=== PATIENT | male | born 1985 | race Caucasian/White ===

== ENCOUNTER 2020-02-22 22:42 | Emergency (ER) | payer MEDICARE, MEDICAID, SELFPAY ==
[2020-02-22 23:43] VITALS: BP 136/70; PULSE 77; RESP 18; TEMP 36.7; BMI 31.6
--- NOTE | 2020-02-23 00:52 | ED.BACK ---
HPI - Back Pain/Injury General Chief Complaint: Back Pain/Injury Stated Complaint: BACK PAIN Source: patient Mode of arrival: ambulatory Limitations: no limitations History of Present Illness HPI Narrative: patient presents to ED for chronic back pain exacerbation. Patient denies any recent trauma to the abdomen or back. Patient states no fever, chills, flank pain, dysuria, hematuria, testicular pain, nausea, vomiting. Patient denies any urinary / bowel incontinence. MD elicited complaint: back pain ( Chronic back pain) Pertinent past history: prior back pain Location: lumbar spine Related Data Previous Rx's Medication Instructions Recorded cyclobenzaprine 10 mg PO TID PRN #15 tab 02/23/20 naproxen 500 mg PO BID PRN #20 tab 02/23/20 Allergies Allergy/AdvReac Type Severity Reaction Status Date / Time No Known Allergies Allergy Verified 02/22/20 22:50 Review of Systems Review of Systems: Yes all other systems are reviewed and are negative Cardiovascular: Cardiovascular: Denies dyspnea Respiratory: Respiratory: Reports as per HPI, Reports no additional respiratory complaints, Denies no additional respiratory complaints, Denies change in phlegm color, Denies chest congestion, Denies cough, Denies hemoptysis, Denies excessive phlegm production, Denies pain on inspiration, Denies pain with cough and Denies dyspnea Gastrointestinal: Gastrointestinal: Reports as per HPI, Reports no additional gastrointestinal complaints, Denies abdominal pain, Denies belching, Denies melena, Denies bloating, Denies hematochezia, Denies tenesmus, Denies change in stool character, Denies constipation, Denies GI cramping, Denies heartburn and Denies diarrhea Genitourinary: Genitourinary: Reports no additional male genitourinary complaints, Denies hematospermia, Denies hematuria, Denies oliguria, Denies difficulty urinating, Denies flank pain and Denies urinary frequency Musculoskeletal: Musculoskeletal: Reports back pain PMFSH Social History Social History Alcohol intake: current Alcohol intake frequency: a few times a month Smoking Status: Never smoker Use of substances other than those prescribed or required for medical reasons: No Advance Directives: No Advance Directives Information Provided: No Physical Exam Vital Signs and I&O and Narrative: Vital Signs and I&O: Vital Signs Temp 98.1 F 02/22/20 23:43 Pulse 77 02/22/20 23:43 Resp 18 02/22/20 23:43 BP 136/70 02/22/20 23:43 Intake & Output 02/22/20 02/22/20 02/23/20 06:59 18:59 06:59 Weight 108.862 kg Body Mass Index 31.6 Const: General: cooperative, healthy appearing, comfortable and no acute distress Orientation/consciousness: patient oriented x3 HENMT: Head: Yes normal to inspection Neck: Neck: Yes normal visual inspection, Yes full ROM, Yes no lymphadenopathy, Yes no meningeal signs, No positive Brudzinski's sign and No positive Kernig's sign Chest: Chest palpation & inspection: normal inspection of the chest, normal palpation of entire chest wall and normal inspection of the chest Resp: Effort & Inspection: normal respiratory effort, able to speak in complete sentences, normal respiratory pattern, no audible wheezes, no cough, respiratory effort not decreased and no grunting Auscultation: clear to auscultation bilaterally Cardio: Jugular venous distension: no JVD Rhythm: regular rhythm Heart sounds: S1 normal heart sound present and S2 normal heart sound present GI: Inspection: Yes normal to inspection, No abdominal wall ecchymosis, No Abdominal wall edema, No distended, No incision, No Abdominal panniculus present, No obesity and No scaphoid Palpation (GI): nontender : General: No CVA tenderness and Yes no CVA tenderness Back/Spine/Pelvis: Other: patient has normal gait on ambulation Back: no CVA tenderness, No CVA tenderness and back tenderness Thoracic/Lumbar Spine: lumbar spinal tenderness (mild) Skin: General skin exam: no rashes or lesions noted Neuro: General: patient oriented x3, no meningeal signs and CN's II-XI intact bilaterally Cranial nerves: Yes CN's II-XII intact bilaterally Gait exam (Neuro): Normal gait present Extrem: General: Yes normal to inspection and Yes full ROM Psych: Appearance: grossly normal and well kempt Course Course Course Narrative: no need for any repeat imaging. Patient denies any trauma. Patient has normal gait. Patient will be given Toradol for pain relief. Discharge Plan Discharge Clinical Impression: Chronic back pain Qualifiers: Back pain location: low back pain Back pain laterality: midline Patient Disposition: Elopement Instructions: Chronic Back Pain (DC) Additional Instructions: return to the ED immediately for any urinary/ bowel incontinence, abdominal pain, nausea, vomiting, fever, chills, flank pain, dysuria, hematuria, paralysis of lower extremities, nausea, vomiting, dizziness, headache, or any other concerning symptoms. please follow-up with your primary care provider as soon as possible. Call today for follow-up appointment Prescriptions: New naproxen 500 mg tablet 500 mg PO BID PRN (Reason: pain) Qty: 20 RF: 0 cyclobenzaprine 10 mg tablet 10 mg PO TID PRN (Reason: muscle spasm) Qty: 15 RF: 0 Interventions: ED Discharge Assessment Last Done: 02/23/20 01:08 Discharge Date/Time: 02/23/20 01:15 Print Language: Setswana
[2020-02-23] MEDS: Ketorolac Tromethamine 60 MG/2 ML VIAL IM (00:58)
== END 2020-02-23 01:15 | disposition left against medical advice (07) ==
PROVIDERS: Emergency Provider Internal Medicine
DX: M54.5 Low back pain (principal)
CPT/HCPCS: 96372; 99284; J1885

== ENCOUNTER 2020-08-13 02:29 | Emergency (ER) | payer MEDICARE, MEDICAID, SELFPAY ==
--- NOTE | ~2020-08-13 | CT_ITS ---
EXAMINATIONS: CT HEAD WITHOUT CONTRAST AND CT CERVICAL SPINE WITHOUT CONTRAST CLINICAL INFORMATION: Fall. Seizure. COMPARISON: Multiple prior exams are reviewed. The most recent is from 10/05/2019. TECHNIQUE: Contiguous helical images of the brain were obtained without IV contrast. Contiguous helical images of the cervical spine were obtained without IV contrast. Multiplanar reconstructions were performed. DLP: 798 mGy-cm. FINDINGS: There are no pathologic extra-axial fluid collections. The lateral, third, fourth ventricles are nondilated and concordant with the appearance of the sulci. There is no evidence for acute intraparenchymal hemorrhage or infarct. There is neither mass nor mass effect. There is no shift of midline structures. The paranasal sinuses and mastoid air cells are clear. There are no osseous lesions. The cervical vertebra are in normal alignment. Disc heights and vertebral heights are well-preserved. There are no fractures. There is no prevertebral soft tissue swelling. There is no cervical lymphadenopathy. The visualized lung apices are clear. CT/CT head/brain wo con IMPRESSION: No evidence for acute intracranial injury. No evidence for acute injury to the cervical spine. Automated exposure control (Care Dose) Adjustment of the mA and/or kv according to patient size (this includes techniques or standardized protocols for targeted exams where dose is matched to indication / reason for exam; i.e. extremities or head).
--- NOTE | ~2020-08-13 | CT_ITS ---
EXAMINATIONS: CT HEAD WITHOUT CONTRAST AND CT CERVICAL SPINE WITHOUT CONTRAST CLINICAL INFORMATION: Fall. Seizure. COMPARISON: Multiple prior exams are reviewed. The most recent is from 10/05/2019. TECHNIQUE: Contiguous helical images of the brain were obtained without IV contrast. Contiguous helical images of the cervical spine were obtained without IV contrast. Multiplanar reconstructions were performed. DLP: 798 mGy-cm. FINDINGS: There are no pathologic extra-axial fluid collections. The lateral, third, fourth ventricles are nondilated and concordant with the appearance of the sulci. There is no evidence for acute intraparenchymal hemorrhage or infarct. There is neither mass nor mass effect. There is no shift of midline structures. The paranasal sinuses and mastoid air cells are clear. There are no osseous lesions. The cervical vertebra are in normal alignment. Disc heights and vertebral heights are well-preserved. There are no fractures. There is no prevertebral soft tissue swelling. There is no cervical lymphadenopathy. The visualized lung apices are clear. CT/CT cervical spine wo con IMPRESSION: No evidence for acute intracranial injury. No evidence for acute injury to the cervical spine. Automated exposure control (Care Dose) Adjustment of the mA and/or kv according to patient size (this includes techniques or standardized protocols for targeted exams where dose is matched to indication / reason for exam; i.e. extremities or head).
[2020-08-13 02:38] VITALS: BP 138/77; BP 150/70; PULSE 110; PULSE 67; RESP 18; TEMP 36.4; O2SAT 100; BMI 58.7
[2020-08-13 02:44] LABS: Glucose, Whole Blood 119 mg/dL (60-115)
[2020-08-13 03:44] VITALS: BP 128/69; PULSE 70; RESP 17; O2SAT 95
--- NOTE | 2020-08-13 04:02 | ED.GENADULT ---
HPI - General Adult General Chief complaint: General Medical Stated complaint: ?Seizure Time Seen by Provider: 08/13/20 03:39 Source: patient Mode of arrival: EMS History of Present Illness HPI narrative: This is a 35-year-old male who states that he was at the club this evening and had for fernandez is but otherwise denies any other drugs or marijuana. He states that he has seizures all the time but has not been placed on any medications. As per EMS it was reported the patient had a seizure for ?40 minutes? and as per EMS seizure got worse with sternal rub. Protocol was followed with C-collar placed and EMS denies any postictal features when seizures stopped. Otherwise, patient denies any fevers, chills, recent COVID-19 exposure. Related Data Home Medications Medication Instructions Recorded Confirmed lisinopril 1 tab PO DAILY 08/13/20 08/13/20 Allergies Allergy/AdvReac Type Severity Reaction Status Date / Time No Known Allergies Allergy Verified 02/22/20 22:50 Review of Systems Review of Systems: Pertinent positives and negatives as stated in HPI 10 point review of systems is otherwise negative. PMFSH Past Medical History Source: nursing notes reviewed Medical History Bipolar 1 disorder Chronic back pain ETOH abuse HTN (hypertension) Non compliance w medication regimen Non compliance with medical treatment Obesity Polysubstance abuse Seizure Social History Social History Alcohol intake: current Alcohol intake frequency: a few times a month Smoking Status: Never smoker Advance Directives: No Physical Exam Vital Signs: Vital Signs: Last Vital Signs Temp 97.6 F 08/13/20 02:38 Pulse 72 08/13/20 07:01 Resp 16 08/13/20 07:01 BP 133/75 08/13/20 07:01 Pulse Ox 98 08/13/20 07:01 Body Mass Index 58.7 VITAL SIGNS: Reviewed. GENERAL: Well developed, well nourished, in no acute distress. HEAD: Normocephalic/atraumatic, EYES: PERRLA, EOMI OROPHARYNX: no oral lesions noted, posterior pharynx clear, no intraoral lesion NECK: Supple, no adenopathy LUNGS: Normal breath sounds. No adventitious sounds or accessory muscle use. SpO2<98> CARDIOVASCULAR: Regular rate and rhythm without noted murmurs ABDOMEN: Soft, non-tender, non-distended with bowel sounds. NEUROLOGIC: Alert and oriented x 4. Strength and sensation to light touch were grossly intact x 4. Course Course Course Narrative: This is a 35-year-old male with history and clinical presentation suspicious for possible pseudoseizures given that patient has not been started on any medications and self reports that he still drives. On review of all investigations there are no acute findings other than urine toxicology showing positivity for cocaine and alcohol. All imaging was negative for any acute findings, C-collar was cleared, and patient was discharged to home in stable condition. Medical Decision Making Lab Data Result diagrams: 08/13/20 04:21 08/13/20 04:21 Labs: Lab Results 08/13/20 08/13/20 08/13/20 Range/Units 02:40 04:19 04:19 WBC (4.8-10.8) X10*3/uL RBC (4.60-5.80) X10*6/uL Hgb (14.0-18.0) g/dl Hct (42-52) % MCV (80-98) fL MCH (27.0-33.0) pg MCHC (31.0-36.0) g/dl RDW (11.0-16.0) % Plt Count (160-400) X10*3/uL MPV (9.4-12.4) fL Immature Gran % (Auto) (0.0-0.4) % Neut % (Auto) (45-73) % Lymph % (Auto) (20-40) % [place] % (Auto) (2-11) % Eos % (Auto) (0-4) % Baso % (Auto) (0-2) % Lymph # (Auto) (1.2-4.9) X10*3/uL [place] # (Auto) (0.1-1.2) X10*3/uL Eos # (Auto) (0.0-0.4) X10*3/uL Baso # (Auto) (0.0-0.2) X10*3/uL Abs Immat Gran (auto) (0.00-0.03) X10*3/uL Absolute Neuts (auto) (2.0-8.3) X10*3/uL Absolute Nucleated RBC (0.0-0.012) X10*3/uL Nucleated RBC % (auto) (0.0-0.2) /100WBC Sodium (135-145) mmol/L Potassium (3.3-5.1) mmol/L Chloride (96-108) mmol/L Carbon Dioxide (22-29) mmol/L Anion Gap (12-20) BUN (9-16) mg/dL Creatinine (0.5-1.4) mg/dL Estim Creat Clear Calc Estimated GFR POC Glucose 119 H (60-115) mg/dL Random Glucose (60-115) mg/dL Calcium (8.4-10.2) mg/dL Total Bilirubin (0.0-1.0) mg/dL AST (5-37) U/L ALT (0-40) U/L Alkaline Phosphatase (39-117) U/L Total Protein (6.5-8.0) g/dL Albumin (3.5-5.0) g/dL Urine Color STRAW Urine Appearance CLEAR Urine pH 5.5 (5.0-8.0) Ur Specific [place] 1.010 (1.005-1.025) Urine Protein NEG (NEG-TRACE) MG/DL Urine Glucose (UA) NEG (NEG) MG/DL Urine Ketones NEG (NEG) MG/DL Urine Blood NEG (NEG) Urine Nitrite NEG (NEG) Ur Leukocyte Esterase NEG (NEG) Urine Opiates Screen Not Detected (Not Detect) Ur Barbiturates Screen Not Detected (Not Detect) Ur Phencyclidine Scrn Not Detected (Not Detect) Ur Amphetamines Screen Not Detected (Not Detect) U Benzodiazepines Scrn Not Detected (Not Detect) Urine Cocaine Screen POSITIVE H (Not Detect) U Marijuana (THC) Screen Not Detected (Not Detect) Ethyl Alcohol mg/dL 08/13/20 08/13/20 08/13/20 Range/Units 04:21 04:21 04:21 WBC 8.2 (4.8-10.8) X10*3/uL RBC 4.91 (4.60-5.80) X10*6/uL Hgb 14.1 (14.0-18.0) g/dl Hct 42.7 (42-52) % MCV 87.0 (80-98) fL MCH 28.7 (27.0-33.0) pg MCHC 33.0 (31.0-36.0) g/dl RDW 12.4 (11.0-16.0) % Plt Count 175 (160-400) X10*3/uL MPV 11.9 (9.4-12.4) fL Immature Gran % (Auto) 0.1 (0.0-0.4) % Neut % (Auto) 59.5 (45-73) % Lymph % (Auto) 25.7 (20-40) % [place] % (Auto) 11.5 H (2-11) % Eos % (Auto) 2.5 (0-4) % Baso % (Auto) 0.7 (0-2) % Lymph # (Auto) 2.1 (1.2-4.9) X10*3/uL [place] # (Auto) 0.9 (0.1-1.2) X10*3/uL Eos # (Auto) 0.2 (0.0-0.4) X10*3/uL Baso # (Auto) 0.1 (0.0-0.2) X10*3/uL Abs Immat Gran (auto) 0.01 (0.00-0.03) X10*3/uL Absolute Neuts (auto) 4.9 (2.0-8.3) X10*3/uL Absolute Nucleated RBC 0.000 (0.0-0.012) X10*3/uL Nucleated RBC % (auto) 0.0 (0.0-0.2) /100WBC Sodium 140 (135-145) mmol/L Potassium 4.2 (3.3-5.1) mmol/L Chloride 106 (96-108) mmol/L Carbon Dioxide 22 (22-29) mmol/L Anion Gap 16 (12-20) BUN 14 (9-16) mg/dL Creatinine 0.85 (0.5-1.4) mg/dL Estim Creat Clear Calc 175.5 Estimated GFR > 60 POC Glucose (60-115) mg/dL Random Glucose 105 (60-115) mg/dL Calcium 8.6 (8.4-10.2) mg/dL Total Bilirubin 0.5 (0.0-1.0) mg/dL AST 20 (5-37) U/L ALT 23 (0-40) U/L Alkaline Phosphatase 83 (39-117) U/L Total Protein 7.0 (6.5-8.0) g/dL Albumin 4.2 (3.5-5.0) g/dL Urine Color Urine Appearance Urine pH (5.0-8.0) Ur Specific [place] (1.005-1.025) Urine Protein (NEG-TRACE) MG/DL Urine Glucose (UA) (NEG) MG/DL Urine Ketones (NEG) MG/DL Urine Blood (NEG) Urine Nitrite (NEG) Ur Leukocyte Esterase (NEG) Urine Opiates Screen (Not Detect) Ur Barbiturates Screen (Not Detect) Ur Phencyclidine Scrn (Not Detect) Ur Amphetamines Screen (Not Detect) U Benzodiazepines Scrn (Not Detect) Urine Cocaine Screen (Not Detect) U Marijuana (THC) Screen (Not Detect) Ethyl Alcohol 91 mg/dL Discharge Plan Discharge Clinical Impression: Movement disorder Patient Disposition: Home, Self-Care Instructions: Nonepileptic Seizures (ED) Additional Instructions: Please return to the emergency department should you experience any acute worsening of symptoms. Please follow-up with your primary care provider in the next 2-3 days for re-evaluation. Prescriptions: No Action lisinopril 10 mg tablet 1 tab PO DAILY RF: 0 Referrals: [facility] [Primary Care Provider] - 2 days Interventions: ED Discharge Assessment Last Done: 08/13/20 07:05 Discharge Date/Time: 08/13/20 07:06
[2020-08-13 04:27] LABS: MANUAL DIFF FLAG NO
[2020-08-13 04:28] LABS: Basophils Absolute Auto 0.1 X10*3/uL (0.0-0.2); Basophils Percent Auto 0.7 % (0-2); Eosinophils Absolute Auto 0.2 X10*3/uL (0.0-0.4); Eosinophils Percent Auto 2.5 % (0-4); Hematocrit 42.7 % (42-52); Hemoglobin 14.1 g/dl (14.0-18.0); Imm Gran Abs Auto 0.01 X10*3/uL (0.00-0.03); Imm Gran Pct Auto 0.1 % (0.0-0.4); Lymphocytes Absolute Auto 2.1 X10*3/uL (1.2-4.9); Lymphocytes Percent Auto 25.7 % (20-40); Mean Corpuscular Hemoglobin 28.7 pg (27.0-33.0); Mean Platelet Volume 11.9 fL (9.4-12.4); Monocytes Absolute Auto 0.9 X10*3/uL (0.1-1.2); Monocytes Percent Auto 11.5 % (2-11); Neutrophils Absolute Auto 4.9 X10*3/uL (2.0-8.3); Neutrophils Percent Auto 59.5 % (45-73); Platelet Count 175 X10*3/uL (160-400); Red Blood Count 4.91 X10*6/uL (4.60-5.80); Red Cell Distribution Width 12.4 % (11.0-16.0); White Blood Count 8.2 X10*3/uL (4.8-10.8)
--- NOTE | 2020-08-13 04:38 | PC.NURSE ---
pt unable to void, several attempts. attempt to straight cath, pt insisted we stop. pt then able to void into urinal on his own, aprox 800 ml. pt then became nauseous, rolled to left side and vomited small amount of liquid. pt awake and alert, asking to go home. pt remembers being in the club, when he had a seizure. c-collar removed by . pt moving all extremities. pt cooperative forlab draw, he had IV access from EMS.
[2020-08-13 04:45] LABS: Appearance Urine CLEAR; Color Urine STRAW; Glucose Urine UA NEG (NEG); Leukocyte Esterase Urine NEG (NEG); Nitrite Urine NEG (NEG); PH 5.5 (5.0-8.0); Urine Blood NEG (NEG); Urine Ketones NEG (NEG); Urine Protein NEG (NEG-TRACE)
[2020-08-13 04:48] LABS: Ethanol 91 mg/dL
[2020-08-13 04:51] LABS: Alanine Aminotransferase 23 U/L (0-40); Albumin Level 4.2 g/dL (3.5-5.0); Alkaline Phosphatase 83 U/L (39-117); Anion Gap 16 (12-20); Aspartate Amino Transferase 20 U/L (5-37); Bilirubin Total 0.5 mg/dL (0.0-1.0); Blood Urea Nitrogen 14 mg/dL (9-16); Calcium 8.6 mg/dL (8.4-10.2); Carbon Dioxide 22 mmol/L (22-29); Chloride 106 mmol/L (96-108); Creatinine Clr Calc Pharmacy 175.5; Estimated Glomerular Filt Rate > 60; Glucose Random 105 mg/dL (60-115); Potassium 4.2 mmol/L (3.3-5.1); Sodium 140 mmol/L (135-145)
[2020-08-13 05:05] LABS: Amphetamine Screen Urine Not Detected (Not Detect); Barbiturates, Urine Not Detected (Not Detect); Benzodiazepines Screen Urine Not Detected (Not Detect); Cannabinoid Screen Urine Not Detected (Not Detect); Cocaine Screen Urine POSITIVE (Not Detect); Opiate Screen Urine Not Detected (Not Detect); Phencyclidine Screen Urine Not Detected (Not Detect)
--- NOTE | 2020-08-13 05:36 | PC.NURSE ---
CALLED BOTH AUNT AND MOTHER FOR RIDE. INDIAN SPEAKING ONLY, PT SPOKE TO PARENTS ON PHONE. PT HUNG UP, ASKED FOR A PAID CAB RIDE HOME. PT TOLD HE NEEDS TO PAY FOR THE CAB, HE SAID NEVER MIND, I'LL JUST WALK HOME. GIS ENGINEER CALLED TO CALL FAMILY BACK TO ASK FOR RIDE.
--- NOTE | 2020-08-13 05:47 | PC.NURSE ---
CHARGE NURSE WORKING ON GETTING A [facility]YFT TRANSPORT HOME FOR PATIENT.
--- NOTE | 2020-08-13 06:10 | PC.NURSE ---
PT AWAKE AND ALERT, DRINKING ICE WATER. FULLY DRESSED WAITING FOR RIDE.
--- NOTE | 2020-08-13 06:59 | PC.NURSE ---
PT GIVEN CAB VOUCHER, AMBULATORY WITH STEADY GAIT TO WAITING ROOM WITH THIS RN. PT UNDERSTANDS TO HYDRATE WELL TODAY. CALL [phone] IF HE FEELS LIKE HE MAY HAVE A SEIZURE. PT HEADING TO [address] [place] [address], HE REPORTS HIS MOTHER LIVES THERE.
[2020-08-13 07:01] VITALS: BP 133/75; PULSE 72; RESP 16; O2SAT 98
== END 2020-08-13 07:06 | disposition home or self-care (01) ==
PROVIDERS: Emergency Provider Student in an Organized Health Care Education/Training Program
DX: G25.9 Extrapyramidal and movement disorder, unspecified (principal); F10.10 Alcohol abuse, uncomplicated; Y90.4 Blood alcohol level of 80-99 mg/100 ml; F14.10 Cocaine abuse, uncomplicated; I10 Essential (primary) hypertension; Z79.899 Other long term (current) drug therapy
CPT/HCPCS: 36415; 51701; 70450; 72125; 80053; 80307; 80320; 81003; 82947; 85025; 99283; 99284

== ENCOUNTER 2020-11-07 19:59 | Emergency (ER) | payer MEDICARE, MEDICAID, SELFPAY ==
--- NOTE | ~2020-11-07 | XR_ITS ---
EXAMINATION: XR TIBIA AND FIBULA, LEFT CLINICAL INFORMATION: Question foreign body proximal lower leg. COMPARISON: None TECHNIQUE: AP and lateral views of the left tibia and fibula were obtained. FINDINGS: Is no gross bony abnormality seen. There is calcification connecting the lower tibia and fibula likely from old injury and interosseous or calcification. No radiopaque foreign body seen. There is no soft tissue abnormality. No periosteal thickening or fracture. Small calcaneal enthesophytes seen. XR/XR tibia fibula LT 2V IMPRESSION: No radiopaque foreign body seen in left lower leg.
[2020-11-07 20:06] VITALS: BP 145/73; PULSE 63; RESP 20; TEMP 36.1; O2SAT 98; BMI 50.5
--- NOTE | 2020-11-07 21:15 | ED_ITS ---
HPI - Extremity Problem General Chief complaint: Extremity Problem Stated complaint: foreign object in leg? Time Seen by Provider: 11/07/20 21:13 Source: patient Mode of arrival: ambulatory History of Present Illness HPI Narrative: 35-year-old male with history of epilepsy who presents with 1 week of accidental injury to the left lateral aspect of the proximal lower leg without evidence of fever chills, induration but mother is concerned about purulence drainage. Related Data Home Medications Medication Instructions Recorded Confirmed lisinopril 1 tab PO DAILY 08/13/20 08/13/20 Previous Rx's Medication Instructions Recorded sulfamethoxazole-trimethoprim 1 tab PO Q12H 3 Days #6 tab 11/07/20 [Bactrim DS] Allergies Allergy/AdvReac Type Severity Reaction Status Date / Time No Known Allergies Allergy Verified 02/22/20 22:50 Review of Systems Review of Systems: Pertinent positives and negatives as stated in HPI and 10 point review of systems otherwise negative. PMFSH Past Medical History Source: nursing notes reviewed Medical History Bipolar 1 disorder Chronic back pain ETOH abuse HTN (hypertension) Non compliance w medication regimen Non compliance with medical treatment Obesity Polysubstance abuse Seizure Social History Social History Alcohol intake: unknown Patient Tobacco Use Status: Tobacco use Unknown Use of substances other than those prescribed or required for medical reasons: Unknown Advance Directives: No Advance Directives Information Provided: Yes Physical Exam Vital Signs: Vital Signs: Last Vital Signs Temp 97.9 F 11/07/20 22:15 Pulse 57 11/07/20 22:15 Resp 17 11/07/20 22:15 BP 131/68 11/07/20 22:15 Pulse Ox 98 11/07/20 22:15 Body Mass Index 50.5 VITAL SIGNS: Reviewed. GENERAL: Well developed, well nourished, in no acute distress. HEAD: Normocephalic/atraumatic EYES: PERRLA, EOMI LUNGS: Normal breath sounds. No adventitious sounds or accessory muscle use. SpO2<98> CARDIOVASCULAR: Regular rate and rhythm without noted murmurs ABDOMEN: Soft, non-tender, non-distended with bowel sounds LEFT LOWER EXTREMITY: 1 cm puncture-type injury to the proximal left lateral aspect of the lower leg with mild surrounding erythema and induration, but no drainage appreciated Course Course Course Narrative: 35-year-old male with history and clinical presentation of puncture injury to left lower extremity without evidence acute infection, will x-ray to evaluate for presence of foreign body. Review of XR negative for evidence of foreign body, irrigation of the wound and manual expression of minimal amounts of purulent material, patient given initial antibiotics here in the emergency room as well as a Tdap and discharged home in stable condition. Discharge Plan Discharge Clinical Impression: Folliculitis, Cellulitis Patient Disposition: Home, Self-Care Instructions: Cellulitis (ED), Folliculitis (ED), Warm Compress or Soak (ED) Additional Instructions: 1. Resume all home medications as prescribed. 2. Follow-up with your primary care provider in the next 2-3 days for re- evaluation. Return to the ER for any acute worsening of your symptoms. Prescriptions: New sulfamethoxazole-trimethoprim [Bactrim DS] 800-160 mg tablet 1 tab PO Q12H 3 Days Qty: 6 RF: 0 No Action lisinopril 10 mg tablet 1 tab PO DAILY RF: 0 Referrals: Trinidad Martínez MD [Primary Care Provider] - 2 days
[2020-11-07 22:15] VITALS: BP 131/68; PULSE 57; RESP 17; TEMP 36.6; O2SAT 98
[2020-11-07] MEDS: Diphth,Pertus(ACell),Tet Adult 0.5 ML SYRINGE IM (22:47)
== END 2020-11-07 23:05 | disposition home or self-care (01) ==
PROVIDERS: Emergency Provider Student in an Organized Health Care Education/Training Program; PCP Internal Medicine
DX: S81.832A Puncture wound without foreign body, left lower leg, initial encounter (principal); L03.116 Cellulitis of left lower limb; L73.9 Follicular disorder, unspecified; I10 Essential (primary) hypertension; G40.909 Epilepsy, unspecified, not intractable, without status epilepticus; Z79.899 Other long term (current) drug therapy; X58.XXXA Exposure to other specified factors, initial encounter; Y93.9 Activity, unspecified; Y92.9 Unspecified place or not applicable; Y99.9 Unspecified external cause status
CPT/HCPCS: 73590; 90471; 90715; 99284

== ENCOUNTER 2020-11-10 16:59 | Emergency (ER) | payer OTHER, MEDICARE, MEDICAID, SELFPAY ==
--- NOTE | ~2020-11-10 | XR_ITS ---
EXAMINATION: THORACIC SPINE 3 VIEWS AND LUMBOSACRAL SPINE 3 VIEWS CLINICAL INFORMATION: Back pain COMPARISON: None TECHNIQUE: As above nonweightbearing FINDINGS: Since his syndesmophytes herniation of disc spaces consistent with dish throughout the thoracolumbar spine. There is moderate disc space narrowing at L5-S1 characteristic of degenerative disc disease. Limited detail at the cervicothoracic junction. XR/XR lumbar spine 2-3V IMPRESSION: Findings of dish. Limited detail. Severe degenerative disc disease L5-S1.
--- NOTE | ~2020-11-10 | XR_ITS ---
EXAMINATION: THORACIC SPINE 3 VIEWS AND LUMBOSACRAL SPINE 3 VIEWS CLINICAL INFORMATION: Back pain COMPARISON: None TECHNIQUE: As above nonweightbearing FINDINGS: Since his syndesmophytes herniation of disc spaces consistent with dish throughout the thoracolumbar spine. There is moderate disc space narrowing at L5-S1 characteristic of degenerative disc disease. Limited detail at the cervicothoracic junction. XR/XR thoracic spine 2V IMPRESSION: Findings of dish. Limited detail. Severe degenerative disc disease L5-S1.
[2020-11-10 17:21] VITALS: BP 141/80; PULSE 71; RESP 18; O2SAT 97; BMI 46.6
--- NOTE | 2020-11-10 19:26 | ED.BACK ---
HPI - Back Pain/Injury General Chief Complaint: Back Pain/Injury Stated Complaint: Back pain/Work injury Source: patient Mode of arrival: ambulatory Limitations: no limitations History of Present Illness HPI Narrative: 35-year-old male with past medical history of morbid obesity presents with back pain after work related injury. Patient states that his entire back cracked after he lifted a water heater. He does not report any symptoms indicating cauda equina, has full range of motion to all extremities, was ambulatory into this facility. He does not report any other symptoms, denies chest pain or pressure, palpitations, shortness of breath, shortness of breath on exertion, abdominal pain, abdominal distention, dysuria, hematuria, fevers, chills, edema, and any other concerning symptoms. MD elicited complaint: back injury Pertinent past history: recent trauma Onset (ago): hour(s) (Several hours prior to arrival) Timing: constant Severity: severe Pain scale (0-10): 10 Similar Symptoms Previously: No Quality: aching and spasming Location: lumbar spine and thoracic spine Radiation: none Exacerbating factors: movement and walking Context: while lifting and turning/twisting Associated symptoms: denies other symptoms Work related injury: Yes Related Data Home Medications Medication Instructions Recorded Confirmed lisinopril 1 tab PO DAILY 08/13/20 08/13/20 Previous Rx's Medication Instructions Recorded sulfamethoxazole-trimethoprim 1 tab PO Q12H 3 Days #6 tab 11/07/20 [Bactrim DS] cyclobenzaprine 10 mg PO TID PRN #14 tab 11/10/20 Allergies Allergy/AdvReac Type Severity Reaction Status Date / Time No Known Allergies Allergy Verified 11/10/20 17:21 Review of Systems Review of Systems: Constitutional: No Fever, No Chills ENT/Mouth: No Ear Pain, No Hoarseness, No sore throat Eyes: No Eye Pain, No Swelling, No Redness, No Foreign Body Cardiovascular: No Chest Pain, No SOB Respiratory: No Cough, No Dyspnea Gastrointestinal: No Nausea, No Vomiting, No Diarrhea, No abdominal Pain Genitourinary: No Dysuria, No Hematuria Musculoskeletal: positive back pain, No Myalgias, No Joint Swelling Skin: No Skin lacerations, No rash Neuro: No Weakness, No Numbness, No Paresthesias, No Loss of Consciousness, No Dizziness, No Headache Psych: No Anxiety/Panic, No Depression Heme/Lymph: no easy bruising, no Lymphadenopathy Endocrine: No Polyuria, No Polydipsia Yes all other systems are reviewed and are negative [facility] Past Medical History Attestation statement: The following information was validated with the patient. Source: old records reviewed Medical History Bipolar 1 disorder Chronic back pain ETOH abuse HTN (hypertension) Non compliance w medication regimen Non compliance with medical treatment Obesity Polysubstance abuse Seizure Social History Social History Alcohol intake: unknown Patient Tobacco Use Status: Tobacco use Unknown Advance Directives: No Physical Exam Vital Signs: Vital Signs: Last Vital Signs Pulse 71 11/10/20 17:21 Resp 18 11/10/20 17:21 BP 141/80 H 11/10/20 17:21 Pulse Ox 97 11/10/20 17:21 Body Mass Index 46.6 Appearance: Alert. Oriented X3. No acute distress. Eyes: Pupils equal, round and reactive to light. ENT: Pharynx normal. Neck: Normal inspection. Neck supple. CVS: Normal heart rate and rhythm. Pulses normal. Respiratory: No respiratory distress. Breath sounds normal. Abdomen: Soft and nontender. Skin: Skin warm and dry. Normal skin color. Normal skin turgor. Extremities: No lower extremity edema. Neuro: No motor deficit. No sensory deficit. Course Course Course Narrative: 35-year-old male presents with back pain after work related injury. Will order x-rays of thoracic and lumbar spine. No indication of cauda equina, has full range of motion, ambulatory into this facility. Negative Romberg. No vertebral tenderness or step-offs noted to the entire spine. No focal neural deficits, sensation intact to all extremities. Thoracic and lumbar spine x-ray shows degenerative disc disease. Will have patient follow up with work connection as well as pain management for further workup. Patient verbalized understanding of and agrees to plan of care discharge home. MDM - Back Pain/Injury Differential Diagnosis Differential diagnosis: Likely lumbar radiculopathy, sciatica, strain of lumbar region and thoracic back pain Medical Records Attestation: I reviewed the patient's medical records. Imaging Data Thoracic spine: Attestation: I personally reviewed and interpreted this imaging study as follows: Radiologist's impression: EXAMINATION: THORACIC SPINE 3 VIEWS AND LUMBOSACRAL SPINE 3 VIEWS CLINICAL INFORMATION: Back pain COMPARISON: None TECHNIQUE: As above nonweightbearing FINDINGS: Since his syndesmophytes herniation of disc spaces consistent with dish throughout the thoracolumbar spine. There is moderate disc space narrowing at L5-S1 characteristic of degenerative disc disease. Limited detail at the cervicothoracic junction. XR/XR thoracic spine 2V IMPRESSION: Findings of dish. Limited detail. Severe degenerative disc disease L5-S1. Lumbar spine: Attestation: I personally reviewed and interpreted this imaging study as follows: Radiologist's impression: EXAMINATION: THORACIC SPINE 3 VIEWS AND LUMBOSACRAL SPINE 3 VIEWS CLINICAL INFORMATION: Back pain COMPARISON: None TECHNIQUE: As above nonweightbearing FINDINGS: Since his syndesmophytes herniation of disc spaces consistent with dish throughout the thoracolumbar spine. There is moderate disc space narrowing at L5-S1 characteristic of degenerative disc disease. Limited detail at the cervicothoracic junction. Discharge Plan Discharge Clinical Impression: Strain of lumbar region Qualifiers: Encounter type: initial encounter Qualified Code(s): S39.012A - Strain of muscle, fascia and tendon of lower back, initial encounter Degenerative disc disease Qualifiers: Spinal region: lumbar Qualified Code(s): M51.36 - Other intervertebral disc degeneration, lumbar region Patient Disposition: Home, Self-Care Instructions: Low Back Strain (ED), Degenerative Disc Disease (ED) Additional Instructions: You were evaluated for thoracic and lower back injury sustained at work. X-rays indicate degenerative disc disease with muscular spasms. Please take cyclobenzaprine as directed. This medication is a muscle relaxer, do not drive or operate machinery while taking this medication. This medication can cause drowsiness, delay reaction time, and increased risk for falls. Please follow-up with work connection. You may consider following up with Pain Management, Dr Stokes. I have provided a referral number for you. Thank you for choosing this emergency department for evaluation. Please follow-up with primary care physician as needed. Return to the emergency department for any new, concerning, or worsening symptoms. Prescriptions: New cyclobenzaprine 10 mg tablet 10 mg PO TID PRN (Reason: muscle spasm) Qty: 14 RF: 0 No Action lisinopril 10 mg tablet 1 tab PO DAILY RF: 0 sulfamethoxazole-trimethoprim [Bactrim DS] 800-160 mg tablet 1 tab PO Q12H 3 Days Qty: 6 RF: 0 Referrals: Vini Stokes MD [Physician] - 2 days (Degenerative disc disease) Stand Alone Forms: Work/School Release
[2020-11-10] MEDS: Ketorolac Tromethamine 60 MG/2 ML VIAL 30 MG IM (20:32)
[2020-11-10] MEDS: Cyclobenzaprine HCl 10 MG TABLET PO (20:33)
== END 2020-11-10 21:03 | disposition home or self-care (01) ==
PROVIDERS: Emergency Provider Internal Medicine; PCP Internal Medicine
DX: S39.012A Strain of muscle, fascia and tendon of lower back, initial encounter (principal); M51.36 Other intervertebral disc degeneration, lumbar region; I10 Essential (primary) hypertension; X50.0XXA Overexertion from strenuous movement or load, initial encounter; Y93.9 Activity, unspecified; Y92.89 Other specified places as the place of occurrence of the external cause; Y99.0 Civilian activity done for income or pay
CPT/HCPCS: 72070; 72100; 96372; 99284; J1885

== ENCOUNTER 2021-01-19 03:31 | Emergency (ER) | payer MEDICARE, MEDICAID, SELFPAY ==
[2021-01-19 03:35] VITALS: BP 128/82; PULSE 94; RESP 18; TEMP 36.3; O2SAT 98; BMI 35.9
[2021-01-19 04:00] VITALS: PULSE 84; RESP 16; O2SAT 99
--- NOTE | 2021-01-19 05:58 | ED.GENADULT ---
HPI - General Adult General Chief complaint: ETOH/Substance Use Stated complaint: etoh Time Seen by Provider: 01/19/21 05:58 Source: patient and EMS Mode of arrival: EMS Limitations: no limitations History of Present Illness HPI narrative: 35-year-old male history of alcohol abuse, came in by ambulance for evaluation after drinking alcohol. This is a 35-year-old male came in by ambulance for evaluation of alcohol intoxication, patient's in the emergency department for also alcohol intoxication, patient came to the hospital to see his , while I interviewed the patient patient started to have a pseudo-seizure activity patient was conscious during the seizure activity. After the seizure activity patient regained full consciousness immediately. With no postictal time Related Data Previous Rx's Medication Instructions Recorded sulfamethoxazole 800 1 tab PO Q12H 3 Days #6 tab 11/07/20 mg-trimethoprim 160 mg tablet (Bactrim DS) cyclobenzaprine 10 mg tablet 10 mg PO TID PRN #14 tab 11/10/20 lisinopril 20 mg tablet 20 mg PO DAILY 90 Days #90 tab 11/21/20 Allergies Allergy/AdvReac Type Severity Reaction Status Date / Time No Known Allergies Allergy Verified 11/21/20 13:46 Review of Systems Review of Systems: All other systems are reviewed and are negative Constitutional: Reports as per HPI and Reports no additional constitutional complaints Eyes: Reports as per HPI and Reports no additional eye complaints Reports system reviewed and no additional complaints, except as documented Cardiovascular: Reports as per HPI and Reports no additional cardiovascular complaints Respiratory: Reports as per HPI and Reports no additional respiratory complaints Gastrointestinal: Reports as per HPI and Reports no additional gastrointestinal complaints Genitourinary: Reports no additional female genitourinary complaints Musculoskeletal: Reports no additional musculoskeletal complaints Skin/Breast: Reports system reviewed and no additional complaints, except as docu Psychiatric: Reports no additional psychiatric complaints Endocrine: Reports no additional endocrine complaints Hematologic/Lymphatic: Reports no additional hematologic/lymphatic complaints Allergic/Immunologic: Reports no additional allergic/immunologic complaints Reports system reviewed and no additional complaints, except as documented and Reports Abnormal speech present [facility] Past Medical History Medical History Bipolar 1 disorder Chronic back pain ETOH abuse HTN (hypertension) Lumbar pain Non compliance w medication regimen Non compliance with medical treatment Obesity Polysubstance abuse Seizure Surgical History No pertinent past surgical history Family History Family History Mother Hypertension Diabetes Cancer Father Diabetes Hypertension Social History Social History Housing: Apartment Housing Other:: living with aunt Alcohol intake: current Alcohol intake frequency: a few times a month Alcohol type: beer Patient Tobacco Use Status: Former Tobacco user Tobacco use type: Cigarette Smoked in Last 30 Days: No e-Cigarette/Vaping Use: Never Used Second Hand Smoke Exposure: No Use of substances other than those prescribed or required for medical reasons: Yes Substance Use Type: Crack/Cocaine Advance Directives: No service: No Current occupational status: unemployed Physical Exam Vital Signs: Vital Signs: Last Vital Signs Temp 97.3 F 01/19/21 03:35 Pulse 84 01/19/21 04:00 Resp 16 01/19/21 04:00 BP 128/82 01/19/21 03:35 Pulse Ox 99 01/19/21 04:00 Body Mass Index 35.9 Vital signs have been reviewed as appeared to be correct. Blood pressure normal. Heart rate normal. Respiration rate normal. Temperature normal. Oxygen saturation normal. Appearance: Alert. Oriented X3. No acute distress. Head: Normal external exam. Normocephalic. Atraumatic. No Carrasco signs noted. No raccoon eyes noted Eyes: PERRLA. EOMI. Conjunctiva and sclera normal. Eyelids normal. ENT: TM's Normal. Pharynx normal. Uvula midline. Moist mucous membranes. No trismus noted. No drooling noted. No muffled voice noted. Neck: Normal inspection. Neck supple. FROM. No adenopathy. Thyroid Normal. No meningeal signs. No neck mass noted. CVS: Normal heart rate and rhythm. Heart sound normal. No murmurs noted. Pulses normal throughout. Respiratory: No respiratory distress. Painless inspiration. Breath sounds normal. No wheezes/rales/rhonchi noted. Chest nontender. No accessory muscle usage noted or decreased air movement noted. Abdomen: Soft and nontender. Bowel sounds normal in all 4 quadrants. No distention noted. No organomegaly noted. No visible injury noted. Back: No CVA tenderness. Full range of motion noted. Skin: Skin warm and dry. Normal skin color. Normal skin turgor. No rashes/lesions/lacerations noted. Extremities: No lower extremity edema. Extremities exhibit normal range of motion. Extremities nontender. Neuro: Oriented X 3. Cranial nerve exam: II-XII are grossly intact No motor deficit. No sensory deficit. Reflexes normal. Course Course Course Narrative: Assessment and plan. 35-year-old male came in for alcohol intoxication Patient now is sober will discharge to follow-up with PCP. Discharge Plan Discharge Clinical Impression: Pseudoseizures Alcoholic intoxication Qualifiers: Complication of substance-induced condition: uncomplicated Qualified Code(s): F10.920 - Alcohol use, unspecified with intoxication, uncomplicated Patient Disposition: Home, Self-Care Instructions: Abuse of Alcohol (ED) Prescriptions: No Action sulfamethoxazole-trimethoprim [Bactrim DS] 800-160 mg tablet 1 tab PO Q12H 3 Days Qty: 6 RF: 0 cyclobenzaprine 10 mg tablet 10 mg PO TID PRN (Reason: muscle spasm) Qty: 14 RF: 0 lisinopril 20 mg tablet 20 mg PO DAILY 90 Days Qty: 90 RF: 3 Referrals: Physician,Unknown [Primary Care Provider] - 2 days
[2021-01-19 07:20] VITALS: BP 106/55; PULSE 81; RESP 16; O2SAT 98
--- NOTE | 2021-01-19 07:25 | PC.NURSE ---
Pt steady on feet, speech clear. oriented. used bathroom and steady out to wr to await shuttle home
== END 2021-01-19 07:27 | disposition home or self-care (01) ==
PROVIDERS: Emergency Provider Emergency Medicine
DX: R56.9 Unspecified convulsions (principal); F10.920 Alcohol use, unspecified with intoxication, uncomplicated; F17.210 Nicotine dependence, cigarettes, uncomplicated; Z71.6 Tobacco abuse counseling; Z79.899 Other long term (current) drug therapy
CPT/HCPCS: 99283; 99284

== ENCOUNTER 2021-03-14 07:37 | Emergency (ER) | payer MEDICARE, MEDICAID, SELFPAY ==
--- NOTE | ~2021-03-14 | XR_ITS ---
EXAMINATION: XR LUMBOSACRAL SPINE CLINICAL INFORMATION: Status post fall. Low back pain. COMPARISON: Lumbar spine done on 11/10/2020. TECHNIQUE: Three views of the lumbosacral spine. FINDINGS: There are 5 nonrib-bearing lumbar vertebrae present with mild mid lumbar levoscoliosis and moderate degenerative spondylosis at L5-S1. Mild degenerative spondylosis related changes are noted within the remainder of the lumbar spine. No compression fracture. The posterior appendages are intact. The paraspinal soft tissues are unremarkable. Overall, no significant change since 11/10/2020. XR/XR lumbar spine 2-3V IMPRESSION: 1. No radiographic evidence of any acute posttraumatic changes present. No significant change since prior study dated 11/10/2020. 2. Reidentified is moderate degenerative spondylosis at L5-S1 and mild degenerative spondylosis within the remainder of the lumbar spine and mild mid lumbar levoscoliosis.
[2021-03-14 07:53] VITALS: BP 157/85; PULSE 71; RESP 17; TEMP 36.6; O2SAT 97; BMI 48.7
--- NOTE | 2021-03-14 08:18 | ED_ITS ---
HPI - Back Pain/Injury General Chief Complaint: Back Pain/Injury Stated Complaint: back pain - fall Time Seen by Provider: 03/14/21 07:58 Source: patient Mode of arrival: ambulatory Limitations: no limitations History of Present Illness HPI Narrative: 35-year-old male with a history of obesity, seizures, hypertension, alcohol abuse, polysubstance abuse, bipolar disorder, chronic low back pain who is presenting to the ER with low back pain after a slip and fall at [employer] around 06:00 this morning. He reports that was an on marked wet floor and he slipped and fell. He reports going straight up in the air and falling directly onto his buttock and back. He has severe low back pain at this time. He denies any weakness or numbness in his legs. No urinary or bowel incontinence. He also reports some mild neck pain and headache. He does not think he hit his head. He did not pass out or lose consciousness. he is very upset [place] the [employer] and reports he is going to ninfa them because the area was not marked. MD elicited complaint: back pain, back injury and fall Pertinent past history: prior back pain Onset (ago): hour(s) (2) Timing: constant Severity: severe Pain scale (0-10): 8 Similar Symptoms Previously: Yes Quality: sharp and aching Location: lumbar spine, right lower back and left lower back Radiation: none Exacerbating factors: movement Relieving factors: none Context: fall Associated symptoms: denies other symptoms Work related injury: No Related Data Previous Rx's Medication Instructions Recorded sulfamethoxazole 800 1 tab PO Q12H 3 Days #6 tab 11/07/20 mg-trimethoprim 160 mg tablet (Bactrim DS) cyclobenzaprine 10 mg tablet 10 mg PO TID PRN #14 tab 11/10/20 lisinopril 20 mg tablet 20 mg PO DAILY 90 Days #90 tab 11/21/20 ibuprofen 600 mg tablet 600 mg PO Q8H PRN #20 tab 03/14/21 lidocaine HCl 2.8 % topical gel 1 appl TOPICAL TID PRN #100 g 03/14/21 (DermacinRx Lidogel) Allergies Allergy/AdvReac Type Severity Reaction Status Date / Time No Known Allergies Allergy Verified 11/21/20 13:46 Review of Systems Review of Systems: Constitutional: No Fever, No Chills Cardiovascular: No Chest Pain, No SOB Respiratory: No Cough, No Sputum Gastrointestinal: No Nausea, No Vomiting, No abdominal Pain Genitourinary: No Hematuria Musculoskeletal: + joint pain, + Myalgias Skin: No Skin Lesions, No rash Neuro: No Weakness, No Numbness, No Dizziness, + Headache Heme/Lymph: No Bruising PMFSH Past Medical History Attestation statement: The following information was validated with the patient. Medical History Bipolar 1 disorder Chronic back pain ETOH abuse HTN (hypertension) Lumbar pain Non compliance w medication regimen Non compliance with medical treatment Obesity Polysubstance abuse Seizure Surgical History No pertinent past surgical history Family History Family History Mother Hypertension Diabetes Cancer Father Diabetes Hypertension Social History Social History Housing: Apartment Housing Other:: living with aunt Alcohol intake: current Alcohol intake frequency: a few times a month Alcohol type: beer Patient Tobacco Use Status: Former Tobacco user Tobacco use type: Cigarette e-Cigarette/Vaping Use: Never Used Second Hand Smoke Exposure: No Substance Use Type: Crack/Cocaine Advance Directives: No service: No Current occupational status: unemployed Physical Exam Vital Signs: Vital Signs: Last Vital Signs Temp 98 F 03/14/21 07:53 Pulse 63 03/14/21 09:04 Resp 18 03/14/21 09:04 BP 141/73 H 03/14/21 09:04 Pulse Ox 98 03/14/21 09:04 Body Mass Index 48.7 Appearance: Alert. Oriented X3. No acute distress. Eyes: Pupils equal, round and reactive to light. ENT: Pharynx normal. Neck: Normal inspection. Neck supple. No cervical spinal tenderness CVS: Normal heart rate and rhythm. Pulses normal. Respiratory: No respiratory distress. Breath sounds normal. Abdomen: Obese, Soft and nontender. +BS x4 Back: normal inspection. Diffuse tenderness throughout the lower back including soft tissues in the lumbar spine. Limited flexion of the spine due to pain. Negative straight leg test bilaterally. Skin: Skin warm and dry. Normal skin color. Normal skin turgor. No rashes. Extremities: No lower extremity edema. Atraumatic x4 Neuro: Oriented X 3. No motor deficit. No sensory deficit. Ambulates with a slow but steady gait Course Course Course Narrative: 35-year-old male presenting with low back pain after a slip and fall at a gas station this morning. He reports severe low back pain at this time asking for something stronger for pain. He has no signs of spinal cord impingement at this time his neuro exam is nonfocal. Will plan to get an x-ray of the lumbar spine to rule out compression fracture or deformity. Will give a dose of IM Toradol now and reassess his pain. Reevaluation(s) Reevaluation #1: Pain improved. Any traumatic change. No change since October 2020. He has moderate degenerative spondylosis at L5-S1 with mild degenerative spondylosis within the remainder of the lumbar spine and mild mid lumbar levoscoliosis. These are chronic findings. Has a nonfocal neuro exam is stable for discharge home with supportive care. Will give NSAID and topical lidocaine as needed for pain. Critical Care Time Critical Care Time Critical Care Time: No Discharge Plan Discharge Clinical Impression: Contusion of lower back Qualifiers: Encounter type: initial encounter Qualified Code(s): S30.0XXA - Contusion of lower back and pelvis, initial encounter Lumbar strain Qualifiers: Encounter type: initial encounter Qualified Code(s): S39.012A - Strain of m uscle, fascia and tendon of lower back, initial encounter Patient Disposition: Home, Self-Care Instructions: Low Back Strain (ED), Acute Low Back Pain (ED), Lower Back Exercises (ED) Additional Instructions: Your x-ray today did not show any traumatic injury. Recommend rest. No strenuous activity. Your pain will improve with time and rest. No bending, lifting or twisting. Use ice several times per day for 20 minutes at a time for the next 48 hours and then change to heat. Take medications as prescribed to help with pain and discomfort. Follow up with your Primary Care Doctor this week. If your pain worsens, if you develop new numbness, tingling, weakness, loss of function or incontinence call 911 or come back to the ER right away for evaluation. Prescriptions: New ibuprofen 600 mg tablet 600 mg PO Q8H PRN (Reason: pain) Qty: 20 RF: 0 DermacinRx Lidogel 2.8 % gel 1 appl topical TID PRN (Reason: pain) Qty: 100 RF: 0 No Action sulfamethoxazole-trimethoprim [Bactrim DS] 800-160 mg tablet 1 tab PO Q12H 3 Days Qty: 6 RF: 0 cyclobenzaprine 10 mg tablet 10 mg PO TID PRN (Reason: muscle spasm) Qty: 14 RF: 0 lisinopril 20 mg tablet 20 mg PO DAILY 90 Days Qty: 90 RF: 3
[2021-03-14] MEDS: Ketorolac Tromethamine 60 MG/2 ML VIAL IM (08:54)
[2021-03-14 09:04] VITALS: BP 141/73; PULSE 63; RESP 18; O2SAT 98
== END 2021-03-14 09:29 | disposition home or self-care (01) ==
PROVIDERS: Emergency Provider Emergency Medicine
DX: S30.0XXA Contusion of lower back and pelvis, initial encounter (principal); S39.012A Strain of muscle, fascia and tendon of lower back, initial encounter; M47.817 Spondylosis without myelopathy or radiculopathy, lumbosacral region; I10 Essential (primary) hypertension; W01.0XXA Fall on same level from slipping, tripping and stumbling without subsequent striking against object, initial encounter; Y93.9 Activity, unspecified; Y92.524 Gas station as the place of occurrence of the external cause; Y99.9 Unspecified external cause status
CPT/HCPCS: 72100; 96372; 99284; J1885

== ENCOUNTER 2021-04-15 06:43 | Emergency (ER) | payer MEDICARE, MEDICAID, SELFPAY ==
--- NOTE | ~2021-04-15 | CT_ITS ---
EXAMINATION: CT BRAIN WITHOUT CONTRAST. CT FACIAL BONES WITHOUT CONTRAST. CLINICAL INFORMATION: Head injury. Right ear drum perforation. COMPARISON: CT brain 08/05/2020. TECHNIQUE: 5 mm thin axial and reformatted 2 mm thin sagittal and coronal images of brain were obtained. Subsequently axial 3 mm thin and reformatted 1.5 mm thin sagittal and coronal images of facial bones were obtained. DLP 1307 mGy. FINDINGS: Brain: There is no acute intra-axial, extra-axial bleed, masses or midline shift. There is no acute infarction evolution. The lateral ventricles are symmetrical in size and configuration without enlargement. The nolasco to white matter differentiation is maintained normal. Bone windows reveal no calvarial abnormality. There is no scalp soft tissue abnormality. Bilateral paranasal sinuses are well-aerated with minimal mucoperiosteal thickening bilateral frontal, sphenoid, maxillary and ethmoid sinuses. The mastoid sinuses are clear. Facial bones: There is mucoperiosteal thickening of bilateral frontal, ethmoid, maxillary and sphenoid sinuses. The bony sinus atwood are intact. The nasal septum is mildly deviated to left but symmetrical hypertrophied turbinates. The lamina papyracea and the cribriform plate is intact. The bony orbits, bilateral optic globes, optic nerves and the soft tissues are normal. The nasal bone, maxillofacial bones are intact. Bilateral TM joints are symmetrical and normal. No mandibular fractures seen. Visualized bilateral external auditory canal, middle ear ossicles and internal auditory canal are symmetrical and normal. No soft tissue mass visualized in the or air-fluid levels seen in the middle ear. Bilateral tympanic membranes are suboptimally visualized. Visualized cervical spine is unremarkable. CT/CT facial bones wo con IMPRESSION: No acute intracranial process seen. Bilateral chronic pansinusitis without air-fluid levels or bony abnormality. Mild deviation of nasal septum to the left.
[2021-04-15 06:47] VITALS: BP 150/86; PULSE 92; RESP 18; TEMP 36.8; O2SAT 99; BMI 24.4
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
[2021-04-15] MEDS: Amoxicillin 500 MG CAPSULE PO (07:53)
--- NOTE | 2021-04-15 09:00 | MHC.RECOVSUP ---
Recovery Support note: Patient is a 35 year old Niuean speaking male who presented to [facility] ED after consuming alcohol. This sports book writer met with patient to discuss alcohol use and recovery supports. Patient declined invitation to discuss his alcohol use. Encouraged patient to inform staff if he changes his mind.
== END 2021-04-15 09:41 | disposition home or self-care (01) ==
PROVIDERS: Emergency Provider Emergency Medicine
DX: F10.120 Alcohol abuse with intoxication, uncomplicated (principal); Y90.9 Presence of alcohol in blood, level not specified; S09.22XA Traumatic rupture of left ear drum, initial encounter; Y04.2XXA Assault by strike against or bumped into by another person, initial encounter; F41.9 Anxiety disorder, unspecified; Y93.9 Activity, unspecified; Y92.410 Unspecified street and highway as the place of occurrence of the external cause; Y99.9 Unspecified external cause status
CPT/HCPCS: 70450; 70486; 99283; 99284

== ENCOUNTER 2021-05-11 19:46 | Emergency (ER) | payer MEDICARE, MEDICAID, SELFPAY ==
[2021-05-11 20:10] VITALS: BP 135/80; PULSE 69; RESP 16; TEMP 37.1; O2SAT 96; BMI 50.9
--- NOTE | 2021-05-11 20:25 | ED.GENADULT ---
HPI - General Adult General Chief complaint: General Medical Stated complaint: coughing dizziness Source: patient Mode of arrival: ambulatory Limitations: no limitations History of Present Illness HPI narrative: 36-year-old male presents requesting COVID-19 testing. Patient is asymptomatic at this time Radiation: non-radiation Exacerbating factors: none Associated symptoms: denies other symptoms Treatments prior to arrival: none Related Data Previous Rx's Medication Instructions Recorded lisinopril 20 mg tablet 20 mg PO DAILY 90 Days #90 tab 11/21/20 Allergies Allergy/AdvReac Type Severity Reaction Status Date / Time No Known Allergies Allergy Verified 05/02/21 13:28 Review of Systems Review of Systems: Constitutional: No Weight loss, No Fever, No Chills, No Night Sweats, No Fatigue, No Malaise ENT/Mouth: No Hearing loss, No Ear Pain, No Nasal Congestion, No Sinus Pain, No Hoarseness, No sore throat, No Rhinorrhea, No Swallowing Difficulty Eyes: No Eye Pain, No Swelling, No Redness, No Foreign Body, No Discharge, No Vision Changes Cardiovascular: No Chest Pain, No SOB, No Dyspnea on Exertion, No Orthopnea, No Edema, No Palpitations Respiratory: No Cough, No Sputum, No Wheezing, No Smoke Exposure, No Dyspnea Gastrointestinal: No Nausea, No Vomiting, No Diarrhea, No Constipation, No abdominal Pain, No Hematochezia, No Melena Genitourinary: no irregular bleeding, No Dysuria, No Urinary Frequency, No Hematuria, No Urinary Incontinence, No Urgency, No Flank Pain, No Urinary Flow Changes, No Hesitancy Musculoskeletal: No joint pain, No Myalgias, No Joint Swelling Skin: No Skin Lesions, No rash Neuro: No Weakness, No Numbness, No Paresthesias, No Loss of Consciousness, No Dizziness, No Headache Psych: No Anxiety/Panic, No Depression, No SI/HI/AH/VH, No Social Issues Heme/Lymph: No Bruising, No Bleeding,No Lymphadenopathy Endocrine: No Polyuria, No Polydipsia, No Temperature Intolerance Yes all other systems are reviewed and are negative [facility] Past Medical History Attestation statement: The following information was validated with the patient. Source: old records reviewed Medical History Bipolar 1 disorder Chronic back pain Eardrum trauma ETOH abuse HTN (hypertension) Lumbar pain Morbid obesity with BMI of 50.0-59.9, adult Non compliance w medication regimen Non compliance with medical treatment Obesity Polysubstance abuse Seizure Surgical History No pertinent past surgical history Family History Family History Mother Hypertension Diabetes Cancer Father Diabetes Hypertension Social History Social History Housing: Apartment Housing Other:: living with aunt Alcohol intake: current Alcohol intake frequency: a few times a week Alcohol type: beer Patient Tobacco Use Status: Former Tobacco user Tobacco use type: Cigarette e-Cigarette/Vaping Use: Never Used Second Hand Smoke Exposure: No Substance Use Type: Crack/Cocaine Advance Directives: No Advance Directives Information Provided: Yes service: No Current occupational status: unemployed Physical Exam Vital Signs: Vital Signs: Last Vital Signs Temp 98.7 F 05/11/21 20:10 Pulse 69 05/11/21 20:10 Resp 16 05/11/21 20:10 BP 135/80 05/11/21 20:10 Pulse Ox 96 05/11/21 20:10 BMI result Body Mass Index 50.9 Appearance: Alert. Oriented X3. No acute distress. Eyes: Pupils equal, round and reactive to light. ENT: Pharynx normal. Neck: Normal inspection. Neck supple. CVS: Normal heart rate and rhythm. Pulses normal. Respiratory: No respiratory distress. Breath sounds normal. Abdomen: Soft and nontender. Skin: Skin warm and dry. Normal skin color. Normal skin turgor. Extremities: No lower extremity edema. Gait well-balanced well coordinated. Neuro: No motor deficit. No sensory deficit. Cranial nerves 2-12 intact. Course Course Course Narrative: 36-year-old male presents for COVID-19 testing. Patient is asymptomatic. Referred for monoclonal antibody. Patient is morbidly obese, has a seizure disorder, and is hypertensive. COVID-19 positive. Patient verbalized understanding of and agrees to plan of care discharge home Medical Decision Making Differential Diagnosis Differential Diagnosis: Influenza, COVID-19 Medical Records Medical records reviewed: Yes I reviewed the patient's medical records. Lab Data Lab results reviewed: Yes I reviewed the patient's lab results. Labs: Lab Results 05/11/21 Range/Units 20:15 COVID-19 (BOBBY) Positive A (Negative) COVID-19 Clin Com See Note Discharge Plan Discharge Clinical Impression: COVID-19 Patient Disposition: Home, Self-Care Instructions: Covid-19 Viral Syndrome and Novel Coronavirus (ED) Hey/Ath, COVID-19 (Coronavirus Disease 2019) (ED) Additional Instructions: You were evaluated for upper respiratory symptoms. Please follow-up monoclonal antibody treatment. Your COVID 19 test was positive. Please maintain social isolation per State Federal guidelines. Thank you for choosing this emergency department for evaluation. Please follow-up with primary care physician as needed. Return to the emergency department for any new, concerning, or worsening symptoms. Prescriptions: No Action lisinopril 20 mg tablet 20 mg PO DAILY 90 Days Qty: 90 RF: 3 Interventions: ED Discharge Assessment Last Done: 05/11/21 20:59 Discharge Date/Time: 05/11/21 21:00
[2021-05-11 20:48] LABS: COVID-19 Test Positive (Negative)
== END 2021-05-11 21:00 | disposition home or self-care (01) ==
PROVIDERS: Emergency Provider Emergency Medicine; PCP Internal Medicine
DX: U07.1 COVID-19 (principal); I10 Essential (primary) hypertension; F19.10 Other psychoactive substance abuse, uncomplicated; E66.01 Morbid (severe) obesity due to excess calories
CPT/HCPCS: 36415; 87635; 99283

== ENCOUNTER 2021-11-26 11:21 | Outpatient (REF) | payer MEDICARE, MEDICAID, SELFPAY ==
[2021-11-26 12:59] LABS: Alanine Aminotransferase 45 U/L (0-40); Albumin Level 4.3 g/dL (3.5-5.0); Alkaline Phosphatase 79 U/L (39-117); Anion Gap 11 (12-20); Aspartate Amino Transferase 31 U/L (5-37); Bilirubin Total 0.6 mg/dL (0.0-1.0); Blood Urea Nitrogen 14 mg/dL (9-16); Calcium 9.5 mg/dL (8.4-10.2); Carbon Dioxide 25 mmol/L (22-29); Chloride 107 mmol/L (96-108); Cholesterol 136 mg/dL; Estimated Glomerular Filt Rate > 60; Glucose Fasting 96 mg/dL (60-99); HDL Cholesterol 50 mg/dL; LDL Cholesterol Calculated 74 mg/dl; Potassium 4.2 mmol/L (3.3-5.1); Sodium 139 mmol/L (135-145); Total Protein 7.1 g/dL (6.5-8.0); Triglycerides 60 mg/dL
== END 2021-11-26 11:22 | disposition home or self-care (01) ==
LOC: HO.LAB 11:21
PROVIDERS: PCP Internal Medicine; Visit Provider Internal Medicine
DX: I10 Essential (primary) hypertension (principal)
CPT/HCPCS: 36415; 80053; 80061

== ENCOUNTER 2021-12-31 09:38 | Emergency (ER) | payer MEDICARE, MEDICAID, SELFPAY ==
[2021-12-31 09:41] VITALS: BP 149/77; PULSE 82; RESP 19; TEMP 36.6; O2SAT 98; BMI 37.3
--- NOTE | 2021-12-31 13:29 | ED.GENADULT ---
HPI - General Adult General Chief complaint: General Medical Stated complaint: allergic reaction Time Seen by Provider: 12/31/21 09:43 History of Present Illness HPI narrative: Patient complains of itchy rash starting today on both legs and abdomen, no pain no fever no swelling no known exposure to any allergens no difficulty breathing no facial swelling no throat swelling no lip or tongue swelling Related Data Previous Rx's Medication Instructions Recorded lisinopril 20 mg tablet 20 mg PO DAILY 90 days #90 tabs 11/27/21 sertraline 25 mg tablet 25 mg PO DAILY 90 days #90 tabs 11/27/21 cetirizine 10 mg capsule 10 mg PO DAILY PRN allergy 12/31/21 symptoms #14 caps diphenhydramine HCl 25 mg capsule 50 mg PO BEDTIME PRN Itch and rash 12/31/21 (Benadryl) #10 caps prednisone 20 mg tablet 60 mg PO DAILY 3 days #9 tabs 12/31/21 Allergies Allergy/AdvReac Type Severity Reaction Status Date / Time No Known Allergies Allergy Verified 11/27/21 14:17 Review of Systems Review of Systems: Positive for rash Negatives are no fever no chills no dizziness or weakness no fainting no feeling faint no headache no neck pain no difficulty breathing swallowing or speaking no swelling of lips tongue or throat no chest pain no shortness of breath no palpitations no abdominal pain no vomiting Yes all other systems are reviewed and are negative PMFSH Past Medical History Source: nursing notes reviewed Medical History Bipolar 1 disorder Chronic back pain Eardrum trauma ETOH abuse HTN (hypertension) Lumbar pain Morbid obesity with BMI of 50.0-59.9, adult Non compliance w medication regimen Non compliance with medical treatment Obesity Polysubstance abuse Seizure Surgical History No pertinent past surgical history Family History Family History Mother Hypertension Diabetes Cancer Father Diabetes Hypertension Social History Social History Housing: Apartment Housing Other:: living with aunt Alcohol intake: current Alcohol intake frequency: a few times a week Alcohol type: beer Patient Tobacco Use Status: Former Tobacco user Tobacco use type: Cigarette e-Cigarette/Vaping Use: Never Used Second Hand Smoke Exposure: No Substance Use Type: Crack/Cocaine Advance Directives: No Advance Directives Information Provided: No service: No Current occupational status: unemployed Cognitive needs: No Hearing needs: No Vision needs: No Physical Exam ED Vital Signs: Vital Signs - 24 hr 12/31/21 09:41 12/31/21 13:41 Temperature 98 F 98.2 F Pulse Rate 82 69 Respiratory Rate 19 16 Blood Pressure 149/77 H 149/85 H Pulse Oximetry 98 99 Oxygen Delivery Method Room Air Room Air BMI result Body Mass Index 37.3 General appearance no acute distress The eyes no redness or discharge Sinuses not congested Pharynx no swelling of lips tongue or uvula no drooling voice is normal The neck is supple Chest clear to auscultation with full symmetric equal breath sounds Heart no murmur Extremities full range of motion x4 Skin there is red rash with some excoriation and scabbing on the lower legs below the knees The rash is excoriated and with some scabbing, no vesicles no bullae No tenderness no warmth no surrounding erythema no fluctuance no swelling Extremities full range of motion x4 Course Course Course Narrative: Case was discussed with Dr. Schmidt who recommended labs for possible vasculitis CBC there was no anemia, platelets were 199 ESR was normal, would be expected to be elevated and vasculitis, PT and INR were normal CRP was elevated .96 Patient was advised to follow with his doctor in 2 or 3 days, he has no systemic illness no complaint except for the itchy rash, and is discharged on a few days of steroids and Claritin for symptomatic relief Medical Decision Making Lab Data Result diagrams: 12/31/21 14:44 12/31/21 14:44 Labs: Lab Results 12/31/21 12/31/21 12/31/21 Range/Units 14:44 14:44 14:44 WBC 8.4 (4.8-10.8) X10*3/uL RBC 4.89 (4.60-5.80) X10*6/uL Hgb 13.8 L (14.0-18.0) g/dl Hct 42.8 (42.0-52.0) % MCV 87.5 (80.0-98.0) fL MCH 28.2 (27.0-33.0) pg MCHC 32.2 (31.0-36.0) g/dl RDW 12.7 (11.0-16.0) % Plt Count 199 (160-400) X10*3/uL MPV 11.8 (9.4-12.4) fL Immature Gran % (Auto) 0.4 (0.0-0.4) % Neut % (Auto) 67.9 (45-73) % Lymph % (Auto) 16.3 L (20-40) % [place] % (Auto) 11.5 H (2-11) % Eos % (Auto) 3.2 (0-4) % Baso % (Auto) 0.7 (0-2) % Lymph # (Auto) 1.4 (1.2-4.9) X10*3/uL [place] # (Auto) 1.0 (0.1-1.2) X10*3/uL Eos # (Auto) 0.3 (0.0-0.4) X10*3/uL Baso # (Auto) 0.1 (0.0-0.2) X10*3/uL Abs Immat Gran (auto) 0.03 (0.00-0.03) X10*3/uL Absolute Neuts (auto) 5.7 (2.0-8.3) x10*3/uL Absolute Nucleated RBC 0.000 (0.0-0.012) X10*3/uL Nucleated RBC % (auto) 0.0 (0.0-0.2) /100WBC ESR 13 (0-15) MM/HR PT 11.6 (10.0-13.1) SEC INR 1.0 (0.9-1.1) Sodium (135-145) mmol/L Potassium (3.3-5.1) mmol/L Chloride (96-108) mmol/L Carbon Dioxide (22-29) mmol/L Anion Gap (12-20) BUN (9-16) mg/dL Creatinine (0.5-1.4) mg/dL Estim Creat Clear Calc Estimated GFR Random Glucose (60-115) mg/dL Calcium (8.4-10.2) mg/dL C-Reactive Protein (< or = 0.50) mg/dL 08/15/22 Range/Units 14:44 WBC (4.8-10.8) X10*3/uL RBC (4.60-5.80) X10*6/uL Hgb (14.0-18.0) g/dl Hct (42.0-52.0) % MCV (80.0-98.0) fL MCH (27.0-33.0) pg MCHC (31.0-36.0) g/dl RDW (11.0-16.0) % Plt Count (160-400) X10*3/uL MPV (9.4-12.4) fL Immature Gran % (Auto) (0.0-0.4) % Neut % (Auto) (45-73) % Lymph % (Auto) (20-40) % [place] % (Auto) (2-11) % Eos % (Auto) (0-4) % Baso % (Auto) (0-2) % Lymph # (Auto) (1.2-4.9) X10*3/uL [place] # (Auto) (0.1-1.2) X10*3/uL Eos # (Auto) (0.0-0.4) X10*3/uL Baso # (Auto) (0.0-0.2) X10*3/uL Abs Immat Gran (auto) (0.00-0.03) X10*3/uL Absolute Neuts (auto) (2.0-8.3) x10*3/uL Absolute Nucleated RBC (0.0-0.012) X10*3/uL Nucleated RBC % (auto) (0.0-0.2) /100WBC ESR (0-15) MM/HR PT (10.0-13.1) SEC INR (0.9-1.1) Sodium 140 (135-145) mmol/L Potassium 4.3 (3.3-5.1) mmol/L Chloride 104 (96-108) mmol/L Carbon Dioxide 26 (22-29) mmol/L Anion Gap 14 (12-20) BUN 10 (9-16) mg/dL Creatinine 0.80 (0.5-1.4) mg/dL Estim Creat Clear Calc 161.0 Estimated GFR > 60 Random Glucose 89 (60-115) mg/dL Calcium 9.0 (8.4-10.2) mg/dL C-Reactive Protein 0.96 H (< or = 0.50) mg/dL Discharge Plan Discharge Clinical Impression: Rash Patient Disposition: Home, Self-Care Additional Instructions: We are not sure what is causing the rash We are treating with prednisone and antihistamine to help itch and hopefully decrease the rash Follow with your doctor if not improved in 2-3 days Return to the ER any time if worse, if rash keeps spreading if you develop fever body aches or any worse condition Prescriptions: New cetirizine 10 mg capsule 10 mg PO DAILY PRN (Reason: allergy symptoms) Qty: 14 0RF prednisone 20 mg tablet 60 mg PO DAILY 3 Days Qty: 9 0RF diphenhydramine HCl [Benadryl] 25 mg capsule 50 mg PO BEDTIME PRN (Reason: Itch and rash) Qty: 10 0RF No Action sertraline 25 mg tablet 25 mg PO DAILY 90 Days Qty: 90 1RF lisinopril 20 mg tablet 20 mg PO DAILY 90 Days Qty: 90 3RF Interventions: ED Discharge Assessment Last Done: 12/31/21 15:49 Discharge Date/Time: 12/31/21 15:50
[2021-12-31 13:41] VITALS: BP 149/85; PULSE 69; RESP 16; TEMP 36.8; O2SAT 99
[2021-12-31] MEDS: Loratadine 10 MG TABLET PO (13:43)
[2021-12-31] MEDS: predniSONE 20 MG TABLET 60 MG PO (13:43)
[2021-12-31 14:49] LABS: MANUAL DIFF FLAG NO
[2021-12-31 14:52] LABS: Basophils Absolute Auto 0.1 X10*3/uL (0.0-0.2); Basophils Percent Auto 0.7 % (0-2); Eosinophils Absolute Auto 0.3 X10*3/uL (0.0-0.4); Eosinophils Percent Auto 3.2 % (0-4); Hematocrit 42.8 % (42.0-52.0); Hemoglobin 13.8 g/dl (14.0-18.0); Imm Gran Abs Auto 0.03 X10*3/uL (0.00-0.03); Imm Gran Pct Auto 0.4 % (0.0-0.4); Lymphocytes Absolute Auto 1.4 X10*3/uL (1.2-4.9); Lymphocytes Percent Auto 16.3 % (20-40); Mean Corpuscular HGB Conc 32.2 g/dl (31.0-36.0); Mean Corpuscular Hemoglobin 28.2 pg (27.0-33.0); Mean Corpuscular Volume 87.5 fL (80.0-98.0); Mean Platelet Volume 11.8 fL (9.4-12.4); Monocytes Percent Auto 11.5 % (2-11); Neutrophils Absolute Auto 5.7 x10*3/uL (2.0-8.3); Neutrophils Percent Auto 67.9 % (45-73); Platelet Count 199 X10*3/uL (160-400); Red Blood Count 4.89 X10*6/uL (4.60-5.80); Red Cell Distribution Width 12.7 % (11.0-16.0); White Blood Count 8.4 X10*3/uL (4.8-10.8)
[2021-12-31 14:57] LABS: Prothrombin Time 11.6 SEC (10.0-13.1)
[2021-12-31 15:12] LABS: Anion Gap 14 (12-20); Blood Urea Nitrogen 10 mg/dL (9-16); C Reactive Protein 0.96 mg/dL (< or = 0.50); Carbon Dioxide 26 mmol/L (22-29); Chloride 104 mmol/L (96-108); Estimated Glomerular Filt Rate > 60; Glucose Random 89 mg/dL (60-115); Potassium 4.3 mmol/L (3.3-5.1); Sodium 140 mmol/L (135-145)
[2021-12-31 15:43] LABS: Erythrocyte Sedimentation Rate 13 MM/HR (0-15)
== END 2021-12-31 15:50 | disposition home or self-care (01) ==
PROVIDERS: Emergency Provider Emergency Medicine; PCP Internal Medicine
DX: R21 Rash and other nonspecific skin eruption (principal)
CPT/HCPCS: 36415; 80048; 85025; 85610; 85652; 86140; 99282; 99283

== ENCOUNTER 2022-01-29 00:39 | Emergency (ER) | payer MEDICARE, MEDICAID, SELFPAY ==
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
[2022-01-29 00:56] VITALS: BP 127/72; PULSE 70; RESP 16; TEMP 36.6; O2SAT 97; BMI 48.0
[2022-01-29 01:01] VITALS: BP 118/65; PULSE 89; O2SAT 98
--- NOTE | 2022-01-29 01:02 | PC.NURSE ---
pt exchange architect and placed on monitor. Seizure pad placed in bed. Provider into assess pt. Report given DILCIA Bennett
[2022-01-29 01:08] LABS: MANUAL DIFF FLAG NO
[2022-01-29 01:10] LABS: Basophils Absolute Auto 0.1 X10*3/uL (0.0-0.2); Basophils Percent Auto 0.8 % (0-2); Eosinophils Absolute Auto 0.2 X10*3/uL (0.0-0.4); Eosinophils Percent Auto 3.2 % (0-4); Hematocrit 40.4 % (42.0-52.0); Hemoglobin 13.6 g/dl (14.0-18.0); Imm Gran Abs Auto 0.02 X10*3/uL (0.00-0.03); Imm Gran Pct Auto 0.3 % (0.0-0.4); Lymphocytes Absolute Auto 1.8 X10*3/uL (1.2-4.9); Lymphocytes Percent Auto 24.7 % (20-40); Mean Corpuscular HGB Conc 33.7 g/dl (31.0-36.0); Mean Corpuscular Hemoglobin 28.8 pg (27.0-33.0); Mean Corpuscular Volume 85.6 fL (80.0-98.0); Mean Platelet Volume 12.4 fL (9.4-12.4); Monocytes Absolute Auto 0.7 X10*3/uL (0.1-1.2); Monocytes Percent Auto 9.4 % (2-11); Neutrophils Absolute Auto 4.4 x10*3/uL (2.0-8.3); Neutrophils Percent Auto 61.6 % (45-73); Platelet Count 204 X10*3/uL (160-400); Red Blood Count 4.72 X10*6/uL (4.60-5.80); Red Cell Distribution Width 12.5 % (11.0-16.0); White Blood Count 7.2 X10*3/uL (4.8-10.8)
[2022-01-29 01:28] LABS: Anion Gap 14 (12-20); Blood Urea Nitrogen 10 mg/dL (9-16); Calcium 8.9 mg/dL (8.4-10.2); Carbon Dioxide 24 mmol/L (22-29); Chloride 106 mmol/L (96-108); Estimated Glomerular Filt Rate > 60; Ethanol 40 mg/dL; Glucose Random 96 mg/dL (60-115); Sodium 140 mmol/L (135-145)
[2022-01-29 01:54] VITALS: BP 132/69; PULSE 66; RESP 16; TEMP 36.3; O2SAT 97
[2022-01-29 02:12] LABS: Appearance Urine Clear; Color Urine Yellow; Glucose Urine UA Negative (Negative); Leukocyte Esterase Urine Negative (Negative); Nitrite Urine Negative (Negative); Urine Blood Negative (Negative); Urine Ketones Negative (Negative); Urine Protein Negative (Neg-Trace)
[2022-01-29 02:36] LABS: Amphetamine Screen Urine Not Detected (Not Detect); Barbiturates, Urine Not Detected (Not Detect); Benzodiazepines Screen Urine Not Detected (Not Detect); Cannabinoid Screen Urine Not Detected (Not Detect); Cocaine Screen Urine POSITIVE (Not Detect); Fentanyl, urine Not Detected (Not Detect); Opiate Screen Urine Not Detected (Not Detect); Phencyclidine Screen Urine Not Detected (Not Detect)
--- NOTE | 2022-01-29 03:03 | PC.NURSE ---
pt is not deaf, is able Nepali after clearing up from substance use.
--- NOTE | 2022-01-29 03:09 | PC.NURSE ---
PATIENT WENT FOR A WALK IN THE HALLS ,PATIENT HAD STEADY GAIT AND STATED HE FEEL FINE ,MD LOPEZ AND DILCIA SILVA AWARE .
--- NOTE | 2022-01-29 03:31 | PC.NURSE ---
pt a&o, no sob or chest pain, pt able to ambulate with a steady gait at discharge. Reviewed discharge instructions with patient. pt verbalized understanding. Reported to DILCIA Bennett.
== END 2022-01-29 03:43 | disposition home or self-care (01) ==
PROVIDERS: Emergency Provider Emergency Medicine
DX: F19.20 Other psychoactive substance dependence, uncomplicated (principal); F11.20 Opioid dependence, uncomplicated; F10.10 Alcohol abuse, uncomplicated; Y90.2 Blood alcohol level of 40-59 mg/100 ml; Z79.899 Other long term (current) drug therapy; E66.9 Obesity, unspecified; Z68.42 Body mass index [BMI] 45.0-49.9, adult; I10 Essential (primary) hypertension
CPT/HCPCS: 36415; 80048; 80307; 81003; 82077; 85025; 99284

== ENCOUNTER 2022-03-13 23:20 | Emergency (ER) | payer MEDICARE, MEDICAID, SELFPAY ==
[2022-03-13 23:32] VITALS: BP 132/82; BP 150/70; PULSE 80; PULSE 83; RESP 16; TEMP 37; O2SAT 100; O2SAT 98; BMI 34.4
== END 2022-03-14 00:11 | disposition left against medical advice (07) ==
PROVIDERS: Emergency Provider Emergency Medicine
DX: M79.605 Pain in left leg (principal)
CPT/HCPCS: 99281

== ENCOUNTER 2022-04-10 23:31 | Emergency (ER) | payer MEDICARE, MEDICAID, SELFPAY ==
[2022-04-10 23:36] VITALS: BP 147/103; BP 152/92; PULSE 88; PULSE 91; RESP 20; TEMP 36.4; O2SAT 97; O2SAT 99; BMI 35.9
[2022-04-10 23:43] VITALS: BP 147/103; PULSE 85; RESP 20; TEMP 36.4; O2SAT 100
--- NOTE | 2022-04-11 00:26 | PC.NURSE ---
Pt elopement with out the provider assessment d/t pt was ETOH intoxicated and he was brought by EMS unvoluntary Provider was notified.
== END 2022-04-11 00:48 | disposition left against medical advice (07) ==
PROVIDERS: Emergency Provider Emergency Medicine
DX: F10.120 Alcohol abuse with intoxication, uncomplicated (principal); Y90.9 Presence of alcohol in blood, level not specified; F41.9 Anxiety disorder, unspecified; F19.10 Other psychoactive substance abuse, uncomplicated; F31.9 Bipolar disorder, unspecified; I10 Essential (primary) hypertension; E66.9 Obesity, unspecified; Z68.35 Body mass index [BMI] 35.0-35.9, adult
CPT/HCPCS: 99282; 99284

== ENCOUNTER 2022-05-01 03:16 | Emergency (ER) | payer MEDICARE, MEDICAID, SELFPAY ==
[2022-05-01 03:24] VITALS: BP 116/76; PULSE 83; PULSE 86; RESP 18; TEMP 36.4; O2SAT 95; BMI 32.5
[2022-05-01 03:52] LABS: Glucose, Whole Blood 120 mg/dL (60-115)
[2022-05-01 03:52] LABS: Basophils Absolute Auto 0.1 X10*3/uL (0.0-0.2); Eosinophils Absolute Auto 0.3 X10*3/uL (0.0-0.4); Eosinophils Percent Auto 2.8 % (0-4); Imm Gran Abs Auto 0.02 X10*3/uL (0.00-0.03); Imm Gran Pct Auto 0.2 % (0.0-0.4); Lymphocytes Percent Auto 21.9 % (20-40); MANUAL DIFF FLAG NO; Mean Corpuscular HGB Conc 33.3 g/dl (31.0-36.0); Mean Corpuscular Volume 84.1 fL (80.0-98.0); Mean Platelet Volume 11.8 fL (9.4-12.4); Monocytes Absolute Auto 0.9 X10*3/uL (0.1-1.2); Monocytes Percent Auto 9.7 % (2-11); Neutrophils Absolute Auto 5.8 x10*3/uL (2.0-8.3); Neutrophils Percent Auto 64.4 % (45-73); Platelet Count 232 X10*3/uL (160-400); Red Blood Count 5.35 X10*6/uL (4.60-5.80); White Blood Count 9.1 X10*3/uL (4.8-10.8)
--- NOTE | 2022-05-01 03:53 | PC.NURSE ---
PT A&Ox2 to name and place, reports having a lot of beers and cocaine use. States I think I has a seizure . Denies LOC or head strike. PT denies SI/HI. Seizure precautions in place. VSS. Will continue to observe.
--- NOTE | 2022-05-01 04:12 | MHC.EDTECH ---
Unable to collect urine at this time Pt under the influence and unable to follow prompts Shiva Palencia made aware
[2022-05-01 04:19] VITALS: BP 120/72; PULSE 79; RESP 14; TEMP 36.6; O2SAT 95
[2022-05-01 04:20] LABS: Alanine Aminotransferase 30 U/L (0-40); Albumin Level 4.5 g/dL (3.5-5.0); Alkaline Phosphatase 90 U/L (39-117); Anion Gap 18 (12-20); Aspartate Amino Transferase 23 U/L (5-37); Bilirubin Total 0.3 mg/dL (0.0-1.0); Blood Urea Nitrogen 14 mg/dL (9-16); Calcium 9.1 mg/dL (8.4-10.2); Carbon Dioxide 21 mmol/L (22-29); Chloride 106 mmol/L (96-108); Creatinine Clr Calc Pharmacy 148.4; Estimated Glomerular Filt Rate > 60; Ethanol 186 mg/dL; Glucose Random 119 mg/dL (60-115); Potassium 4.3 mmol/L (3.3-5.1); Sodium 141 mmol/L (135-145); Total Protein 7.5 g/dL (6.5-8.0)
--- NOTE | 2022-05-01 05:15 | MHC.EDTECH ---
Pt unable to follow prompts or stay awake to give urine specimen . Shiva Palencia made aware
--- NOTE | 2022-05-01 05:54 | PC.NURSE ---
PT sleeping, no apparent distress. Unable to give urine sample at this time. O2 sat 97% on RA. RR 20. Will continue to observe.
[2022-05-01 06:54] LABS: Amphetamine Screen Urine Not Detected (Not Detect); Barbiturates, Urine Not Detected (Not Detect); Benzodiazepines Screen Urine Not Detected (Not Detect); Cannabinoid Screen Urine Not Detected (Not Detect); Cocaine Screen Urine POSITIVE (Not Detect); Fentanyl, urine Not Detected (Not Detect); Opiate Screen Urine Not Detected (Not Detect); Phencyclidine Screen Urine Not Detected (Not Detect)
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
[2022-05-01 07:48] VITALS: BP 117/62; PULSE 73; RESP 18; TEMP 36.6; O2SAT 97
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
--- NOTE | 2022-05-01 09:31 | ECG_ITS ---
Test Reason : SUBSTANCE Blood Pressure : / mmHG Vent. Rate : 077 BPM Atrial Rate : 077 BPM P-R Int : 168 ms QRS Dur : 106 ms QT Int : 398 ms P-R-T Axes : 020 -03 000 degrees QTc Int : 450 ms Normal sinus rhythm Minimal voltage criteria for LVH, may be normal variant ( R in aVL ) Borderline ECG When compared with ECG of 05-OCT-2019 09:25, No significant change was found Referred By: Haley Rice Electronically Signed By:ELVIRA CARBONE
--- NOTE | 2022-05-01 09:42 | MHC.RECOVRN ---
[facility]errals [facility] to [facility]. When pt made aware, pt informed t/w he would like to dc home to rest. Pts phone number ([phone]) provided to both facilities to complete phone intake outpatient. ATS list provided to pt. Provider aware.
[2022-05-01] MEDS: Naloxone HCl Nasal TAKE HOME 4 MG SPRAY NOSTRILALT (10:28)
== END 2022-05-01 11:00 | disposition home or self-care (01) ==
PROVIDERS: Emergency Provider Student in an Organized Health Care Education/Training Program
DX: F19.10 Other psychoactive substance abuse, uncomplicated (principal); F10.120 Alcohol abuse with intoxication, uncomplicated; Y90.6 Blood alcohol level of 120-199 mg/100 ml; I10 Essential (primary) hypertension; E66.9 Obesity, unspecified; Z68.32 Body mass index [BMI] 32.0-32.9, adult; F31.9 Bipolar disorder, unspecified; Z87.891 Personal history of nicotine dependence; Z79.899 Other long term (current) drug therapy
CPT/HCPCS: 36415; 80053; 80307; 82077; 82947; 85025; 93005; 99284

== ENCOUNTER 2022-05-08 07:03 | Emergency (ER) | payer MEDICARE, MEDICAID, SELFPAY ==
[2022-05-08 07:07] VITALS: BP 126/76; PULSE 72; RESP 18; TEMP 36.3; O2SAT 95; BMI 34.4
[2022-05-08 08:41] LABS: MANUAL DIFF FLAG NO
--- NOTE | 2022-05-08 08:44 | ED.GENADULT ---
HPI - General Adult General Chief complaint: General Medical Stated complaint: Stomach Pain Vomiting Diarrhea Time Seen by Provider: 05/08/22 07:41 Source: patient Mode of arrival: ambulatory History of Present Illness HPI narrative: 37-year-old male who presents with malaise, nausea, sore throat, diarrhea but denies any vomiting and stated that he had difficulty sleeping last night and so snorted some cocaine. Patient otherwise denies shortness of breath or chest pain. In addition, he denies any abdominal pain. Related Data Previous Rx's Medication Instructions Recorded prednisone 20 mg tablet 60 mg PO DAILY 3 days #9 tabs 12/31/21 cetirizine 10 mg capsule 10 mg PO DAILY PRN allergy 03/11/22 symptoms #14 caps diphenhydramine HCl 25 mg capsule 50 mg PO BEDTIME PRN Itch and rash 03/11/22 (Benadryl) #10 caps lisinopril 20 mg tablet 20 mg PO DAILY 90 days #90 tabs 03/11/22 sertraline 25 mg tablet 25 mg PO DAILY 90 days #90 tabs 03/11/22 Allergies Allergy/AdvReac Type Severity Reaction Status Date / Time No Known Allergies Allergy Verified 03/13/22 23:44 Review of Systems Review of Systems: Pertinent positives and negatives as stated in HPI 10 point review of systems is otherwise negative. PMFSH Past Medical History Source: nursing notes reviewed Medical History Bipolar 1 disorder Chronic back pain Eardrum trauma ETOH abuse HTN (hypertension) Lumbar pain Morbid obesity with BMI of 50.0-59.9, adult Non compliance w medication regimen Non compliance with medical treatment Obesity Polysubstance abuse Seizure Surgical History No pertinent past surgical history Family History Family History Mother Hypertension Diabetes Cancer Father Diabetes Hypertension Social History Social History Housing: Apartment Housing Other:: living with aunt Alcohol intake: never Patient Tobacco Use Status: Former Tobacco user Tobacco use type: Cigarette Smoked in Last 30 Days: No e-Cigarette/Vaping Use: Never Used Second Hand Smoke Exposure: No Use of substances other than those prescribed or required for medical reasons: Yes Substance Use Type: Crack/Cocaine Advance Directives: No service: No Current occupational status: unemployed Cognitive needs: No Hearing needs: No Vision needs: No Physical Exam ED Vital Signs: Vital Signs - 24 hr 05/08/22 07:07 05/08/22 08:59 Temperature 97.3 F 97.8 F Pulse Rate 72 57 Respiratory Rate 18 20 Blood Pressure 126/76 120/74 Pulse Oximetry 95 97 Oxygen Delivery Method Room Air Room Air BMI result Body Mass Index 34.4 VITAL SIGNS: Reviewed. GENERAL: Well developed, well nourished, in no acute distress. HEAD: Normocephalic/atraumatic EYES: PERRLA, EOMI EARS: Ext canals without abnormality, TMs non-bulging and non-erythematous NOSE: Nares patent bilateral OROPHARYNX: no oral lesions noted, posterior pharynx clear and non-erythematous without noted tonsillar enlargement/erythema/exudates NECK: Supple, no adenopathy LUNGS: Normal breath sounds. No adventitious sounds or accessory muscle use. SpO2<95> CARDIOVASCULAR: Regular rate and rhythm without noted murmurs ABDOMEN: Soft, non-tender, non-distended with bowel sounds. MUSCULOSKELETAL: No tenderness, deformities, or effusions noted on gross inspection. EXTREMITIES: No cyanosis, clubbing or edema. SKIN: Inspection of the skin reveals no rashes NEUROLOGIC: Alert and oriented x 4. Strength and sensation to light touch were grossly intact x 4. Course Course Course Narrative: Labs, EKG, ethanol, lipase Reevaluation(s) Reevaluation #1: I reviewed all laboratory work and there are no acute findings to better explain patient's presentation, on re-evaluation he has tolerated oral intake and reports that he is feeling much better and wishes to be discharged. Time: 10:28 Medications Administered Discontinued Medications Generic Name Dose Route Start Last Admin Trade Name Lazaroq PRN Reason Stop Dose Admin Ondansetron HCl 4 mg 05/08/22 08:25 05/08/22 09:20 Ondansetron Odt 4 Mg Tab.Rapdis TRANSLINGU 05/08/22 08:26 Not Given ONCE ONE Medical Decision Making Medical Decision Making MDM Narrative: 37-year-old male with history and clinical presentation most consistent with side effects of cocaine use given the nausea and diarrhea. He denies any possibility of food contamination, is afebrile, breathing easily an oxygenating well. Differential Diagnosis Differential Diagnoses: The differential diagnosis associated with the presentation includes Viral/gastroenteritis/food contamination/cocaine side effects Lab Data MDM Lab Attestation statement: I reviewed the patient's lab results. Result Diagrams: 05/08/22 08:38 05/08/22 08:38 Labs: Lab Results 05/08/22 05/08/22 05/08/22 Range/Units 08:14 08:38 08:38 WBC 5.8 (4.8-10.8) X10*3/uL RBC 5.26 (4.60-5.80) X10*6/uL Hgb 15.1 (14.0-18.0) g/dl Hct 45.7 (42.0-52.0) % MCV 86.9 (80.0-98.0) fL MCH 28.7 (27.0-33.0) pg MCHC 33.0 (31.0-36.0) g/dl RDW 12.1 (11.0-16.0) % Plt Count 186 (160-400) X10*3/uL MPV 11.6 (9.4-12.4) fL Immature Gran % (Auto) 0.2 (0.0-0.4) % Neut % (Auto) 60.6 (45-73) % Lymph % (Auto) 21.5 (20-40) % [place] % (Auto) 13.0 H (2-11) % Eos % (Auto) 4.2 H (0-4) % Baso % (Auto) 0.5 (0-2) % Lymph # (Auto) 1.2 (1.2-4.9) X10*3/uL [place] # (Auto) 0.8 (0.1-1.2) X10*3/uL Eos # (Auto) 0.2 (0.0-0.4) X10*3/uL Baso # (Auto) 0.0 (0.0-0.2) X10*3/uL Abs Immat Gran (auto) 0.01 (0.00-0.03) X10*3/uL Absolute Neuts (auto) 3.5 (2.0-8.3) x10*3/uL Absolute Nucleated RBC 0.000 (0.0-0.012) X10*3/uL Nucleated RBC % (auto) 0.0 (0.0-0.2) /100WBC Sodium 139 (135-145) mmol/L Potassium 3.9 (3.3-5.1) mmol/L Chloride 108 (96-108) mmol/L Carbon Dioxide 23 (22-29) mmol/L Anion Gap 12 (12-20) BUN 18 H (9-16) mg/dL Creatinine 0.86 (0.5-1.4) mg/dL Estim Creat Clear Calc 142.4 Estimated GFR > 60 Random Glucose 118 H (60-115) mg/dL Calcium 9.2 (8.4-10.2) mg/dL Total Bilirubin 0.5 (0.0-1.0) mg/dL AST 23 (5-37) U/L ALT 40 (0-40) U/L Alkaline Phosphatase 91 (39-117) U/L Total Protein 6.7 (6.5-8.0) g/dL Albumin 4.0 (3.5-5.0) g/dL Lipase 11 (8-78) U/L Urine Opiates Screen (Not Detect) Urine Fentanyl Screen (Not Detect) Ur Barbiturates Screen (Not Detect) Ur Phencyclidine Scrn (Not Detect) Ur Amphetamines Screen (Not Detect) U Benzodiazepines Scrn (Not Detect) Urine Cocaine Screen (Not Detect) U Marijuana (THC) Screen (Not Detect) Ethyl Alcohol mg/dL Influenza Type A (PCR) NEGATIVE (Negative) Influenza Type B (PCR) NEGATIVE (Negative) RSV RNA Qual (PCR) NEGATIVE (Negative) SARS-CoV-2 RNA (RT-PCR) NEGATIVE (Negative) 05/08/22 05/08/22 Range/Units 08:38 09:09 WBC (4.8-10.8) X10*3/uL RBC (4.60-5.80) X10*6/uL Hgb (14.0-18.0) g/dl Hct (42.0-52.0) % MCV (80.0-98.0) fL MCH (27.0-33.0) pg MCHC (31.0-36.0) g/dl RDW (11.0-16.0) % Plt Count (160-400) X10*3/uL MPV (9.4-12.4) fL Immature Gran % (Auto) (0.0-0.4) % Neut % (Auto) (45-73) % Lymph % (Auto) (20-40) % [place] % (Auto) (2-11) % Eos % (Auto) (0-4) % Baso % (Auto) (0-2) % Lymph # (Auto) (1.2-4.9) X10*3/uL [place] # (Auto) (0.1-1.2) X10*3/uL Eos # (Auto) (0.0-0.4) X10*3/uL Baso # (Auto) (0.0-0.2) X10*3/uL Abs Immat Gran (auto) (0.00-0.03) X10*3/uL Absolute Neuts (auto) (2.0-8.3) x10*3/uL Absolute Nucleated RBC (0.0-0.012) X10*3/uL Nucleated RBC % (auto) (0.0-0.2) /100WBC Sodium (135-145) mmol/L Potassium (3.3-5.1) mmol/L Chloride (96-108) mmol/L Carbon Dioxide (22-29) mmol/L Anion Gap (12-20) BUN (9-16) mg/dL Creatinine (0.5-1.4) mg/dL Estim Creat Clear Calc Estimated GFR Random Glucose (60-115) mg/dL Calcium (8.4-10.2) mg/dL Total Bilirubin (0.0-1.0) mg/dL AST (5-37) U/L ALT (0-40) U/L Alkaline Phosphatase (39-117) U/L Total Protein (6.5-8.0) g/dL Albumin (3.5-5.0) g/dL Lipase (8-78) U/L Urine Opiates Screen Not Detected (Not Detect) Urine Fentanyl Screen Not Detected (Not Detect) Ur Barbiturates Screen Not Detected (Not Detect) Ur Phencyclidine Scrn Not Detected (Not Detect) Ur Amphetamines Screen Not Detected (Not Detect) U Benzodiazepines Scrn Not Detected (Not Detect) Urine Cocaine Screen POSITIVE H (Not Detect) U Marijuana (THC) Screen Not Detected (Not Detect) Ethyl Alcohol < 10 mg/dL Influenza Type A (PCR) (Negative) Influenza Type B (PCR) (Negative) RSV RNA Qual (PCR) (Negative) SARS-CoV-2 RNA (RT-PCR) (Negative) Discharge Plan Discharge Clinical Impression: Cocaine use disorder Patient Disposition: Home, Self-Care Instructions: Cocaine Abuse (ED) Additional Instructions: Please follow-up with your primary care provider in the next 1-2 days for re-evaluation. Return to the ER for any worsening symptoms. Prescriptions: No Action cetirizine 10 mg capsule 10 mg PO DAILY PRN (Reason: allergy symptoms) Qty: 14 0RF diphenhydramine HCl [Benadryl] 25 mg capsule 50 mg PO BEDTIME PRN (Reason: Itch and rash) Qty: 10 0RF lisinopril 20 mg tablet 20 mg PO DAILY 90 Days Qty: 90 3RF sertraline 25 mg tablet 25 mg PO DAILY 90 Days Qty: 90 1RF prednisone 20 mg tablet 60 mg PO DAILY 3 Days Qty: 9 0RF Referrals: Trinidad Martínez MD [Primary Care Provider] -
[2022-05-08 08:45] LABS: Basophils Percent Auto 0.5 % (0-2); Eosinophils Absolute Auto 0.2 X10*3/uL (0.0-0.4); Eosinophils Percent Auto 4.2 % (0-4); Hematocrit 45.7 % (42.0-52.0); Hemoglobin 15.1 g/dl (14.0-18.0); Imm Gran Abs Auto 0.01 X10*3/uL (0.00-0.03); Imm Gran Pct Auto 0.2 % (0.0-0.4); Lymphocytes Absolute Auto 1.2 X10*3/uL (1.2-4.9); Lymphocytes Percent Auto 21.5 % (20-40); Mean Corpuscular Hemoglobin 28.7 pg (27.0-33.0); Mean Corpuscular Volume 86.9 fL (80.0-98.0); Mean Platelet Volume 11.6 fL (9.4-12.4); Monocytes Absolute Auto 0.8 X10*3/uL (0.1-1.2); Neutrophils Absolute Auto 3.5 x10*3/uL (2.0-8.3); Neutrophils Percent Auto 60.6 % (45-73); Platelet Count 186 X10*3/uL (160-400); Red Blood Count 5.26 X10*6/uL (4.60-5.80); Red Cell Distribution Width 12.1 % (11.0-16.0); White Blood Count 5.8 X10*3/uL (4.8-10.8)
[2022-05-08 08:59] VITALS: BP 120/74; PULSE 57; RESP 20; TEMP 36.6; O2SAT 97
[2022-05-08 09:04] LABS: Alanine Aminotransferase 40 U/L (0-40); Alkaline Phosphatase 91 U/L (39-117); Anion Gap 12 (12-20); Aspartate Amino Transferase 23 U/L (5-37); Bilirubin Total 0.5 mg/dL (0.0-1.0); Blood Urea Nitrogen 18 mg/dL (9-16); Calcium 9.2 mg/dL (8.4-10.2); Carbon Dioxide 23 mmol/L (22-29); Chloride 108 mmol/L (96-108); Creatinine Clr Calc Pharmacy 142.4; Estimated Glomerular Filt Rate > 60; Glucose Random 118 mg/dL (60-115); Lipase 11 U/L (8-78); Potassium 3.9 mmol/L (3.3-5.1); Sodium 139 mmol/L (135-145); Total Protein 6.7 g/dL (6.5-8.0)
[2022-05-08 09:07] LABS: Ethanol < 10 mg/dL
[2022-05-08 09:07] LABS: Influenza A PCR NEGATIVE (Negative); Influenza B PCR NEGATIVE (Negative); Resp Syncy Virus RNA Qual PCR NEGATIVE (Negative); SARS COV2 PCR INHOUSE NEGATIVE (Negative)
--- NOTE | 2022-05-08 09:20 | PC.NURSE ---
pt is a/o x 4 no ob/suleiman noted speaks in full sentences. lungs - slightly diminished. heart sound regular. abd obese, soft and non-tender, bx + x 4 quads. pt refused zofran for nausea states that he is hungry and has not eaten. pt ate 2 sandwiches. no edema noted. pt states that he is ready to go home. pt denies any pain
[2022-05-08 09:39] LABS: Amphetamine Screen Urine Not Detected (Not Detect); Barbiturates, Urine Not Detected (Not Detect); Benzodiazepines Screen Urine Not Detected (Not Detect); Cannabinoid Screen Urine Not Detected (Not Detect); Cocaine Screen Urine POSITIVE (Not Detect); Fentanyl, urine Not Detected (Not Detect); Opiate Screen Urine Not Detected (Not Detect); Phencyclidine Screen Urine Not Detected (Not Detect)
[2022-05-08 10:42] VITALS: BP 133/84; PULSE 61; RESP 16; O2SAT 99
== END 2022-05-08 10:47 | disposition home or self-care (01) ==
PROVIDERS: Emergency Provider Student in an Organized Health Care Education/Training Program; PCP Internal Medicine
DX: F14.99 Cocaine use, unspecified with unspecified cocaine-induced disorder (principal); Z20.822 Contact with and (suspected) exposure to COVID-19; F19.10 Other psychoactive substance abuse, uncomplicated; I10 Essential (primary) hypertension; Z79.899 Other long term (current) drug therapy
CPT/HCPCS: 0241U; 36415; 80053; 80307; 82077; 83690; 85025; 99283; 99284

== ENCOUNTER 2022-05-18 04:00 | Emergency (ER) | payer MEDICARE, MEDICAID, SELFPAY ==
[2022-05-18 04:03] VITALS: BP 144/84; BP 151/93; PULSE 93; PULSE 94; RESP 20; TEMP 36.5; O2SAT 96; BMI 41.8
--- NOTE | 2022-05-18 04:08 | ED.PSYCH ---
HPI - Psych General Chief Complaint: Seizure Stated Complaint: ANXIETY,DEPRESSION Time Seen by Provider: 05/18/22 04:05 Source: patient Mode of arrival: ambulatory Limitations: no limitations History of Present Illness HPI Narrative: History of anxiety/bipolar disorder called 911 for increased anxiety feeling depressed no SI or HI patient used cocaine prior to arrival when EMS came while talking patient became stiff with shaking feeling and tried to make foam from mouth but was awake no tongue bite no postictal after arrival patient alert awake communicating with signs asking for medication to relax Related Data Previous Rx's Medication Instructions Recorded lisinopril 20 mg tablet 20 mg PO DAILY 90 days #90 tabs 05/15/22 sertraline 25 mg tablet 25 mg PO DAILY 90 days #90 tabs 05/15/22 Allergies Allergy/AdvReac Type Severity Reaction Status Date / Time No Known Allergies Allergy Unverified 05/18/22 04:05 Review of Systems Review of Systems: Yes all other systems are reviewed and are negative PMFSH Past Medical History Medical History Bipolar 1 disorder Chronic back pain Eardrum trauma ETOH abuse HTN (hypertension) Lumbar pain Morbid obesity with BMI of 50.0-59.9, adult Non compliance w medication regimen Non compliance with medical treatment Obesity Polysubstance abuse Seizure Surgical History No pertinent past surgical history Family History Family History Mother Hypertension Diabetes Cancer Father Diabetes Hypertension Social History Social History Housing: Apartment Housing Other:: living with aunt Alcohol intake: current Alcohol intake frequency: 0-2 drinks per day Alcohol type: beer Patient Tobacco Use Status: Former Tobacco user Tobacco use type: Cigarette Smoked in Last 30 Days: No e-Cigarette/Vaping Use: Never Used Second Hand Smoke Exposure: No Use of substances other than those prescribed or required for medical reasons: Yes Substance Use Type: Crack/Cocaine Advance Directives: No Advance Directives Information Provided: Yes service: No Current occupational status: unemployed Cognitive needs: No Hearing needs: No Vision needs: No Physical Exam Vital Signs: Vital Signs: Last Vital Signs Temp 98.0 F 05/18/22 05:16 Pulse 87 05/18/22 05:16 Resp 18 05/18/22 05:16 BP 145/89 H 05/18/22 05:16 Pulse Ox 95 05/18/22 05:16 O2 Del Method 05/18/22 05:16 BMI result Body Mass Index 41.8 Appearance: Alert and awake, No acute distress. Eyes: PERRLA, No Nystagmus ENT: Pharynx normal. Oral Mucosa moist no tongue bite Neck: Normal inspection. Neck supple. CVS: Normal heart rate and rhythm. Pulses normal. Respiratory: No respiratory distress. Equal air entry bilateral, no wheezing/rales/rhonchi Abdomen: Soft and nontender. Bowel sounds are present, Skin: Skin warm and dry. Normal skin color. Normal skin turgor. Extremities: No lower extremity edema. No calf tenderness psych: Flat affect not communicating at the time of examination Neuro: Oriented X 3. No motor deficit. Medications Administered Discontinued Medications Generic Name Dose Route Start Last Admin Trade Name Freq PRN Reason Stop Dose Admin Lorazepam 2 mg 05/18/22 04:05 05/18/22 04:18 Lorazepam 1 Mg Tablet PO 05/18/22 04:06 2 mg ONCE ONE Administration Medical Decision Making Lab Data Result Diagrams: 05/18/22 04:15 05/18/22 04:15 Labs: Lab Results 05/18/22 05/18/22 05/18/22 Range/Units 04:15 04:15 04:15 WBC 8.5 (4.8-10.8) X10*3/uL RBC 5.27 (4.60-5.80) X10*6/uL Hgb 14.9 (14.0-18.0) g/dl Hct 44.5 (42.0-52.0) % MCV 84.4 (80.0-98.0) fL MCH 28.3 (27.0-33.0) pg MCHC 33.5 (31.0-36.0) g/dl RDW 12.0 (11.0-16.0) % Plt Count 230 (160-400) X10*3/uL MPV 12.1 (9.4-12.4) fL Immature Gran % (Auto) 0.1 (0.0-0.4) % Neut % (Auto) 65.0 (45-73) % Lymph % (Auto) 21.7 (20-40) % [place] % (Auto) 9.8 (2-11) % Eos % (Auto) 2.7 (0-4) % Baso % (Auto) 0.7 (0-2) % Lymph # (Auto) 1.8 (1.2-4.9) X10*3/uL [place] # (Auto) 0.8 (0.1-1.2) X10*3/uL Eos # (Auto) 0.2 (0.0-0.4) X10*3/uL Baso # (Auto) 0.1 (0.0-0.2) X10*3/uL Abs Immat Gran (auto) 0.01 (0.00-0.03) X10*3/uL Absolute Neuts (auto) 5.5 (2.0-8.3) x10*3/uL Absolute Nucleated RBC 0.000 (0.0-0.012) X10*3/uL Nucleated RBC % (auto) 0.0 (0.0-0.2) /100WBC Sodium 140 (135-145) mmol/L Potassium 4.0 (3.3-5.1) mmol/L Chloride 107 (96-108) mmol/L Carbon Dioxide 21 L (22-29) mmol/L Anion Gap 16 (12-20) BUN 10 (9-16) mg/dL Creatinine 0.88 (0.5-1.4) mg/dL Estim Creat Clear Calc 158.7 Estimated GFR > 60 Random Glucose 113 (60-115) mg/dL Lactic Acid 1.6 (0.5-2.0) mmol/L Calcium 9.5 (8.4-10.2) mg/dL Total Bilirubin 0.6 (0.0-1.0) mg/dL AST 19 (5-37) U/L ALT 30 (0-40) U/L Alkaline Phosphatase 95 (39-117) U/L Total Protein 7.5 (6.5-8.0) g/dL Albumin 4.5 (3.5-5.0) g/dL Ethyl Alcohol mg/dL 05/18/22 Range/Units 04:15 WBC (4.8-10.8) X10*3/uL RBC (4.60-5.80) X10*6/uL Hgb (14.0-18.0) g/dl Hct (42.0-52.0) % MCV (80.0-98.0) fL MCH (27.0-33.0) pg MCHC (31.0-36.0) g/dl RDW (11.0-16.0) % Plt Count (160-400) X10*3/uL MPV (9.4-12.4) fL Immature Gran % (Auto) (0.0-0.4) % Neut % (Auto) (45-73) % Lymph % (Auto) (20-40) % [place] % (Auto) (2-11) % Eos % (Auto) (0-4) % Baso % (Auto) (0-2) % Lymph # (Auto) (1.2-4.9) X10*3/uL [place] # (Auto) (0.1-1.2) X10*3/uL Eos # (Auto) (0.0-0.4) X10*3/uL Baso # (Auto) (0.0-0.2) X10*3/uL Abs Immat Gran (auto) (0.00-0.03) X10*3/uL Absolute Neuts (auto) (2.0-8.3) x10*3/uL Absolute Nucleated RBC (0.0-0.012) X10*3/uL Nucleated RBC % (auto) (0.0-0.2) /100WBC Sodium (135-145) mmol/L Potassium (3.3-5.1) mmol/L Chloride (96-108) mmol/L Carbon Dioxide (22-29) mmol/L Anion Gap (12-20) BUN (9-16) mg/dL Creatinine (0.5-1.4) mg/dL Estim Creat Clear Calc Estimated GFR Random Glucose (60-115) mg/dL Lactic Acid (0.5-2.0) mmol/L Calcium (8.4-10.2) mg/dL Total Bilirubin (0.0-1.0) mg/dL AST (5-37) U/L ALT (0-40) U/L Alkaline Phosphatase (39-117) U/L Total Protein (6.5-8.0) g/dL Albumin (3.5-5.0) g/dL Ethyl Alcohol 49 mg/dL Discharge Plan Discharge Clinical Impression: Bipolar disorder, Pseudoseizures Patient Disposition: Still a Patient Prescriptions: No Action lisinopril 20 mg tablet 20 mg PO DAILY 90 Days Qty: 90 3RF sertraline 25 mg tablet 25 mg PO DAILY 90 Days Qty: 90 1RF
--- NOTE | 2022-05-18 04:16 | ECG_ITS ---
Test Reason : SEIZURE Blood Pressure : / mmHG Vent. Rate : 081 BPM Atrial Rate : 081 BPM P-R Int : 170 ms QRS Dur : 106 ms QT Int : 396 ms P-R-T Axes : 014 -11 -02 degrees QTc Int : 460 ms Normal sinus rhythm Minimal voltage criteria for LVH, may be normal variant ( R in aVL ) Borderline ECG When compared with ECG of 01-MAY-2022 03:50, No significant change was found Referred By: Wesly Lopez Electronically Signed By:ELVIRA CARBONE
[2022-05-18 04:18] VITALS: BP 140/82; PULSE 84; RESP 20; TEMP 36.5; O2SAT 96
[2022-05-18] MEDS: LORazepam 1 MG TABLET 2 MG PO (04:18)
[2022-05-18 04:20] LABS: MANUAL DIFF FLAG NO
--- NOTE | 2022-05-18 04:22 | PC.NURSE ---
Pt V/ S are stable, pt reports being homeless. Pt pass neurological test, pt has seizure precaution d/t a potential seizure. Pt reports having cocaine prior calling 911. pt states he called 911 d/t he is experiencing anxiety and depression. Pt denies SI or HI.
[2022-05-18 04:23] LABS: Basophils Absolute Auto 0.1 X10*3/uL (0.0-0.2); Basophils Percent Auto 0.7 % (0-2); Eosinophils Absolute Auto 0.2 X10*3/uL (0.0-0.4); Eosinophils Percent Auto 2.7 % (0-4); Hematocrit 44.5 % (42.0-52.0); Hemoglobin 14.9 g/dl (14.0-18.0); Imm Gran Abs Auto 0.01 X10*3/uL (0.00-0.03); Imm Gran Pct Auto 0.1 % (0.0-0.4); Lymphocytes Absolute Auto 1.8 X10*3/uL (1.2-4.9); Lymphocytes Percent Auto 21.7 % (20-40); Mean Corpuscular HGB Conc 33.5 g/dl (31.0-36.0); Mean Corpuscular Hemoglobin 28.3 pg (27.0-33.0); Mean Corpuscular Volume 84.4 fL (80.0-98.0); Mean Platelet Volume 12.1 fL (9.4-12.4); Monocytes Absolute Auto 0.8 X10*3/uL (0.1-1.2); Monocytes Percent Auto 9.8 % (2-11); Neutrophils Absolute Auto 5.5 x10*3/uL (2.0-8.3); Platelet Count 230 X10*3/uL (160-400); Red Blood Count 5.27 X10*6/uL (4.60-5.80); White Blood Count 8.5 X10*3/uL (4.8-10.8)
[2022-05-18 04:35] LABS: Ethanol 49 mg/dL; Lactic Acid 1.6 mmol/L (0.5-2.0)
[2022-05-18 04:39] LABS: Alanine Aminotransferase 30 U/L (0-40); Albumin Level 4.5 g/dL (3.5-5.0); Alkaline Phosphatase 95 U/L (39-117); Anion Gap 16 (12-20); Aspartate Amino Transferase 19 U/L (5-37); Bilirubin Total 0.6 mg/dL (0.0-1.0); Blood Urea Nitrogen 10 mg/dL (9-16); Calcium 9.5 mg/dL (8.4-10.2); Carbon Dioxide 21 mmol/L (22-29); Chloride 107 mmol/L (96-108); Creatinine Clr Calc Pharmacy 158.7; Estimated Glomerular Filt Rate > 60; Glucose Random 113 mg/dL (60-115); Sodium 140 mmol/L (135-145); Total Protein 7.5 g/dL (6.5-8.0)
[2022-05-18 05:16] VITALS: BP 145/89; PULSE 87; RESP 18; TEMP 36.7; O2SAT 95
[2022-05-18 07:42] VITALS: BP 127/65; PULSE 73; RESP 16; O2SAT 98
--- NOTE | 2022-05-18 11:02 | MHC.CARE ---
Late entry; CARE Team met with Pt who reported daily alcohol use and reported wanting help to get into detox. Plan for recovery to work with Pt for placement.
== END 2022-05-18 09:45 | disposition home or self-care (01) ==
PROVIDERS: Emergency Provider Internal Medicine; PCP Internal Medicine
DX: F31.9 Bipolar disorder, unspecified (principal); R56.9 Unspecified convulsions; F41.9 Anxiety disorder, unspecified; I10 Essential (primary) hypertension; F19.10 Other psychoactive substance abuse, uncomplicated; F10.10 Alcohol abuse, uncomplicated; Y90.2 Blood alcohol level of 40-59 mg/100 ml; E66.9 Obesity, unspecified; Z68.41 Body mass index [BMI] 40.0-44.9, adult; Z87.891 Personal history of nicotine dependence; Z79.899 Other long term (current) drug therapy
CPT/HCPCS: 36415; 80053; 82077; 83605; 85025; 93005; 99284

== ENCOUNTER 2022-06-27 13:06 | Emergency (ER) | payer MEDICARE, MEDICAID, SELFPAY ==
--- NOTE | ~2022-06-27 | XR_ITS ---
EXAMINATION: XR LUMBOSACRAL SPINE CLINICAL INFORMATION: Low back pain COMPARISON: None TECHNIQUE: Three views of the lumbosacral spine. FINDINGS: Normal alignment of the lumbar spine. No subluxation. Vertebral body heights are maintained. No acute fracture. Moderate disc height loss at L5-S1 with endplate sclerosis and proliferative change, not significantly changed. Intervertebral disc heights otherwise maintained. Scattered small anterior endplate osteophytes in the remainder the lumbar spine. Bridging osteophytes in the lower thoracic spine. Mild subchondral sclerosis at the bilateral sacroiliac joints. No pars defects seen. XR/XR lumbar spine 2-3V IMPRESSION: 1. No subluxation or fracture identified. 2. Moderate disc degenerative change at L5-S1, appearance similar to prior.
[2022-06-27 13:43] VITALS: BP 135/77; PULSE 72; RESP 17; TEMP 35.8; O2SAT 97; BMI 34.4
--- NOTE | 2022-06-27 13:48 | ED_ITS ---
HPI - General Adult General Chief complaint: Back Pain/Injury <GOVIND Montes - Last Filed: 06/27/22 13:51> Stated complaint: LOW BACK PAIN S/P HEAVY LIFTING T-1 PER EMS <GOVIND Montes - Last Filed: 06/27/22 13:51> Time Seen by Provider: 06/27/22 16:04 <GOVIND Montes - Last Filed: 06/27/22 13:51> Source: patient <GOVIND Schulte - Last Filed: 06/27/22 19:12> Mode of arrival: ambulatory <GOVIND Schulte - Last Filed: 06/27/22 19:12> History of Present Illness HPI narrative: 37-year-old male with a past medical history of bipolar, ETOH abuse, HTN, obesity, polysubstance abuse, presenting to the ED complaining of low back pain radiating down bilateral lower extremities s/p moving heavy boxes last night. Denies direct injury/ trauma or fall. Reports mild paresthesias. Denies numbness, weakness, urinary incontinence / retention, abdominal pain, hematuria. Denies history of IVDA. <GOVIND Schulte - Last Filed: 06/27/22 19:12> Onset (ago): day(s) <GOVIND Schulte - Last Filed: 06/27/22 19:12> Related Data Home medications: Previous Rx's Medication Instructions Recorded lisinopril 20 mg tablet 20 mg PO DAILY 90 days #90 tabs 05/15/22 sertraline 25 mg tablet 25 mg PO DAILY 90 days #90 tabs 05/15/22 acetaminophen 500 mg tablet 500 mg PO Q6H PRN fever or pain 06/27/22 (Tylenol Extra Strength) #14 tabs cyclobenzaprine 5 mg tablet 5 mg PO Q8H PRN pain (scale score 06/27/22 7-10) 5 days #14 tabs lidocaine 5 % topical patch 1 patch topical DAILY PRN pain #30 06/27/22 (Lidoderm) ea naproxen 500 mg tablet 500 mg PO BID PRN pain 10 days #20 06/27/22 tabs <GOVIND Montes - Last Filed: 06/27/22 13:51> Allergies/adverse reactions: Allergies Allergy/AdvReac Type Severity Reaction Status Date / Time No Known Allergies Allergy Unverified 05/18/22 04:05 <GOVIND Montes - Last Filed: 06/27/22 13:51> Review of Systems Review of Systems: Constitutional: No Fever, No Chills ENT/Mouth: No Ear Pain, No Nasal Congestion, No sore throat, No Rhinorrhea, No Swallowing Difficulty Cardiovascular: No Chest Pain, No SOB Respiratory: No Cough, No Sputum Gastrointestinal: No Nausea, No Vomiting, No Abdominal pain Genitourinary: No Dysuria, No Hematuria, No Urinary Incontinence/retention, No Flank Pain Musculoskeletal: + joint pain, No Myalgias, No Joint Swelling Skin: No Skin Lesions, No rash Neuro: No Weakness, No Numbness, + Paresthesias <GOVIND Schulte - Last Filed: 06/27/22 19:12> Yes all other systems are reviewed and are negative <GOVIND Schulte - Last Filed: 06/27/22 19:12> Constitutional: Constitutional: Reports as per HPI <GOVIND Schulte - Last Filed: 06/27/22 19:12> Neurologic: Denies Sensory deficit (Neuro) <GOVIND Schulte - Last Filed: 06/27/22 19:12> [facility] Past Medical History Attestation statement: The following information was validated with the patient. <GOVIND Schulte - Last Filed: 06/27/22 19:12> Medical History: Medical History Bipolar 1 disorder Chronic back pain Eardrum trauma ETOH abuse HTN (hypertension) Lumbar pain Morbid obesity with BMI of 50.0-59.9, adult Non compliance w medication regimen Non compliance with medical treatment Obesity Polysubstance abuse Seizure <GOVIND Montes - Last Filed: 06/27/22 13:51> Surgical History: Surgical History No pertinent past surgical history <GOVIND Montes Last Filed: 06/27/22 13:51> Family History Family History: Family History Mother Hypertension Diabetes Cancer Father Diabetes Hypertension <GOVIND Montes - Last Filed: 06/27/22 13:51> Social History Social History: Social History Housing: Apartment Housing Other:: living with aunt Alcohol intake: current Alcohol intake frequency: 0-2 drinks per day Alcohol type: beer Patient Tobacco Use Status: Former Tobacco user Tobacco use type: Cigarette e-Cigarette/Vaping Use: Never Used Second Hand Smoke Exposure: No Substance Use Type: Crack/Cocaine Advance Directives: No Advance Directives Information Provided: Yes service: No Current occupational status: unemployed Cognitive needs: No Hearing needs: No Vision needs: No <GOVIND Montes - Last Filed: 06/27/22 13:51> Physical Exam ED Vital Signs: Vital Signs - 24 hr 06/27/22 13:43 Temperature 96.5 F L Pulse Rate 72 Respiratory Rate 17 Blood Pressure 135/77 Pulse Oximetry 97 Oxygen Delivery Method Room Air BMI result Body Mass Index 34.4 <GOVIND Montes - Last Filed: 06/27/22 13:51> Vital Signs - 24 hr 06/27/22 13:43 Temperature 96.5 F L Pulse Rate 72 Respiratory Rate 17 Blood Pressure 135/77 Pulse Oximetry 97 Oxygen Delivery Method Room Air BMI result Body Mass Index 34.4 <GOVIND Schulte - Last Filed: 06/27/22 19:12> Const General: cooperative, healthy appearing and no acute distress <GOVIND Schulte - Last Filed: 06/27/22 19:12> Orientation/consciousness: patient oriented x3 <GOVIND Schulte - Last Filed: 06/27/22 19:12> Limitations: no limitations <GOVIND Schulte Last Filed: 06/27/22 19:12> HENMT Head: Yes normal to inspection and Yes atraumatic <GOVIND Schulte Last Filed: 06/27/22 19:12> Ears: hearing grossly normal bilaterally <GOVIND Schulte Last Filed: 06/27/22 19:12> General nose exam: Normal external nose present <GOVIND Schulte - Last Filed: 06/27/22 19:12> Face and sinus: Yes normal facial exam <GOVIND Schulte - Last Filed: 06/27/22 19:12> Eyes General: appearance normal, both eyes and all related structures <GOVIND Schulte - Last Filed: 06/27/22 19:12> EOM: EOMs intact bilaterally <GOVIND Schulte - Last Filed: 06/27/22 19:12> Neck Neck: Yes normal visual inspection and Yes no meningeal signs <Maribeth Cordero PA - Last Filed: 06/27/22 19:12> Resp Effort & Inspection: normal respiratory effort and no respiratory distress <Maribeth Cordero PA - Last Filed: 06/27/22 19:12> Cardio Rate: regular rate <GOVIND Schulte - Last Filed: 06/27/22 19:12> GI Inspection: Yes normal to inspection <GOVIND Schulte - Last Filed: 06/27/22 19:12> Palpation (GI): Soft to palpation, nontender, no guarding and not rigid <Maribeth Cordero PA - Last Filed: 06/27/22 19:12> General: Yes no CVA tenderness <Maribeth Cordero PA - Last Filed: 06/27/22 19:12> Back/Spine/Pelvis Other: No midline thoracic/lumbar spinous tenderness/step-off or deformity. + bilateral lumbar MSK /paraspinal tenderness to palpation reproducing subjective complaint <Maribeth Cordero PA - Last Filed: 06/27/22 19:12> Back: no CVA tenderness <Maribeth Cordero PA - Last Filed: 06/27/22 19:12> Skin Rashes: no rashes <GOVIND Schulte - Last Filed: 06/27/22 19:12> Wounds: no wounds <Maribeth Cordero PA - Last Filed: 06/27/22 19:12> Neuro Other: Strength intact throughout. No saddle anesthesia. Sensation intact to light touch. Neurovascular intact distally <Maribeth Cordero PA - Last Filed: 06/27/22 19:12> General: patient oriented x3, gait normal, tone normal, moves all extremities, no meningeal signs and no focal motor deficits <GOVIND Schulte - Last Filed: 06/27/22 19:12> Gait exam (Neuro): Normal gait present <GOVIND Schulte - Last Filed: 06/27/22 19:12> Motor exam (neuro): 5/5 motor strength present throughout <GOVIND Schulte - Last Filed: 06/27/22 19:12> Sensory Exam: No Sensory deficit (Neuro) <GOVIND Schulte - Last Filed: 06/27/22 19:12> Extrem General: Yes normal to inspection <GOVIND Schulte - Last Filed: 06/27/22 19:12> Course Course Course Narrative: This is an RME: Additional HPI, ROS, PE not included below will be deferred to primary provider. 37 year old male presents w/ lower back pain w/ radiation to b/l lower extremities to the knees since 2099 last night. Tells me he was heavy lifting. Reports hx of broken discs . Denies saddle paresthesias, fevers, chills, urine/bowel incontinence/retention, blunt trauma. Reports difficulty with ambulation at this time. On exam patient was not able to ambulate he came in to triage in a wheelchair. Pain with palpation of lumbar region throat. No saddle paresthesias. Neuro nonfocal. Imaging will be ordered <GOVIND Montes - Last Filed: 06/27/22 13:51> This is an RME: Additional HPI, ROS, PE not included below will be deferred to primary provider. 37 year old male presents w/ lower back pain w/ radiation to b/l lower extremities to the knees since 2099 last night. Tells me he was heavy lifting. Reports hx of broken discs . Denies saddle paresthesias, fevers, chills, urine/bowel incontinence/retention, blunt trauma. Reports difficulty with ambulation at this time. On exam patient was not able to ambulate he came in to triage in a wheelchair. Pain with palpation of lumbar region throat. No saddle paresthesias. Neuro nonfocal. Imaging will be ordered XR lumbar spine 2-3V IMPRESSION: 1.? No subluxation or fracture identified. 2.? Moderate disc degenerative change at L5-S1, appearance similar to prior. ? Results discussed with patient including worrisome signs and symptoms and strict return precautions, and when to return to the emergency department. They verbalized understanding and feel safe for discharge at this time. <GOVIND Schulte - Last Filed: 06/27/22 19:12> Medications Administered Discontinued Medications Generic Name Dose Route Start Last Admin Trade Name Freq PRN Reason Stop Dose Admin Ketorolac Tromethamine 30 mg 06/27/22 13:50 06/27/22 16:57 Ketorolac Tromethamine 30 Mg/Ml Vial IM 06/27/22 13:51 30 mg ONCE ONE Administration Lidocaine 1 patch 06/27/22 13:50 06/27/22 16:58 Lidocaine 4 % Patch Adh..Patch TRANSDERMA 06/27/22 13:51 1 patch ONCE ONE Administration Protocol <GOVIND Montes - Last Filed: 06/27/22 13:51> Medications Administered Discontinued Medications Generic Name Dose Route Start Last Admin Trade Name Freq PRN Reason Stop Dose Admin Ketorolac Tromethamine 30 mg 06/27/22 13:50 06/27/22 16:57 Ketorolac Tromethamine 30 Mg/Ml Vial IM 06/27/22 13:51 30 mg ONCE ONE Administration Lidocaine 1 patch 06/27/22 13:50 06/27/22 16:58 Lidocaine 4 % Patch Adh..Patch TRANSDERMA 06/27/22 13:51 1 patch ONCE ONE Administration Protocol <GOVIND Schulte - Last Filed: 06/27/22 19:12> Medical Decision Making Medical Decision Making MDM Narrative: 37-year-old male with a past medical history of bipolar, ETOH abuse, HTN, obesity, polysubstance abuse, presenting to the ED complaining of low back pain radiating down bilateral lower extremities s/p moving heavy boxes last night. on exam vital signs stable, NAD, nontoxic appearing, physical exam as above, no midline spinous tenderness or red flag symptoms. Concern for MSK pain /strain and muscle spasming. Low suspicion for fracture, renal stone /pyelo, epidural abscess or cauda equina Plan: x-rays ordered in triage, Pain control Please refer to course for remaining clinical decision making, interpretation of labs/imaging results, and discussions with consultants and/or family members. <GOVIND Schulte - Last Filed: 06/27/22 19:12> Differential Diagnosis Differential Diagnoses: The differential diagnosis associated with the presentation includes <GOVIND Schulte - Last Filed: 06/27/22 19:12> as above <GOVIND Schulte Last Filed: 06/27/22 19:12> Radiology Impression Discussion of test interpretation with radiology: I have reviewed the radiologist's reading. <GOVIND Schulte - Last Filed: 06/27/22 19:12> Prescription Management I considered prescription management with: Pain Medication <GOVIND Schulte Last Filed: 06/27/22 19:12> Discharge Plan Discharge Clinical Impression: Low back pain <GOVIND Montes Last Filed: 06/27/22 13:51> Patient Disposition: Home, Self-Care <GOVIND Monets Last Filed: 06/27/22 13:51> Instructions: Acute Low Back Pain (ED) <GOVIND Montes Last Filed: 06/27/22 13:51> Additional Instructions: your x-ray shows some arthritic changes Your pain is likely musculoskeletal Flexeril is a muscle relaxer, take at night as it makes you drowsy, do not drive, drink alcohol, or operate machinery while taking it Naproxen as an anti-inflammatory / pain medication, take with food Lidoderm patches are numbing patches, apply to painful area In addition take Tylenol at home If symptoms persist or worsen, pain becomes unbearable, you developed urinary retention or incontinence, or weakness return to the ED <GOVIND Montes Last Filed: 06/27/22 13:51> Prescriptions: New lidocaine [Lidoderm] 5 % adhesive patch,medicated 1 patch topical DAILY MDD remove after 12 hours PRN (Reason: pain) Qty: 30 0RF Rx Instructions: leave on most painful area for up to 12 hrs cyclobenzaprine 5 mg tablet 5 mg PO Q8H PRN (Reason: pain (scale score 7-10)) 5 Days Qty: 14 0RF acetaminophen [Tylenol Extra Strength] 500 mg tablet 500 mg PO Q6H PRN (Reason: fever or pain) Qty: 14 0RF naproxen 500 mg tablet 500 mg PO BID PRN (Reason: pain) 10 Days Qty: 20 0RF No Action lisinopril 20 mg tablet 20 mg PO DAILY 90 Days Qty: 90 3RF sertraline 25 mg tablet 25 mg PO DAILY 90 Days Qty: 90 1RF <GOVIND Montes - Last Filed: 06/27/22 13:51> Referrals: Physician,Unknown J [Primary Care Provider] - <GOVIND Montes - Last Filed: 06/27/22 13:51> Interventions: ED Discharge Assessment Last Done: 06/27/22 17:24 <GOVIND Montes - Last Filed: 06/27/22 13:51> Discharge Date/Time: 06/27/22 17:24 <GOVIND Montes - Last Filed: 06/27/22 13:51>
[2022-06-27] MEDS: Ketorolac Tromethamine 30 MG/ML VIAL IM (16:57)
[2022-06-27] MEDS: Lidocaine 4 % Patch ADH..PATCH 1 PATCH TRANSDERMA (16:58)
== END 2022-06-27 17:24 | disposition home or self-care (01) ==
PROVIDERS: Emergency Provider Emergency Medicine
DX: M54.50 Low back pain, unspecified (principal); E66.9 Obesity, unspecified; Z68.34 Body mass index [BMI] 34.0-34.9, adult
CPT/HCPCS: 72100; 96372; 99283; 99284; J1885

== ENCOUNTER 2022-07-01 19:25 | Emergency (ER) | payer MEDICARE, MEDICAID, SELFPAY ==
[2022-07-01 19:33] VITALS: BP 131/100; PULSE 70; RESP 16; TEMP 36.6; O2SAT 96; BMI 35.9
[2022-07-01 20:04] LABS: Amphetamine Screen Urine Not Detected (Not Detect); Barbiturates, Urine Not Detected (Not Detect); Benzodiazepines Screen Urine Not Detected (Not Detect); Cannabinoid Screen Urine Not Detected (Not Detect); Cocaine Screen Urine POSITIVE (Not Detect); Fentanyl, urine Not Detected (Not Detect); Opiate Screen Urine Not Detected (Not Detect); Phencyclidine Screen Urine Not Detected (Not Detect)
--- NOTE | 2022-07-01 20:05 | ED_ITS ---
HPI - Anxiety General Chief Complaint: Anxiety Stated Complaint: crisis,anxiety,recently lost pilar per ems Time Seen by Provider: 07/01/22 19:35 Source: patient Mode of arrival: ambulatory Limitations: no limitations History of Present Illness HPI narrative: 37-year-old male with a past medical history of bipolar, ETOH abuse, HTN, obesity, polysubstance abuse, presenting to the ED complaining of anxiety, depre ssion due to increasing stressors at home. Patient reports that he is feeling anxious and depressed because he got kicked out from his cousin's house so he called the ambulance for help, he states he just did not know what else to do. He tells me the situation upset him. He tells me otherwise everything is good. He tells me at this time he is feeling better. He tells me he has never felt suicidal or homicidal, and is not feeling that way now. Patient denies visual, auditory and tactile hallucinations. Denies medical complaints at this time Related Data Home Medications Medication Instructions Recorded Confirmed lisinopril 20 mg tablet 1 tab PO DAILY 07/01/22 07/01/22 sertraline 25 mg tablet 1 tab PO DAILY 07/01/22 07/01/22 Previous Rx's Medication Instructions Recorded acetaminophen 500 mg tablet 500 mg PO Q6H PRN fever or pain 06/27/22 (Tylenol Extra Strength) #14 tabs cyclobenzaprine 5 mg tablet 5 mg PO Q8H PRN pain (scale score 06/27/22 7-10) 5 days #14 tabs lidocaine 5 % topical patch 1 patch topical DAILY PRN pain #30 06/27/22 (Lidoderm) ea naproxen 500 mg tablet 500 mg PO BID PRN pain 10 days #20 06/27/22 tabs Allergies Allergy/AdvReac Type Severity Reaction Status Date / Time No Known Allergies Allergy Unverified 05/18/22 04:05 Review of Systems Review of Systems: Constitutional : No Weight loss, No Fever, No Chills, No Fatigue, No Malaise ENT/Mouth : No sore throat, No Rhinorrhea Eyes: No Eye Pain, No Swelling, No Redness Cardiovascular : No Chest Pain, No SOB, No Dyspnea on Exertion, No Orthopnea, No Edema, No Palpitations Respiratory : No Cough, No Sputum, No Wheezing Gastrointestinal : No Nausea, No Vomiting, No Diarrhea, No Constipation, No abdominal Pain, No Hematochezia, No Melena Genitourinary : No Dysuria, No Urinary Frequency, No Hematuria, Musculoskeletal : No joint pain, No Myalgias, No Joint Swelling Skin : No Skin Lesions, No rash Neuro : No Weakness, No Numbness, No Dizziness, No Headache Psych : + Anxiety/Panic, + Depression, No SI NO HI All other systems reviewed and are negative Yes all other systems are reviewed and are negative [facility], [facility] Past Medical History Attestation statement: The following information was validated with the patient. Source: old records reviewed and nursing notes reviewed Medical History Bipolar 1 disorder Chronic back pain Eardrum trauma ETOH abuse HTN (hypertension) Lumbar pain Morbid obesity with BMI of 50.0-59.9, adult Non compliance w medication regimen Non compliance with medical treatment Obesity Polysubstance abuse Seizure Surgical History No pertinent past surgical history Family History Family History Mother Hypertension Diabetes Cancer Father Diabetes Hypertension Social History Social History Housing: Apartment Housing Other:: living with aunt Alcohol intake: current Alcohol intake frequency: 0-2 drinks per day Alcohol type: beer Patient Tobacco Use Status: Former Tobacco user Tobacco use type: Cigarette e-Cigarette/Vaping Use: Never Used Second Hand Smoke Exposure: No Substance Use Type: Crack/Cocaine Advance Directives: No Advance Directives Information Provided: No service: No Current occupational status: unemployed Cognitive needs: No Hearing needs: No Vision needs: No Physical Exam Vital Signs: Vital Signs: Last Vital Signs Temp 98 F 07/01/22 19:33 Pulse 70 07/01/22 19:33 Resp 16 07/01/22 19:33 BP 131/100 H 07/01/22 19:33 Pulse Ox 96 07/01/22 19:33 O2 Del Method 07/01/22 19:33 BMI result Body Mass Index 35.9 vss Appearance: Alert.? Oriented X3.? No acute distress.? Head: Normocephalic, atraumatic, no step-offs or deformities Eyes: Pupils equal, round and reactive to light.? ENT: Pharynx normal.? Neck: Normal inspection.? Neck supple.? CVS: Normal heart rate and rhythm.? Pulses normal.? Respiratory: No respiratory distress.? Breath sounds normal.? Abdomen: Soft and nontender.? Skin: Skin warm and dry.? Normal skin color.? Normal skin turgor.? Extremities: No lower extremity edema.? No calf ttp. 5/5 strength to bilateral upper and lower extremities Back: No midline tenderness, no C-spine tenderness, full range of motion, no CVA tenderness bilaterally Neuro: Oriented X 3.? No motor deficit.? No sensory deficit. CN 2-12 intact Course Reevaluation(s) Reevaluation #1: Care team gave him [facility] information. Patient requesting to go home. He did help a labs drawn however he did not have any medical complaints. Patient will be discharged home advised return with new or worsening symptoms. He is being discharge and he states he is staying in a hotel and has a safe plan. Again denies suicidal homicidal ideation. Patient optimistic with plans. Educated patient on diagnosis and treatment plan, answered all question, patient verbalizes understanding. At this time patient will be discharged home, advised to return with new or worsening symptoms. Educated on worrisome signs and symptoms and when to return. At this time I feel comfortable discharge home. Time: 20:08 Medical Decision Making Medical Decision Making [facility] Narrative: 2001 37-year-old male presents with anxiety and depression x1 day after being kicked out of his cousin's house he feels better now however. Physical exam benign. Likely anxiety and depression. Unlikely acute episode of bipolar disorder, or polysubstance abuse. Patient not suicidal or homicidal Plan at this time medical clearance evaluation by the care team Differential Diagnosis Differential Diagnoses: The differential diagnosis associated with the presentation includes Likely anxiety and depression. Unlikely acute episode of bipolar disorder, or polysubstance abuse. Patient not suicidal or homicidal Admission/Observation Consideration of admission/observation: Escalation of care including admission/observation considered Consult Healthcare Provider Management of the patient was discussed with: [employer] (Behavioral health team) and Behavioral Health Provider Lab Data 07/01/22 20:03 07/01/22 20:03 Labs: Lab Results 02/13/23 02/13/23 02/13/23 Range/Units 19:48 19:48 20:03 WBC 8.1 (4.8-10.8) X10*3/uL RBC 5.06 (4.60-5.80) X10*6/uL Hgb 14.3 (14.0-18.0) g/dl Hct 43.4 (42.0-52.0) % MCV 85.8 (80.0-98.0) fL MCH 28.3 (27.0-33.0) pg MCHC 32.9 (31.0-36.0) g/dl RDW 12.4 (11.0-16.0) % Plt Count 207 (160-400) X10*3/uL MPV 11.6 (9.4-12.4) fL Immature Gran % (Auto) 0.1 (0.0-0.4) % Neut % (Auto) 64.1 (45-73) % Lymph % (Auto) 19.5 L (20-40) % [place] % (Auto) 10.1 (2-11) % Eos % (Auto) 5.3 H (0-4) % Baso % (Auto) 0.9 (0-2) % Lymph # (Auto) 1.6 (1.2-4.9) X10*3/uL [place] # (Auto) 0.8 (0.1-1.2) X10*3/uL Eos # (Auto) 0.4 (0.0-0.4) X10*3/uL Baso # (Auto) 0.1 (0.0-0.2) X10*3/uL Abs Immat Gran (auto) 0.01 (0.00-0.03) X10*3/uL Absolute Neuts (auto) 5.2 (2.0-8.3) x10*3/uL Absolute Nucleated RBC 0.000 (0.0-0.012) X10*3/uL Nucleated RBC % (auto) 0.0 (0.0-0.2) /100WBC Sodium (135-145) mmol/L Potassium (3.3-5.1) mmol/L Chloride (96-108) mmol/L Carbon Dioxide (22-29) mmol/L Anion Gap (12-20) BUN (9-16) mg/dL Creatinine (0.5-1.4) mg/dL Estim Creat Clear Calc Estimated GFR Random Glucose (60-115) mg/dL Calcium (8.4-10.2) mg/dL Total Bilirubin (0.0-1.0) mg/dL AST (5-37) U/L ALT (0-40) U/L Alkaline Phosphatase (39-117) U/L Total Protein (6.5-8.0) g/dL Albumin (3.5-5.0) g/dL Urine Opiates Screen Not Detected (Not Detect) Urine Fentanyl Screen Not Detected (Not Detect) Ur Barbiturates Screen Not Detected (Not Detect) Ur Phencyclidine Scrn Not Detected (Not Detect) Ur Amphetamines Screen Not Detected (Not Detect) U Benzodiazepines Scrn Not Detected (Not Detect) Urine Cocaine Screen POSITIVE H (Not Detect) U Marijuana (THC) Screen Not Detected (Not Detect) Ethyl Alcohol mg/dL COVID-19 ([facility]) Negative (Negative) COVID-19 Clin Com See Note 07/01/22 07/01/22 Range/Units 20:03 20:03 WBC (4.8-10.8) X10*3/uL RBC (4.60-5.80) X10*6/uL Hgb (14.0-18.0) g/dl Hct (42.0-52.0) % MCV (80.0-98.0) fL MCH (27.0-33.0) pg MCHC (31.0-36.0) g/dl RDW (11.0-16.0) % Plt Count (160-400) X10*3/uL MPV (9.4-12.4) fL Immature Gran % (Auto) (0.0-0.4) % Neut % (Auto) (45-73) % Lymph % (Auto) (20-40) % Dod[place] % (Auto) (2-11) % Eos % (Auto) (0-4) % Baso % (Auto) (0-2) % Lymph # (Auto) (1.2-4.9) X10*3/uL [place] # (Auto) (0.1-1.2) X10*3/uL Eos # (Auto) (0.0-0.4) X10*3/uL Baso # (Auto) (0.0-0.2) X10*3/uL Abs Immat Gran (auto) (0.00-0.03) X10*3/uL Absolute Neuts (auto) (2.0-8.3) x10*3/uL Absolute Nucleated RBC (0.0-0.012) X10*3/uL Nucleated RBC % (auto) (0.0-0.2) /100WBC Sodium 142 (135-145) mmol/L Potassium 4.0 (3.3-5.1) mmol/L Chloride 107 (96-108) mmol/L Carbon Dioxide 26 (22-29) mmol/L Anion Gap 13 (12-20) BUN 19 H (9-16) mg/dL Creatinine 1.00 (0.5-1.4) mg/dL Estim Creat Clear Calc 125.0 Estimated GFR > 60 Random Glucose 99 (60-115) mg/dL Calcium 9.3 (8.4-10.2) mg/dL Total Bilirubin 0.4 (0.0-1.0) mg/dL AST 21 (5-37) U/L ALT 24 (0-40) U/L Alkaline Phosphatase 93 (39-117) U/L Total Protein 7.2 (6.5-8.0) g/dL Albumin 4.3 (3.5-5.0) g/dL Urine Opiates Screen (Not Detect) Urine Fentanyl Screen (Not Detect) Ur Barbiturates Screen (Not Detect) Ur Phencyclidine Scrn (Not Detect) Ur Amphetamines Screen (Not Detect) U Benzodiazepines Scrn (Not Detect) Urine Cocaine Screen (Not Detect) U Marijuana (THC) Screen (Not Detect) Ethyl Alcohol < 10 mg/dL COVID-19 ([facility]) (Negative) COVID-19 Clin Com Core Measures AMI core measures followed: Yes Measure exclusions: not indicated Critical Care Time Critical Care Time Critical Care Time: No Discharge Plan Discharge Clinical Impression: Acute anxiety, Depression Patient Disposition: Home, Self-Care Instructions: Depression (ED), Anxiety (ED) Additional Instructions: Take your medications as prescribed. If you were prescribed antibiotics today, it is important that you take your medication to their entirety, do not skip any doses, do not finish them early. Follow-up with your primary care provider this week. Return to the emergency department with new or worsening symptoms. Such as fevers, chills, chest pain, shortness of breath, nausea, vomiting, dizziness, headache, vision changes, lethargy, suicidal or homicidal ideation In case of emergency call 911 Prescriptions: No Action lidocaine [Lidoderm] 5 % adhesive patch,medicated 1 patch topical DAILY MDD remove after 12 hours PRN (Reason: pain) Qty: 30 0RF Rx Instructions: leave on most painful area for up to 12 hrs cyclobenzaprine 5 mg tablet 5 mg PO Q8H PRN (Reason: pain (scale score 7-10)) 5 Days Qty: 14 0RF acetaminophen [Tylenol Extra Strength] 500 mg tablet 500 mg PO Q6H PRN (Reason: fever or pain) Qty: 14 0RF naproxen 500 mg tablet 500 mg PO BID PRN (Reason: pain) 10 Days Qty: 20 0RF lisinopril 20 mg tablet 1 tab PO DAILY sertraline 25 mg tablet 1 tab PO DAILY Referrals: [facility] [Provider Group] - 2 days Stand Alone Forms: Work/School Release Interventions: ED Discharge Assessment Last Done: 07/01/22 20:10
[2022-07-01 20:11] LABS: MANUAL DIFF FLAG NO
[2022-07-01 20:15] LABS: Basophils Absolute Auto 0.1 X10*3/uL (0.0-0.2); Basophils Percent Auto 0.9 % (0-2); Eosinophils Absolute Auto 0.4 X10*3/uL (0.0-0.4); Eosinophils Percent Auto 5.3 % (0-4); Hematocrit 43.4 % (42.0-52.0); Hemoglobin 14.3 g/dl (14.0-18.0); Imm Gran Abs Auto 0.01 X10*3/uL (0.00-0.03); Imm Gran Pct Auto 0.1 % (0.0-0.4); Lymphocytes Absolute Auto 1.6 X10*3/uL (1.2-4.9); Lymphocytes Percent Auto 19.5 % (20-40); Mean Corpuscular HGB Conc 32.9 g/dl (31.0-36.0); Mean Corpuscular Hemoglobin 28.3 pg (27.0-33.0); Mean Corpuscular Volume 85.8 fL (80.0-98.0); Mean Platelet Volume 11.6 fL (9.4-12.4); Monocytes Absolute Auto 0.8 X10*3/uL (0.1-1.2); Monocytes Percent Auto 10.1 % (2-11); Neutrophils Absolute Auto 5.2 x10*3/uL (2.0-8.3); Neutrophils Percent Auto 64.1 % (45-73); Platelet Count 207 X10*3/uL (160-400); Red Blood Count 5.06 X10*6/uL (4.60-5.80); Red Cell Distribution Width 12.4 % (11.0-16.0); White Blood Count 8.1 X10*3/uL (4.8-10.8)
[2022-07-01 20:17] LABS: COVID-19 Test Negative (Negative); IDNOW Serial# 6674DD1D
--- NOTE | 2022-07-01 20:19 | MHC.CARE ---
Care team chatted with Ramin who requested to discharge 30 min after check in. He denied SI/HI. He was in good spirit. He reported that he had anxiety about housing as he was kicked out of [facility]. He repoted that he will stay at a hotel. [facility] information provided.
[2022-07-01 20:32] LABS: Alanine Aminotransferase 24 U/L (0-40); Albumin Level 4.3 g/dL (3.5-5.0); Alkaline Phosphatase 93 U/L (39-117); Anion Gap 13 (12-20); Aspartate Amino Transferase 21 U/L (5-37); Bilirubin Total 0.4 mg/dL (0.0-1.0); Blood Urea Nitrogen 19 mg/dL (9-16); Calcium 9.3 mg/dL (8.4-10.2); Carbon Dioxide 26 mmol/L (22-29); Chloride 107 mmol/L (96-108); Estimated Glomerular Filt Rate > 60; Ethanol < 10 mg/dL; Glucose Random 99 mg/dL (60-115); Sodium 142 mmol/L (135-145); Total Protein 7.2 g/dL (6.5-8.0)
== END 2022-07-01 20:40 | disposition home or self-care (01) ==
PROVIDERS: Emergency Provider Internal Medicine
DX: F41.9 Anxiety disorder, unspecified (principal); F31.9 Bipolar disorder, unspecified; Z20.822 Contact with and (suspected) exposure to COVID-19; I10 Essential (primary) hypertension; F19.10 Other psychoactive substance abuse, uncomplicated; R56.9 Unspecified convulsions; Z87.891 Personal history of nicotine dependence; Z79.899 Other long term (current) drug therapy
CPT/HCPCS: 36415; 80053; 80307; 82077; 85025; 87635; 99282; 99283

== ENCOUNTER 2022-07-03 01:24 | Emergency (ER) | payer MEDICARE, MEDICAID, SELFPAY ==
[2022-07-03 01:47] VITALS: BP 104/78; BP 135/66; PULSE 78; PULSE 80; RESP 16; TEMP 36.9; O2SAT 95; O2SAT 96; BMI 44.3
--- NOTE | 2022-07-03 05:12 | ED_ITS ---
HPI - Alcohol General Chief Complaint: ETOH/Substance Use Stated Complaint: etoh Time Seen by Provider: 07/03/22 02:11 Source: patient Mode of arrival: ambulatory Limitations: no limitations History of Present Illness HPI narrative: patient with alcohol abuse had few drinks earlier today came here to rest and will go home in the morning does not want to go to detox no history of fall or head injury complaining of mild headache but sleeping in the ER since he came patient does have history of alcohol withdrawal seizures Related Data Home Medications Medication Instructions Recorded Confirmed lisinopril 20 mg tablet 1 tab PO DAILY 07/01/22 07/01/22 sertraline 25 mg tablet 1 tab PO DAILY 07/01/22 07/01/22 Previous Rx's Medication Instructions Recorded acetaminophen 500 mg tablet 500 mg PO Q6H PRN fever or pain 06/27/22 (Tylenol Extra Strength) #14 tabs cyclobenzaprine 5 mg tablet 5 mg PO Q8H PRN pain (scale score 06/27/22 7-10) 5 days #14 tabs lidocaine 5 % topical patch 1 patch topical DAILY PRN pain #30 06/27/22 (Lidoderm) ea naproxen 500 mg tablet 500 mg PO BID PRN pain 10 days #20 06/27/22 tabs Allergies Allergy/AdvReac Type Severity Reaction Status Date / Time No Known Allergies Allergy Unverified 05/18/22 04:05 Review of Systems Review of Systems: Yes all other systems are reviewed and are negative [facility] Past Medical History Medical History Bipolar 1 disorder Chronic back pain Eardrum trauma ETOH abuse HTN (hypertension) Lumbar pain Morbid obesity with BMI of 50.0-59.9, adult Non compliance w medication regimen Non compliance with medical treatment Obesity Polysubstance abuse Seizure Surgical History No pertinent past surgical history Family History Family History Mother Hypertension Diabetes Cancer Father Diabetes Hypertension Social History Social History Housing: Apartment Housing Other:: living with aunt Alcohol intake: current Alcohol intake frequency: 0-2 drinks per day Alcohol type: beer Patient Tobacco Use Status: Former Tobacco user Tobacco use type: Cigarette e-Cigarette/Vaping Use: Never Used Second Hand Smoke Exposure: No Substance Use Type: Crack/Cocaine Advance Directives: No service: No Current occupational status: unemployed Cognitive needs: No Hearing needs: No Vision needs: No Physical Exam ED Vital Signs: Vital Signs - 24 hr 07/03/22 01:47 Temperature 98.4 F Pulse Rate 78 Respiratory Rate 16 Blood Pressure 135/66 Pulse Oximetry 96 Oxygen Delivery Method Room Air BMI result Body Mass Index 44.3 Appearance: Alert. Oriented X3. No acute distress. ETOH++ Eyes: PERRLA, No Nystagmus ENT: Pharynx normal. Oral Mucosa moist Neck: Normal inspection. Neck supple. CVS: Normal heart rate and rhythm. Pulses normal. Respiratory: No respiratory distress. Equal air entry bilateral, Abdomen: Soft and nontender. Bowel sounds are present, no mass palpable, no CVA tenderness Skin: Skin warm and dry. Normal skin color. Normal skin turgor. Extremities: No lower extremity edema. No calf tenderness Neuro: Oriented X 3. No motor deficit. No sensory deficit.No cerebellar signs , cranial nerves II-XII intact Medical Decision Making Medical Decision Making MDM Narrative: patient's history of alcohol abuse been sleeping since he came to the ER was able to ambulate when arrived does not want to go to detox will discharge patient home Discharge Plan Discharge Clinical Impression: Alcoholic intoxication Clinical Impression: (Ruled Out): HTN (hypertension) Patient Disposition: Home, Self-Care Instructions: Alcohol Intoxication (ED) Prescriptions: No Action lidocaine [Lidoderm] 5 % adhesive patch,medicated 1 patch topical DAILY MDD remove after 12 hours PRN (Reason: pain) Qty: 30 0RF Rx Instructions: leave on most painful area for up to 12 hrs cyclobenzaprine 5 mg tablet 5 mg PO Q8H PRN (Reason: pain (scale score 7-10)) 5 Days Qty: 14 0RF acetaminophen [Tylenol Extra Strength] 500 mg tablet 500 mg PO Q6H PRN (Reason: fever or pain) Qty: 14 0RF naproxen 500 mg tablet 500 mg PO BID PRN (Reason: pain) 10 Days Qty: 20 0RF lisinopril 20 mg tablet 1 tab PO DAILY sertraline 25 mg tablet 1 tab PO DAILY
== END 2022-07-03 06:11 | disposition home or self-care (01) ==
PROVIDERS: Emergency Provider Internal Medicine
DX: F10.220 Alcohol dependence with intoxication, uncomplicated (principal); Y90.9 Presence of alcohol in blood, level not specified; F19.10 Other psychoactive substance abuse, uncomplicated; I10 Essential (primary) hypertension; E66.9 Obesity, unspecified; Z68.41 Body mass index [BMI] 40.0-44.9, adult; Z79.899 Other long term (current) drug therapy
CPT/HCPCS: 99282; 99283

== ENCOUNTER 2022-09-11 06:28 | Emergency (ER) | payer MEDICARE, MEDICAID, SELFPAY ==
--- NOTE | ~2022-09-11 | XR_ITS ---
EXAMINATION: XR LUMBOSACRAL SPINE CLINICAL INFORMATION: Back pain. Fall. COMPARISON: Previous x-ray most recent June 2022 TECHNIQUE: Three views of the lumbosacral spine. FINDINGS: Bone alignment is normal. No fracture or dislocation. Degenerative disc disease at L5-S1. Lower lumbar spine facet arthritis. XR/XR lumbar spine 2-3V IMPRESSION: No fracture or dislocation. Degenerative changes at L5-S1.
--- NOTE | ~2022-09-11 | CT_ITS ---
EXAMINATION: CT HEAD WITHOUT CONTRAST CLINICAL INFORMATION: Syncope COMPARISON: Previous head CT most recent March 2021 TECHNIQUE: Contiguous axial imaging was performed from the skull base to vertex without intravenous administration of contrast. This CT examination was performed using dose optimization techniques as appropriate, variously including the following: *Automated exposure control *Adjustment of mA and/or kV according to patient size (this includes techniques or standardized protocols for targeted exams where dose is matched to indication/reason for exam; i.e. extremities or head) *Use of iterative reconstruction technique DLP: 806 mGy-cm FINDINGS: There is no evidence of an extra-axial collection. There is no evidence of intra or extra-axial hemorrhage. Intervals and extra-axial CSF spaces are appropriate. Reynolds-white matter differentiation is normal. No mass, mass effect or infarct. There is minimal inflammatory change in the bilateral frontal and maxillary sinuses with membranous soft tissue thickening. Mastoid air cells and middle ears are clear. CT/CT head/brain wo IV con IMPRESSION: No acute intracranial pathology. Mild bilateral frontal and maxillary sinus disease.
--- NOTE | ~2022-09-11 | XR_ITS ---
EXAMINATION: XR SACRUM AND COCCYX CLINICAL INFORMATION: Fall COMPARISON: None available. TECHNIQUE: 2 views of the sacrum and 2 views of the coccyx were obtained. FINDINGS: There are no fractures. No bone, joint or soft tissue abnormality is demonstrated. XR/XR sacrum coccyx min 2V IMPRESSION: Unremarkable examination.
[2022-09-11 06:29] VITALS: BP 155/84; PULSE 57; RESP 18; TEMP 36.7; O2SAT 100; BMI 37.5
--- NOTE | 2022-09-11 07:05 | ED.BACK ---
HPI - Back Pain/Injury General Chief Complaint: Back Pain/Injury Stated Complaint: Lower Back Pain Time Seen by Provider: 09/11/22 06:34 Source: patient and RN notes reviewed Mode of arrival: ambulatory Limitations: no limitations History of Present Illness HPI Narrative: This is a 37-year-old male, with a past medical history of lumbar disc problems , hypertension and febrile seizures, who presents emergency department today with complaints of headache and back pain status post fall which occurred yesterday. Patient reports that he was walking around a [place]yard at 10:00 a.m. yesterday morning when he accidentally tripped on a wire and fell backwards, striking buttock and then back. Denies head strike or loss of consciousness during this fall. He states that later on, he was walking around the junk yard and tripped a 2nd time and fell backwards landing onto his back. He denies hitting his head during this second fall, but reports that he lost consciousness for 20 minutes. He states that the fall was unwitnessed. He has been able to ambulate since these falls, but reports this worsens his back pain. He denies any illicit drug use or alcohol use. He states that since these two falls, he has had back pain and headaches. He denies any urinary or bowel incontinence or retention. Denies saddle anethesias. Denies numbness, tingling or weakness. He has taken tylenol for his symptoms, which has provided him with minimal relief. No other complaints or concerns at this time. MD elicited complaint: back pain, back injury and fall Pertinent past history: prior back pain Onset (ago): day(s) Timing: constant and progressively worsening Severity: moderate Quality: aching Location: lumbar spine, sacrum, right lower back and left lower back Radiation: none Exacerbating factors: movement and walking Relieving factors: immobilization Context: fall Associated symptoms: denies other symptoms Treatments prior to arrival: acetaminophen Work related injury: No Related Data Home Medications Medication Instructions Recorded Confirmed lisinopril 20 mg tablet 1 tab PO DAILY 07/01/22 07/01/22 sertraline 25 mg tablet 1 tab PO DAILY 07/01/22 07/01/22 Previous Rx's Medication Instructions Recorded acetaminophen 500 mg tablet 500 mg PO Q6H PRN fever or pain 06/27/22 (Tylenol Extra Strength) #14 tabs cyclobenzaprine 5 mg tablet 5 mg PO Q8H PRN pain (scale score 06/27/22 7-10) 5 days #14 tabs lidocaine 5 % topical patch 1 patch topical DAILY PRN pain #30 06/27/22 (Lidoderm) ea naproxen 500 mg tablet 500 mg PO BID PRN pain 10 days #20 06/27/22 tabs cyclobenzaprine 5 mg tablet 5 mg PO TID PRN muscle spasm #20 09/11/22 tabs ibuprofen 600 mg tablet 600 mg PO Q6H PRN pain #60 tabs 09/11/22 Allergies Allergy/AdvReac Type Severity Reaction Status Date / Time No Known Allergies Allergy Unverified 05/18/22 04:05 Review of Systems Review of Systems: Constitutional: No Weight loss, No Fever, No Chills, No Night Sweats, No Fatigue, No Malaise ENT/Mouth: No Hearing loss, No Ear Pain, No Nasal Congestion, No Sinus Pain, No Hoarseness, No sore throat, No Rhinorrhea, No Swallowing Difficulty Eyes: No Eye Pain, No Swelling, No Redness, No Foreign Body, No Discharge, No Vision Changes Cardiovascular: No Chest Pain, No SOB, No Dyspnea on Exertion, No Orthopnea, No Edema, No Palpitations Respiratory: No Cough, No Sputum, No Wheezing, No Smoke Exposure, No Dyspnea Gastrointestinal: No Nausea, No Vomiting, No Diarrhea, No Constipation, No Abdominal pain, No Hematochezia, No Melena Genitourinary: No irregular bleeding, No Dysuria, No Urinary Frequency, No Hematuria, No Urinary Incontinence/retention, No Urgency, No Flank Pain, No Urinary Flow Changes, No Hesitancy Musculoskeletal: +back pain, No joint pain, No Myalgias, No Joint Swelling Skin: No Skin Lesions, No rash Neuro: No Weakness, No Numbness, No Paresthesias, No Loss of Consciousness, No Dizziness, + Headache Psych: No Anxiety/Panic, No Depression, No SI/HI/AH/VH, No Social Issues, Heme/Lymph: No Bruising, No Bleeding,No Lymphadenopathy Endocrine: No Polyuria, No Polydipsia, No Temperature Intolerance Yes all other systems are reviewed and are negative Constitutional: Constitutional: Reports as per HPI ENT: Reports Normal hearing present Neurologic: Reports Normal hearing present [facility] Past Medical History Attestation statement: The following information was validated with the patient. Medical History Bipolar 1 disorder Chronic back pain Eardrum trauma ETOH abuse HTN (hypertension) Lumbar pain Morbid obesity with BMI of 50.0-59.9, adult Non compliance w medication regimen Non compliance with medical treatment Obesity Polysubstance abuse Seizure Surgical History No pertinent past surgical history Family History Family History Mother Hypertension Diabetes Cancer Father Diabetes Hypertension Social History Social History Housing: Apartment Housing Other:: living with aunt Alcohol intake: current Alcohol intake frequency: does not drink Alcohol type: beer Patient Tobacco Use Status: Former Tobacco user Tobacco use type: Cigarette Smoked in Last 30 Days: No e-Cigarette/Vaping Use: Never Used Second Hand Smoke Exposure: No Use of substances other than those prescribed or required for medical reasons: No Substance Use Type: Crack/Cocaine Advance Directives: No Advance Directives Information Provided: Yes service: No Current occupational status: unemployed Cognitive needs: No Hearing needs: No Vision needs: No Physical Exam Vital Signs: Vital Signs: Last Vital Signs Temp 98.3 F 09/11/22 07:36 Pulse 50 09/11/22 07:36 Resp 16 09/11/22 07:36 BP 125/78 09/11/22 07:36 Pulse Ox 96 09/11/22 07:36 O2 Del Method Room Air 09/11/22 07:36 BMI result Body Mass Index 37.5 Const: General: cooperative, comfortable and no acute distress Nutritional Appearance: obese Orientation/consciousness: patient oriented x3 Limitations: no limitations HEENT: Head: Yes normal to inspection, Yes normocephalic and Yes atraumatic Ears: hearing grossly normal bilaterally, TM's normal bilaterally and other (No hemotypanum) General nose exam: Normal external nose present Face and sinus: Yes normal facial exam Mouth: Normal oral and palatal mucosa present, oropharynx normal and moist mucous membranes Throat: Yes posterior oropharynx normal Eyes: General: appearance normal, both eyes and all related structures Eyelids: Yes eyelids normal Conjunctivae: conjunctivae normal Sclerae: sclerae normal Pupils: Equal, round and reactive pupils present EOM: EOMs intact bilaterally Neck: Neck: Yes normal visual inspection, Yes full ROM and Yes no lymphadenopathy Lymphatic: no lymphadenopathy noted Chest: Chest palpation & inspection: normal inspection of the chest Resp: Effort & Inspection: normal respiratory effort and able to speak in complete sentences Auscultation: clear to auscultation bilaterally, no crackles, no rales, no rhonchi and no wheezes Cardio: Rate: regular rate Rhythm: regular rhythm Heart sounds: S1 normal heart sound present, S2 normal heart sound present, no gallops, no murmurs and no rubs GI: Inspection: Yes normal to inspection Back/Spine/Pelvis: Other: Normal inspection, no erythema, ecchymosis or edema noted throughout the entire back. No cervical or thoracic midline spine tenderness to palpation. Mild tenderness to the lumbar spine and sacrum/coccyx. Tenderness to palpation over the lumbar paraspinous muscles and diffuse tenderness to low back musculature. Back: No mass, No erythema, No warmth and No ecchymosis Cervical Spine: cervical ROM normal Thoracic/Lumbar Spine: thoracic and lumbar spine normal to inspection and straight leg raise negative bilaterally Sacrum: no ecchymosis, no erythema and tenderness Coccyx: no swelling and Coccyx tenderness present Skin: General skin exam: no rashes or lesions noted Lesions: no lesions Rashes: no rashes Trauma: no lacerations or abrasions Wounds: no wounds Neuro: General: patient oriented x3, moves all extremities, CN's II-XI intact bilaterally and deep tendon reflexes 2+ bilaterally Cranial nerves: Yes CN's II-XII intact bilaterally, Yes Facial sensation intact/muscles of mastication intact, Yes Equal, round and reactive pupils present, Yes Bilaterally intact EOM present, Yes Nystagmus not present, Yes Midline tongue present, Yes Normal hearing present, Yes Ability to bilaterally rotate head present and Yes Ability to bilaterally elevate shoulders present Cognition (Neuro): normal cognition Motor exam (neuro): 5/5 motor strength present throughout and Pronator motor function not present Extrem: General: Yes normal to inspection Right upper extremity: normal to inspection Left upper extremity: normal to inspection Right lower extremity: normal to inspection Left lower extremity: normal to inspection Course Reevaluation(s) Reevaluation #1: CT head unremarkable. X-ray shows some degenerative changes at L5-S1. Patient medicated with Toradol 30mg IM. Patient requesting water, remains stable. UA pending. Reevaluation #2: UA unremarkable for infection, blood work nondiagnostic. Patient feeling much better after toradol. Patient remains stable, ambulatory with steady gait. Discussed work up with patient. Patient stable for discharge. Educated on red flag signs on when to return. Discharged on ibuprofen and muscle relaxers. Patient understands and agrees with plan. Time: 09:29 Medications Administered Discontinued Medications Generic Name Dose Route Start Last Admin Trade Name Giselle PRN Reason Stop Dose Admin Ketorolac Tromethamine 30 mg 09/11/22 08:25 09/11/22 08:30 Ketorolac Tromethamine 30 Mg/Ml Vial IM 09/11/22 08:26 30 mg ONCE ONE Administration Medical Decision Making Medical Decision Making [facility] Narrative: 37 year old male, hx of chronic back pain, hyptertension and febrile seizures, who presents to the emergency department for evaluation of headache and low back pain s/p mechanical fall which occurred yesterday at 10:00AM. On examination, patient is mildly hypertensive at 155/84, other VSS. TTP over lumbar midline spine, sacrum and coccyx. No ecchymosis or erythema noted to the back. Pt reporting after second fall he had LOC for 20 minutes. No red flag symptoms. Plan: CT head, XR lumbar spine, sacrum cocyx, labs, and UA ordered. Differential Diagnosis Differential Diagnoses: The differential diagnosis associated with the presentation includes ICH, herniated disc, cauda equina syndrome, lumbar contusion, muscle spasm Admission/Observation Consideration of admission/observation: Escalation of care including admission/observation considered Lab Data [facility] Lab Attestation statement: I reviewed the patient's lab results. 09/11/22 07:52 09/11/22 07:52 Labs: Lab Results 09/11/22 09/11/22 09/11/22 Range/Units 07:52 07:52 08:31 WBC 5.2 (4.8-10.8) X10*3/uL RBC 4.58 L (4.60-5.80) X10*6/uL Hgb 13.4 L (14.0-18.0) g/dl Hct 39.4 L (42.0-52.0) % MCV 86.0 (80.0-98.0) fL MCH 29.3 (27.0-33.0) pg MCHC 34.0 (31.0-36.0) g/dl RDW 12.4 (11.0-16.0) % Plt Count 163 (160-400) X10*3/uL MPV 12.6 H (9.4-12.4) fL Immature Gran % (Auto) 0.4 (0.0-0.4) % Neut % (Auto) 56.8 (45-73) % Lymph % (Auto) 28.6 (20-40) % [place] % (Auto) 10.3 (2-11) % Eos % (Auto) 3.1 (0-4) % Baso % (Auto) 0.8 (0-2) % Lymph # (Auto) 1.5 (1.2-4.9) X10*3/uL [place] # (Auto) 0.5 (0.1-1.2) X10*3/uL Eos # (Auto) 0.2 (0.0-0.4) X10*3/uL Baso # (Auto) 0.0 (0.0-0.2) X10*3/uL Abs Immat Gran (auto) 0.02 (0.00-0.03) X10*3/uL Absolute Neuts (auto) 3.0 (2.0-8.3) x10*3/uL Absolute Nucleated RBC 0.000 (0.0-0.012) X10*3/uL Nucleated RBC % (auto) 0.0 (0.0-0.2) /100WBC Sodium 141 (135-145) mmol/L Potassium 3.9 (3.3-5.1) mmol/L Chloride 109 H (96-108) mmol/L Carbon Dioxide 27 (22-29) mmol/L Anion Gap 9 L (12-20) BUN 17 H (9-16) mg/dL Creatinine 0.74 (0.5-1.4) mg/dL Estim Creat Clear Calc 188.9 Estimated GFR > 60 Random Glucose 95 (60-115) mg/dL Calcium 9.0 (8.4-10.2) mg/dL Magnesium 1.9 (1.6-2.6) mg/dL Urine Color Yellow Urine Appearance Clear Urine pH 6.5 (5.0-9.0) Ur Specific [place] >= 1.030 H (1.005-1.025) Urine Protein Negative (Neg-Trace) mg/dL Urine Glucose (UA) Negative (Negative) mg/dL Urine Ketones Negative (Negative) mg/dL Urine Blood Negative (Negative) Urine Nitrite Negative (Negative) Ur Leukocyte Esterase Negative (Negative) Urine Opiates Screen (Not Detect) Urine Fentanyl Screen (Not Detect) Ur Barbiturates Screen (Not Detect) Ur Phencyclidine Scrn (Not Detect) Ur Amphetamines Screen (Not Detect) U Benzodiazepines Scrn (Not Detect) Urine Cocaine Screen (Not Detect) U Marijuana (THC) Screen (Not Detect) Ethyl Alcohol < 10 mg/dL 09/11/22 Range/Units 08:31 WBC (4.8-10.8) X10*3/uL RBC (4.60-5.80) X10*6/uL Hgb (14.0-18.0) g/dl Hct (42.0-52.0) % MCV (80.0-98.0) fL MCH (27.0-33.0) pg MCHC (31.0-36.0) g/dl RDW (11.0-16.0) % Plt Count (160-400) X10*3/uL MPV (9.4-12.4) fL Immature Gran % (Auto) (0.0-0.4) % Neut % (Auto) (45-73) % Lymph % (Auto) (20-40) % [place] % (Auto) (2-11) % Eos % (Auto) (0-4) % Baso % (Auto) (0-2) % Lymph # (Auto) (1.2-4.9) X10*3/uL [place] # (Auto) (0.1-1.2) X10*3/uL Eos # (Auto) (0.0-0.4) X10*3/uL Baso # (Auto) (0.0-0.2) X10*3/uL Abs Immat Gran (auto) (0.00-0.03) X10*3/uL Absolute Neuts (auto) (2.0-8.3) x10*3/uL Absolute Nucleated RBC (0.0-0.012) X10*3/uL Nucleated RBC % (auto) (0.0-0.2) /100WBC Sodium (135-145) mmol/L Potassium (3.3-5.1) mmol/L Chloride (96-108) mmol/L Carbon Dioxide (22-29) mmol/L Anion Gap (12-20) BUN (9-16) mg/dL Creatinine (0.5-1.4) mg/dL Estim Creat Clear Calc Estimated GFR Random Glucose (60-115) mg/dL Calcium (8.4-10.2) mg/dL Magnesium (1.6-2.6) mg/dL Urine Color Urine Appearance Urine pH (5.0-9.0) Ur Specific [place] (1.005-1.025) Urine Protein (Neg-Trace) mg/dL Urine Glucose (UA) (Negative) mg/dL Urine Ketones (Negative) mg/dL Urine Blood (Negative) Urine Nitrite (Negative) Ur Leukocyte Esterase (Negative) Urine Opiates Screen Not Detected (Not Detect) Urine Fentanyl Screen Not Detected (Not Detect) Ur Barbiturates Screen Not Detected (Not Detect) Ur Phencyclidine Scrn Not Detected (Not Detect) Ur Amphetamines Screen Not Detected (Not Detect) U Benzodiazepines Scrn Not Detected (Not Detect) Urine Cocaine Screen Not Detected (Not Detect) U Marijuana (THC) Screen Not Detected (Not Detect) Ethyl Alcohol mg/dL Independent Interpretation I performed an independent interpretation of an: Plain X-Ray Interpretation: No obvious bony abnormalities seen on lumbar, sacrum/coccyx x-ray. Radiology Impression Discussion of test interpretation with radiology: I have reviewed the radiologist's reading. Radiologist Impression: EXAMINATION: XR SACRUM AND COCCYX CLINICAL INFORMATION: Fall COMPARISON: None available. TECHNIQUE: 2 views of the sacrum and 2 views of the coccyx were obtained. FINDINGS: There are no fractures. No bone, joint or soft tissue abnormality is demonstrated. XR/XR sacrum coccyx min 2V IMPRESSION: Unremarkable examination. Dictated By: Haley Ospina MD CT HEAD COMPARISON: Previous head CT most recent March 2021? TECHNIQUE: Contiguous axial imaging was performed from the skull base to vertex without intravenous administration of contrast. This CT examination was performed using dose optimization techniques as appropriate, variously including the following: *Automated exposure control *Adjustment of mA and/or kV according to patient size (this includes techniques or standardized protocols for targeted exams where dose is matched to indication/reason for exam; i.e. extremities or head) *Use of iterative reconstruction technique DLP: 806 mGy-cm FINDINGS: There is no evidence of an extra-axial collection. There is no evidence of intra or extra-axial hemorrhage. Intervals and extra-axial CSF spaces are appropriate. Reynolds-white matter differentiation is normal. No mass, mass effect or infarct. There is minimal inflammatory change in the bilateral frontal and maxillary sinuses with membranous soft tissue thickening. Mastoid air cells and middle ears are clear. ? CT/CT head/brain wo IV con IMPRESSION: No acute intracranial pathology. Mild bilateral frontal and maxillary sinus disease. Dictated By: Haley Ospina MD EXAMINATION: XR LUMBOSACRAL SPINE CLINICAL INFORMATION: Back pain. Fall. COMPARISON: Previous x-ray most recent June 2022 TECHNIQUE: Three views of the lumbosacral spine. FINDINGS: Bone alignment is normal. No fracture or dislocation. Degenerative disc disease at L5-S1. Lower lumbar spine facet arthritis. XR/XR lumbar spine 2-3V IMPRESSION: No fracture or dislocation. Degenerative changes at L5-S1. Dictated By: Haley Ospina MD External Record Review External record reviewed: Inpatient record, Office record, Outpatient record, Prior outpatient labs, Prior outpatient radiology, Primary care record and Outside ED record Discharge Plan Discharge Clinical Impression: Lumbar contusion, Back pain Patient Disposition: Home, Self-Care Instructions: Acute Low Back Pain (ED), Back Pain (ED) Additional Instructions: Your head CT was normal today. Your x-rays of your back showed No fracture or dislocation. Degenerative changes at L5-S1 . Take prescribed ibuprofen as directed as needed for pain. Take muscle relaxers as needed. Please be advised that this can cause drowsiness, do not drink alcohol or drive while taking this medication. Gentle stretching and massage may alleviate your pain and make you feel better sooner. If any new or worsening symptoms occur, including but not limited to worsening pain, weakness, numbness/tingling, urinary/bowel incontinence or retention, please return for re-evaluation. Prescriptions: New ibuprofen 600 mg tablet 600 mg PO Q6H PRN (Reason: pain) Qty: 60 0RF cyclobenzaprine 5 mg tablet 5 mg PO TID PRN (Reason: muscle spasm) Qty: 20 0RF No Action lidocaine [Lidoderm] 5 % adhesive patch,medicated 1 patch topical DAILY MDD remove after 12 hours PRN (Reason: pain) Qty: 30 0RF Rx Instructions: leave on most painful area for up to 12 hrs cyclobenzaprine 5 mg tablet 5 mg PO Q8H PRN (Reason: pain (scale score 7-10)) 5 Days Qty: 14 0RF acetaminophen [Tylenol Extra Strength] 500 mg tablet 500 mg PO Q6H PRN (Reason: fever or pain) Qty: 14 0RF naproxen 500 mg tablet 500 mg PO BID PRN (Reason: pain) 10 Days Qty: 20 0RF lisinopril 20 mg tablet 1 tab PO DAILY sertraline 25 mg tablet 1 tab PO DAILY Interventions: ED Discharge Assessment Last Done: 09/11/22 09:39 Discharge Date/Time: 09/11/22 09:39
[2022-09-11 07:36] VITALS: BP 125/78; PULSE 50; RESP 16; TEMP 36.8; O2SAT 96
--- NOTE | 2022-09-11 07:38 | PC.NURSE ---
Low back pain s/p trip/fall yesterday. Denies urinary sx. Denies LOC or headstrike. Alert/oriented. Neuros appear intact. Awaiting lab draw and imaging results. No facial grimace/guarding while resting in bed at this time
[2022-09-11 07:56] LABS: MANUAL DIFF FLAG NO
[2022-09-11 08:02] LABS: Basophils Percent Auto 0.8 % (0-2); Eosinophils Absolute Auto 0.2 X10*3/uL (0.0-0.4); Eosinophils Percent Auto 3.1 % (0-4); Hematocrit 39.4 % (42.0-52.0); Hemoglobin 13.4 g/dl (14.0-18.0); Imm Gran Abs Auto 0.02 X10*3/uL (0.00-0.03); Imm Gran Pct Auto 0.4 % (0.0-0.4); Lymphocytes Absolute Auto 1.5 X10*3/uL (1.2-4.9); Lymphocytes Percent Auto 28.6 % (20-40); Mean Corpuscular Hemoglobin 29.3 pg (27.0-33.0); Mean Platelet Volume 12.6 fL (9.4-12.4); Monocytes Absolute Auto 0.5 X10*3/uL (0.1-1.2); Monocytes Percent Auto 10.3 % (2-11); Neutrophils Percent Auto 56.8 % (45-73); Platelet Count 163 X10*3/uL (160-400); Red Blood Count 4.58 X10*6/uL (4.60-5.80); Red Cell Distribution Width 12.4 % (11.0-16.0); White Blood Count 5.2 X10*3/uL (4.8-10.8)
[2022-09-11 08:19] LABS: Anion Gap 9 (12-20); Blood Urea Nitrogen 17 mg/dL (9-16); Carbon Dioxide 27 mmol/L (22-29); Chloride 109 mmol/L (96-108); Creatinine Clr Calc Pharmacy 188.9; Estimated Glomerular Filt Rate > 60; Ethanol < 10 mg/dL; Glucose Random 95 mg/dL (60-115); Magnesium 1.9 mg/dL (1.6-2.6); Potassium 3.9 mmol/L (3.3-5.1); Sodium 141 mmol/L (135-145)
[2022-09-11] MEDS: Ketorolac Tromethamine 30 MG/ML VIAL IM (08:30)
[2022-09-11 08:42] LABS: Appearance Urine Clear; Color Urine Yellow; Glucose Urine UA Negative (Negative); Leukocyte Esterase Urine Negative (Negative); Nitrite Urine Negative (Negative); PH 6.5 (5.0-9.0); Specific Gravity - Urine >= 1.030 (1.005-1.025); Urine Blood Negative (Negative); Urine Ketones Negative (Negative); Urine Protein Negative (Neg-Trace)
[2022-09-11 08:51] LABS: Amphetamine Screen Urine Not Detected (Not Detect); Barbiturates, Urine Not Detected (Not Detect); Benzodiazepines Screen Urine Not Detected (Not Detect); Cannabinoid Screen Urine Not Detected (Not Detect); Cocaine Screen Urine Not Detected (Not Detect); Fentanyl, urine Not Detected (Not Detect); Opiate Screen Urine Not Detected (Not Detect); Phencyclidine Screen Urine Not Detected (Not Detect)
== END 2022-09-11 09:39 | disposition home or self-care (01) ==
PROVIDERS: Physician Assistant Medical; Emergency Provider Emergency Medicine Emergency Medical Services
DX: M54.50 Low back pain, unspecified (principal); R55 Syncope and collapse; Z79.899 Other long term (current) drug therapy
CPT/HCPCS: 36415; 70450; 72100; 72220; 80048; 80307; 81003; 82077; 83735; 85025; 99284; J1885

== ENCOUNTER 2022-09-13 10:43 | Inpatient (IN) | payer MEDICARE, MEDICAID, SELFPAY ==
--- NOTE | ~2022-09-13 | CT_ITS ---
Examination: Chest. CT brain without IV contrast. Clinical data indication: Chest pain. Seizure. COMPARISON: CT brain 09/11/2022. TECHNIQUE: 5 mm thin axial and reformatted 2 mm thin sagittal and coronal images of brain were obtained. DLP [id number]. This CT examination was performed using dose optimization technique as appropriate, variously including the following: Automated exposure control Adjustment of MA and/or KV according to patient size(this includes techniques or standardized protocols for targeted exams where dose is matched to indication/reason for exam; extremities or head. Use of iterative reconstruction techniques. Chest one view. FINDINGS: Chest: The lungs are hypoexpanded but clear of acute process. Heart size and pulmonary vascularity is normal. No gross bony abnormality. Brain: There is no acute intra-axial, extra-axial bleed, masses or midline shift. There is no acute infarction in evolution. There is no edema or mass effect. The lateral ventricles are symmetrical in size and configuration without enlargement. The nolasco to white matter differentiation is maintained normal. Bone windows reveal no calvarial abnormality. There is diffuse mucoperiosteal thickening bilateral maxillary, frontal and ethmoid sinuses. The mastoid air cells are well-aerated. CT/CT head/brain wo IV con IMPRESSION: 1. No acute intracranial process seen. 2. There is no acute cardiopulmonary process seen. 3. Chronic bilateral maxillary, ethmoid and frontal sinus inflammatory changes. Hypoexpanded lungs with no acute process.
--- NOTE | ~2022-09-13 | XR_ITS ---
EXAMINATION: XR SHOULDER, LEFT CLINICAL INFORMATION: Shoulder pain, post seizure. COMPARISON: Chest radiograph 10/05/2019. TECHNIQUE: 3 supine views of the left shoulder are obtained. FINDINGS: There is no visible fracture or dislocation. The acromioclavicular alignment is normal. No gross arthropathy. XR/XR shoulder LT min 2V IMPRESSION: Unremarkable left shoulder.
[2022-09-13 10:48] VITALS: BP 150/90; PULSE 80; O2SAT 97
[2022-09-13 11:02] VITALS: BP 153/85; PULSE 70; RESP 16; TEMP 36.6; O2SAT 99; BMI 53.0
[2022-09-13] MEDS: LORazepam 2 MG/ML VIAL 1 MG IVPUSH (11:08)
--- NOTE | 2022-09-13 11:12 | PC.NURSE ---
RN entered pts room and noticed pt actively having seizure. another RN and MD notified. MD gave verbal order for 1mg Ativan which was administered at 11:08
--- NOTE | 2022-09-13 11:13 | ECG_ITS ---
Test Reason : SEIZURE Blood Pressure : / mmHG Vent. Rate : 070 BPM Atrial Rate : 070 BPM P-R Int : 174 ms QRS Dur : 100 ms QT Int : 418 ms P-R-T Axes : 012 -06 -04 degrees QTc Int : 451 ms Normal sinus rhythm Minimal voltage criteria for LVH, may be normal variant ( R in aVL ) Borderline ECG When compared with ECG of 18-MAY-2022 04:16, No significant change was found Referred By: Chuck Duong Electronically Signed By:Bonilla Gooden
[2022-09-13] MEDS: levETIRAcetam 500 MG/5 ML VIAL 1500 MG IV (11:20)
--- NOTE | 2022-09-13 11:28 | ED_ITS ---
HPI - Seizure General Chief Complaint: Seizure Stated Complaint: Weakness, AMS per EMS Time Seen by Provider: 09/13/22 11:12 Source: EMS Mode of arrival: EMS History of Present Illness HPI Narrative: This is a 37 years old male with history of polysubstance abuse brought in by ambulance after a tonic-clonic seizure witnessed by the parents at home. Patient has history of cocaine alcohol abuse. While in the emergency department shortly after the arrival the patient started to seize again he received 1 mg of Ativan and 1500 mg of Keppra IV with resolution of the seizure. MD complaint: seizure Onset (ago): hour(s) (1) Witnessed: parents Seizure History: No Possible Precipitating Event: drug use Related Data Home Medications Medication Instructions Recorded Confirmed lisinopril 20 mg tablet 1 tab PO DAILY 07/01/22 09/13/22 sertraline 25 mg tablet 1 tab PO DAILY 07/01/22 09/13/22 Previous Rx's Medication Instructions Recorded levetiracetam 1,000 mg tablet 1,000 mg PO BID #60 tabs 09/15/22 (Keppra) Allergies Allergy/AdvReac Type Severity Reaction Status Date / Time No Known Allergies Allergy Verified 09/13/22 16:47 Review of Systems Review of Systems: Yes Unobtainable due to mental condition PMFSH Past Medical History Medical History Bipolar 1 disorder Chronic back pain Eardrum trauma ETOH abuse HTN (hypertension) Lumbar pain Morbid obesity with BMI of 50.0-59.9, adult Non compliance w medication regimen Non compliance with medical treatment Obesity Polysubstance abuse Seizure Surgical History No pertinent past surgical history Family History Family History Mother Hypertension Diabetes Cancer Father Diabetes Hypertension Social History Social History Household Members: Other Household Members Other:: AUNT Housing: House Housing Other:: living with aunt Do you presently have visiting nurse or other home services: No Alcohol intake: current Alcohol intake frequency: a few times a week Alcohol type: beer and hard liquor Patient Tobacco Use Status: Never used Tobacco Tobacco use type: Cigarette e-Cigarette/Vaping Use: Never Used Second Hand Smoke Exposure: No Substance Use Type: Crack/Cocaine service: No Current occupational status: unemployed Cognitive needs: No Hearing needs: No Vision needs: No Physical Exam Vital Signs: Vital Signs: Last Vital Signs Temp 97.6 F 09/15/22 07:58 Pulse 60 09/15/22 07:58 Resp 20 09/15/22 07:58 BP 136/76 09/15/22 07:58 Pulse Ox 98 09/15/22 07:58 O2 Del Method Room Air 09/15/22 07:58 BMI result Body Mass Index 53.0 Const: General: well developed and other (Postictal) Nutritional Appear ance: obese HEENT: Head: Yes normal to inspection General nose exam: Normal external nose present Face and sinus: Yes normal facial exam Mouth: Normal oral and palatal mucosa present Throat: Yes posterior oropharynx normal Neck: Neck: Yes full ROM Chest: Chest palpation & inspection: normal inspection of the chest Resp: Effort & Inspection: normal respiratory effort and able to speak in complete sentences Cardio: Jugular venous distension: no JVD Rate: regular rate Rhythm: regular rhythm GI: Inspection: Yes normal to inspection Palpation (GI): Soft to palpation Skin: General skin exam: no rashes or lesions noted and elasticity normal Lesions: no lesions Rashes: no rashes Trauma: no lacerations or abrasions Wounds: no wounds Extrem: General: Yes normal to inspection Medications Administered Discontinued Medications Generic Name Dose Route Start Last Admin Trade Name Freq PRN Reason Stop Dose Admin Acetaminophen 650 mg 09/13/22 14:27 09/14/22 10:43 Acetaminophen 325 Mg Tablet PO 650 mg Q6H PRN Administration Pain, Mild (Pain Scale 1-3) Enoxaparin Sodium 40 mg 09/13/22 14:30 09/14/22 16:11 Enoxaparin Sodium 40 Mg/0.4 Ml Syringe SUBCUT 40 mg Q24H YAJAIRA Administration Folic Acid 1 mg 09/14/22 09:00 09/15/22 08:07 Folic Acid 1 Mg Tablet PO 1 mg DAILY YAJAIRA Administration Thiamine HCl 100 mg/ Sodium 101 mls @ 202 mls/hr 09/13/22 14:45 09/15/22 09:25 Chloride IV Infused DAILY YAJAIRA Infusion Levetiracetam 1,500 mg 09/13/22 11:13 09/13/22 11:20 Levetiracetam 500 Mg/5 Ml Vial IV 09/13/22 11:14 1,500 mg ONCE ONE Administration Lisinopril 20 mg 09/14/22 09:00 09/15/22 08:07 Lisinopril 20 Mg Tablet PO 20 mg DAILY YAJAIRA Administration Protocol Lorazepam 1 mg 09/13/22 11:22 09/13/22 11:08 Lorazepam 2 Mg/Ml Vial IVPUSH 09/13/22 11:23 1 mg ONCE ONE Administration Phenobarbital 45 mg 09/14/22 09:00 09/15/22 08:07 Phenobarbital 15 Mg Tablet PO 09/15/22 21:01 45 mg BID YAJAIRA Administration Protocol Phenobarbital Sodium 274 mg 09/13/22 15:00 09/13/22 15:49 Phenobarbital Sodium 130 Mg/Ml Im Once IM 09/13/22 15:01 274 mg ONCE ONE Administration Protocol Phenobarbital Sodium 205 mg 09/13/22 18:00 09/13/22 22:47 Phenobarbital Sodium 130 Mg/Ml Vial Im Q3hx2 IM 09/13/22 21:01 Not Given Q3H YAJAIRA Protocol Phenobarbital Sodium 205 mg 09/13/22 21:00 09/14/22 00:11 Phenobarbital Sodium 130 Mg/Ml Vial Im Q3hx2 IM 09/14/22 00:01 205 mg Q3H YAJAIRA Administration Protocol Sertraline HCl 25 mg 09/14/22 09:00 09/15/22 08:07 Sertraline Hcl 25 Mg Tablet PO 25 mg DAILY YAJAIRA Administration Sodium Chloride 3 ml 09/13/22 16:00 09/15/22 08:08 0.9 % Sodium Chloride Flush 3 Ml Syringe IVFLUSH 3 ml QSHIFT YAJAIRA Administration Medical Decision Making Medical Decision Making MDM Narrative: Patient presented with seizure or now x2 likely triggered by drugs will work him up including blood work head CT and reassess Differential Diagnosis Differential Diagnoses: The differential diagnosis associated with the presentation includes Drug induced seizure/subdural hematoma/epidural hematoma Admission/Observation Consideration of admission/observation: Escalation of care including admission/observation considered Consult Healthcare Provider Management of the patient was discussed with: Hospitalist Lab Data MDM Lab Attestation statement: I reviewed the patient's lab results. 09/15/22 06:06 09/15/22 06:06 Labs: Lab Results 09/13/22 09/13/22 09/13/22 Range/Units 11:34 11:34 11:34 WBC 9.6 (4.8-10.8) X10*3/uL RBC 4.76 (4.60-5.80) X10*6/uL Hgb 13.5 L (14.0-18.0) g/dl Hct 40.9 L (42.0-52.0) % MCV 85.9 (80.0-98.0) fL MCH 28.4 (27.0-33.0) pg MCHC 33.0 (31.0-36.0) g/dl RDW 12.7 (11.0-16.0) % Plt Count 174 (160-400) X10*3/uL MPV 12.4 (9.4-12.4) fL Immature Gran % (Auto) 0.4 (0.0-0.4) % Neut % (Auto) 72.8 (45-73) % Lymph % (Auto) 12.5 L (20-40) % [place] % (Auto) 9.8 (2-11) % Eos % (Auto) 3.9 (0-4) % Baso % (Auto) 0.6 (0-2) % Lymph # (Auto) 1.2 (1.2-4.9) X10*3/uL [place] # (Auto) 0.9 (0.1-1.2) X10*3/uL Eos # (Auto) 0.4 (0.0-0.4) X10*3/uL Baso # (Auto) 0.1 (0.0-0.2) X10*3/uL Abs Immat Gran (auto) 0.04 H (0.00-0.03) X10*3/uL Absolute Neuts (auto) 7.0 (2.0-8.3) x10*3/uL Absolute Nucleated RBC 0.000 (0.0-0.012) X10*3/uL Nucleated RBC % (auto) 0.0 (0.0-0.2) /100WBC Sodium 142 (135-145) mmol/L Potassium 4.0 (3.3-5.1) mmol/L Chloride 108 (96-108) mmol/L Carbon Dioxide 26 (22-29) mmol/L Anion Gap 12 (12-20) BUN 8 L (9-16) mg/dL Creatinine 0.76 (0.5-1.4) mg/dL Estim Creat Clear Calc 192.5 Estimated GFR > 60 Random Glucose 90 (60-115) mg/dL Calcium 8.7 (8.4-10.2) mg/dL Magnesium 2.0 (1.6-2.6) mg/dL Total Bilirubin 0.8 (0.0-1.0) mg/dL AST 27 (5-37) U/L ALT 33 (0-40) U/L Alkaline Phosphatase 78 (39-117) U/L Total Creatine Kinase (38-174) U/L Troponin I High Sens < 2.7 (<3.5-35.0) ng/L Total Protein 6.3 L (6.5-8.0) g/dL Albumin 3.9 (3.5-5.0) g/dL Urine Opiates Screen (Not Detect) Urine Fentanyl Screen (Not Detect) Ur Barbiturates Screen (Not Detect) Ur Phencyclidine Scrn (Not Detect) Ur Amphetamines Screen (Not Detect) U Benzodiazepines Scrn (Not Detect) Urine Cocaine Screen (Not Detect) U Marijuana (THC) Screen (Not Detect) Ethyl Alcohol mg/dL 09/13/22 09/13/22 Range/Units 11:34 11:34 WBC (4.8-10.8) X10*3/uL RBC (4.60-5.80) X10*6/uL Hgb (14.0-18.0) g/dl Hct (42.0-52.0) % MCV (80.0-98.0) fL MCH (27.0-33.0) pg MCHC (31.0-36.0) g/dl RDW (11.0-16.0) % Plt Count (160-400) X10*3/uL MPV (9.4-12.4) fL Immature Gran % (Auto) (0.0-0.4) % Neut % (Auto) (45-73) % Lymph % (Auto) (20-40) % [place] % (Auto) (2-11) % Eos % (Auto) (0-4) % Baso % (Auto) (0-2) % Lymph # (Auto) (1.2-4.9) X10*3/uL [place] # (Auto) (0.1-1.2) X10*3/uL Eos # (Auto) (0.0-0.4) X10*3/uL Baso # (Auto) (0.0-0.2) X10*3/uL Abs Immat Gran (auto) (0.00-0.03) X10*3/uL Absolute Neuts (auto) (2.0-8.3) x10*3/uL Absolute Nucleated RBC (0.0-0.012) X10*3/uL Nucleated RBC % (auto) (0.0-0.2) /100WBC Sodium (135-145) mmol/L Potassium (3.3-5.1) mmol/L Chloride (96-108) mmol/L Carbon Dioxide (22-29) mmol/L Anion Gap (12-20) BUN (9-16) mg/dL Creatinine (0.5-1.4) mg/dL Estim Creat Clear Calc Estimated GFR Random Glucose (60-115) mg/dL Calcium (8.4-10.2) mg/dL Magnesium (1.6-2.6) mg/dL Total Bilirubin (0.0-1.0) mg/dL AST (5-37) U/L ALT (0-40) U/L Alkaline Phosphatase (39-117) U/L Total Creatine Kinase 569 H (38-174) U/L Troponin I High Sens (<3.5-35.0) ng/L Total Protein (6.5-8.0) g/dL Albumin (3.5-5.0) g/dL Urine Opiates Screen Not Detected (Not Detect) Urine Fentanyl Screen Not Detected (Not Detect) Ur Barbiturates Screen Not Detected (Not Detect) Ur Phencyclidine Scrn Not Detected (Not Detect) Ur Amphetamines Screen Not Detected (Not Detect) U Benzodiazepines Scrn Not Detected (Not Detect) Urine Cocaine Screen POSITIVE H (Not Detect) U Marijuana (THC) Screen Not Detected (Not Detect) Ethyl Alcohol 20 mg/dL Independent Interpretation I performed an independent interpretation of an: Rhythm Strip and CT Scan Interpretation: sinus Radiology Impression Discussion of test interpretation with radiology: I have reviewed the radiologist's reading. Independent Historian Clinical information obtained from an independent historian. History obtained from or confirmed by: EMS Chronic Conditions alcoholism Social Determinants Patient?s care significantly limited by Social Determinants of Health including: Alcoholism and drug addiction in family Critical Care Time Critical Care Time Critical Care Time: Yes Total Critical Care Time: 60 Attestation: seizure in ED IV lorazepam Discharge Plan Discharge Clinical Impression: Seizure, Cocaine abuse Patient Disposition: Admitted As Inpatient Interventions: Admission Worksheet (ED) Last Done: 09/13/22 19:13 Discharge Date/Time: 09/13/22 19:13
[2022-09-13 11:37] LABS: MANUAL DIFF FLAG NO
[2022-09-13 11:39] LABS: Basophils Absolute Auto 0.1 X10*3/uL (0.0-0.2); Basophils Percent Auto 0.6 % (0-2); Eosinophils Absolute Auto 0.4 X10*3/uL (0.0-0.4); Eosinophils Percent Auto 3.9 % (0-4); Hematocrit 40.9 % (42.0-52.0); Hemoglobin 13.5 g/dl (14.0-18.0); Imm Gran Abs Auto 0.04 X10*3/uL (0.00-0.03); Imm Gran Pct Auto 0.4 % (0.0-0.4); Lymphocytes Absolute Auto 1.2 X10*3/uL (1.2-4.9); Lymphocytes Percent Auto 12.5 % (20-40); Mean Corpuscular Hemoglobin 28.4 pg (27.0-33.0); Mean Corpuscular Volume 85.9 fL (80.0-98.0); Mean Platelet Volume 12.4 fL (9.4-12.4); Monocytes Absolute Auto 0.9 X10*3/uL (0.1-1.2); Monocytes Percent Auto 9.8 % (2-11); Neutrophils Percent Auto 72.8 % (45-73); Platelet Count 174 X10*3/uL (160-400); Red Blood Count 4.76 X10*6/uL (4.60-5.80); Red Cell Distribution Width 12.7 % (11.0-16.0); White Blood Count 9.6 X10*3/uL (4.8-10.8)
[2022-09-13 11:49] LABS: Amphetamine Screen Urine Not Detected (Not Detect); Barbiturates, Urine Not Detected (Not Detect); Benzodiazepines Screen Urine Not Detected (Not Detect); Cannabinoid Screen Urine Not Detected (Not Detect); Cocaine Screen Urine POSITIVE (Not Detect); Fentanyl, urine Not Detected (Not Detect); Opiate Screen Urine Not Detected (Not Detect); Phencyclidine Screen Urine Not Detected (Not Detect)
[2022-09-13 11:57] LABS: Alanine Aminotransferase 33 U/L (0-40); Albumin Level 3.9 g/dL (3.5-5.0); Alkaline Phosphatase 78 U/L (39-117); Anion Gap 12 (12-20); Aspartate Amino Transferase 27 U/L (5-37); Bilirubin Total 0.8 mg/dL (0.0-1.0); Blood Urea Nitrogen 8 mg/dL (9-16); Calcium 8.7 mg/dL (8.4-10.2); Carbon Dioxide 26 mmol/L (22-29); Chloride 108 mmol/L (96-108); Creatinine Clr Calc Pharmacy 192.5; Estimated Glomerular Filt Rate > 60; Ethanol 20 mg/dL; Glucose Random 90 mg/dL (60-115); Sodium 142 mmol/L (135-145); Total Protein 6.3 g/dL (6.5-8.0)
[2022-09-13 12:03] LABS: Troponin-I High Sensitivity < 2.7 ng/L (<3.5-35.0)
[2022-09-13 14:00] VITALS: BP 124/78; PULSE 94; RESP 20; O2SAT 97
--- NOTE | 2022-09-13 14:28 | PHA.MEDREC ---
Pharmacy Consult ? Medication Reconciliation Pharmacy has completed the medication reconciliation.
--- NOTE | 2022-09-13 14:35 | P.HPHOSP_ITS ---
History of Present Illness Date of Service: 09/13/22 Attending physician on admission: Alex Ward Chief Complaint: seizure 37-year-old male with history of alcohol use disorder, hypertension, chronic low back pain, bipolar 1 disorder, polysubstance abuse, and morbid obesity with BMI greater than 53 presented to the ED earlier today via EMS for evaluation of a seizure witnessed by family. Per ER provider, patient also had a 3-4 minute seizure while in the ED and is notably postictal at this time, very drowsy answering yes to all questions. The patient does endorse cocaine use and alcohol use. States he drinks ?a lot? of alcohol on a daily basis but unable to ascertain much additional history due to mental state. In the ED, the patient received 1 mg of Ativan and was loaded with 1500 mg IV Keppra with resolution. On arrival vital stable. Hematology studies unremarkable. Renal function and electrolyte levels normal, though magnesium level is still pending. Total CK 56 9. Urine tox screen positive for cocaine with ethyl alcohol level 20. CXR negative for any acute cardiopulmonary abnormality. Head CT negative for any acute intracranial process. EKG showing normal sinus rhythm, rate [address]/T-wave abnormality. Review of Systems Review of Systems: Yes Unobtainable due to mental status PMFSH Medical History Bipolar 1 disorder Chronic back pain Eardrum trauma ETOH abuse HTN (hypertension) Lumbar pain Morbid obesity with BMI of 50.0-59.9, adult Non compliance w medication regimen Non compliance with medical treatment Obesity Polysubstance abuse Seizure Family History Mother Hypertension Diabetes Cancer Father Diabetes Hypertension Surgical History No pertinent past surgical history Social History Housing: Apartment Housing Other:: living with aunt Alcohol intake: current Alcohol intake frequency: a few times a week Alcohol type: beer and hard liquor Patient Tobacco Use Status: Former Tobacco user Tobacco use type: Cigarette Smoked in Last 30 Days: Yes e-Cigarette/Vaping Use: Never Used Second Hand Smoke Exposure: No Use of substances other than those prescribed or required for medical reasons: Yes Substance Use Type: Crack/Cocaine Substance Use Frequency: Chronic Longstanding Last Used Substance: Just Prior to Admission Any prior treatment program specific to substance use: No Advance Directives: No Advance Directives Information Provided: No Nutrition Risks: No Nutritional Risk service: No Current occupational status: unemployed Cognitive needs: No Hearing needs: No Vision needs: No Meds Allergies Allergy/AdvReac Type Severity Reaction Status Date / Time No Known Allergies Allergy Verified 09/13/22 16:47 Active Medications: Current Medications Acetaminophen (Acetaminophen 325 Mg Tablet) 650 mg PO Q6H PRN PRN Reason: Pain, Mild (Pain Scale 1-3) Docusate Sodium (Docusate Sodium 100 Mg Capsule) 100 mg PO DAILY PRN PRN Reason: Constipation Enoxaparin Sodium (Enoxaparin Sodium 40 Mg/0.4 Ml Syringe) 40 mg SUBCUT Q24H YAJAIRA Ondansetron HCl (Ondansetron Hcl 4 Mg/2 Ml Vial) 4 mg IVPUSH Q8H PRN PRN Reason: Nausea and Vomiting Pharmacy Consult (Consult Rx Perform Med Rec) 1 each MISCELLANE ONCE PRN PRN Reason: Consult order Pharmacy Consult (Consult Rx Etoh Phenob Im/Po) 1 each MISCELLANE ONCE PRN; Protocol PRN Reason: Consult order Sodium Chloride (0.9 % Sodium Chloride Flush 3 Ml Syringe) 3 ml IVFLUSH [facility] Home Medications Medication Instructions Recorded Confirmed Last Taken Type lisinopril 20 mg tablet 1 tab PO DAILY 07/01/22 09/13/22 09/13/22 History sertraline 25 mg tablet 1 tab PO DAILY 07/01/22 09/13/22 09/12/22 History Physical Exam Vital Signs and Narrative: Vital Signs: Last Vital Signs Temp 97.8 F 09/13/22 11:02 Pulse 94 09/13/22 14:00 Resp 20 09/13/22 14:00 BP 124/78 09/13/22 14:00 Pulse Ox 97 09/13/22 14:00 O2 Del Method Room Air 09/13/22 14:00 BMI result Body Mass Index 53.0 Constitutional - somnolent but arousable, No apparent distress Eyes - PERRLA, EOMI Cardiovascular - S1S2, RRR, No edema Respiratory - Normal lung expansion, Normal respiratory effort, No respiratory distress, CTA bilaterally Gastrointestinal - NT / ND; +BS; No rebound or guarding Extremities - no calf tenderness bilaterally, no swelling Musculoskeletal - anterior orientation humeral head with some guarding with ROM left shoulder Skin - Warm/Dry Neurological -somnolent but arousable, postictal, PERRLA, good tone BUE and BLE though unable to participate fully in neuro exam Results Labs 09/13/22 11:34 09/13/22 11:34 Labs: Laboratory Results - last 24 hr 09/13/22 09/13/22 09/13/22 11:34 11:34 11:34 MCV 85.9 MCH 28.4 MCHC 33.0 RDW 12.7 Plt Count 174 MPV 12.4 Immature Gran % (Auto) 0.4 Neut % (Auto) 72.8 Lymph % (Auto) 12.5 L [place] % (Auto) 9.8 Eos % (Auto) 3.9 Baso % (Auto) 0.6 Lymph # (Auto) 1.2 [place] # (Auto) 0.9 Eos # (Auto) 0.4 Baso # (Auto) 0.1 Abs Immat Gran (auto) 0.04 H Absolute Neuts (auto) 7.0 Absolute Nucleated RBC 0.000 Nucleated RBC % (auto) 0.0 Anion Gap 12 Estim Creat Clear Calc 192.5 Estimated GFR > 60 Random Glucose 90 Calcium 8.7 Total Bilirubin 0.8 AST 27 ALT 33 Alkaline Phosphatase 78 Total Creatine Kinase Troponin I High Sens < 2.7 Total Protein 6.3 L Albumin 3.9 Urine Opiates Screen Urine Fentanyl Screen Ur Barbiturates Screen Ur Phencyclidine Scrn Ur Amphetamines Screen U Benzodiazepines Scrn Urine Cocaine Screen U Marijuana (THC) Screen Ethyl Alcohol 09/13/22 09/13/22 11:34 11:34 MCV MCH MCHC RDW Plt Count MPV Immature Gran % (Auto) Neut % (Auto) Lymph % (Auto) [place] % (Auto) Eos % (Auto) Baso % (Auto) Lymph # (Auto) [place] # (Auto) Eos # (Auto) Baso # (Auto) Abs Immat Gran (auto) Absolute Neuts (auto) Absolute Nucleated RBC Nucleated RBC % (auto) Anion Gap Estim Creat Clear Calc Estimated GFR Random Glucose Calcium Total Bilirubin AST ALT Alkaline Phosphatase Total Creatine Kinase 569 H Troponin I High Sens Total Protein Albumin Urine Opiates Screen Not Detected Urine Fentanyl Screen Not Detected Ur Barbiturates Screen Not Detected Ur Phencyclidine Scrn Not Detected Ur Amphetamines Screen Not Detected U Benzodiazepines Scrn Not Detected Urine Cocaine Screen POSITIVE H U Marijuana (THC) Screen Not Detected Ethyl Alcohol 20 Imaging Radiologist's Impressions: Impressions Chest X-Ray 09/13/22 11:40 IMPRESSION: 1. No acute intracranial process seen. 2. There is no acute cardiopulmonary process seen. 3. Chronic bilateral maxillary, ethmoid and frontal sinus inflammatory changes. Hypoexpanded lungs with no acute process. Head CT 09/13/22 11:55 IMPRESSION: 1. No acute intracranial process seen. 2. There is no acute cardiopulmonary process seen. 3. Chronic bilateral maxillary, ethmoid and frontal sinus inflammatory changes. Hypoexpanded lungs with no acute process. Assessment and Plan (1) Seizure: Status: Acute (2) Polysubstance abuse: Status: Acute Plan 37-year-old male with history of alcohol use disorder, hypertension, chronic low back pain, bipolar 1 disorder, polysubstance abuse, and morbid obesity with BMI greater than 53 admitted for seizure #Recurrent tonic clonic seizure- suspect related to etoh withdrawal, will evaluate further as patient's mental status improves -ETOH level 20 on arrival. Reports drinking alot on a daily basis -Loaded with 1500mg IV keppra in ED and given 1mg ativan -Initiate phenobarb per protocol, load reduced -seizure precautions -IV thiamine x 3 days, then PO. Folic acid daily -Keep NPO for now -Admit to telemetry -Magnesium level pending, lytes otherwise normal #Acute metabolic encephalopathy -following witnessed prolonged seizure -as above -monitor mentation # abuse -abuses cocaine and etoh -Has refused detox in past. Reassess desire for detox once more awake #HTN- reasonably controlled -continue home meds #Mood disorder -continue sertraline #Morbid obesity wtih BMI 53 -due to excess calories -Recommend weight loss measures when more awake DVT prophylaxis- lovenox Full code Pt requires inpt stay at least 2 midnights for management of seizure, presumed etoh withdrawal related on phenobarb per protocol Time Spent With Patient Time: Total time managing care of this patient today ____ minutes. Quality Stroke Does the patient have a stroke diagnosis?: No VTE Prior VTE?: No VTE Risk Level:: Medical - moderate - high VTE Device Contraindication: Treatment Not Indicated VTE Drug Contraindication: N/A - Med Ordered
[2022-09-13] MEDS: Thiamine HCL 100 MG in 0.9 % Sodium Chloride 100 ML 202 MG IV (15:01)
[2022-09-13] MEDS: Enoxaparin Sodium 40 MG/0.4 ML SYRINGE SUBCUT (15:01)
[2022-09-13] MEDS: PHENobarbitaL sodium 130 MG/ML IM ONCE 274 MG IM (15:49)
--- NOTE | 2022-09-13 17:58 | PC.NURSE ---
called pharmacy due to no Phenobarbital being unavailable in overflow, pharmacy informed this RN that the patient must be in overflow in the tracker for them to be able to have meds here. Pt is on the overflow tracker from both the inpatient and ED side, called banquet kitchen supervisor to clarify, banquet kitchen supervisor stated she will look into the matter
--- NOTE | 2022-09-13 18:08 | PC.NURSE ---
Late entry: pt brought over from main ED, was able to stand and pivot to bed with no issue. pt reports no pain at this time. Respirations equal and unlabored, skin pwd, pt is alert and oriented x4. Pt was provided with dinner and is now sleeping. Seizure precautions in place at this time
[2022-09-13 19:26] VITALS: BP 133/76; PULSE 79; RESP 20; TEMP 36.4; O2SAT 95
[2022-09-13 20:01] LABS: Glucose, Whole Blood 95 mg/dL (60-115)
[2022-09-13] MEDS: PHENobarbitaL sodium 130 MG/ML VIAL IM Q3Hx2 205 MG IM (20:58)
[2022-09-14] VITALS (7 sets, daily range): BP systolic 115–145; BP diastolic 60–88; PULSE 59–80; RESP 14–20; TEMP 36–37.2; O2SAT 95–99
[2022-09-14] MEDS: PHENobarbitaL sodium 130 MG/ML VIAL IM Q3Hx2 205 MG IM (00:11)
[2022-09-14] MEDS: 0.9 % Sodium Chloride Flush 3 ML SYRINGE IVFLUSH ×4 (00:15→20:20)
[2022-09-14 06:37] LABS: Hematocrit 42.5 % (42.0-52.0); Hemoglobin 13.9 g/dl (14.0-18.0); Mean Corpuscular HGB Conc 32.7 g/dl (31.0-36.0); Mean Corpuscular Volume 85.7 fL (80.0-98.0); Mean Platelet Volume 12.4 fL (9.4-12.4); Platelet Count 165 X10*3/uL (160-400); Red Blood Count 4.96 X10*6/uL (4.60-5.80); Red Cell Distribution Width 12.7 % (11.0-16.0); White Blood Count 5.7 X10*3/uL (4.8-10.8)
[2022-09-14 06:48] LABS: Alanine Aminotransferase 30 U/L (0-40); Albumin Level 3.7 g/dL (3.5-5.0); Alkaline Phosphatase 88 U/L (39-117); Anion Gap 8 (12-20); Aspartate Amino Transferase 21 U/L (5-37); Bilirubin Total 0.9 mg/dL (0.0-1.0); Blood Urea Nitrogen 15 mg/dL (9-16); Carbon Dioxide 30 mmol/L (22-29); Chloride 106 mmol/L (96-108); Creatinine Clr Calc Pharmacy 185.2; Estimated Glomerular Filt Rate > 60; Glucose Random 87 mg/dL (60-115); Potassium 4.3 mmol/L (3.3-5.1); Sodium 140 mmol/L (135-145)
[2022-09-14] MEDS: lisinopriL 20 MG TABLET PO (09:02)
[2022-09-14] MEDS: PHENobarbitaL 15 MG TABLET 45 MG PO ×2 (09:02→20:19)
[2022-09-14] MEDS: Sertraline HCL 25 MG TABLET PO (09:02)
[2022-09-14] MEDS: Folic Acid 1 MG TABLET PO (09:02)
[2022-09-14] MEDS: Thiamine HCL 100 MG in 0.9 % Sodium Chloride 100 ML 202 MG IV (09:03)
--- NOTE | 2022-09-14 09:34 | HO.PM.IMPN ---
Subjective Subjective Date of Service: 09/14/22 Interval History: no further seizure Physical Exam Vital Signs: Vital Signs: Last Vital Signs Temp 97.8 F 09/14/22 08:00 Pulse 59 09/14/22 08:00 Resp 20 09/14/22 08:00 BP 138/70 09/14/22 08:00 Pulse Ox 96 09/14/22 08:00 O2 Del Method Room Air 09/14/22 08:00 BMI result Body Mass Index 53.0 General: AO X 3, no acute distress Resp: CTA bilateral, no accessory muscles used CVS: S1,S2,RRR GI: soft, non tender, non distended Neuro: motor grossly intact, alert Psych: appropriate affect, appropriate insight Objective Data Active Medications Acetaminophen (Acetaminophen 325 Mg Tablet) 650 mg PO Q6H PRN PRN Reason: Pain, Mild (Pain Scale 1-3) Docusate Sodium (Docusate Sodium 100 Mg Capsule) 100 mg PO DAILY PRN PRN Reason: Constipation Enoxaparin Sodium (Enoxaparin Sodium 40 Mg/0.4 Ml Syringe) 40 mg SUBCUT Q24H [facility] Last Admin: 09/13/22 15:01 Dose: 40 mg Documented By: MICHAEL Folic Acid (Folic Acid 1 Mg Tablet) 1 mg PO DAILY [facility] Last Admin: 09/14/22 09:02 Dose: 1 mg Documented By: PALLAVI Thiamine HCl 100 mg/ Sodium (Chloride) 101 mls @ 202 mls/hr IV DAILY [facility] Last Admin: 09/14/22 09:03 Dose: 202 mls/hr Documented By: PALLAVI Lisinopril (Lisinopril 20 Mg Tablet) 20 mg PO DAILY [facility]; Protocol Last Admin: 09/14/22 09:02 Dose: 20 mg Documented By: PALLAVI Ondansetron HCl (Ondansetron Hcl 4 Mg/2 Ml Vial) 4 mg IVPUSH Q8H PRN PRN Reason: Nausea and Vomiting Pharmacy Consult (Consult Rx Perform Med Rec) 1 each MISCELLANE ONCE PRN PRN Reason: Consult order Pharmacy Consult (Consult Rx Etoh Phenob Im/Po) 1 each MISCELLANE ONCE PRN; Protocol PRN Reason: Consult order Phenobarbital (Phenobarbital 15 Mg Tablet) 45 mg PO BID [facility]; Protocol Stop: 04/30/23 21:01 Last Admin: 09/14/22 09:02 Dose: 45 mg Documented By: PALLAVI Phenobarbital (Phenobarbital 15 Mg Tablet) 15 mg PO BID [facility]; Protocol Stop: 09/17/22 21:01 Phenobarbital (Phenobarbital 15 Mg Tablet) 15 mg PO DAILY [facility]; Protocol Stop: 09/19/22 09:01 Sertraline HCl (Sertraline Hcl 25 Mg Tablet) 25 mg PO DAILY [facility] Last Admin: 09/14/22 09:02 Dose: 25 mg Documented By: PALLAVI Sodium Chloride (0.9 % Sodium Chloride Flush 3 Ml Syringe) 3 ml IVFLUSH QSHIFT [facility] Last Admin: 09/14/22 09:04 Dose: 3 ml Documented By: PALLAVI Labs 09/14/22 05:59 09/14/22 05:59 Labs: Laboratory Results - last 24 hr 09/13/22 09/13/22 09/13/22 11:34 11:34 11:34 MCV 85.9 MCH 28.4 MCHC 33.0 RDW 12.7 Plt Count 174 MPV 12.4 Immature Gran % (Auto) 0.4 Neut % (Auto) 72.8 Lymph % (Auto) 12.5 L [place] % (Auto) 9.8 Eos % (Auto) 3.9 Baso % (Auto) 0.6 Lymph # (Auto) 1.2 [place] # (Auto) 0.9 Eos # (Auto) 0.4 Baso # (Auto) 0.1 Abs Immat Gran (auto) 0.04 H Absolute Neuts (auto) 7.0 Absolute Nucleated RBC 0.000 Nucleated RBC % (auto) 0.0 Anion Gap 12 Estim Creat Clear Calc 192.5 Estimated GFR > 60 POC Glucose Random Glucose 90 Calcium 8.7 Magnesium 2.0 Total Bilirubin 0.8 AST 27 ALT 33 Alkaline Phosphatase 78 Total Creatine Kinase Troponin I High Sens < 2.7 Total Protein 6.3 L Albumin 3.9 Urine Opiates Screen Urine Fentanyl Screen Ur Barbiturates Screen Ur Phencyclidine Scrn Ur Amphetamines Screen U Benzodiazepines Scrn Urine Cocaine Screen U Marijuana (THC) Screen Ethyl Alcohol 09/13/22 09/13/22 09/13/22 11:34 11:34 19:57 MCV MCH MCHC RDW Plt Count MPV Immature Gran % (Auto) Neut % (Auto) Lymph % (Auto) [place] % (Auto) Eos % (Auto) Baso % (Auto) Lymph # (Auto) [place] # (Auto) Eos # (Auto) Baso # (Auto) Abs Immat Gran (auto) Absolute Neuts (auto) Absolute Nucleated RBC Nucleated RBC % (auto) Anion Gap Estim Creat Clear Calc Estimated GFR POC Glucose 95 Random Glucose Calcium Magnesium Total Bilirubin AST ALT Alkaline Phosphatase Total Creatine Kinase 569 H Troponin I High Sens Total Protein Albumin Urine Opiates Screen Not Detected Urine Fentanyl Screen Not Detected Ur Barbiturates Screen Not Detected Ur Phencyclidine Scrn Not Detected Ur Amphetamines Screen Not Detected U Benzodiazepines Scrn Not Detected Urine Cocaine Screen POSITIVE H U Marijuana (THC) Screen Not Detected Ethyl Alcohol 20 09/14/22 09/14/22 05:59 05:59 MCV 85.7 MCH 28.0 MCHC 32.7 RDW 12.7 Plt Count 165 MPV 12.4 Immature Gran % (Auto) Neut % (Auto) Lymph % (Auto) [place] % (Auto) Eos % (Auto) Baso % (Auto) Lymph # (Auto) [place] # (Auto) Eos # (Auto) Baso # (Auto) Abs Immat Gran (auto) Absolute Neuts (auto) Absolute Nucleated RBC 0.000 Nucleated RBC % (auto) 0.0 Anion Gap 8 L Estim Creat Clear Calc 185.2 Estimated GFR > 60 POC Glucose Random Glucose 87 Calcium 9.0 Magnesium Total Bilirubin 0.9 AST 21 ALT 30 Alkaline Phosphatase 88 Total Creatine Kinase Troponin I High Sens Total Protein 6.0 L Albumin 3.7 Urine Opiates Screen Urine Fentanyl Screen Ur Barbiturates Screen Ur Phencyclidine Scrn Ur Amphetamines Screen U Benzodiazepines Scrn Urine Cocaine Screen U Marijuana (THC) Screen Ethyl Alcohol Assessment and Plan (1) Seizure: Status: Acute Plan 37M PMH of alcohol use disorder, hypertension, chronic low back pain, bipolar 1 disorder, polysubstance abuse, and morbid obesity with BMI greater than 53 presented with seizure Recurrent tonic clonic seizure etoh dependence with withdrawal vs cocaine induced vs epilepsy Loaded with 1500mg IV keppra in ED and given 1mg ativan phenobarb seizure precautions thiamine, Folic acid daily neuro eval polysubstance abuse -abuses cocaine and etoh -Has refused detox in past. Reassess desire for detox once more awake HTN lisinopril Mood disorder sertraline Morbid obesity wtih BMI 53 -due to excess calories -Recommend weight loss measures when more awake DVT prophylaxis- lovenox Full code reason for continued hospitalization:monitoring for seizure, etoh withdrawal Time Spent With Patient Time: Total time managing care of this patient today ____ minutes. Quality Stroke Does the patient have a stroke diagnosis?: No VTE Prior VTE?: No VTE Risk Level:: Medical - moderate - high VTE Device Contraindication: Treatment Not Indicated VTE Drug Contraindication: N/A - Med Ordered
--- NOTE | 2022-09-14 10:19 | MHC.RECOVRN ---
Received Addiction Medicine consult for alcohol and cocaine use. Chart reviewed. Per provider documentation, to discuss substance use when pt more awake. Will meet with pt when appropriate. Will continue to follow.
--- NOTE | 2022-09-14 10:37 | MHC.CM.PN ---
Interview conducted with Kira Arteaga (SO listed on file). Per Kira, patient lives w/friends intermittently, and occasionally stays on the streets. He has been approached in the past RE detox programs and shelters for a more consistent place to stay, and all options have been refused by patient. Kira asking if [facility] team can re-approach him RE both potential detox programs and/or shelters as options for D/C. Per Kira, his PCP at the moment is Dr. Trinidad Bridges, but is being changed to a new doctor this coming November; she does not know this physician's name, only knows it is on [facility] in [place]. Will follow for D/C recommendations by teams and correlate associated D/C plan. CM to follow.
[2022-09-14] MEDS: Acetaminophen 325 MG TABLET 650 MG PO (10:43)
--- NOTE | 2022-09-14 12:39 | PM.NEUROCN ---
History of Present Illness Data of Consult Service Date: 09/14/22 Primary Care Provider: Unknown Physician HPI Reason for consult: Seizure disorder 37 years old man with morbid obesity alcohol abuse and drug abuse including cocaine abuse and suspicion of seizure disorder in the past. This time he came to hospital when he had a generalized convulsion at home and another 1 in emergency room treated with medicine and then he was loaded with Keppra. He was found to be positive for alcohol and cocaine. When I saw him he was taking his lunch. Review of Systems Review of Systems: No recent cold or flu-like illness PMFSH Past Medical History Medical History Bipolar 1 disorder Chronic back pain Eardrum trauma ETOH abuse HTN (hypertension) Lumbar pain Morbid obesity with BMI of 50.0-59.9, adult Non compliance w medication regimen Non compliance with medical treatment Obesity Polysubstance abuse Seizure Family History Family History Mother Hypertension Diabetes Cancer Father Diabetes Hypertension Surgical History Surgical History No pertinent past surgical history Social History Social History Household Members: Other Household Members Other:: AUNT Housing: House Housing Other:: living with aunt Do you presently have visiting nurse or other home services: No Alcohol intake: current Alcohol intake frequency: a few times a week Alcohol type: beer and hard liquor Patient Tobacco Use Status: Never used Tobacco Tobacco use type: Cigarette Smoked in Last 30 Days: Yes e-Cigarette/Vaping Use: Never Used Second Hand Smoke Exposure: No Use of substances other than those prescribed or required for medical reasons: Yes Substance Use Type: Crack/Cocaine Substance Use Frequency: Weekly Last Used Substance: Hours (ago) Currently Displaying Signs/Symptoms of Drug Intoxication Withdrawal: No Any prior treatment program specific to substance use: No Have you been hit, kicked, punched, or otherwise hurt by someone within the past year? If so, by whom?: No Do you feel safe in your current relationship?: Yes Is there a partner from a previous relationship who is making you feel unsafe now?: No Are you made to feel afraid or neglected: No Advance Directives: No Advance Directives Information Provided: No Do you have thoughts of harming others: None Do you have a plan to hurt others: No Plan Recently lost weight without trying: Yes How much weight loss: Unsure Eating poorly because of decreased appetite: No Nutrition screen score: 4 Nutrition Risks: No Nutritional Risk Poor oral hygiene: No service: No Current occupational status: unemployed Cognitive needs: No Hearing needs: No Vision needs: No Meds Allergies Allergy/AdvReac Type Severity Reaction Status Date / Time No Known Allergies Allergy Verified 09/13/22 16:47 Active Medications: Current Medications Acetaminophen (Acetaminophen 325 Mg Tablet) 650 mg PO Q6H PRN PRN Reason: Pain, Mild (Pain Scale 1-3) Last Admin: 09/14/22 10:43 Dose: 650 mg Docusate Sodium (Docusate Sodium 100 Mg Capsule) 100 mg PO DAILY PRN PRN Reason: Constipation Enoxaparin Sodium (Enoxaparin Sodium 40 Mg/0.4 Ml Syringe) 40 mg SUBCUT Q24H [facility] Last Admin: 09/13/22 15:01 Dose: 40 mg Folic Acid (Folic Acid 1 Mg Tablet) 1 mg PO DAILY [facility] Last Admin: 09/14/22 09:02 Dose: 1 mg Thiamine HCl 100 mg/ Sodium (Chloride) 101 mls @ 202 mls/hr IV DAILY [facility] Last Infusion: 09/14/22 12:26 Dose: Infused Lisinopril (Lisinopril 20 Mg Tablet) 20 mg PO DAILY [facility]; Protocol Last Admin: 09/14/22 09:02 Dose: 20 mg Ondansetron HCl (Ondansetron Hcl 4 Mg/2 Ml Vial) 4 mg IVPUSH Q8H PRN PRN Reason: Nausea and Vomiting Pharmacy Consult (Consult Rx Perform Med Rec) 1 each MISCELLANE ONCE PRN PRN Reason: Consult order Pharmacy Consult (Consult Rx Etoh Phenob Im/Po) 1 each MISCELLANE ONCE PRN; Protocol PRN Reason: Consult order Phenobarbital (Phenobarbital 15 Mg Tablet) 45 mg PO BID [facility]; Protocol Stop: 09/15/22 21:01 Last Admin: 09/14/22 09:02 Dose: 45 mg Phenobarbital (Phenobarbital 15 Mg Tablet) 15 mg PO BID [facility]; Protocol Stop: 09/17/22 21:01 Phenobarbital (Phenobarbital 15 Mg Tablet) 15 mg PO DAILY [facility]; Protocol Stop: 09/19/22 09:01 Sertraline HCl (Sertraline Hcl 25 Mg Tablet) 25 mg PO DAILY [facility] Last Admin: 09/14/22 09:02 Dose: 25 mg Sodium Chloride (0.9 % Sodium Chloride Flush 3 Ml Syringe) 3 ml IVFLUSH QSHIFT [facility] Last Admin: 09/14/22 09:04 Dose: 3 ml Home Medications Medication Instructions Recorded Confirmed Last Taken Type lisinopril 20 mg tablet 1 tab PO DAILY 07/01/22 09/13/22 09/13/22 History sertraline 25 mg tablet 1 tab PO DAILY 07/01/22 09/13/22 09/12/22 History Physical Exam Vital Signs: Vital Signs: Last Vital Signs Temp 97.5 F 09/14/22 11:25 Pulse 68 09/14/22 11:25 Resp 20 09/14/22 11:25 BP 145/80 H 09/14/22 11:25 Pulse Ox 96 09/14/22 11:25 O2 Del Method Room Air 09/14/22 11:25 BMI result Body Mass Index 53.0 Neuro: Other: Morbidly obese young man who I had seen in the past last time in 2017. He recognized me right away and stated that he has stop drinking. He was alert and awake with normal spontaneity of speech fluency comprehension and affect. Face was symmetrical. There was no pronator drift. Deep tendon reflexes were trace with flexor plantars. Results Labs 09/14/22 05:59 09/14/22 05:59 Labs: Short CBC 09/14/22 Range/Units 05:59 WBC 5.7 (4.8-10.8) X10*3/uL Hgb 13.9 L (14.0-18.0) g/dl Hct 42.5 (42.0-52.0) % Plt Count 165 (160-400) X10*3/uL BMP 09/14/22 05:59 Sodium 140 Potassium 4.3 Chloride 106 Carbon Dioxide 30 H BUN 15 Creatinine 0.79 Calcium 9.0 Liver Function 09/14/22 Range/Units 05:59 Total Bilirubin 0.9 (0.0-1.0) mg/dL AST 21 (5-37) U/L ALT 30 (0-40) U/L Alkaline Phosphatase 88 (39-117) U/L Albumin 3.7 (3.5-5.0) g/dL Noncontrast head CT did not reveal any significant abnormality Assessment and Plan (1) Seizure: Status: Acute 37 years old man with previous suspicion of seizures versus nonepileptic spells was drinking alcohol and also using cocaine when he had couple of generalized convulsion. He was treated with levetiracetam. At this time my recommendation is to continue levetiracetam 1000 mg twice a day for a month. He should stop drinking alcohol and using cocaine. EEG should be arranged as an outpatient to find out if there is any epileptic tendency. He should be advised not to drive and not to be involved in an activity that could put his life in danger Time Spent With Patient Time: Total time managing care of this patient today ____ minutes. Procedures Date of Service Date of Service: 09/14/22
[2022-09-14] MEDS: Enoxaparin Sodium 40 MG/0.4 ML SYRINGE SUBCUT (16:11)
[2022-09-15 02:50] VITALS: BP 101/56; PULSE 69; RESP 20; TEMP 36.3; O2SAT 99
[2022-09-15 06:52] LABS: Hematocrit 42.2 % (42.0-52.0); Mean Corpuscular HGB Conc 33.2 g/dl (31.0-36.0); Mean Corpuscular Hemoglobin 28.4 pg (27.0-33.0); Mean Corpuscular Volume 85.6 fL (80.0-98.0); Mean Platelet Volume 12.6 fL (9.4-12.4); Platelet Count 166 X10*3/uL (160-400); Red Blood Count 4.93 X10*6/uL (4.60-5.80); Red Cell Distribution Width 12.7 % (11.0-16.0); White Blood Count 5.7 X10*3/uL (4.8-10.8)
[2022-09-15 06:57] LABS: Anion Gap 10 (12-20); Blood Urea Nitrogen 11 mg/dL (9-16); Calcium 9.2 mg/dL (8.4-10.2); Carbon Dioxide 29 mmol/L (22-29); Chloride 107 mmol/L (96-108); Creatinine Clr Calc Pharmacy 192.5; Estimated Glomerular Filt Rate > 60; Glucose Fasting 87 mg/dL (60-99); Potassium 4.1 mmol/L (3.3-5.1); Sodium 142 mmol/L (135-145)
[2022-09-15 07:58] VITALS: BP 136/76; PULSE 60; RESP 20; TEMP 36.4; O2SAT 98
[2022-09-15] MEDS: PHENobarbitaL 15 MG TABLET 45 MG PO (08:07)
[2022-09-15] MEDS: Sertraline HCL 25 MG TABLET PO (08:07)
[2022-09-15] MEDS: lisinopriL 20 MG TABLET PO (08:07)
[2022-09-15] MEDS: Thiamine HCL 100 MG in 0.9 % Sodium Chloride 100 ML 202 MG IV (08:07)
[2022-09-15] MEDS: Folic Acid 1 MG TABLET PO (08:07)
[2022-09-15] MEDS: 0.9 % Sodium Chloride Flush 3 ML SYRINGE IVFLUSH (08:08)
--- NOTE | 2022-09-15 08:58 | P.DS_ITS ---
DS: Providers Provider Date of Service: 09/15/22 Date of admission: 09/13/22 14:28 Primary care physician: Unknown Physician Consults: 09/14/22 08:58 Consult to Neurology Routine Consulting Provider: [facility] Reason for consultation: seizure, ?cocaine vs etoh withdrawal vs epilepsy 09/14/22 09:37 Addiction Medicine Routine Consulting Provider: Addiction [facility] Reason for consultation: cocaine, etoh DS: Diagnosis Discharge Diagnosis (1) Seizure: Status: Acute DS: Summary Hospital Course Hospital Course: from initial hpi: Chief Complaint: seizure 37-year-old male with history of alcohol use disorder, hypertension, chronic low back pain, bipolar 1 disorder, polysubstance abuse, and morbid obesity with BMI greater than 53 presented to the ED earlier today via EMS for evaluation of a seizure witnessed by family.? Per ER provider, patient also had a 3-4 minute seizure while in the ED and is notably postictal at this time, very drowsy answering yes to all questions.? The patient does endorse cocaine use and alcohol use.? States he drinks ?a lot? of alcohol on a daily basis but unable to ascertain much additional history due to mental state.? In the ED, the patient received 1 mg of Ativan and was loaded with 1500 mg IV Keppra with resolution.? On arrival vital stable.? Hematology studies unremarkable.? Renal function and electrolyte levels normal, though magnesium level is still pending.? Total CK 569.? Urine tox screen positive for cocaine with ethyl alcohol level 20.? CXR negative for any acute cardiopulmonary abnormality.? Head CT negative for any a cute intracranial process.? EKG showing normal sinus rhythm, rate [address]/T-wave abnormality. hospital course: patient was amditted for recurrent tonic clonic seizure. he was seen by neuro, differential includes etoh dependence with withdrawal and seizure vs cocaine induced seizure vs epilepsy. he was treated with phenobarb, keppra, vitmains. on discharge recommended to avoid drugs, etoh, no driving, started keppra 1gm bid, will follow up with neuro and obtain eeg as outpatient. for polysubstance dependence, absitence recommended. for htn was conitnued on lisinopril, for mood disorder was conitnued zoloft, for morbid obesity weight loss recommended. patient feeling better and will be discharged home. Time Spent with Patient Time attestation: Total time managing care of this patient today ____ minutes. Discharge coordination time: Greater than 30 minutes Quality: Safe Use of Opioids Does Pt have an Active Cancer Diagnosis on the Problem List?: No Quality: Stroke Does the patient have a stroke diagnosis?: No Physical Exam Vital Signs: Vital Signs: Last Vital Signs Temp 97.6 F 09/15/22 07:58 Pulse 60 09/15/22 07:58 Resp 20 09/15/22 07:58 BP 136/76 09/15/22 07:58 Pulse Ox 98 09/15/22 07:58 O2 Del Method Room Air 09/15/22 07:58 BMI result Body Mass Index 53.0 General: AO X 3, no acute distress Resp: CTA bilateral, no accessory muscles used CVS: S1,S2,RRR GI: soft, non tender, non distended Neuro: motor grossly intact, alert Psych: appropriate affect, appropriate insight DS: Data Data Completed and Pending Labs on day of discharge: Laboratory Results - last 24 hr 09/15/22 09/15/22 06:06 06:06 WBC 5.7 RBC 4.93 Hgb 14.0 Hct 42.2 MCV 85.6 MCH 28.4 MCHC 33.2 RDW 12.7 Plt Count 166 MPV 12.6 H Absolute Nucleated RBC 0.000 Nucleated RBC % (auto) 0.0 Sodium 142 Potassium 4.1 Chloride 107 Carbon Dioxide 29 Anion Gap 10 L BUN 11 Creatinine 0.76 Estim Creat Clear Calc 192.5 Estimated GFR > 60 Fasting Glucose 87 Calcium 9.2 Discharge Plan Discharge Anticipated Discharge Date/Time: 09/15/22 08:56 Patient Disposition: Home, Self-Care Discharge Diagnosis: seizure Referrals: Jovanny Stallworth MD [Physician] - 1 Week Physician,Unknown J [Primary Care Provider] - 1 Week Discharge Medications: New levetiracetam [Keppra] 1,000 mg tablet 1,000 mg PO BID Qty: 60 0RF Continued lisinopril 20 mg tablet 1 tab PO DAILY sertraline 25 mg tablet 1 tab PO DAILY Discharge Orders: Discharge Order (Routine); Ordered 09/15/22 Ordered By: Alex Ward Diet: Advance to usual diet Activity on Discharge: As tolerated Stand Alone Forms: Patient Portal Discharge page Care Plan Goals: recovery Health Concerns: seizures, drug and etoh use Plan of Treatment: start keppra 1000mg bid, follow up with neuro, no driving, no drugs, no etoh Assessment: see above
--- NOTE | 2022-09-15 09:29 | MHC.CM.PN ---
CM WAS INFORMED BY Mang?rKart THAT PTS MOTHER WAS IN THE ROOM AND STATING HE COULD NOT COME HOME BECAUSE SHE CANNOT CARE FOR HIM CM MET WITH PT AND FAMILY WITH AN CLOTH BLEACHING RANGE BACK TENDER PTS MOTHER SAYS PT HAS BEEN UNABLE TO WALK SINCE HIS STROKE ON FRIDAY CM CLARIFIED, PT HAD A SEIZURE, NOT A STROKE PT IS ALSO 37 YO AND INDEPENDENT [employer]ICE [employer] CM ASKED PT IF HE FELT HE WAS UNABLE TO WALK/BATH HIMSELF HE REPORTS HIS LEGS HURT SO HE DOES NOT WALK MUCH, BUT CAN WALK WITH A WALKER WHEN ASKED ABOUT BATHING HE STATES HE WILL DO HIS BEST CM SPOKE TO THE PT IN [place] AND ASKED IF HE WOULD BE INTERESTED IN SPEAKING WITH A MID WIFE ABOUT PLACEMENT FOR HIS ETOH/COCAINE USE. HE SAYS HE WOULD. HE ALSO STATES IT IS OK TO SPEAK FREELY ABOUT THIS IN FRONT OF THE FAMILY MEMBERS PRESENT IN THE ROOM MESSAGE SENT TO RECOVERY NURSE
--- NOTE | 2022-09-15 10:25 | MHC.RECOVRN ---
Met with pt in 468 to follow up after Addiction Medicine consult placed and pt requesting to speak with t/w. Pt laying in bed, awake, alert, does not easily engages in conversation. Dismissive of t/w. Pt feels okay. When asked about amount of alcohol used, pt states I forget. Pt then informed t/w that he does not wish to have a conversation regarding substance use. Pt provided with written recovery resources and information. Denies questions or concerns for t/w. CM aware.
== END 2022-09-15 12:00 | disposition home or self-care (01) | DRG 101 ==
LOC: HO.ED 14:20 → HO.EDOVER 14:40 → HO.IMC 18:23
PROVIDERS: Admitting Provider Physician Assistant; Emergency Provider Emergency Medicine; Visit Provider Internal Medicine
DX: G40.909 Epilepsy, unspecified, not intractable, without status epilepticus (principal); F10.139 Alcohol abuse with withdrawal, unspecified; Z68.43 Body mass index [BMI] 50.0-59.9, adult; G40.509 Epileptic seizures related to external causes, not intractable, without status epilepticus; E66.01 Morbid (severe) obesity due to excess calories; F31.9 Bipolar disorder, unspecified; Y90.1 Blood alcohol level of 20-39 mg/100 ml; F14.10 Cocaine abuse, uncomplicated; M54.59 Other low back pain; G89.29 Other chronic pain; Z79.899 Other long term (current) drug therapy
CPT/HCPCS: 36415; 70450; 71045; 72100; 72220; 73030; 80048; 80053; 80307; 81003; 82077; 82550; 82947; 83735; 84484; 85025; 85027; 93005; 96372; 99284; 99285; J1650; J1885; J1953; J2060; J2560; J3411

== ENCOUNTER 2022-09-25 10:54 | Emergency (ER) | payer MEDICARE, MEDICAID, SELFPAY ==
--- NOTE | ~2022-09-25 | XR_ITS ---
EXAMINATION: XR ANKLE, LEFT XR FOOT, LEFT CLINICAL INFORMATION: Pain following a twisting injury. COMPARISON: Left tibia and fibula radiographs dated 11/07/2020. TECHNIQUE: AP, lateral, and mortise views of the left ankle and foot were obtained. FINDINGS: Prominent medial soft tissue swelling about the ankle and midfoot. No displaced fracture. The ankle mortise is maintained. Degenerative spurring along the dorsal midfoot. Dystrophic calcification across the distal tibiofibular syndesmosis. Chronic, healed 5th metatarsal fracture. Small plantar calcaneal spur. XR/XR ankle LT min 3V IMPRESSION: 1. Prominent medial soft tissue swelling about the ankle and midfoot. No displaced fracture. 2. Chronic, healed 5th metatarsal fracture. 3. Degenerative spurring along the dorsal midfoot.
--- NOTE | ~2022-09-25 | XR_ITS ---
EXAMINATION: XR ANKLE, LEFT XR FOOT, LEFT CLINICAL INFORMATION: Pain following a twisting injury. COMPARISON: Left tibia and fibula radiographs dated 11/07/2020. TECHNIQUE: AP, lateral, and mortise views of the left ankle and foot were obtained. FINDINGS: Prominent medial soft tissue swelling about the ankle and midfoot. No displaced fracture. The ankle mortise is maintained. Degenerative spurring along the dorsal midfoot. Dystrophic calcification across the distal tibiofibular syndesmosis. Chronic, healed 5th metatarsal fracture. Small plantar calcaneal spur. XR/XR foot LT min 3V IMPRESSION: 1. Prominent medial soft tissue swelling about the ankle and midfoot. No displaced fracture. 2. Chronic, healed 5th metatarsal fracture. 3. Degenerative spurring along the dorsal midfoot.
[2022-09-25 11:47] VITALS: BP 149/99; PULSE 81; RESP 18; TEMP 36.8; O2SAT 99; BMI 34.4
--- NOTE | 2022-09-25 11:48 | ED.LOWEXIN ---
HPI - Extremity Injury (Lower) General Chief Complaint: Extremity Injury, Lower Stated Complaint: L Foot Toe Pain No Injury Time Seen by Provider: 09/25/22 16:11 Related Data Home Medications Medication Instructions Recorded Confirmed lisinopril 20 mg tablet 1 tab PO DAILY 07/01/22 09/13/22 sertraline 25 mg tablet 1 tab PO DAILY 07/01/22 09/13/22 Previous Rx's Medication Instructions Recorded levetiracetam 1,000 mg tablet 1,000 mg PO BID #60 tabs 09/15/22 (Keppra) Allergies Allergy/AdvReac Type Severity Reaction Status Date / Time No Known Allergies Allergy Verified 09/13/22 16:47 PMFSH Past Medical History Medical History Bipolar 1 disorder Chronic back pain Eardrum trauma ETOH abuse HTN (hypertension) Lumbar pain Morbid obesity with BMI of 50.0-59.9, adult Non compliance w medication regimen Non compliance with medical treatment Obesity Polysubstance abuse Seizure Surgical History No pertinent past surgical history Family History Family History Mother Hypertension Diabetes Cancer Father Diabetes Hypertension Social History Social History Household Members: Other Household Members Other:: AUNT Housing: House Housing Other:: living with aunt Do you presently have visiting nurse or other home services: No Alcohol intake: current Alcohol intake frequency: a few times a week Alcohol type: beer and hard liquor Patient Tobacco Use Status: Never used Tobacco Tobacco use type: Cigarette e-Cigarette/Vaping Use: Never Used Second Hand Smoke Exposure: No Substance Use Type: Crack/Cocaine Advance Directives: No Advance Directives Information Provided: No service: No Current occupational status: unemployed Cognitive needs: No Hearing needs: No Vision needs: No Physical Exam Vital Signs: Vital Signs: Last Vital Signs Temp 98.2 F 09/25/22 11:47 Pulse 81 09/25/22 11:47 Resp 18 09/25/22 11:47 BP 149/99 H 09/25/22 11:47 Pulse Ox 99 09/25/22 11:47 O2 Del Method Room Air 09/25/22 11:47 BMI result Body Mass Index 34.4 Course Course Course Narrative: RME - 37 yo male with history of obesity, polysubstance abuse, depression, HTN who presents to the ER for evaluation of 10/10 left foot pain after he twisted it 2 days ago. He reports pain is worse with ambulation and movement of the foot. Pain is from the left great toe to the entire medial aspect of the foot and plantar aspect as well. Limping into triage room. Plan: x-rays Reevaluation(s) Reevaluation #1: patient eloped from the ER prior to full evaluation and treatment Discharge Plan Discharge Clinical Impression: Acute pain of left foot Patient Disposition: Elopement Prescriptions: No Action lisinopril 20 mg tablet 1 tab PO DAILY sertraline 25 mg tablet 1 tab PO DAILY levetiracetam [Keppra] 1,000 mg tablet 1,000 mg PO BID Qty: 60 0RF Interventions: ED Discharge Assessment Last Done: 09/25/22 15:51 Discharge Date/Time: 09/25/22 16:55
== END 2022-09-25 16:55 | disposition left against medical advice (07) ==
PROVIDERS: Emergency Provider Emergency Medicine; PCP Internal Medicine
DX: G89.11 Acute pain due to trauma (principal); M79.672 Pain in left foot; I10 Essential (primary) hypertension; F17.200 Nicotine dependence, unspecified, uncomplicated; F19.10 Other psychoactive substance abuse, uncomplicated; Z79.899 Other long term (current) drug therapy
CPT/HCPCS: 73610; 73630; 99282; 99283

== ENCOUNTER 2022-12-24 09:31 | Outpatient (AMB) | payer MEDICARE, MEDICAID, SELFPAY ==
[2022-12-24 09:58] VITALS: BP 108/70; PULSE 85; O2SAT 97; BMI 49.6
--- NOTE | 2022-12-24 09:58 | A.OFFPC_ITS ---
<Statement entered by Jessica Fox MD - 09/22/24 15:19> This note has been administratively?closed. Vital Signs 12/24/22 09:58 Height 5 ft 10 in Weight 346 lb BMI 49.6 BP 108/70 Blood Pressure Location Lt brachial Position Sitting Pulse 85 Pulse Source Pulse Oximeter Pulse Oximetry (%) 97 Oxygen Delivery Method Room Air Intake Visit Reasons: pt of Dr Chavez, c/o anxiety Intake Note: Pt is here patient here today , pt of Dr. Chavez for anxiety medication Allergies No Known Allergies Allergy (Verified 12/24/22 10:27) Medication List - Last Reconciled 12/24/22 by Jessica Fox MD No Known Home Meds Tobacco use date assessed: 12/24/22 Dental Screening Dental Screen Date: 12/24/22 Did you have a dental visit in the last 12 months?: No Was dental information given to patient?: Patient declined HPI pt of Dr Chavez, c/o anxiety HPI Details 37-year-old male, patient of Dr. Marroquin, here today chief complaint of anxiety. On further questioning patient states that he is not here for anxiety but complained of pain behind his left knee due to swollen veins in the back of his leg, worse when he is walking for extended periods of time. [facility] Medical History Bipolar 1 disorder Chronic back pain Eardrum trauma ETOH abuse HTN (hypertension) Lumbar pain Morbid obesity with BMI of 50.0-59.9, adult Non compliance w medication regimen Non compliance with medical treatment Obesity Polysubstance abuse Seizure Surgical History No pertinent past surgical history Family History Mother Hypertension Diabetes Cancer Father Diabetes Hypertension Social History Household Members: Other Household Members Other:: AUNT Housing: House Housing Other:: living with aunt Do you presently have visiting nurse or other home services: No Alcohol intake: current Alcohol intake frequency: a few times a week Alcohol type: beer and hard liquor Patient Tobacco Use Status: Never used Tobacco Tobacco use type: Cigarette e-Cigarette/Vaping Use: Never Used Second Hand Smoke Exposure: No Substance Use Type: Crack/Cocaine service: No Current occupational status: employed Cognitive needs: No Hearing needs: No Vision needs: No Questionnaire Thrive Questionnaire Date Thrive assessed: 11/27/21 AUDIT C Alcohol Use Questionnaire (AUDIT-C) 1. How often do you have a drink containing alcohol?: Monthly or less 2. How many drinks containing alcohol do you have on a typical day when you are drinking?: 1 or 2 3. How often do you have six or more drinks on one occasion?: Never Total Score: 1 JUAN-7 AMB Questionnaire JUAN-7 Date JUAN - 7 assessed: 05/15/22 Source: Developed by Drs. Velasquez Maddox, Radha Pandya, Mundo Castillo and colleagues, with an educational caprice from [employer]. Physical exam (Primary Care) Vital Signs: Last Vital Signs Pulse 85 12/24/22 09:58 BP 108/70 12/24/22 09:58 Pulse Ox 97 12/24/22 09:58 Oxygen Delivery Method Room Air 12/24/22 09:58 BMI result Body Mass Index 49.6 Tobacco/Smoking Status: Tobacco use Status Tobacco use date assessed 12/24/22 12/24/22 10:15 Patient Tobacco Use Status Never used Tobacco 12/24/22 10:01 Tobacco use type Cigarette 12/24/22 10:01 e-Cigarette/Vaping Use Never Used 12/24/22 10:01 Thrive Assessment: Date of Thrive Assessment Date Thrive assessed 11/27/21 12/24/22 10:01 Assessment and Plan Assessment & Plan Medications: New naproxen 500 mg PO BID PRN 20 tabs 0RF pain Coding Level of Care Code Est Pt Level 3 (39471) Diagnoses
== END 2022-12-24 11:35 | disposition home or self-care (01) ==
PROVIDERS: PCP Internal Medicine; Visit Provider Internal Medicine
DX: Z00.00 Encounter for general adult medical examination without abnormal findings (principal)
CPT/HCPCS: 99499

== ENCOUNTER 2023-03-04 13:10 | Outpatient (AMB) | payer MEDICARE, MEDICAID, SELFPAY ==
--- NOTE | 2023-03-04 13:19 | A.OFFPC_ITS ---
Vital Signs 03/04/23 13:21 Height 5 ft 10 in Weight 351 lb 6 oz BMI 50.4 BP 120/76 Blood Pressure Location Lt brachial Position Sitting Pulse 73 Pulse Source Pulse Oximeter Pulse Oximetry (%) 95 Oxygen Delivery Method Room Air Intake Visit Reasons: Annual PE/Overdue/Needs to stay with PCP Intake Note: Patient is here today for a physical. 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: Not Required per policy Accompanied by: Self / Same As Patient Allergies No Known Allergies Allergy (Verified 03/04/23 13:40) Medication List - Last Reconciled 03/04/23 by SHER Blake naproxen 500 mg PO BID PRN Tobacco use date assessed: 03/04/23 Dental Screening Dental Screen Date: 03/04/23 Did you have a dental visit in the last 12 months?: No Did you have a dental problem in the last 6 months where you did not have access to dental care?: No Was dental information given to patient?: No HPI HPI Comments History of Present Illness Details 37-year-old male past medical history si gnificant for hypertension, lumbar back pain, polysubstance abuse in early remission, depression and seizures. Patient presents today for physical exam. Patient reports had a seizure over the summer for which she went to [facility], patient states he was started on Depakote b.i.d. however he does the dose of this medication, will request records. Patient advised to call office back to notify us Depakote dose/frequency. Patient reports he has been clean for a few months. Eye exam: Recommended every couple years. Fasting blood work ordered. TDAP current. [facility] Medical History Eardrum trauma Morbid obesity with BMI of 50.0-59.9, adult Lumbar pain HTN (hypertension) Bipolar 1 disorder Chronic back pain ETOH abuse Polysubstance abuse Seizure Non compliance with medical treatment Non compliance w medication regimen Obesity Surgical History No pertinent past surgical history Family History Mother Hypertension Diabetes Cancer Father Diabetes Hypertension Social History (Updated 03/04/23 @ 13:46 by SHER Blake) Household Members: Other Household Members Other:: AUNT Housing: House Housing Other:: living with aunt Do you presently have visiting nurse or other home services: No Alcohol intake: current Alcohol intake frequency: former alcohol drinker Alcohol type: beer and hard liquor Patient Tobacco Use Status: Never used Tobacco Tobacco use type: Cigarette e-Cigarette/Vaping Use: Never Used Second Hand Smoke Exposure: No Substance Use Type: Crack/Cocaine service: No Current occupational status: employed Cognitive needs: No Hearing needs: No Vision needs: No Questionnaire PHQ-9 Over the last 2 weeks, how often have you been bothered by any of the following problems? 1. Little interest or pleasure in doing things: not at all 2. Feeling down, depressed, or hopeless: not at all 3. Trouble falling or staying asleep, or sleeping too much: not at all 4. Feeling tired or having little energy: not at all 5. Poor appetite or overeating: not at all 6. Feeling bad about yourself - or that you are a failure or have let yourself or your family down: not at all 7. Trouble concentrating on things, such as reading the newspaper or watching television: not at all 8. Moving or speaking so slowly that other people could have noticed. Or the opposite - being so fidgety or restless that you have been moving around a lot more than usual: not at all 9. Thoughts that you would be better off or of hurting yourself in some way: not at all Total score: 0 Depression Screening Interpretation: Negative Depression Screening Done: Yes 81828 - PHQ-9 Billing: Yes Source: Developed by Drs. Velasquez Maddox, Radha Pandya, Mundo Castillo and colleagues, with an educational caprice from [employer]. Thrive Questionnaire Date Thrive assessed: 03/04/23 I am a: Patient What is your living situation today?: I have a steady place to live Within the past 12 months, did the food you bought not last and you didn't have the money to get more?: Never true Within the past 12 months, did you worry whether your food would run out before you got money to buy more?: Never true Do you have trouble paying for medicines?: No Do you have trouble getting transportation to medical appointments?: No Do you have trouble paying your heating and electricity bill?: No Do you have trouble taking care of your child, family member or friend?: No Do you have trouble with day-to-day activities such as bathing, preparing meals, shopping, managing finances, etc.?: No Are you currently unemployed and looking for a job?: No Are you interested in more education?: No Currently or been in a relationship where the following occur: no concerns reported JUAN-7 AMB Questionnaire JUAN-7 Date JUAN - 7 assessed: 03/04/23 Feeling nervous, anxious, or on edge: 0 = Not at all Not being able to stop or control worryin = Not at all Worrying too much about different things: 0 = Not at all Trouble relaxin = Not at all Being so restless that it is hard to sit still: 0 = Not at all Becoming easily annoyed or irritable: 0 = Not at all Feeling afraid as if something awful might happen: 0 = Not at all Total JUAN-7 score (0-4 normal; 5-9 mild; 10-14 moderate; 15-21 severe): 0 Source: Developed by Drs. Velasquez Maddox, Radha Pandya, Mundo Castillo and colleagues, with an educational caprice from [employer]. JUAN-7 Assessment Billing JUAN-7 Assessment Tool: JUAN-7 Assessment 92373 Review of Systems Const Denies chills, Denies fatigue, Denies fever(s) and Denies poor appetite Eyes Denies no additional complaints ENT Reports Normal hearing present Card Denies chest pain, Denies syncope, Denies rapid heart rate and Denies dyspnea Resp Denies cough and Denies dyspnea GI Denies change in stool character, Denies constipation, Denies diarrhea, Denies nausea and Denies vomiting Denies dysuria, Denies urinary frequency and Denies urinary urgency Neuro Reports Normal hearing present, Denies confusion and Denies syncope Psych Denies confusion Endo Denies fatigue Physical exam (Primary Care) Vital Signs: Last Vital Signs Pulse 73 03/04/23 13:21 BP 120/76 03/04/23 13:21 Pulse Ox 95 03/04/23 13:21 Oxygen Delivery Method Room Air 03/04/23 13:21 BMI result Body Mass Index 50.4 Tobacco/Smoking Status: Tobacco use Status Tobacco use date assessed 03/04/23 03/04/23 13:21 Patient Tobacco Use Status Never used Tobacco 03/04/23 13:46 Tobacco use type Cigarette 03/04/23 13:46 e-Cigarette/Vaping Use Never Used 03/04/23 13:46 PHQ-9: PHQ-9 Score PHQ-9: Total score 0 03/04/23 13:47 Depression Screening Interpretation: Negative Thrive Assessment: Date of Thrive Assessment Date Thrive assessed 03/04/23 03/04/23 13:21 Currently or been in a relationship where the following occur: no concerns reported Const General: No confusion Orientation/consciousness: No confusion HENMT Head: Yes normocephalic and Yes atraumatic Ears: external ears normal and TM's normal bilaterally General nose exam: Normal external nose present and Normal nasal mucous membranes and turbinates present Face and sinus: Yes normal facial exam and Yes sinuses nontender Mouth: moist mucous membranes Throat: Yes tonsils normal Eyes Conjunctivae: conjunctivae normal Sclerae: sclerae normal Pupils: Equal, round and reactive pupils present and Pupils normal by confrontation EOM: EOMs intact bilaterally Direct Ophthalmoscopy: normal light reflex Neck Neck: Yes no lymphadenopathy and Yes supple Thyroid: Thyroid normal Chest Chest palpation & inspection: normal inspection of the chest Resp Effort & Inspection: normal respiratory effort Auscultation: clear to auscultation bilaterally, no crackles, no rhonchi and no wheezes Cardio Rate: regular rate Rhythm: regular rhythm Peripheral pulses: radial pulses present and dorsalis pedis present GI Inspection: Yes normal to inspection Palpation (GI): Soft to palpation, nontender and No hepatosplenomegaly present Auscultation: normoactive bowel sounds Skin General skin exam: no rashes or lesions noted Neuro General: No confusion Cranial nerves: Yes Equal, round and reactive pupils present and Yes Normal hearing present Cognition (Neuro): normal cognition Gait exam (Neuro): Normal gait present Motor exam (neuro): 5/5 motor strength present throughout Deep tendon reflexes (DTR's): Right brachioradialis reflex intensity grade: 2+, Left brachioradialis reflex intensity grade: 2+, Right patellar reflex intensity grade: 2+ and Left patellar reflex intensity grade: 2+ Extrem General: No edema Assessment and Plan Assessment & Plan (1) Seizure: Code(s): R56.9 - Unspecified convulsions Plan: Continue on Depakote, Valproate level ordered. Referral entered to neurology. Patient advised to call office today to make us aware of Depakote does. (2) HTN (hypertension): Code(s): I10 - Essential (primary) hypertension Qualifiers: Hypertension type: primary hypertension Qualified Code(s): I10 - Essential (primary) hypertension Plan: blood pressure 120/76. Follow low salt diet. (3) Physical exam, annual: Code(s): Z00.00 - Encounter for general adult medical examination without abnormal findings Plan: Follow up in 1 year. Plan Follow up in 6 months Orders: Orders Comprehensive [place]. Panel Fast Today R56.9 - Unspecified convulsions Complete Blood Count no Diff Today Z13.0 - Encounter for screening for diseases of the blood and blood-forming organs and certain disorders involving the immune mechanism TSH reflex Free T4 Today Z13.29 - Encounter for screening for other suspected endocrine disorder Lipid Panel Today Z13.220 - Encounter for screening for lipoid disorders Valproate Today R56.9 - Unspecified convulsions Referrals Neurology Referral R56.9 - Unspecified convulsions Coding Level of Care Code Est Pt Prev Care 18-39y([id number]) Diagnoses Seizure R56.9 Primary hypertension I10 Hypertension type: primary hypertension Physical exam, annual Z00.00 Additional Codes JUAN-7 Assessment Billing - JUAN-7 Assessment Tool: JUAN-7 Assessment [id number] ([id number])
[2023-03-04 13:21] VITALS: BP 120/76; PULSE 73; O2SAT 95; BMI 50.4
== END 2023-03-04 13:55 | disposition home or self-care (01) ==
PROVIDERS: PCP Internal Medicine; Visit Provider Nurse Practitioner Family
DX: Z00.00 Encounter for general adult medical examination without abnormal findings (principal); R56.9 Unspecified convulsions; I10 Essential (primary) hypertension; F19.11 Other psychoactive substance abuse, in remission
CPT/HCPCS: 99395

== ENCOUNTER 2023-04-24 07:49 | Outpatient (REF) | payer MEDICARE, MEDICAID, SELFPAY ==
[2023-04-24 09:02] LABS: Hematocrit 42.4 % (42.0-52.0); Hemoglobin 14.3 g/dl (14.0-18.0); Mean Corpuscular HGB Conc 33.7 g/dl (31.0-36.0); Mean Corpuscular Hemoglobin 28.5 pg (27.0-33.0); Mean Corpuscular Volume 84.6 fL (80.0-98.0); Mean Platelet Volume 12.6 fL (9.4-12.4); Platelet Count 153 X10*3/uL (160-400); Red Blood Count 5.01 X10*6/uL (4.60-5.80); Red Cell Distribution Width 12.1 % (11.0-16.0); White Blood Count 5.2 X10*3/uL (4.8-10.8)
[2023-04-24 09:08] LABS: Valproate 72.6 mcg/mL (50.0-100.0)
[2023-04-24 09:20] LABS: Alanine Aminotransferase 13 U/L (0-40); Alkaline Phosphatase 70 U/L (39-117); Anion Gap 10 (12-20); Aspartate Amino Transferase 15 U/L (5-37); Bilirubin Total 0.5 mg/dL (0.0-1.0); Blood Urea Nitrogen 26 mg/dL (9-16); Calcium 9.3 mg/dL (8.4-10.2); Carbon Dioxide 27 mmol/L (22-29); Chloride 107 mmol/L (96-108); Cholesterol 136 mg/dL (<200); Estimated Glomerular Filt Rate > 60; Glucose Fasting 85 mg/dL (60-99); HDL Cholesterol 36 mg/dL (>40); LDL Cholesterol Calculated 85 mg/dL (<100); Sodium 140 mmol/L (135-145); Total Protein 7.3 g/dL (6.5-8.0); Triglycerides 75 mg/dL (<150)
[2023-04-24 09:34] LABS: TSH reflex Free T4 2.35 uIU/mL (0.32-4.0)
[2023-04-27 08:08] LABS: TS Negative Control Passed; TS Panel A 0; TS Panel B 0; TS Positive Control Passed; TSpotTB Negative (Negative)
== END 2023-04-24 07:50 | disposition home or self-care (01) ==
LOC: HO.LAB 07:49
PROVIDERS: PCP Internal Medicine; Visit Provider Nurse Practitioner Family
DX: R56.9 Unspecified convulsions (principal); Z13.0 Encounter for screening for diseases of the blood and blood-forming organs and certain disorders involving the immune mechanism; Z13.29 Encounter for screening for other suspected endocrine disorder; Z11.1 Encounter for screening for respiratory tuberculosis; Z13.220 Encounter for screening for lipoid disorders
CPT/HCPCS: 36415; 80053; 80061; 80164; 84443; 85027; 86481

== ENCOUNTER 2023-04-28 10:39 | Emergency (ER) | payer MEDICARE, MEDICAID, SELFPAY ==
--- NOTE | ~2023-04-28 | XR_ITS ---
EXAMINATION: XR CHEST CLINICAL INFORMATION: Seizure. COMPARISON: 09/13/2022 TECHNIQUE: Frontal view of the chest was obtained. FINDINGS: Low lung volumes. No focal consolidation. No pleural effusion. Cardiac silhouette is unchanged. XR/XR chest 1V IMPRESSION: No acute abnormality.
[2023-04-28 10:45] VITALS: BP 164/94; PULSE 72; O2SAT 99
[2023-04-28 10:51] VITALS: BMI 39.0
--- NOTE | 2023-04-28 10:58 | ED_ITS ---
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 Patient reports 1 seizure last night and 4 seizures today at day program, but per Day Program staff they witnessed 1 seizure today without fall or head trauma, + postictal state. Denies incontinence or tongue biting. Patient states he ran out of his valproic acid and Keppra yesterday. Otherwise reports compliance with his medications. Denies EtOH or drug use. Denies recent illness, fever/chills, cough, CP/SOB, abdominal pain, nausea/vomiting. MD complaint: seizure Seizure History: Yes Related Data Previous Rx's Medication Instructions Recorded naproxen 500 mg tablet 500 mg PO BID PRN pain #20 tabs 12/24/22 divalproex 500 mg tablet,delayed 500 mg PO BID 30 days #90 tabs 04/28/23 release (Depakote) levetiracetam 1,000 mg tablet 1,000 mg PO BID 30 days #60 tabs 04/28/23 (Keppra) Allergies Allergy/AdvReac Type Severity Reaction Status Date / Time No Known Allergies Allergy Verified 03/04/23 13:40 Review of Systems 2 Review of Systems: Constitutional: No Fever, No Chills, No Fatigue, No Malaise ENT/Mouth: No Ear Pain, No Nasal Congestion, No sore throat, No Rhinorrhea, No Swallowing Difficulty Eyes: No Eye Pain, No Swelling, No Redness, No Vision Changes Cardiovascular: No Chest Pain, No SOB, No Edema, No Palpitations Respiratory: No Cough, No Sputum, No Dyspnea Gastrointestinal: No Nausea, No Vomiting, No Diarrhea, No Constipation, No Abdominal pain Genitourinary: No Dysuria, No Hematuria, No Urinary Incontinence/retention, No Flank Pain, No Urinary Flow Changes, No Hesitancy Musculoskeletal: No joint pain, No Myalgias, No Joint Swelling Skin: No Skin Lesions, No rash Neuro: No Weakness, No Numbness, + seizure, No Dizziness, No Headache Yes all other systems are reviewed and are negative Constitutional: Constitutional: Reports as per HPI Neurologic: Denies Abnormal speech present [facility] Past Medical History Attestation statement: The following information was validated with the patient. Source: old records reviewed Medical History Eardrum trauma Morbid obesity with BMI of 50.0-59.9, adult Lumbar pain HTN (hypertension) Bipolar 1 disorder Chronic back pain ETOH abuse Polysubstance abuse Seizure Non compliance with medical treatment Non compliance w medication regimen Obesity Surgical History No pertinent past surgical history Family History Family History (Reviewed 04/28/23 @ :25 by GOVIND Schulte) Mother Hypertension Diabetes Cancer Father Diabetes Hypertension Social History Social History Household Members: Other Household Members Other:: AUNT Housing: House Housing Other:: living with aunt Do you presently have visiting nurse or other home services: No Alcohol intake: former Patient Tobacco Use Status: Never used Tobacco Tobacco use type: Cigarette Smoked in Last 30 Days: No e-Cigarette/Vaping Use: Never Used Second Hand Smoke Exposure: No Use of substances other than those prescribed or required for medical reasons: No Substance Use Type: Crack/Cocaine Advance Directives: No Advance Directives Information Provided: Yes service: No Current occupational status: employed Cognitive needs: No Hearing needs: No Vision needs: No Physical Exam 2 Vital Signs: Vital Signs: Last Vital Signs Temp 98.3 F 04/28/23 11:00 Pulse 62 04/28/23 11:00 Resp 20 04/28/23 11:00 BP 119/68 04/28/23 11:00 Pulse Ox 93 04/28/23 11:00 O2 Del Method Room Air 04/28/23 11:00 BMI result Body Mass Index 39.0 Const: General: cooperative, healthy appearing and no acute distress O rientation/consciousness: patient oriented x3 Limitations: no limitations HEENT: Head: Yes normal to inspection and Yes atraumatic Ears: hearing grossly normal bilaterally General nose exam: Normal external nose present Face and sinus: Yes normal facial exam Eyes: General: appearance normal, both eyes and all related structures EOM: EOMs intact bilaterally Neck: Neck: Yes normal visual inspection and Yes no meningeal signs Resp: Effort & Inspection: normal respiratory effort and no respiratory distress Auscultation: clear to auscultation bilaterally, no crackles and no wheezes Cardio: Rate: regular rate Heart sounds: S1 normal heart sound present and S2 normal heart sound present GI: Inspection: Yes normal to inspection Palpation (GI): Soft to palpation, nontender, no guarding and not rigid : General: Yes no CVA tenderness Back/Spine/Pelvis: Other: No midline cervical/thoracic/lumbar spinous tenderness/step-off or deformity Back: no CVA tenderness Skin: Rashes: no rashes Wounds: no wounds Neuro: General: patient oriented x3, tone normal, moves all extremities, no meningeal signs, no focal motor deficits and CN's II-XI intact bilaterally C ranial nerves: Yes CN's II-XII intact bilaterally Cognition (Neuro): normal cognition Speech: No Abnormal speech present Gait exam (Neuro): Normal gait present Motor exam (neuro): 5/5 motor strength present throughout Extrem: General: Yes normal to inspection Course Course Course Narrative: -labs reassuring. UA with 6-10 wbc's and trace leuks > patient asymptomatic will wait for culture prior to initiating antibiotics -valproic acid level low > consistent with medication noncompliance -COVID and flu negative XR chest 1V IMPRESSION: No acute abnormality. Results discussed with patient including worrisome signs and symptoms and strict return precautions, and when to return to the emergency department. They verbalized understanding and feel safe for discharge at this time. Medications Administered Discontinued Medications Generic Name Dose Route Start Last Admin Trade Name Freq PRN Reason Stop Dose Admin Sodium Chloride 1,000 mls @ 999 mls/hr 04/28/23 11:15 04/28/23 13:20 Ns IV 04/28/23 12:15 Infused .Q1H1M YAJAIRA Infusion Levetiracetam 1,000 mg in 100 mls @ 400 mls/hr 04/28/23 11:11 04/28/23 11:55 Keppra IV 04/28/23 11:25 Infused ONCE ONE Infusion Medical Decision Making Medical Decision Making [facility] Narrative: 37-year-old male with past medical history of ETOH use disorder, HTN, chronic low back pain, bipolar, polysubstance abuse, obesity, seizures, presenting to the ED via EMS complaining of witnessed seizure [employer] and seizure last night. On exam vital signs stable, NAD, nontoxic appearing, no evidence of trauma. Patient awake and alert, no appreciable postictal state at present. Concern for medication noncompliance causing seizures. Rule out substance abuse and metabolic abnormality/infectious etiology. Plan: EKG, labs, UA, CXR, viral testing, IV Keppra Please refer to course for remaining clinical decision making, interpretation of labs/imaging results, and discussions with consultants and/or family members. Differential Diagnosis Differential Diagnoses: The differential diagnosis associated with the presentation includes As above Admission/Observation Consideration of admission/observation: Escalation of care including admission/observation considered Lab Data MDM Lab Attestation statement: I reviewed the patient's lab results. 04/28/23 11:21 04/28/23 11:21 Labs: Lab Results 04/28/23 04/28/23 04/28/23 Range/Units 11: 11: 12:00 WBC 6.1 (4.8-10.8) X10*3/uL RBC 5.11 (4.60-5.80) X10*6/uL Hgb 14.6 (14.0-18.0) g/dl Hct 43.6 (42.0-52.0) % MCV 85.3 (80.0-98.0) fL MCH 28.6 (27.0-33.0) pg MCHC 33.5 (31.0-36.0) g/dl RDW 12.4 (11.0-16.0) % Plt Count 171 (160-400) X10*3/uL MPV 11.7 (9.4-12.4) fL Immature Gran % (Auto) 0.2 (0.0-0.4) % Neut % (Auto) 59.2 (45-73) % Lymph % (Auto) 23.7 (20-40) % Humphreys % (Auto) 12.0 H (2-11) % Eos % (Auto) 3.9 (0-4) % Baso % (Auto) 1.0 (0-2) % Lymph # (Auto) 1.4 (1.2-4.9) X10*3/uL Humph[place]ys # (Auto) 0.7 (0.1-1.2) X10*3/uL Eos # (Auto) 0.2 (0.0-0.4) X10*3/uL Baso # (Auto) 0.1 (0.0-0.2) X10*3/uL Abs Immat Gran (auto) 0.01 (0.00-0.03) X10*3/uL Absolute Neuts (auto) 3.6 (2.0-8.3) x10*3/uL Absolute Nucleated RBC 0.000 (0.0-0.012) X10*3/uL Nucleated RBC % (auto) 0.0 (0.0-0.2) /100WBC Sodium 142 (135-145) mmol/L Potassium 4.0 (3.3-5.1) mmol/L Chloride 109 H (96-108) mmol/L Carbon Dioxide 27 (22-29) mmol/L Anion Gap 10 L (12-20) BUN 21 H (9-16) mg/dL Creatinine 0.84 (0.5-1.4) mg/dL Estim Creat Clear Calc 160.2 Estimated GFR > 60 Random Glucose 86 (60-115) mg/dL Calcium 9.4 (8.4-10.2) mg/dL Magnesium 2.1 (1.6-2.6) mg/dL Total Bilirubin 0.4 (0.0-1.0) mg/dL Direct Bilirubin 0.2 (0.0-0.5) mg/dL AST 17 (5-37) U/L ALT 13 (0-40) U/L Alkaline Phosphatase 73 (39-117) U/L Total Protein 7.4 (6.5-8.0) g/dL Albumin 4.1 (3.5-5.0) g/dL Urine Color Dark Yellow Urine Appearance Clear Urine pH 6.5 (5.0-9.0) Ur Specific [place] >= 1.030 H (1.005-1.025) Urine Protein Negative (Neg-Trace) mg/dL Urine Glucose (UA) Negative (Negative) mg/dL Urine Ketones Trace (Negative) mg/dL Urine Blood Negative (Negative) Urine Nitrite Negative (Negative) Ur Leukocyte Esterase Trace H (Negative) Urine RBC 0-2 (0-2) /HPF Urine WBC 6-10 H (0-5) /HPF Ur Squamous Epith Cells 0-2 (0-2) /HPF Urine Bacteria None Seen (None Seen) Hyaline Casts 0-2 (0-2) /LPF Urine Opiates Screen Not Detected (Not Detect) Urine Fentanyl Screen Not Detected (Not Detect) Ur Barbiturates Screen Not Detected (Not Detect) Valproic Acid 21.8 L (50.0-100.0) mcg/mL Ur Phencyclidine Scrn Not Detected (Not Detect) Ur Amphetamines Screen Not Detected (Not Detect) U Benzodiazepines Scrn Not Detected (Not Detect) Urine Cocaine Screen Not Detected (Not Detect) U Marijuana (THC) Screen Not Detected (Not Detect) Ethyl Alcohol < 10 mg/dL COVID-19 (BOBBY) Negative (Negative) COVID-19 Clin Com See Note Influenza Type A (RISHI) Negative (Negative) Influenza Type B (RISHI) Negative (Negative) Influenza A & B Note See Note Independent Interpretation I performed an independent interpretation of an: EKG and Plain X-Ray Radiology Impression Discussion of test interpretation with radiology: I have reviewed the radiologist's reading. Independent Historian Clinical information obtained from an independent historian. History obtained from or confirmed by: EMS External Record Review External record reviewed: Inpatient record, Office record, Outpatient record, Prior outpatient labs, Prior outpatient radiology, Primary care record and Outside ED record Tests considered The following testing was considered but not selected: As above Social Determinants Patient?s care significantly limited by Social Determinants of Health including: Low income, Alcoholism and drug addiction in family and Problems related to primary support group Discharge Plan Discharge Clinical Impression: Seizure, Noncompliance with medication regimen Patient Disposition: Home, Self-Care Instructions: Epilepsy in Older Adults (ED) Additional Instructions: YOU NEED TO TAKE YOUR SEIZURE MEDICATIONS CALL YOUR DOCTOR FOR CLOSE FOLLOW-UP If you have recurrent seizures, fever/chills nausea return to the ED Prescriptions: New divalproex [Depakote] 500 mg tablet,delayed release (DR/EC) 500 mg PO BID 30 Days Qty: 90 0RF Rx Instructions: Take 1 tablet by mouth every morning and take 2 tablets by mouth at bedtime daily levetiracetam [Keppra] 1,000 mg tablet 1,000 mg PO BID 30 Days Qty: 60 0RF No Action naproxen 500 mg tablet 500 mg PO BID PRN (Reason: pain) Qty: 20 0RF Referrals: Trinidad Martínez MD [Primary Care Provider] - 2 days Interventions: ED Discharge Assessment Last Done: 04/28/23 13:18 Discharge Date/Time: 04/28/23 13:31
[2023-04-28 11:00] VITALS: BP 119/68; PULSE 62; RESP 20; TEMP 36.8; O2SAT 93
--- NOTE | 2023-04-28 11:02 | PC.NURSE ---
Patient reports ran out of seizure meds last night. States had multiple seizures today at his day program, denies pain or discomfort
--- NOTE | 2023-04-28 11:07 | PC.NURSE ---
per nurse at day program patient had x 1 seizure today that lasted 3 minutes
--- NOTE | 2023-04-28 11:08 | ECG_ITS ---
Test Reason : SEIZURE Blood Pressure : / mmHG Vent. Rate : 055 BPM Atrial Rate : 055 BPM P-R Int : 158 ms QRS Dur : 096 ms QT Int : 422 ms P-R-T Axes : 048 -05 -02 degrees QTc Int : 403 ms Sinus bradycardia with occasional Premature ventricular complexes Minimal voltage criteria for LVH, may be normal variant ( R in aVL ) Borderline ECG When compared with ECG of 13-SEP-2022 11:26, Premature ventricular complexes are now Present Referred By: Maribeth Cordero Electronically Signed By:Bonilla Gooden
[2023-04-28] MEDS: 0.9 % Sodium Chloride 1,000 ML 999 ML IV (11:20)
[2023-04-28 11:25] LABS: MANUAL DIFF FLAG NO
[2023-04-28] MEDS: levETIRAcetam in NaCl (iso-os) 1,000 MG/100 ML PIGGYBACK 400 MG IV (11:25)
[2023-04-28 11:26] LABS: Basophils Absolute Auto 0.1 X10*3/uL (0.0-0.2); Eosinophils Absolute Auto 0.2 X10*3/uL (0.0-0.4); Eosinophils Percent Auto 3.9 % (0-4); Hematocrit 43.6 % (42.0-52.0); Hemoglobin 14.6 g/dl (14.0-18.0); Imm Gran Abs Auto 0.01 X10*3/uL (0.00-0.03); Imm Gran Pct Auto 0.2 % (0.0-0.4); Lymphocytes Absolute Auto 1.4 X10*3/uL (1.2-4.9); Lymphocytes Percent Auto 23.7 % (20-40); Mean Corpuscular HGB Conc 33.5 g/dl (31.0-36.0); Mean Corpuscular Hemoglobin 28.6 pg (27.0-33.0); Mean Corpuscular Volume 85.3 fL (80.0-98.0); Mean Platelet Volume 11.7 fL (9.4-12.4); Monocytes Absolute Auto 0.7 X10*3/uL (0.1-1.2); Neutrophils Absolute Auto 3.6 x10*3/uL (2.0-8.3); Neutrophils Percent Auto 59.2 % (45-73); Platelet Count 171 X10*3/uL (160-400); Red Blood Count 5.11 X10*6/uL (4.60-5.80); Red Cell Distribution Width 12.4 % (11.0-16.0); White Blood Count 6.1 X10*3/uL (4.8-10.8)
[2023-04-28 11:53] LABS: Alanine Aminotransferase 13 U/L (0-40); Albumin Level 4.1 g/dL (3.5-5.0); Alkaline Phosphatase 73 U/L (39-117); Anion Gap 10 (12-20); Aspartate Amino Transferase 17 U/L (5-37); Bilirubin Direct 0.2 mg/dL (0.0-0.5); Bilirubin Total 0.4 mg/dL (0.0-1.0); Blood Urea Nitrogen 21 mg/dL (9-16); Calcium 9.4 mg/dL (8.4-10.2); Carbon Dioxide 27 mmol/L (22-29); Chloride 109 mmol/L (96-108); Creatinine Clr Calc Pharmacy 160.2; Estimated Glomerular Filt Rate > 60; Ethanol < 10 mg/dL; Glucose Random 86 mg/dL (60-115); Magnesium 2.1 mg/dL (1.6-2.6); Sodium 142 mmol/L (135-145); Total Protein 7.4 g/dL (6.5-8.0)
[2023-04-28 11:59] LABS: COVID-19 Test Negative (Negative); IDNOW Serial# 58CA691E; IDNOW Serial# 9DB6401D; Influenza A Negative (Negative); Influenza B2 Negative (Negative)
[2023-04-28 12:13] LABS: Valproate 21.8 mcg/mL (50.0-100.0)
--- NOTE | 2023-04-28 12:13 | PC.NURSE ---
Patient with no seizure activity noted, resting in bed with eyes closed. Breathing even and unlabored
[2023-04-28 12:15] LABS: Appearance Urine Clear; Color Urine Dark Yellow; Glucose Urine UA Negative (Negative); Leukocyte Esterase Urine Trace (Negative); Nitrite Urine Negative (Negative); PH 6.5 (5.0-9.0); Specific Gravity - Urine >= 1.030 (1.005-1.025); UMIC TRIGGER UACC YES; Urine Blood Negative (Negative); Urine Ketones Trace mg/dL (Negative); Urine Protein Negative (Neg-Trace)
[2023-04-28 12:21] LABS: Bacteria Urine None Seen (None Seen); Hyaline Casts Urine 0-2 /LPF (0-2); RBC Urine 0-2 /HPF (0-2); Squamous Epithelial Cell Urine 0-2 /HPF (0-2); UACC Culture Trigger YES
[2023-04-28 12:22] LABS: Amphetamine Screen Urine Not Detected (Not Detect); Barbiturates, Urine Not Detected (Not Detect); Benzodiazepines Screen Urine Not Detected (Not Detect); Cannabinoid Screen Urine Not Detected (Not Detect); Cocaine Screen Urine Not Detected (Not Detect); Fentanyl, urine Not Detected (Not Detect); Opiate Screen Urine Not Detected (Not Detect); Phencyclidine Screen Urine Not Detected (Not Detect)
[2023-05-01 01:44] LABS: Levetiracetam Keppra 2.9 mcg/mL (6.0-46.0)
== END 2023-04-28 13:31 | disposition home or self-care (01) ==
PROVIDERS: Physician Assistant; Emergency Provider Emergency Medicine; PCP Internal Medicine
DX: R56.9 Unspecified convulsions (principal); Z91.148 Patient's other noncompliance with medication regimen for other reason; F19.10 Other psychoactive substance abuse, uncomplicated; I10 Essential (primary) hypertension; Z11.52 Encounter for screening for COVID-19; F14.10 Cocaine abuse, uncomplicated; F33.0 Major depressive disorder, recurrent, mild; G89.29 Other chronic pain; M54.50 Low back pain, unspecified; Z79.899 Other long term (current) drug therapy
CPT/HCPCS: 36415; 71045; 80048; 80076; 80164; 80177; 80307; 81001; 83735; 85025; 87086; 87502; 87635; 93005; 96361; 96374; 99284; J1953

== ENCOUNTER → 2023-04-28 11:08 | Outpatient (BNV) | payer MEDICARE, MEDICAID, SELFPAY | PROVIDERS: Emergency Provider Emergency Medicine; PCP Internal Medicine; Visit Provider Internal Medicine Cardiovascular Disease | DX: I49.3 Ventricular premature depolarization (principal) | CPT/HCPCS: 93010 ==

== ENCOUNTER 2023-05-08 09:53 | Outpatient (AMB) | payer MEDICARE, MEDICAID, SELFPAY ==
--- NOTE | 2023-05-08 09:55 | MHC.OFFVIS ---
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 Pt is not a good historian. Called to his day program, his day program RN helped for history. Pt states that had seizure since 3 years old, and has been managed well. He was seen by a neurologist in [place], but can't remember when was the last time he saw his neurologist. He moved from [place] more than 10 years ago. Pt has hx of ETOH and polysubstance abuse. He visit ER for seizure in August,. He used a lot of alcohol and also used cocaine at that time. He discharged with Keppra 1000 mg BID and Depakote 500 mg BID. Pt reports that his seizure managed well until April, the Depakote ran out of and he did not take it. He was in the day program had seizure, the RN states that he had silent seizure, close his eyes, not responded for 2 min. Pt reports he stopped drinking alcohol and substance use since the last ER visit. He has not have repeat EEG yet. Pt states that he does not drive. [facility] Medical History Eardrum trauma Morbid obesity with BMI of 50.0-59.9, adult Lumbar pain HTN (hypertension) Bipolar 1 disorder Chronic back pain ETOH abuse Polysubstance abuse Seizure Non compliance with medical treatment Non compliance w medication regimen Obesity Surgical History No pertinent past surgical history Family History Mother Hypertension Diabetes Cancer Father Diabetes Hypertension Social History (Updated 05/08/23 @ 10:01 by Elena Bearden) Household Members: Other Household Members Other:: AUNT Housing: House Housing Other:: living with aunt Do you presently have visiting nurse or other home services: No Alcohol intake: former Patient Tobacco Use Status: Never used Tobacco Tobacco use type: Cigarette e-Cigarette/Vaping Use: Never Used Second Hand Smoke Exposure: No Substance Use Type: Crack/Cocaine service: No Current occupational status: employed Cognitive needs: No Hearing needs: No Vision needs: No Review of Systems Const All systems reviewed & are unremarkable except as noted in HPI and below Physical Exam Vital Signs: Last Vital Signs Pulse 62 05/08/23 09:56 BP 140/92 H 05/08/23 09:56 Pulse Ox 98 05/08/23 09:56 Oxygen Delivery Method Room Air 05/08/23 09:56 BMI result Body Mass Index 51.4 Const General: cooperative Nutritional Appearance: obese Orientation/consciousness: patient oriented x3 Neck Neck: Yes full ROM and Yes supple Resp Effort & Inspection: normal respiratory effort and able to speak in complete sentences Neuro General: patient oriented x3 and gait normal Cranial nerves: Yes CN's II-XII intact bilaterally Gait exam (Neuro): Normal gait present Motor exam (neuro): 5/5 motor strength present throughout, Pronator motor function not present and no tremor noted Psych Appearance: grossly normal Mental Status: mental status grossly normal Affect: normal affect Attitude: cooperative Assessment & Plan Assessment & Plan (1) Seizure: Code(s): R56.9 - Unspecified convulsions Plan Recent lab result reviewed. Advised patient to undergo EEG to obtain his baseline. Continue to take Depakote 500 mg BID and Keppra 1000 mg BID. Stressed compliance. Pt advised not to drive. Orders: Orders EEG ambulatory Today R56.9 - Unspecified convulsions Medications: Refilled divalproex (Depakote) Take 1 tablet by mouth every morning and take 2 tablets by mouth at bedtime daily 500 mg PO BID 30 days 90 tabs 0RF levetiracetam (Keppra) 1,000 mg PO BID 30 days 60 tabs 0RF Coding Level of Care Code New Pt Level 3 (21640) Diagnoses Seizure R56.9
[2023-05-08 09:56] VITALS: BP 140/92; PULSE 62; O2SAT 98; BMI 51.4
== END 2023-05-08 10:37 | disposition home or self-care (01) ==
PROVIDERS: PCP Internal Medicine; Visit Provider Nurse Practitioner Family
DX: R56.9 Unspecified convulsions (principal)
CPT/HCPCS: 99203

== ENCOUNTER → 2023-05-08 09:53 | Outpatient (BNVA) | payer MEDICARE, MEDICAID, SELFPAY | PROVIDERS: PCP Internal Medicine; Visit Provider Nurse Practitioner Family | DX: R56.9 Unspecified convulsions (principal) | CPT/HCPCS: 99202 ==

== ENCOUNTER 2023-07-04 11:55 | Emergency (ER) | payer OTHER, SELFPAY ==
[2023-07-04 12:12] VITALS: BP 128/91; PULSE 69; RESP 18; TEMP 36.3; O2SAT 97; BMI 50.8
--- NOTE | 2023-07-04 12:12 | ED_ITS ---
HPI - General Adult General Chief complaint: General Medical Stated complaint: rash on body, peeing blood Time Seen by Provider: 07/04/23 14:18 Source: patient Mode of arrival: ambulatory Limitations: no limitations History of Present Illness HPI narrative: Patient is a 38-year-old male with history of cocaine abuse, polysubstance abuse, HTN, seizure disorder, MDD presenting to the emergency department with complaint rash for the past 2 weeks since using cocaine and drinking alcohol. Also reports several days small amount of blood in his urine after relapsing on cocaine. He states he has not had any hematuria for the past 3-4 days. Denies any dysuria or frequency, back or flank pain. Denies any abdominal pain, nausea, vomiting, diarrhea. States his rash is intensely pruritic. Denies fevers. Denies any sores or lesions in his mouth, to palms or soles. States rash is to chest and back, no other areas. Denies any new medications. Reports he is currently homeless so has been staying with his mother and wherever else he can find a place to sleep. He has not taken any dynw-wat-idexehl medications or used any creams for his rash. MD complaint: Rash, hematuria Onset (ago): week(s) Location: chest and back Quality: other Treatments prior to arrival: none Related Data Previous Rx's Medication Instructions Recorded naproxen 500 mg tablet 500 mg PO BID PRN pain #20 tabs 12/24/22 divalproex 500 mg tablet,delayed 500 mg PO BID 90 days #180 tabs 06/24/23 release (Depakote) levetiracetam 1,000 mg tablet 1,000 mg PO BID 30 days #60 tabs 06/24/23 (Keppra) hydrocortisone 1 % topical cream 1 appl topical TID PRN itching 07/04/23 #28.4 grams loratadine 10 mg capsule 10 mg PO BID PRN allergic symptoms 07/04/23 #20 caps Allergies Allergy/AdvReac Type Severity Reaction Status Date / Time No Known Allergies Allergy Verified 05/08/23 10:00 Review of Systems 2 Review of Systems: As per HPI. Yes all other systems are reviewed and are negative Constitutional: Constitutional: Reports as per HPI [facility] Past Medical History Medical History Eardrum trauma Morbid obesity with BMI of 50.0-59.9, adult Lumbar pain HTN (hypertension) Bipolar 1 disorder Chronic back pain ETOH abuse Polysubstance abuse Seizure Non compliance with medical treatment Non compliance w medication regimen Obesity Surgical History No pertinent past surgical history Family History Family History Mother Hypertension Diabetes Cancer Father Diabetes Hypertension Social History Social History (Updated 05/08/23 @ 10:01 by Elena Bearden) Household Members: Other Household Members Other:: AUNT Housing: House Housing Other:: living with aunt Do you presently have visiting nurse or other home services: No Alcohol intake: former Patient Tobacco Use Status: Never used Tobacco Tobacco use type: Cigarette e-Cigarette/Vaping Use: Never Used Second Hand Smoke Exposure: No Substance Use Type: Crack/Cocaine Advance Directives: No service: No Current occupational status: employed Cognitive needs: No Hearing needs: No Vision needs: No Physical Exam ED Vital Signs: Vital Signs - 24 hr 07/04/23 12:12 Temperature 97.4 F Pulse Rate 69 Respiratory Rate 18 Blood Pressure 128/91 H Pulse Oximetry 97 Oxygen Delivery Method Room Air BMI result Body Mass Index 50.8 Vital signs have been reviewed and appear to be correct. Blood pressure normal. Heart rate normal. Respiratory rate normal. Temperature normal. Oxygen saturation normal. Const General: cooperative, healthy appearing and no acute distress Orientation/consciousness: oriented to person, oriented to place, oriented to time and patient oriented x3 Limitations: no limitations HENMT Head: Yes normocephalic and Yes atraumatic Ears: external ears normal General nose exam: Normal external nose present Face and sinus: Yes face symmetric Mouth: oropharynx normal and moist mucous membranes Throat: Yes uvula midline Eyes Pupils: Equal, round and reactive pupils present Neck Neck: Yes normal visual inspection and Yes supple Resp Effort & Inspection: normal respiratory effort and able to speak in complete sentences Auscultation: clear to auscultation bilaterally Cardio Rate: regular rate Rhythm: regular rhythm Heart sounds: S1 normal heart sound present and S2 normal heart sound present GI Palpation (GI): Soft to palpation and nontender Auscultation: normoactive bowel sounds General: Yes no CVA tenderness Back/Spine/Pelvis Back: no CVA tenderness Skin General skin exam: elasticity normal and turgor normal Full body images: 2 1. Erythema and excoriation, superficial abrasions due to scratching 2. Erythema and excoriation Neuro General: oriented to person, oriented to place, oriented to time, patient oriented x3, moves all extremities, no focal motor deficits and CN's II-XI intact bilaterally Cranial nerves: Yes Equal, round and reactive pupils present Cognition (Neuro): normal cognition Extrem General: Yes full ROM, Yes no pedal edema and Yes no calf tenderness Psych Mental Status: mental status grossly normal Affect: normal affect Thought process: Normal thought process present Course Course Course Narrative: RME:?38 yo female hx of MDD, seizures, HTN, polysubstance use here with diffuse body rash. reports recently changing his soap. denies new detergents or lotions. denies recent tick or insect bites. Admits to cocaine abuse, relapsed 1 week ago. admits to spending $900 on cocaine. he was kicked out of his house and is now living on [address] and at his moms house No involvement of mucous membranes, palms/soles, or webbed spaces. No Sloughing. labs ordered. Full HPI, ROS and PE to be performed by the primary ED provider. Medical Decision Making Medical Decision Making [facility] Narrative: Patient is a 38-year-old male with history of cocaine abuse, polysubstance abuse, HTN, seizure disorder, MDD presenting to the emergency department with complaint rash for the past 2 weeks since using cocaine and drinking alcohol. Also reports several days small amount of blood in his urine after relapsing on cocaine. On exam patient is awake, A+Ox3, nontoxic appearing, VS WNL, afebrile, normal neurological exam without focal deficits, physical exam findings as above. Given reported symptoms and physical exam findings, initial differential includes contact dermatitis versus atopic dermatitis, UTI. No hives or papules noted. No sloughing, negative Nikolsky's. No evidence of UTI on urinalysis, no blood. Labs ordered prior to my assumption of care unremarkable. No CVA tenderness on exam. Do not suspect TEN/SJS, DRESS, TTP/DIC, necrotizing fasciitis, meningococcemia, SSSS, TSS, anaphylaxis. Will start patient on loratadine, hydrocortisone cream, advised him to avoid scratching the affected areas. Instructed patient follow-up with primary care provider. Return precautions discussed. Patient verbalized understanding of and agreement with plan. Differential Diagnosis Differential Diagnoses: The differential diagnosis associated with the presentation includes As per MDM. Lab Data [facility] Lab Attestation statement: I reviewed the patient's lab results. Unremarkable 07/04/23 13:21 07/04/23 13:21 Labs: Lab Results 07/04/23 07/04/23 Range/Units 13:21 14:33 WBC 6.3 (4.8-10.8) X10*3/uL RBC 5.23 (4.60-5.80) X10*6/uL Hgb 15.4 (14.0-18.0) g/dl Hct 45.1 (42.0-52.0) % MCV 86.2 (80.0-98.0) fL MCH 29.4 (27.0-33.0) pg MCHC 34.1 (31.0-36.0) g/dl RDW 12.4 (11.0-16.0) % Plt Count 195 (160-400) X10*3/uL MPV 11.3 (9.4-12.4) fL Immature Gran % (Auto) 0.2 (0.0-0.4) % Neut % (Auto) 59.5 (45-73) % Lymph % (Auto) 28.1 (20-40) % [place] % (Auto) 9.0 (2-11) % Eos % (Auto) 2.4 (0-4) % Baso % (Auto) 0.8 (0-2) % Lymph # (Auto) 1.8 (1.2-4.9) X10*3/uL [place] # (Auto) 0.6 (0.1-1.2) X10*3/uL Eos # (Auto) 0.2 (0.0-0.4) X10*3/uL Baso # (Auto) 0.1 (0.0-0.2) X10*3/uL Abs Immat Gran (auto) 0.01 (0.00-0.03) X10*3/uL Absolute Neuts (auto) 3.8 (2.0-8.3) x10*3/uL Absolute Nucleated RBC 0.000 (0.0-0.012) X10*3/uL Nucleated RBC % (auto) 0.0 (0.0-0.2) /100WBC ESR 7 (0-15) MM/HR Sodium 137 (135-145) mmol/L Potassium 4.3 (3.3-5.1) mmol/L Chloride 106 (96-108) mmol/L Carbon Dioxide 25 (22-29) mmol/L Anion Gap 10 L (12-20) BUN 20 H (9-16) mg/dL Creatinine 0.75 (0.5-1.4) mg/dL Estim Creat Clear Calc 200.0 Estimated GFR > 60 Random Glucose 90 (60-115) mg/dL Calcium 9.6 (8.4-10.2) mg/dL C-Reactive Protein 0.19 (< or = 0.50) mg/dL Urine Color Yellow Urine Appearance Clear Urine pH 5.5 (5.0-9.0) Ur Specific [place] 1.025 (1.005-1.025) Urine Protein Negative (Neg-Trace) mg/dL Urine Glucose (UA) Negative (Negative) mg/dL Urine Ketones Trace (Negative) mg/dL Urine Blood Negative (Negative) Urine Nitrite Negative (Negative) Ur Leukocyte Esterase Negative (Negative) External Record Review External record reviewed: Inpatient record, Office record and Outpatient record Prescription Management I considered prescription management with: Other Discharge Plan Discharge Clinical Impression: Rash and nonspecific skin eruption Patient Disposition: Home, Self-Care Instructions: Contact Dermatitis (DC), Acute Rash (ED) Additional Instructions: Return to the emergency department immediately if you develop a worsening rash, rash that spreads to the mouth or the palms of the hands or soles of the feet, fevers that cannot be controlled with Tylenol or ibuprofen, behavior changes, or any other concerning symptoms. Prescriptions: New loratadine 10 mg capsule 10 mg PO BID PRN (Reason: allergic symptoms) Qty: 20 0RF hydrocortisone 1 % cream 1 appl topical TID PRN (Reason: itching) Qty: 28.4 0RF No Action levetiracetam [Keppra] 1,000 mg tablet 1,000 mg PO BID 30 Days Qty: 60 0RF naproxen 500 mg tablet 500 mg PO BID PRN (Reason: pain) Qty: 20 0RF divalproex [Depakote] 500 mg tablet,delayed release (DR/EC) 500 mg PO BID 90 Days Qty: 180 1RF
[2023-07-04 13:26] LABS: MANUAL DIFF FLAG NO
[2023-07-04 13:31] LABS: Basophils Absolute Auto 0.1 X10*3/uL (0.0-0.2); Basophils Percent Auto 0.8 % (0-2); Eosinophils Absolute Auto 0.2 X10*3/uL (0.0-0.4); Eosinophils Percent Auto 2.4 % (0-4); Hematocrit 45.1 % (42.0-52.0); Hemoglobin 15.4 g/dl (14.0-18.0); Imm Gran Abs Auto 0.01 X10*3/uL (0.00-0.03); Imm Gran Pct Auto 0.2 % (0.0-0.4); Lymphocytes Absolute Auto 1.8 X10*3/uL (1.2-4.9); Lymphocytes Percent Auto 28.1 % (20-40); Mean Corpuscular HGB Conc 34.1 g/dl (31.0-36.0); Mean Corpuscular Hemoglobin 29.4 pg (27.0-33.0); Mean Corpuscular Volume 86.2 fL (80.0-98.0); Mean Platelet Volume 11.3 fL (9.4-12.4); Monocytes Absolute Auto 0.6 X10*3/uL (0.1-1.2); Neutrophils Absolute Auto 3.8 x10*3/uL (2.0-8.3); Neutrophils Percent Auto 59.5 % (45-73); Platelet Count 195 X10*3/uL (160-400); Red Blood Count 5.23 X10*6/uL (4.60-5.80); Red Cell Distribution Width 12.4 % (11.0-16.0); White Blood Count 6.3 X10*3/uL (4.8-10.8)
[2023-07-04 13:42] LABS: Anion Gap 10 (12-20); Blood Urea Nitrogen 20 mg/dL (9-16); C Reactive Protein 0.19 mg/dL (< or = 0.50); Calcium 9.6 mg/dL (8.4-10.2); Carbon Dioxide 25 mmol/L (22-29); Chloride 106 mmol/L (96-108); Estimated Glomerular Filt Rate > 60; Glucose Random 90 mg/dL (60-115); Potassium 4.3 mmol/L (3.3-5.1); Sodium 137 mmol/L (135-145)
[2023-07-04 14:18] LABS: Erythrocyte Sedimentation Rate 7 MM/HR (0-15)
[2023-07-04 14:44] LABS: Appearance Urine Clear; Color Urine Yellow; Glucose Urine UA Negative (Negative); Leukocyte Esterase Urine Negative (Negative); Nitrite Urine Negative (Negative); PH 5.5 (5.0-9.0); Specific Gravity - Urine 1.025 (1.005-1.025); Urine Blood Negative (Negative); Urine Ketones Trace mg/dL (Negative); Urine Protein Negative (Neg-Trace)
[2023-07-04 15:51] VITALS: BP 131/91; PULSE 65; RESP 16; TEMP 36.6; O2SAT 96
== END 2023-07-04 16:10 | disposition home or self-care (01) ==
PROVIDERS: Physician Assistant Medical; Registered Nurse Emergency; Emergency Provider Student in an Organized Health Care Education/Training Program; PCP Internal Medicine
DX: R21 Rash and other nonspecific skin eruption (principal); F14.19 Cocaine abuse with unspecified cocaine-induced disorder; I10 Essential (primary) hypertension; Z79.899 Other long term (current) drug therapy
CPT/HCPCS: 36415; 80048; 81003; 85025; 85652; 86140; 99283

== ENCOUNTER 2023-07-06 13:17 | Emergency (ER) | payer OTHER, SELFPAY ==
--- NOTE | ~2023-07-06 | XR_ITS ---
EXAMINATION: XR CHEST CLINICAL INFORMATION: Chest pain COMPARISON: 04/28/2023 TECHNIQUE: Frontal view of the chest was obtained. FINDINGS: The lungs are mildly hypoinflated. No focal consolidation is seen. No evidence of pneumothorax, pleural effusion, or pulmonary edema. Cardiac silhouette appears near the upper limits of normal in size though may be accentuated by low lung volumes. No acute osseous findings are seen. XR/XR chest 1V IMPRESSION: Low lung volumes without acute findings.
--- NOTE | 2023-07-06 13:21 | ECG_ITS ---
Test Reason : CP Blood Pressure : / mmHG Vent. Rate : 054 BPM Atrial Rate : 054 BPM P-R Int : 178 ms QRS Dur : 102 ms QT Int : 442 ms P-R-T Axes : 012 -09 -10 degrees QTc Int : 419 ms Sinus bradycardia Minimal voltage criteria for LVH, may be normal variant ( R in aVL ) Borderline ECG When compared with ECG of 28-APR-2023 11:32, Premature ventricular complexes are no longer Present Referred By: Generic ED Physician Electronically Signed By:LOUISE CASTANEDA MD
[2023-07-06 13:37] VITALS: BP 120/86; BP 129/77; PULSE 57; PULSE 71; RESP 18; TEMP 36.4; O2SAT 100; O2SAT 96; BMI 52.2
--- NOTE | 2023-07-06 14:08 | ED.CHESTPAIN ---
HPI - Chest Pain General Chief Complaint: Chest Pain Stated Complaint: CP W/DYSPNEA, ASPIRIN GIVEN PER EMS Time Seen by Provider: 07/06/23 14:05 Source: patient Mode of arrival: EMS Limitations: no limitations History of Present Illness HPI narrative: This is a 38 years old patient presented to the emergency department by ambulance complaining of chest pain started about 3 hours ago. The patient states that he has been under stress he has been using cocaine. He states also he has history of seizure he has not taking his Cory HAWKINS complaint: chest pain Onset (ago): hour(s) (3) Prior episodes: No Onset: during rest Pain location: substernal Pain radiation: none Relieving factors: nothing Exacerbating factors: nothing Related Data Previous Rx's Medication Instructions Recorded naproxen 500 mg tablet 500 mg PO BID PRN pain #20 tabs 12/24/22 divalproex 500 mg tablet,delayed 500 mg PO BID 90 days #180 tabs 06/24/23 release (Depakote) levetiracetam 1,000 mg tablet 1,000 mg PO BID 30 days #60 tabs 06/24/23 (Keppra) hydrocortisone 1 % topical cream 1 appl topical TID PRN itching 07/04/23 #28.4 grams loratadine 10 mg capsule 10 mg PO BID PRN allergic symptoms 07/04/23 #20 caps Allergies Allergy/AdvReac Type Severity Reaction Status Date / Time egg Allergy Nausea Verified 07/06/23 13:46 mayonnaise Allergy Nausea Verified 07/06/23 13:46 Review of Systems Constitutional: Constitutional: Reports no additional constitutional complaints ENT: Reports system reviewed and no additional complaints, except as documented Gastrointestinal: Gastrointestinal: Reports no additional gastrointestinal complaints [facility] Past Medical History Attestation statement: The following information was validated with the patient. Medical History Eardrum trauma Morbid obesity with BMI of 50.0-59.9, adult Lumbar pain HTN (hypertension) Bipolar 1 disorder Chronic back pain ETOH abuse Polysubstance abuse Seizure Non compliance with medical treatment Non compliance w medication regimen Obesity Surgical History No pertinent past surgical history Family History Family History Mother Hypertension Diabetes Cancer Father Diabetes Hypertension Social History Social History Household Members: Other Household Members Other:: AUNT Housing: House Housing Other:: living with aunt Do you presently have visiting nurse or other home services: No Alcohol intake: current Alcohol intake frequency: a few times a month Alcohol type: beer and hard liquor Patient Tobacco Use Status: Never used Tobacco Tobacco use type: Cigarette Smoked in Last 30 Days: No e-Cigarette/Vaping Use: Never Used Second Hand Smoke Exposure: No Use of substances other than those prescribed or required for medical reasons: Yes Substance Use Type: Crack/Cocaine Advance Directives: No Advance Directives Information Provided: No service: No Current occupational status: employed Cognitive needs: No Hearing needs: No Vision needs: No Physical Exam Vital Signs: Vital Signs: Last Vital Signs Temp 97.6 F 07/06/23 13:37 Pulse 57 07/06/23 13:37 Resp 18 07/06/23 13:37 BP 129/77 07/06/23 13:37 Pulse Ox 96 07/06/23 13:37 O2 Del Method Room Air 07/06/23 13:37 BMI result Body Mass Index 52.2 Const: General: cooperative Nutritional Appearance: well nourished Orientation/consciousness: patient oriented x3 Limitations: no limitations HEENT: Head: Yes normal to inspection General nose exam: Normal external nose present Face and sinus: Yes normal facial exam Mouth: Normal oral and palatal mucosa present Throat: Yes posterior oropharynx normal Neck: Neck: Yes normal visual inspection Chest: Chest palpation & inspection: normal inspection of the chest Resp: Effort & Inspection: able to speak in complete sentences Auscultation: clear to auscultation bilaterally Cardio: Jugular venous distension: no JVD Rate: regular rate Rhythm: regular rhythm GI: Inspection: Yes normal to inspection Palpation (GI): Soft to palpation, not firm and nontender Percussion: Yes normal to percussion Skin: General skin exam: no rashes or lesions noted Neuro: General: patient oriented x3 Course Reevaluation(s) Reevaluation #1: Patient signed against medical advice before evaluation was completed Time: 16:08 Medications Administered Discontinued Medications Generic Name Dose Route Start Last Admin Trade Name Freq PRN Reason Stop Dose Admin Levetiracetam 1,500 mg in 100 mls @ 400 mls/hr 07/06/23 15:32 07/06/23 15:48 Keppra IV 07/06/23 15:46 Not Given ONCE ONE Medical Decision Making Medical Decision Making [facility] Narrative: Patient presented with chest pain we will obtain electrocardiogram I sensitive troponin chest x-ray and reassessed Differential Diagnosis Differential Diagnoses: The differential diagnosis associated with the presentation includes Differential diagnosis acute coronary syndrome/pneumothorax/anxiety Lab Data [facility] Lab Attestation statement: I reviewed the patient's lab results. 07/06/23 14:21 07/06/23 14:21 Labs: Lab Results 07/06/23 Range/Units 14:21 WBC 6.6 (4.8-10.8) X10*3/uL RBC 5.02 (4.60-5.80) X10*6/uL Hgb 14.7 (14.0-18.0) g/dl Hct 43.3 (42.0-52.0) % MCV 86.3 (80.0-98.0) fL MCH 29.3 (27.0-33.0) pg MCHC 33.9 (31.0-36.0) g/dl RDW 12.6 (11.0-16.0) % Plt Count 207 (160-400) X10*3/uL MPV 11.5 (9.4-12.4) fL Immature Gran % (Auto) 0.2 (0.0-0.4) % Neut % (Auto) 58.2 (45-73) % Lymph % (Auto) 23.8 (20-40) % [place] % (Auto) 14.1 H (2-11) % Eos % (Auto) 2.9 (0-4) % Baso % (Auto) 0.8 (0-2) % Lymph # (Auto) 1.6 (1.2-4.9) X10*3/uL [place] # (Auto) 0.9 (0.1-1.2) X10*3/uL Eos # (Auto) 0.2 (0.0-0.4) X10*3/uL Baso # (Auto) 0.1 (0.0-0.2) X10*3/uL Abs Immat Gran (auto) 0.01 (0.00-0.03) X10*3/uL Absolute Neuts (auto) 3.9 (2.0-8.3) x10*3/uL Absolute Nucleated RBC 0.000 (0.0-0.012) X10*3/uL Nucleated RBC % (auto) 0.0 (0.0-0.2) /100WBC Sodium 140 (135-145) mmol/L Potassium 4.8 (3.3-5.1) mmol/L Chloride 105 (96-108) mmol/L Carbon Dioxide 25 (22-29) mmol/L Anion Gap 15 (12-20) BUN 21 H (9-16) mg/dL Creatinine 0.86 (0.5-1.4) mg/dL Estim Creat Clear Calc 177.2 Estimated GFR > 60 Random Glucose 83 (60-115) mg/dL Calcium 9.7 (8.4-10.2) mg/dL Total Bilirubin 0.9 (0.0-1.0) mg/dL AST 30 (5-37) U/L ALT 29 (0-40) U/L Alkaline Phosphatase 81 (39-117) U/L Troponin I High Sens < 2.7 (<3.5-35.0) ng/L Total Protein 8.1 H (6.5-8.0) g/dL Albumin 4.2 (3.5-5.0) g/dL Valproic Acid 17.6 L (50.0-100.0) mcg/mL Independent Interpretation I performed an independent interpretation of an: EKG and Plain X-Ray Interpretation: EKG normal sinus rhythm rate 54 no ischemic changes Radiology Impression Discussion of test interpretation with radiology: I have reviewed the radiologist's reading. Radiologist Impression: FINDINGS: The lungs are mildly hypoinflated. No focal consolidation is seen. No evidence of pneumothorax, pleural effusion, or pulmonary edema. Cardiac silhouette appears near the upper limits of normal in size though may be accentuated by low lung volumes. No acute osseous findings are seen. XR/XR chest 1V IMPRESSION: Low lung volumes without acute findings. Dictated By: Alexx Laguna MD Signed By: <Electronically signed by Alexx Laguna MD in OV> 07/06/23 1527 Chronic Conditions Patient?s care impacted by: Other (substance abuse) Social Determinants Patient?s care significantly limited by Social Determinants of Health including: Alcoholism and drug addiction in family Discharge Plan Discharge Clinical Impression: Cocaine abuse, Chest pain Patient Disposition: Left Against Medical Advice Prescriptions: No Action levetiracetam [Keppra] 1,000 mg tablet 1,000 mg PO BID 30 Days Qty: 60 0RF loratadine 10 mg capsule 10 mg PO BID PRN (Reason: allergic symptoms) Qty: 20 0RF hydrocortisone 1 % cream 1 appl topical TID PRN (Reason: itching) Qty: 28.4 0RF naproxen 500 mg tablet 500 mg PO BID PRN (Reason: pain) Qty: 20 0RF divalproex [Depakote] 500 mg tablet,delayed release (DR/EC) 500 mg PO BID 90 Days Qty: 180 1RF Stand Alone Forms: Against Medical Advice Interventions: ED Discharge Assessment Last Done: 07/06/23 15:56
[2023-07-06 14:24] LABS: MANUAL DIFF FLAG NO
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
[2023-07-06 14:26] LABS: Basophils Absolute Auto 0.1 X10*3/uL (0.0-0.2); Basophils Percent Auto 0.8 % (0-2); Eosinophils Absolute Auto 0.2 X10*3/uL (0.0-0.4); Eosinophils Percent Auto 2.9 % (0-4); Hematocrit 43.3 % (42.0-52.0); Hemoglobin 14.7 g/dl (14.0-18.0); Imm Gran Abs Auto 0.01 X10*3/uL (0.00-0.03); Imm Gran Pct Auto 0.2 % (0.0-0.4); Lymphocytes Absolute Auto 1.6 X10*3/uL (1.2-4.9); Lymphocytes Percent Auto 23.8 % (20-40); Mean Corpuscular HGB Conc 33.9 g/dl (31.0-36.0); Mean Corpuscular Hemoglobin 29.3 pg (27.0-33.0); Mean Corpuscular Volume 86.3 fL (80.0-98.0); Mean Platelet Volume 11.5 fL (9.4-12.4); Monocytes Absolute Auto 0.9 X10*3/uL (0.1-1.2); Monocytes Percent Auto 14.1 % (2-11); Neutrophils Absolute Auto 3.9 x10*3/uL (2.0-8.3); Neutrophils Percent Auto 58.2 % (45-73); Platelet Count 207 X10*3/uL (160-400); Red Blood Count 5.02 X10*6/uL (4.60-5.80); Red Cell Distribution Width 12.6 % (11.0-16.0); White Blood Count 6.6 X10*3/uL (4.8-10.8)
[2023-07-06 14:48] LABS: Alanine Aminotransferase 29 U/L (0-40); Albumin Level 4.2 g/dL (3.5-5.0); Alkaline Phosphatase 81 U/L (39-117); Anion Gap 15 (12-20); Aspartate Amino Transferase 30 U/L (5-37); Bilirubin Total 0.9 mg/dL (0.0-1.0); Blood Urea Nitrogen 21 mg/dL (9-16); Calcium 9.7 mg/dL (8.4-10.2); Carbon Dioxide 25 mmol/L (22-29); Chloride 105 mmol/L (96-108); Creatinine Clr Calc Pharmacy 177.2; Estimated Glomerular Filt Rate > 60; Glucose Random 83 mg/dL (60-115); Potassium 4.8 mmol/L (3.3-5.1); Sodium 140 mmol/L (135-145); Total Protein 8.1 g/dL (6.5-8.0); Troponin-I High Sensitivity < 2.7 ng/L (<3.5-35.0); Valproate 17.6 mcg/mL (50.0-100.0)
--- NOTE | 2023-07-06 15:48 | PC.NURSE ---
attempted to medicate pt with Keppra IV d/t low levels, pt reports I dont want that here I have it at home I can take my home dose . educated pt on his low levels and recommended he accept the IV keppa. pt continued to refuse, stated that he wanted to take it at home and wanted to go home now. informed MD Duong. pt will be leaving AMA. informed pt of risks of leaving AMA including severe illness, risk of seizure and .
[2023-07-09 14:48] LABS: Levetiracetam Keppra 2.4 mcg/mL (6.0-46.0)
== END 2023-07-06 15:58 | disposition left against medical advice (07) ==
PROVIDERS: Emergency Provider Emergency Medicine; PCP Internal Medicine
DX: R07.89 Other chest pain (principal); R06.02 Shortness of breath; F14.10 Cocaine abuse, uncomplicated; Z79.899 Other long term (current) drug therapy
CPT/HCPCS: 36415; 71045; 80053; 80164; 80177; 84484; 85025; 93005; 99283; 99284

== ENCOUNTER → 2023-07-06 13:21 | Outpatient (BNV) | payer OTHER, SELFPAY | PROVIDERS: Emergency Provider Emergency Medicine; PCP Internal Medicine; Visit Provider Internal Medicine Cardiovascular Disease | DX: R07.9 Chest pain, unspecified (principal) | CPT/HCPCS: 93010 ==

== ENCOUNTER 2023-07-12 03:36 | Emergency (ER) | payer OTHER, SELFPAY ==
[2023-07-12 03:47] VITALS: BP 120/60; PULSE 74; O2SAT 100
[2023-07-12 03:54] VITALS: BP 117/70; PULSE 71; RESP 16; TEMP 36.4; O2SAT 97; BMI 40.3
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
[2023-07-12 06:36] VITALS: BP 114/56; PULSE 60; RESP 16; TEMP 36.4; O2SAT 98
--- NOTE | 2023-07-12 06:38 | PC.NURSE ---
pt states that starting at around 2100 he drank a bottle of Brianda and a few beers. rpts that he just feels tired, dizzy, and wants to sleep.
--- NOTE | 2023-07-12 08:45 | ED.GENADULT ---
HPI - General Adult General Chief complaint: Upper Respiratory Symptoms Stated complaint: sob etoh and drug use Time Seen by Provider: 07/12/23 08:31 Source: patient and EMS Mode of arrival: EMS Limitations: no limitations History of Present Illness HPI narrative: 38-year-old male came in by ambulance after drinking alcohol last night and snorted cocaine last night. Patient admit that he has been feeling depressed because his been from his girlfriend for the past 2-3 days, no SI, no HI, no hallucination. Patient is seeking help to quit drugs and alcohol. Patient currently staying by his mother. Patient is complaining of difficulty breathing, nasal congestion, sneezing, coughing, generalized body ache. Related Data Previous Rx's Medication Instructions Recorded divalproex 500 mg tablet,delayed 500 mg PO BID 90 days #180 tabs 06/24/23 release (Depakote) levetiracetam 1,000 mg tablet 1,000 mg PO BID 30 days #60 tabs 06/24/23 (Keppra) hydrocortisone 1 % topical cream 1 appl topical TID PRN itching 07/04/23 #28.4 grams loratadine 10 mg capsule 10 mg PO BID PRN allergic symptoms 07/04/23 #20 caps Allergies Allergy/AdvReac Type Severity Reaction Status Date / Time egg Allergy Nausea Verified 07/06/23 13:46 mayonnaise Allergy Nausea Verified 07/06/23 13:46 Review of Systems Review of Systems: All other systems are reviewed and are negative Constitutional: Reports as per HPI and Reports no additional constitutional complaints Eyes: Reports as per HPI and Reports no additional eye complaints Reports system reviewed and no additional complaints, except as documented Cardiovascular: Reports as per HPI and Reports no additional cardiovascular complaints Respiratory: Reports as per HPI and Reports no additional respiratory complaints Gastrointestinal: Reports as per HPI and Reports no additional gastrointestinal complaints Genitourinary: Reports no additional female genitourinary complaints Musculoskeletal: Reports no additional musculoskeletal complaints Skin/Breast: Reports system reviewed and no additional complaints, except as docu Psychiatric: Reports no additional psychiatric complaints Endocrine: Reports no additional endocrine complaints Hematologic/Lymphatic: Reports no additional hematologic/lymphatic complaints Allergic/Immunologic: Reports no additional allergic/immunologic complaints Reports system reviewed and no additional complaints, except as documented and Reports Abnormal speech present [facility] Past Medical History Medical History Eardrum trauma Morbid obesity with BMI of 50.0-59.9, adult Lumbar pain HTN (hypertension) Bipolar 1 disorder Chronic back pain ETOH abuse Polysubstance abuse Seizure Non compliance with medical treatment Non compliance w medication regimen Obesity Surgical History No pertinent past surgical history Family History Family History Mother Hypertension Diabetes Cancer Father Diabetes Hypertension Social History Social History Household Members: Other Household Members Other:: AUNT Housing: House Housing Other:: living with aunt Do you presently have visiting nurse or other home services: No Alcohol intake: current Alcohol intake frequency: a few times a month Alcohol type: beer and hard liquor Patient Tobacco Use Status: Never used Tobacco Tobacco use type: Cigarette e-Cigarette/Vaping Use: Never Used Second Hand Smoke Exposure: No Substance Use Type: Crack/Cocaine Advance Directives: No Advance Directives Information Provided: Yes service: No Current occupational status: employed Cognitive needs: No Hearing needs: No Vision needs: No Physical Exam ED Vital Signs: Vital Signs - 24 hr 07/12/23 03:54 07/12/23 06:36 07/12/23 09:19 Temperature 97.6 F 97.6 F Pulse Rate 71 60 Respiratory Rate 16 16 18 Blood Pressure 117/70 114/56 L Pulse Oximetry 97 98 Oxygen Delivery Method Room Air Room Air 07/12/23 09:50 07/12/23 09:51 Temperature 97.8 F Pulse Rate 84 Respiratory Rate 18 Blood Pressure 128/81 Pulse Oximetry 95 97 Oxygen Delivery Method Room Air Room Air BMI result Body Mass Index 40.3 Vital signs have been reviewed and appear to be correct. Blood pressure elevated. Heart rate normal. Respiratory rate normal. Temperature normal. Oxygen saturation normal. Appearance: Alert. Oriented X3. No acute distress. Head: Normal external exam. Normocephalic. Atraumatic. No Carrasco signs noted. No raccoon eyes noted Eyes: PERRLA. EOMI. Conjunctiva and sclera normal. Eyelids normal. ENT: TM's Normal. Pharynx normal. Uvula midline. Moist mucous membranes. No trismus noted. No drooling noted. No muffled voice noted. Neck: Normal inspection. Neck supple. FROM. No adenopathy. Thyroid Normal. No meningeal signs. No neck mass noted. CVS: Normal heart rate and rhythm. Heart sound normal. No murmurs noted. Pulses normal throughout. Respiratory: No respiratory distress. Painless inspiration. Breath sounds normal. No wheezes/rales/rhonchi noted. Chest nontender. No accessory muscle usage noted or decreased air movement noted. Abdomen: Soft and nontender. Bowel sounds normal in all 4 quadrants. No distention noted. No organomegaly noted. No visible injury noted. Back: No CVA tenderness. Full range of motion noted. Skin: Skin warm and dry. Normal skin color. Normal skin turgor. No rashes/lesions/lacerations noted. Extremities: No lower extremity edema. Extremities exhibit normal range of motion. Extremities nontender. Neuro: Oriented X 3. Cranial nerve exam: II-XII are grossly intact No motor deficit. No sensory deficit. Reflexes normal. Patient Orientation: Person, Place, Time and Situation, okay hygiene and grooming. Fair eye contact, attentive, no tics or tremors. Level of Consciousness: Awake, Appropriate and Alert Patient Behavior: Appropriate, Guarded, Cooperative and Anxious Mood Description: Constricted, Blunted and Apprehensive Affect Description: Constricted, Blunted and Apprehensive Patient Cognition Impaired: No Ability to Follow Directions: Excellent Speech Pattern: Clear, Appropriate and Spontaneous Speech, nonpressured, spontaneous with regular rate and rhythm, normal volume and prosody. No dysarthria. Memory Description: Intact, Immediate Intact and Short Term Intact Hallucinations: None Delusions: Not Present Thought Process: Intact Thought Content: positive for Intact, positive for Logical, denies Suicidal Ideation and denies Homicidal Ideation. Depressive Symptoms: Not present. Judgement and Insight: Limited but adequate. Course Reevaluation(s) Reevaluation #1: No SI, no HI, no hallucination, feels safe to be discharged home, patient was offered help to detox rehab by addiction medicine but patient declined. Time: 12:08 Medications Administered Generic Name Dose Route Start Last Admin Trade Name Freq PRN Reason Stop Dose Admin Divalproex Sodium 500 mg 07/12/23 11:30 07/12/23 11:43 Divalproex Sodium 500 Mg Tablet.Dr PO 500 mg BID YAJAIRA Administration Levetiracetam 1,000 mg 07/12/23 11:30 07/12/23 11:43 Levetiracetam 1,000 Mg Tablet PO 1,000 mg BID YAJAIRA Administration Discontinued Medications Generic Name Dose Route Start Last Admin Trade Name Freq PRN Reason Stop Dose Admin Acetaminophen 650 mg 07/12/23 09:56 07/12/23 10:01 Acetaminophen 325 Mg Tablet PO 07/12/23 09:57 650 mg ONCE ONE Administration Medical Decision Making Differential Diagnosis Differential Diagnoses: The differential diagnosis associated with the presentation includes (Alcohol intoxication, cocaine overdose, electrolyte derangement, severe anemia, depression with SI.) Admission/Observation Consideration of admission/observation: Escalation of care including admission/observation considered Lab Data MDM Lab Attestation statement: I reviewed the patient's lab results. Labs: Lab Results 07/12/23 Range/Units 09:07 Influenza Type A (PCR) NEGATIVE (Negative) Influenza Type B (PCR) NEGATIVE (Negative) RSV RNA Qual (PCR) NEGATIVE (Negative) SARS-CoV-2 RNA (RT-PCR) NEGATIVE (Negative) Discharge Plan Discharge Clinical Impression: Polysubstance abuse, Cocaine abuse Patient Disposition: Home, Self-Care Instructions: Polysubstance Abuse (ED) Prescriptions: No Action levetiracetam [Keppra] 1,000 mg tablet 1,000 mg PO BID 30 Days Qty: 60 0RF loratadine 10 mg capsule 10 mg PO BID PRN (Reason: allergic symptoms) Qty: 20 0RF hydrocortisone 1 % cream 1 appl topical TID PRN (Reason: itching) Qty: 28.4 0RF divalproex [Depakote] 500 mg tablet,delayed release (DR/EC) 500 mg PO BID 90 Days Qty: 180 1RF
[2023-07-12 09:19] VITALS: RESP 18
--- NOTE | 2023-07-12 09:20 | PC.NURSE ---
patient is sleeping, skin pwd, resp even and non labored, repostioning self on stretcher. covid/flu/RSV swab pending.
[2023-07-12 09:50] VITALS: BP 128/81; PULSE 84; RESP 18; TEMP 36.6; O2SAT 95
[2023-07-12 09:51] VITALS: O2SAT 97
[2023-07-12 09:52] LABS: Influenza A PCR NEGATIVE (Negative); Influenza B PCR NEGATIVE (Negative); Resp Syncy Virus RNA Qual PCR NEGATIVE (Negative); SARS COV2 PCR INHOUSE NEGATIVE (Negative)
[2023-07-12] MEDS: Acetaminophen 325 MG TABLET 650 MG PO (10:01)
[2023-07-12] MEDS: Divalproex Sodium 500 MG TABLET.DR PO (11:43)
[2023-07-12] MEDS: levETIRAcetam 1,000 MG TABLET 1000 MG PO (11:43)
--- NOTE | 2023-07-12 11:49 | PC.NURSE ---
med rec completed, pt medicated per MAR.
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
== END 2023-07-12 12:16 | disposition home or self-care (01) ==
PROVIDERS: Emergency Provider Emergency Medicine
DX: F19.10 Other psychoactive substance abuse, uncomplicated (principal); F14.10 Cocaine abuse, uncomplicated; Z11.52 Encounter for screening for COVID-19; Z20.828 Contact with and (suspected) exposure to other viral communicable diseases
CPT/HCPCS: 0241U; 99285

== ENCOUNTER 2023-07-26 01:56 | Emergency (ER) | payer OTHER, SELFPAY ==
--- NOTE | ~2023-07-26 | CT_ITS ---
EXAMINATION: CT HEAD WITHOUT CONTRAST CLINICAL INFORMATION: Altered mental status COMPARISON: CT brain 09/13/2022 TECHNIQUE: Contiguous axial imaging was performed from the skull base to vertex without intravenous administration of contrast. This CT examination was performed using dose optimization techniques as appropriate, variously including the following: *Automated exposure control *Adjustment of mA and/or kV according to patient size (this includes techniques or standardized protocols for targeted exams where dose is matched to indication/reason for exam; i.e. extremities or head) *Use of iterative reconstruction technique DLP: 848 mGy-cm FINDINGS: There is no acute intra-axial, extra-axial bleed, masses or midline shift. Is no acute infarction evolution. The nolasco to white matter difference is maintained normal. The lateral ventricles are symmetrical in size and configuration without enlargement. Bone windows reveal no calvarial abnormality. There is no scalp soft tissue abnormality. Bilateral paranasal sinuses are well-aerated with mild mucoperiosteal thickening bilateral frontal, ethmoid and sphenoid sinuses. The mastoid air cells are well-aerated. CT/CT head/brain wo IV con IMPRESSION: 1. No acute intracranial process seen. 2. Chronic bilateral frontal, ethmoid and sphenoid sinus inflammatory changes. 3. 3. There is no change from CT brain 09/05/2022.
--- NOTE | 2023-07-26 02:01 | ED_ITS ---
HPI - General Adult General Chief complaint: ETOH/Substance Use Stated complaint: etoh seizure Time Seen by Provider: 07/26/23 02:01 History of Present Illness HPI narrative: The patient is a 38-year-old male who who is brought to the hospital by ambulance because of seizures. Apparently he had used alcohol and cocaine. He apparently has a history of seizures which may be related to substance use problems. He has been placed on levetiracetam and Depakote and has followed up with the [place] neurology office for the seizures. He was last seen at the neurology office 3 months ago in April of 2023 where he was continued on levetiracetam 1000 mg b.i.d. and Depakote 500 mg q.a.m. and 1000 mg q.p.m.. The patient arrived with ongoing seizures. History is limited because the patient was nonverbal. Apparently an ambulance was called after he was seemed to be seizing on the street. He was not seizing when paramedics 1st arrived but developed seizures with paramedics. On arrival here he seemed to still be seizing and he was given IV midazolam and levetiracetam. Related Data Previous Rx's Medication Instructions Recorded divalproex 500 mg tablet,delayed 500 mg PO BID 90 days #180 tabs 06/24/23 release (Depakote) levetiracetam 1,000 mg tablet 1,000 mg PO BID 30 days #60 tabs 06/24/23 (Keppra) hydrocortisone 1 % topical cream 1 appl topical TID PRN itching 07/04/23 #28.4 grams loratadine 10 mg capsule 10 mg PO BID PRN allergic symptoms 07/04/23 #20 caps Allergies Allergy/AdvReac Type Severity Reaction Status Date / Time egg Allergy Nausea Verified 07/06/23 13:46 mayonnaise Allergy Nausea Verified 07/06/23 13:46 Review of Systems 2 Review of Systems: Yes Unobtainable due to mental condition PMFSH Past Medical History Medical History Eardrum trauma Morbid obesity with BMI of 50.0-59.9, adult Lumbar pain HTN (hypertension) Bipolar 1 disorder Chronic back pain ETOH abuse Polysubstance abuse Seizure Non compliance with medical treatment Non compliance w medication regimen Obesity Surgical History No pertinent past surgical history Family History Family History Mother Hypertension Diabetes Cancer Father Diabetes Hypertension Social History Social History Household Members: Other Household Members Other:: AUNT Housing: House Housing Other:: living with aunt Do you presently have visiting nurse or other home services: No Alcohol intake: current Alcohol intake frequency: a few times a month Alcohol type: beer and hard liquor Patient Tobacco Use Status: Never used Tobacco Tobacco use type: Cigarette e-Cigarette/Vaping Use: Never Used Second Hand Smoke Exposure: No Substance Use Type: Crack/Cocaine Advance Directives: No Advance Directives Information Provided: Yes service: No Current occupational status: employed Cognitive needs: No Hearing needs: No Vision needs: No Physical Exam ED Vital Signs: Vital Signs - 24 hr 07/26/23 02:12 07/26/23 02:38 07/26/23 04:31 Temperature 97.5 F 97.9 F Pulse Rate 78 80 73 Respiratory Rate 22 H 19 16 Blood Pressure 142/79 H 129/80 137/85 Pulse Oximetry 96 96 99 Oxygen Delivery Method Room Air Nasal Cannula Nasal Cannula with ETCO2 Oxygen Flow Rate 2 2 07/26/23 07:06 Temperature 100 F Pulse Rate 77 Respiratory Rate 14 Blood Pressure 118/74 Pulse Oximetry 98 Oxygen Delivery Method Nasal Cannula Oxygen Flow Rate 2 BMI result Body Mass Index 51.9 Const Other: The patient is a very large man who seemed to be seizing. His jaw seemed clenched. There was foaming at the mouth. He had stiff extremities. HENMT Other: The face was symmetrical but the jaw was clenched tight. I was not able to initially open the mouth. There was no blood at the mouth. Eyes Other: Pupils were round equal,. The patient seemed to have a fixed gaze. Neck Other: No neck swelling or apparent injury. Resp Effort & Inspection: normal respiratory effort Auscultation: clear to auscultation bilaterally Cardio Rate: regular rate Rhythm: regular rhythm Heart sounds: S1 normal heart sound present and S2 normal heart sound present GI Other: Abdomen was soft and seems nontender Skin Other: Skin is pale and dry Neuro Other: Initially the patient seemed to be seizing. There was jaw clenching and foaming at the mouth. Extremities seemed somewhat rigid. No obvious lateralizing findings. Extrem Other: No signs of injury to the extremities Medications Administered Discontinued Medications Generic Name Dose Route Start Last Admin Trade Name Giselle PRN Reason Stop Dose Admin Divalproex Sodium 500 mg 07/26/23 07:40 07/26/23 08:00 Divalproex Sodium 500 Mg Tablet. PO 07/26/23 07:41 500 mg ONCE ONE Administration Levetiracetam 1,500 mg in 100 mls @ 400 mls/hr 07/26/23 02:04 07/26/23 02:41 Keppra IV 07/26/23 02:18 Infused ONCE ONE Infusion Levetiracetam 1,000 mg 07/26/23 07:40 07/26/23 08:00 Levetiracetam 1,000 Mg Tablet PO 07/26/23 07:41 1,000 mg ONCE ONE Administration Midazolam HCl 4 mg 07/26/23 02:01 07/26/23 02:22 Midazolam Hcl/Pf 2 Mg/2 Ml Vial IVPUSH 07/26/23 02:02 4 mg ONCE ONE Administration Medical Decision Making Medical Decision Making MDM Narrative: The patient is a 38-year-old male with a history of a seizure disorder and history of substance use disorder. He presented seemingly seizing. He was given 4 mg of IV midazolam and 1500 mg of IV levetiracetam. His seizure activity seemed to stop fairly abruptly. For the last several hours he has been sleeping with normal vital signs. He has tested positive for an ETOH level of 189 and he is also tested positive for cocaine. I have tried to wake him up to see if he was possibly appropriate for discharge. He remains very sleepy. You may be having a prolonged postictal phase. I have asked the hospitalist to admit the patient for a possible prolonged postictal phase. Alternatively there may be some volitional component to his behavior at this point. Lab Data 07/26/23 02:06 07/26/23 02:06 Labs: Lab Results 07/26/23 07/26/23 07/26/23 Range/Units 02:02 02:06 02:10 WBC 9.0 (4.8-10.8) X10*3/uL RBC 4.91 (4.60-5.80) X10*6/uL Hgb 14.4 (14.0-18.0) g/dl Hct 42.5 (42.0-52.0) % MCV 86.6 (80.0-98.0) fL MCH 29.3 (27.0-33.0) pg MCHC 33.9 (31.0-36.0) g/dl RDW 12.0 (11.0-16.0) % Plt Count 206 (160-400) X10*3/uL MPV 11.2 (9.4-12.4) fL Immature Gran % (Auto) 0.2 (0.0-0.4) % Neut % (Auto) 67.3 (45-73) % Lymph % (Auto) 20.0 (20-40) % [place] % (Auto) 11.0 (2-11) % Eos % (Auto) 0.8 (0-4) % Baso % (Auto) 0.7 (0-2) % Lymph # (Auto) 1.8 (1.2-4.9) X10*3/uL [place] # (Auto) 1.0 (0.1-1.2) X10*3/uL Eos # (Auto) 0.1 (0.0-0.4) X10*3/uL Baso # (Auto) 0.1 (0.0-0.2) X10*3/uL Abs Immat Gran (auto) 0.02 (0.00-0.03) X10*3/uL Absolute Neuts (auto) 6.1 (2.0-8.3) x10*3/uL Absolute Nucleated RBC 0.000 (0.0-0.012) X10*3/uL Nucleated RBC % (auto) 0.0 (0.0-0.2) /100WBC VBG pH 7.37 (7.32-7.43) VBG pCO2 37 mmHg VBG pO2 102 mmHg VBG HCO3 22 (22-26) mmol/L VBG O2 Saturation 99.0 % VBG Base Excess -2.5 mmol/L Sodium 142 (135-145) mmol/L Potassium 4.5 (3.3-5.1) mmol/L Chloride 106 (96-108) mmol/L Carbon Dioxide 24 (22-29) mmol/L Anion Gap 17 (12-20) BUN 14 (9-16) mg/dL Creatinine 0.84 (0.5-1.4) mg/dL Estim Creat Clear Calc 180.9 Estimated GFR > 60 POC Glucose 103 (60-115) mg/dL Random Glucose 122 H (60-115) mg/dL Calcium 9.5 (8.4-10.2) mg/dL Magnesium 2.4 (1.6-2.6) mg/dL Total Bilirubin 0.4 (0.0-1.0) mg/dL Direct Bilirubin 0.1 (0.0-0.5) mg/dL AST 22 (5-37) U/L ALT 25 (0-40) U/L Alkaline Phosphatase 82 (39-117) U/L Total Protein 8.0 (6.5-8.0) g/dL Albumin 4.3 (3.5-5.0) g/dL Urine Color Urine Appearance Urine pH (5.0-9.0) Ur Specific [place] (1.005-1.025) Urine Protein (Neg-Trace) mg/dL Urine Glucose (UA) (Negative) mg/dL Urine Ketones (Negative) mg/dL Urine Blood (Negative) Urine Nitrite (Negative) Ur Leukocyte Esterase (Negative) Urine Opiates Screen (Not Detect) Urine Fentanyl Screen (Not Detect) Ur Barbiturates Screen (Not Detect) Ur Phencyclidine Scrn (Not Detect) Ur Amphetamines Screen (Not Detect) U Benzodiazepines Scrn (Not Detect) Urine Cocaine Screen (Not Detect) U Marijuana (THC) Screen (Not Detect) Ethyl Alcohol 189 mg/dL 07/26/23 Range/Units 04:57 WBC (4.8-10.8) X10*3/uL RBC (4.60-5.80) X10*6/uL Hgb (14.0-18.0) g/dl Hct (42.0-52.0) % MCV (80.0-98.0) fL MCH (27.0-33.0) pg MCHC (31.0-36.0) g/dl RDW (11.0-16.0) % Plt Count (160-400) X10*3/uL MPV (9.4-12.4) fL Immature Gran % (Auto) (0.0-0.4) % Neut % (Auto) (45-73) % Lymph % (Auto) (20-40) % [place] % (Auto) (2-11) % Eos % (Auto) (0-4) % Baso % (Auto) (0-2) % Lymph # (Auto) (1.2-4.9) X10*3/uL [place] # (Auto) (0.1-1.2) X10*3/uL Eos # (Auto) (0.0-0.4) X10*3/uL Baso # (Auto) (0.0-0.2) X10*3/uL Abs Immat Gran (auto) (0.00-0.03) X10*3/uL Absolute Neuts (auto) (2.0-8.3) x10*3/uL Absolute Nucleated RBC (0.0-0.012) X10*3/uL Nucleated RBC % (auto) (0.0-0.2) /100WBC VBG pH (7.32-7.43) VBG pCO2 mmHg VBG pO2 mmHg VBG HCO3 (22-26) mmol/L VBG O2 Saturation % VBG Base Excess mmol/L Sodium (135-145) mmol/L Potassium (3.3-5.1) mmol/L Chloride (96-108) mmol/L Carbon Dioxide (22-29) mmol/L Anion Gap (12-20) BUN (9-16) mg/dL Creatinine (0.5-1.4) mg/dL Estim Creat Clear Calc Estimated GFR POC Glucose (60-115) mg/dL Random Glucose (60-115) mg/dL Calcium (8.4-10.2) mg/dL Magnesium (1.6-2.6) mg/dL Total Bilirubin (0.0-1.0) mg/dL Direct Bilirubin (0.0-0.5) mg/dL AST (5-37) U/L ALT (0-40) U/L Alkaline Phosphatase (39-117) U/L Total Protein (6.5-8.0) g/dL Albumin (3.5-5.0) g/dL Urine Color Yellow Urine Appearance Clear Urine pH 5.5 (5.0-9.0) Ur Specific [place] 1.010 (1.005-1.025) Urine Protein Negative (Neg-Trace) mg/dL Urine Glucose (UA) Negative (Negative) mg/dL Urine Ketones Negative (Negative) mg/dL Urine Blood Negative (Negative) Urine Nitrite Negative (Negative) Ur Leukocyte Esterase Negative (Negative) Urine Opiates Screen Not Detected (Not Detect) Urine Fentanyl Screen Not Detected (Not Detect) Ur Barbiturates Screen Not Detected (Not Detect) Ur Phencyclidine Scrn Not Detected (Not Detect) Ur Amphetamines Screen Not Detected (Not Detect) U Benzodiazepines Scrn POSITIVE H (Not Detect) Urine Cocaine Screen POSITIVE H (Not Detect) U Marijuana (THC) Screen Not Detected (Not Detect) Ethyl Alcohol mg/dL Discharge Plan Discharge Clinical Impression: Seizures, Post-ictal state Patient Disposition: Admitted As Inpatient
--- NOTE | 2023-07-26 02:02 | ECG_ITS ---
Test Reason : SEIZURE Blood Pressure : / mmHG Vent. Rate : 078 BPM Atrial Rate : 078 BPM P-R Int : 178 ms QRS Dur : 104 ms QT Int : 390 ms P-R-T Axes : 019 -06 -01 degrees QTc Int : 444 ms Normal sinus rhythm Minimal voltage criteria for LVH, may be normal variant ( R in aVL ) Cannot rule out Anterior infarct , age undetermined Abnormal ECG When compared with ECG of 06-JUL-2023 14:11, No significant change was found Referred By: You Chamberlain Electronically Signed By:Bonilla Godoen
[2023-07-26 02:11] LABS: Basophils Absolute Auto 0.1 X10*3/uL (0.0-0.2); Basophils Percent Auto 0.7 % (0-2); Eosinophils Absolute Auto 0.1 X10*3/uL (0.0-0.4); Eosinophils Percent Auto 0.8 % (0-4); Hematocrit 42.5 % (42.0-52.0); Hemoglobin 14.4 g/dl (14.0-18.0); Imm Gran Abs Auto 0.02 X10*3/uL (0.00-0.03); Imm Gran Pct Auto 0.2 % (0.0-0.4); Lymphocytes Absolute Auto 1.8 X10*3/uL (1.2-4.9); MANUAL DIFF FLAG NO; Mean Corpuscular HGB Conc 33.9 g/dl (31.0-36.0); Mean Corpuscular Hemoglobin 29.3 pg (27.0-33.0); Mean Corpuscular Volume 86.6 fL (80.0-98.0); Mean Platelet Volume 11.2 fL (9.4-12.4); Neutrophils Absolute Auto 6.1 x10*3/uL (2.0-8.3); Neutrophils Percent Auto 67.3 % (45-73); Platelet Count 206 X10*3/uL (160-400); Red Blood Count 4.91 X10*6/uL (4.60-5.80)
[2023-07-26 02:12] VITALS: BP 116/68; BP 142/79; PULSE 78; PULSE 79; RESP 22; TEMP 36.4; O2SAT 96; O2SAT 97; BMI 51.9
[2023-07-26 02:17] LABS: VBG Base Excess -2.5 mmol/L; VBG HCO3 22 mmol/L (22-26); VBG pCO2 37 mmHg; VBG pH 7.37 (7.32-7.43); VBG pO2 102 mmHg
--- NOTE | 2023-07-26 02:17 | PC.NURSE ---
Patient BIBA for evaluation for ETOH/Substance Abuse found on the street, became unresponsive, seizing during transport to ED. When arrived to ED EKG completed, 20 G IV line established in R AC, labs drawn and sent to lab for processing, seizure pads applied. Patient had a seizure at ED during work up, after seizure became alert and oriented x3, answered questions appropriately, admitted using cocaine. Patient medicated per JUL.
[2023-07-26 02:18] LABS: Glucose, Whole Blood 103 mg/dL (60-115)
[2023-07-26 02:20] LABS: Venous Blood Gas Refer to POC result
[2023-07-26] MEDS: Midazolam HCl/PF 2 MG/2 ML VIAL 4 MG IVPUSH (02:22)
[2023-07-26] MEDS: levETIRAcetam in NaCl (iso-os) 1,500 MG/100 ML PIGGYBACK 400 MG IV (02:24)
[2023-07-26 02:28] LABS: Alanine Aminotransferase 25 U/L (0-40); Albumin Level 4.3 g/dL (3.5-5.0); Alkaline Phosphatase 82 U/L (39-117); Anion Gap 17 (12-20); Aspartate Amino Transferase 22 U/L (5-37); Bilirubin Direct 0.1 mg/dL (0.0-0.5); Bilirubin Total 0.4 mg/dL (0.0-1.0); Blood Urea Nitrogen 14 mg/dL (9-16); Calcium 9.5 mg/dL (8.4-10.2); Carbon Dioxide 24 mmol/L (22-29); Chloride 106 mmol/L (96-108); Creatinine Clr Calc Pharmacy 180.9; Estimated Glomerular Filt Rate > 60; Ethanol 189 mg/dL; Glucose Random 122 mg/dL (60-115); Magnesium 2.4 mg/dL (1.6-2.6); Potassium 4.5 mmol/L (3.3-5.1); Sodium 142 mmol/L (135-145)
--- NOTE | 2023-07-26 02:33 | PC.NURSE ---
O2 Sat noted to be 87% RA, supplemental capnography O2 applied via NC at 2 LPM with improvement in O2 Sat noted 96%, ETCO2 44.
[2023-07-26 02:38] VITALS: BP 129/80; PULSE 80; RESP 19; TEMP 36.6; O2SAT 96
--- NOTE | 2023-07-26 02:43 | PC.NURSE ---
Patient requested a warm blanket, resting on a stretcher bed, eyes closed, VSS, even chest rise and fall, not in acute distress. Call bel in reach. Security contacted for interchange agent and belongings securement.
--- NOTE | 2023-07-26 03:46 | PC.NURSE ---
Patient opens his eyes when called by name, he denies SI/HI. Patient refused primary manager assessment, COWS assessment, and head to toe assessment a this time stating that he is tired and would like to rest. VSS, no further seizure activity noted, seizure precautions in place, call horner in patient's reach.
[2023-07-26 04:31] VITALS: BP 137/85; PULSE 73; RESP 16; O2SAT 99
[2023-07-26 05:12] LABS: Appearance Urine Clear; Color Urine Yellow; Glucose Urine UA Negative (Negative); Leukocyte Esterase Urine Negative (Negative); Nitrite Urine Negative (Negative); PH 5.5 (5.0-9.0); Urine Blood Negative (Negative); Urine Ketones Negative (Negative); Urine Protein Negative (Neg-Trace)
[2023-07-26 05:28] LABS: Amphetamine Screen Urine Not Detected (Not Detect); Barbiturates, Urine Not Detected (Not Detect); Benzodiazepines Screen Urine POSITIVE (Not Detect); Cannabinoid Screen Urine Not Detected (Not Detect); Cocaine Screen Urine POSITIVE (Not Detect); Fentanyl, urine Not Detected (Not Detect); Opiate Screen Urine Not Detected (Not Detect); Phencyclidine Screen Urine Not Detected (Not Detect)
--- NOTE | 2023-07-26 05:32 | PC.NURSE ---
Patient requested to use a urinal and was able to urinate, urine specimen sent to lab for processing. Patient soiled his shorts and bed sheet with urine. Valentina care provided, bed linens changed. Patient's VS remain stable. Patient continues to decline assessment, no active seizure activity noted at present. Call horner in place.
[2023-07-26 07:06] VITALS: BP 118/74; PULSE 77; RESP 14; TEMP 37.7; O2SAT 98
--- NOTE | 2023-07-26 07:06 | PC.NURSE ---
Resumed care of patient, he is currently resting comfortably, O2 remains in place, pt mumbling in response to nurse but not wanting to fully answer any questions. Unable to fully assess CIWA at this time. Vitals stable, seizure precautions in place.
[2023-07-26] MEDS: Divalproex Sodium 500 MG TABLET.DR PO (08:00)
[2023-07-26] MEDS: levETIRAcetam 1,000 MG TABLET 1000 MG PO (08:00)
--- NOTE | 2023-07-26 10:09 | PC.NURSE ---
This RN was called into patient room, he had removed all his monitoring and kept repeating I want to go home This RN alerted provider, who then placed d/c, pt given belongings back, and able to leave ED to bus dispo
== END 2023-07-26 10:26 | disposition home or self-care (01) ==
PROVIDERS: Emergency Provider Emergency Medicine
DX: G40.909 Epilepsy, unspecified, not intractable, without status epilepticus (principal); I10 Essential (primary) hypertension
CPT/HCPCS: 36415; 70450; 80048; 80076; 80307; 81003; 82803; 82947; 83735; 85025; 93005; 96365; 96375; 99284; J1953; J2250

== ENCOUNTER → 2023-07-26 02:02 | Outpatient (BNV) | payer OTHER, SELFPAY | PROVIDERS: Emergency Provider Emergency Medicine; Visit Provider Internal Medicine Cardiovascular Disease | DX: R94.31 Abnormal electrocardiogram [ECG] [EKG] (principal) | CPT/HCPCS: 93010 ==

== ENCOUNTER 2023-08-01 04:50 | Emergency (ER) | payer OTHER, SELFPAY ==
[2023-08-01 05:08] VITALS: BP 132/36; BP 166/80; PULSE 73; PULSE 84; RESP 16; TEMP 36.6; O2SAT 97; BMI 52.4
[2023-08-01 05:12] VITALS: BP 132/36; PULSE 73; RESP 16; TEMP 36.6; O2SAT 97
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
[2023-08-01] MEDS: LORazepam 1 MG TABLET PO (05:45)
[2023-08-01] MEDS: Ondansetron ODT 4 MG TAB.RAPDIS TRANSLINGU (05:45)
[2023-08-01 06:44] VITALS: BP 132/36; PULSE 73; RESP 12; TEMP 36.6; O2SAT 97
== END 2023-08-01 06:56 | disposition home or self-care (01) ==
PROVIDERS: Emergency Provider Emergency Medicine; PCP Internal Medicine
DX: K29.20 Alcoholic gastritis without bleeding (principal); F41.9 Anxiety disorder, unspecified; F10.10 Alcohol abuse, uncomplicated; F14.10 Cocaine abuse, uncomplicated; F12.10 Cannabis abuse, uncomplicated; I10 Essential (primary) hypertension
CPT/HCPCS: 99283; 99284

== ENCOUNTER 2023-08-03 20:20 | Emergency (ER) | payer OTHER, SELFPAY ==
--- NOTE | 2023-08-03 | ECG_ITS ---
Test Reason : WEAKNESS/TACHYCARDIA Blood Pressure : / mmHG Vent. Rate : 091 BPM Atrial Rate : 091 BPM P-R Int : 160 ms QRS Dur : 102 ms QT Int : 366 ms P-R-T Axes : 019 -10 000 degrees QTc Int : 450 ms Normal sinus rhythm Minimal voltage criteria for LVH, may be normal variant ( R in aVL ) Cannot rule out Anterior infarct (cited on or before 26-JUL-2023) Abnormal ECG When compared with ECG of 26-JUL-2023 02:05, No significant change was found Referred By: Generic ED Physician Electronically Signed By:ELVIRA CARBONE
--- NOTE | ~2023-08-03 | CT_ITS ---
EXAMINATION: CT HEAD WITHOUT CONTRAST CLINICAL INFORMATION: Right upper extremity numbness. COMPARISON: 07/26/2023. TECHNIQUE: Contiguous axial imaging was performed from the skull base to vertex without intravenous administration of contrast. This CT examination was performed using dose optimization techniques as appropriate, variously including the following: *Automated exposure control *Adjustment of mA and/or kV according to patient size (this includes techniques or standardized protocols for targeted exams where dose is matched to indication/reason for exam; i.e. extremities or head) *Use of iterative reconstruction technique DLP: 843 mGy-cm FINDINGS: The lateral, third and fourth ventricles are normally outlined. The cortical sulci and basal cisterns are normally outlined as well. There is no acute territorial defect, hemorrhage or midline shift. The extra-axial spaces are unremarkable. Calvarium: Intact. Maxillofacial sinuses and mastoids: There is a small right frontal sinus opacity and ethmoid sinus mucosal thickening similar to previous. The mastoids are clear. CT/CT head/brain wo IV con IMPRESSION: No acute intracranial pathology.
[2023-08-03 20:25] VITALS: BP 140/80; PULSE 99; O2SAT 97
[2023-08-03 20:28] VITALS: BP 140/83; PULSE 93; RESP 18; TEMP 36.6; O2SAT 98
[2023-08-03 20:36] VITALS: BMI 48.8
[2023-08-03 21:31] LABS: MANUAL DIFF FLAG NO
[2023-08-03 21:41] LABS: Basophils Absolute Auto 0.1 X10*3/uL (0.0-0.2); Basophils Percent Auto 0.8 % (0-2); Eosinophils Absolute Auto 0.2 X10*3/uL (0.0-0.4); Hematocrit 41.4 % (42.0-52.0); Hemoglobin 14.1 g/dl (14.0-18.0); Imm Gran Abs Auto 0.03 X10*3/uL (0.00-0.03); Imm Gran Pct Auto 0.4 % (0.0-0.4); Lymphocytes Absolute Auto 1.8 X10*3/uL (1.2-4.9); Lymphocytes Percent Auto 22.7 % (20-40); Mean Corpuscular HGB Conc 34.1 g/dl (31.0-36.0); Mean Corpuscular Hemoglobin 29.8 pg (27.0-33.0); Mean Corpuscular Volume 87.5 fL (80.0-98.0); Mean Platelet Volume 11.7 fL (9.4-12.4); Monocytes Absolute Auto 1.1 X10*3/uL (0.1-1.2); Monocytes Percent Auto 13.3 % (2-11); Neutrophils Absolute Auto 4.8 x10*3/uL (2.0-8.3); Neutrophils Percent Auto 60.8 % (45-73); Platelet Count 200 X10*3/uL (160-400); Red Blood Count 4.73 X10*6/uL (4.60-5.80); Red Cell Distribution Width 11.9 % (11.0-16.0); White Blood Count 7.9 X10*3/uL (4.8-10.8)
[2023-08-03 21:42] LABS: Amphetamine Screen Urine Not Detected (Not Detect); Barbiturates, Urine Not Detected (Not Detect); Benzodiazepines Screen Urine Not Detected (Not Detect); Cannabinoid Screen Urine Not Detected (Not Detect); Cocaine Screen Urine POSITIVE (Not Detect); Fentanyl, urine Not Detected (Not Detect); Opiate Screen Urine Not Detected (Not Detect); Phencyclidine Screen Urine Not Detected (Not Detect)
[2023-08-03 21:45] LABS: Anion Gap 12 (12-20); Blood Urea Nitrogen 18 mg/dL (9-16); Calcium 9.3 mg/dL (8.4-10.2); Carbon Dioxide 28 mmol/L (22-29); Chloride 105 mmol/L (96-108); Estimated Glomerular Filt Rate > 60; Ethanol < 10 mg/dL; Glucose Random 101 mg/dL (60-115); Potassium 4.1 mmol/L (3.3-5.1); Sodium 141 mmol/L (135-145)
[2023-08-03 21:59] LABS: Acetaminophen LAB < 3 mcg/mL (<30); Salicylate < 5.0 mg/dL (15-30)
[2023-08-03 22:15] VITALS: BP 124/85; PULSE 75; RESP 17; TEMP 36.9; O2SAT 98
--- NOTE | 2023-08-03 22:25 | ED_ITS ---
HPI - General Adult General Chief complaint: General Medical Stated complaint: ARM NUMB AFTER TAKING PAIN PILL FROM FRIEND Time Seen by Provider: 08/03/23 22:06 Source: patient Mode of arrival: EMS History of Present Illness HPI narrative: 38-year-old male with presentation for numbness and tingling of right upper extremity that has never happened before and occurred at approximately 19:00 this evening after he took for unknown pills from a friend with to devaughn, patient reports that he used heroin earlier in the day. Currently, he denies any visual disturbance or speech disturbance and denies any shortness of breath/chest pain. Related Data Previous Rx's Medication Instructions Recorded divalproex 500 mg tablet,delayed 500 mg PO BID 90 days #180 tabs 06/24/23 release (Depakote) levetiracetam 1,000 mg tablet 1,000 mg PO BID 30 days #60 tabs 06/24/23 (Keppra) hydrocortisone 1 % topical cream 1 appl topical TID PRN itching 07/04/23 #28.4 grams loratadine 10 mg capsule 10 mg PO BID PRN allergic symptoms 07/04/23 #20 caps Allergies Allergy/AdvReac Type Severity Reaction Status Date / Time egg Allergy Nausea Verified 07/06/23 13:46 mayonnaise Allergy Nausea Verified 07/06/23 13:46 Review of Systems 2 Review of Systems: Pertinent positives and negatives as stated in HPI [facility] Past Medical History Source: nursing notes reviewed Medical History Eardrum trauma Morbid obesity with BMI of 50.0-59.9, adult Lumbar pain HTN (hypertension) Bipolar 1 disorder Chronic back pain ETOH abuse Polysubstance abuse Seizure Non compliance with medical treatment Non compliance w medication regimen Obesity Surgical History No pertinent past surgical history Family History Family History Mother Hypertension Diabetes Cancer Father Diabetes Hypertension Social History Social History Household Members: Other Household Members Other:: AUNT Housing: House Housing Other:: living with aunt Do you presently have visiting nurse or other home services: No Alcohol intake: current Alcohol intake frequency: a few times a week Alcohol type: beer Patient Tobacco Use Status: Never used Tobacco Tobacco use type: Cigarette e-Cigarette/Vaping Use: Never Used Second Hand Smoke Exposure: No Use of substances other than those prescribed or required for medical reasons: Yes Substance Use Type: Heroin Substance Use Frequency: Chronic Longstanding Last Used Substance: Hours (ago) Advance Directives: No Advance Directives Information Provided: No service: No Current occupational status: employed Cognitive needs: No Hearing needs: No Vision needs: No Physical Exam ED Vital Signs: Vital Signs - 24 hr 08/03/23 20:28 08/03/23 22:15 Temperature 97.9 F 98.5 F Pulse Rate 93 75 Respiratory Rate 18 17 Blood Pressure 140/83 H 124/85 Pulse Oximetry 98 98 Oxygen Delivery Method Room Air Room Air BMI result Body Mass Index 48.8 VITAL SIGNS: Reviewed. GENERAL: Well developed, well nourished, in no acute distress. HEAD: Normocephalic/atraumatic EYES: PERRLA, EOMI EARS: Ext canals without abnormality NOSE: Nares patent bilateral OROPHARYNX: no oral lesions noted, posterior pharynx clear NECK: Supple, no adenopathy LUNGS: Normal breath sounds. No adventitious sounds or accessory muscle use. SpO2<98> CARDIOVASCULAR: Regular rate and rhythm without noted murmurs ABDOMEN: Soft, non-tender, non-distended with bowel sounds. MUSCULOSKELETAL: No tenderness, deformities, or effusions noted on gross inspection. EXTREMITIES: No cyanosis, clubbing or edema. SKIN: Inspection of the skin reveals no rashes NEUROLOGIC: Alert and oriented x 4. Numbness noted to right upper extremity and able to lift entire arm but reports difficulty with flexion of the elbow and hand powder hand otherwise no facial asymmetry, no pronator drift, cranial nerves 2-12 are grossly intact. Medical Decision Making Medical Decision Making MDM Narrative: 38-year-old male with history and clinical presentation, DDX: Possible cocaine induced ischemic event, partial seizure but patient is not postictal, patient initially said that he was unable to lift the extremity and then began gesturing with the right upper extremity, patient is on Depakote for what he states are seizures and denies any missed medications. I reviewed all investigations and hematologic indices negative for leukocytosis/left shift/anemia/thrombocytopenia. Chemistry who sees negative for NNAMDI or electrolyte derangements. Urine toxicology positive for cocaine and otherwise negative, no evidence of alcohol and salicylate/aspirin are undetectable. CT of the head is negative for intracranial hemorrhage or mass effect, patient's symptoms are improving and suspect that this is been secondary to cocaine use. Differential Diagnosis Differential Diagnoses: The differential diagnosis associated with the presentation includes Please see the discussion above Admission/Observation Consideration of admission/observation: Escalation of care including admission/observation considered Please see the discussion above Lab Data MDM Lab Attestation statement: I reviewed the patient's lab results. Please see the discussion above 08/03/23 21:27 08/03/23 21:27 Labs: Lab Results 08/03/23 Range/Units 21:27 WBC 7.9 (4.8-10.8) X10*3/uL RBC 4.73 (4.60-5.80) X10*6/uL Hgb 14.1 (14.0-18.0) g/dl Hct 41.4 L (42.0-52.0) % MCV 87.5 (80.0-98.0) fL MCH 29.8 (27.0-33.0) pg MCHC 34.1 (31.0-36.0) g/dl RDW 11.9 (11.0-16.0) % Plt Count 200 (160-400) X10*3/uL MPV 11.7 (9.4-12.4) fL Immature Gran % (Auto) 0.4 (0.0-0.4) % Neut % (Auto) 60.8 (45-73) % Lymph % (Auto) 22.7 (20-40) % Sharkey % (Auto) 13.3 H (2-11) % Eos % (Auto) 2.0 (0-4) % Baso % (Auto) 0.8 (0-2) % Lymph # (Auto) 1.8 (1.2-4.9) X10*3/uL Sharkey # (Auto) 1.1 (0.1-1.2) X10*3/uL Eos # (Auto) 0.2 (0.0-0.4) X10*3/uL Baso # (Auto) 0.1 (0.0-0.2) X10*3/uL Abs Immat Gran (auto) 0.03 (0.00-0.03) X10*3/uL Absolute Neuts (auto) 4.8 (2.0-8.3) x10*3/uL Absolute Nucleated RBC 0.000 (0.0-0.012) X10*3/uL Nucleated RBC % (auto) 0.0 (0.0-0.2) /100WBC Sodium 141 (135-145) mmol/L Potassium 4.1 (3.3-5.1) mmol/L Chloride 105 (96-108) mmol/L Carbon Dioxide 28 (22-29) mmol/L Anion Gap 12 (12-20) BUN 18 H (9-16) mg/dL Creatinine 0.97 (0.5-1.4) mg/dL Estim Creat Clear Calc 151.0 Estimated GFR > 60 Random Glucose 101 (60-115) mg/dL Calcium 9.3 (8.4-10.2) mg/dL Salicylates < 5.0 L (15-30) mg/dL Urine Opiates Screen Not Detected (Not Detect) Urine Fentanyl Screen Not Detected (Not Detect) Acetaminophen < 3 (<30) mcg/mL Ur Barbiturates Screen Not Detected (Not Detect) Ur Phencyclidine Scrn Not Detected (Not Detect) Ur Amphetamines Screen Not Detected (Not Detect) U Benzodiazepines Scrn Not Detected (Not Detect) Urine Cocaine Screen POSITIVE H (Not Detect) U Marijuana (THC) Screen Not Detected (Not Detect) Ethyl Alcohol < 10 mg/dL Independent Interpretation I performed an independent interpretation of an: EKG Interpretation: Normal sinus rhythm, HR-91, no STEMI, SD/QRS/QTC is within normal limits. Radiology Impression Discussion of test interpretation with radiology: I have reviewed the radiologist's reading. Radiologist Impression: Please see the discussion above External Record Review External record reviewed: Outpatient record, Prior outpatient labs and Prior outpatient radiology Social Determinants Patient?s care significantly limited by Social Determinants of Health including: Alcoholism and drug addiction in family Critical Care Time Critical Care Time Critical Care Time: Yes Total Critical Care Time: 30 Attestation: I personally attest to this time spent taking care of the patient. Discharge Plan Discharge Clinical Impression: Numbness and tingling of right upper extremity, Cocaine abuse, Polysubstance abuse Patient Disposition: Home, Self-Care Instructions: Paresthesia (ED), Cocaine Abuse (ED), Polysubstance Abuse (ED) Additional Instructions: 1. Please follow-up with primary care doctor 1st thing on Friday morning. Return to the ER for any worsening symptoms. Prescriptions: No Action levetiracetam [Keppra] 1,000 mg tablet 1,000 mg PO BID 30 Days Qty: 60 0RF loratadine 10 mg capsule 10 mg PO BID PRN (Reason: allergic symptoms) Qty: 20 0RF hydrocortisone 1 % cream 1 appl topical TID PRN (Reason: itching) Qty: 28.4 0RF divalproex [Depakote] 500 mg tablet,delayed release (DR/EC) 500 mg PO BID 90 Days Qty: 180 1RF
[2023-08-04 00:15] VITALS: BP 117/89; PULSE 71; RESP 18; TEMP 37.1; O2SAT 96
== END 2023-08-04 00:20 | disposition home or self-care (01) ==
PROVIDERS: Emergency Provider Student in an Organized Health Care Education/Training Program
DX: R20.0 Anesthesia of skin (principal); F14.10 Cocaine abuse, uncomplicated; I10 Essential (primary) hypertension; Z79.899 Other long term (current) drug therapy
CPT/HCPCS: 36415; 70450; 80048; 80143; 80179; 80307; 85025; 93005; 99284

== ENCOUNTER → 2023-08-03 20:36 | Outpatient (BNV) | payer OTHER, SELFPAY | PROVIDERS: Emergency Provider Student in an Organized Health Care Education/Training Program; Visit Provider Internal Medicine | DX: R00.0 Tachycardia, unspecified (principal); R94.31 Abnormal electrocardiogram [ECG] [EKG] | CPT/HCPCS: 93010 ==

== ENCOUNTER 2023-08-05 23:59 | Emergency (ER) | payer OTHER, SELFPAY ==
[2023-08-06 00:03] VITALS: BP 116/74; PULSE 64; O2SAT 100
[2023-08-06 00:06] VITALS: BP 129/79; PULSE 64; RESP 16; TEMP 36.8; O2SAT 98; BMI 34.4
--- NOTE | 2023-08-06 01:25 | PC.NURSE ---
Pt noted to be ambulating in WR without distress.
[2023-08-06 03:30] VITALS: BP 122/72; PULSE 70; RESP 18; TEMP 36.7; O2SAT 99
== END 2023-08-06 04:33 | disposition left against medical advice (07) ==
PROVIDERS: Emergency Provider Emergency Medicine
DX: M54.50 Low back pain, unspecified (principal)
CPT/HCPCS: 99281

== ENCOUNTER 2023-08-06 20:54 | Emergency (ER) | payer OTHER, SELFPAY ==
--- NOTE | 2023-08-06 | ECG_ITS ---
Test Reason : SEIZURE Blood Pressure : / mmHG Vent. Rate : 061 BPM Atrial Rate : 061 BPM P-R Int : 168 ms QRS Dur : 104 ms QT Int : 418 ms P-R-T Axes : 022 -04 -04 degrees QTc Int : 420 ms Normal sinus rhythm Minimal voltage criteria for LVH, may be normal variant ( R in aVL ) Borderline ECG When compared with ECG of 03-AUG-2023 20:36, Vent. rate has decreased BY 30 BPM Referred By: Whitney Lara Electronically Signed By:ELVIRA CARBONE
[2023-08-06 21:11] VITALS: BP 113/80; BP 140/80; PULSE 67; PULSE 85; RESP 16; TEMP 37.2; O2SAT 98; BMI 53.0
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
[2023-08-06 22:02] LABS: MANUAL DIFF FLAG NO
[2023-08-06 22:04] LABS: Basophils Absolute Auto 0.1 X10*3/uL (0.0-0.2); Basophils Percent Auto 0.6 % (0-2); Eosinophils Absolute Auto 0.2 X10*3/uL (0.0-0.4); Eosinophils Percent Auto 1.8 % (0-4); Hematocrit 39.6 % (42.0-52.0); Hemoglobin 13.2 g/dl (14.0-18.0); Imm Gran Abs Auto 0.02 X10*3/uL (0.00-0.03); Imm Gran Pct Auto 0.2 % (0.0-0.4); Lymphocytes Absolute Auto 1.6 X10*3/uL (1.2-4.9); Lymphocytes Percent Auto 19.3 % (20-40); Mean Corpuscular HGB Conc 33.3 g/dl (31.0-36.0); Mean Corpuscular Hemoglobin 29.9 pg (27.0-33.0); Mean Corpuscular Volume 89.6 fL (80.0-98.0); Mean Platelet Volume 11.5 fL (9.4-12.4); Monocytes Absolute Auto 0.8 X10*3/uL (0.1-1.2); Monocytes Percent Auto 9.7 % (2-11); Neutrophils Absolute Auto 5.7 x10*3/uL (2.0-8.3); Neutrophils Percent Auto 68.4 % (45-73); Platelet Count 188 X10*3/uL (160-400); Red Blood Count 4.42 X10*6/uL (4.60-5.80); White Blood Count 8.3 X10*3/uL (4.8-10.8)
[2023-08-06] MEDS: Divalproex Sodium ER 500 MG TAB.ER.24H PO (22:10)
[2023-08-06 22:20] LABS: Ethanol < 10 mg/dL
[2023-08-06 22:22] LABS: Alanine Aminotransferase 26 U/L (0-40); Albumin Level 3.8 g/dL (3.5-5.0); Alkaline Phosphatase 76 U/L (39-117); Anion Gap 8 (12-20); Aspartate Amino Transferase 22 U/L (5-37); Bilirubin Total 0.2 mg/dL (0.0-1.0); Blood Urea Nitrogen 23 mg/dL (9-16); Carbon Dioxide 30 mmol/L (22-29); Chloride 107 mmol/L (96-108); Estimated Glomerular Filt Rate > 60; Glucose Random 91 mg/dL (60-115); Potassium 4.4 mmol/L (3.3-5.1); Sodium 141 mmol/L (135-145); Total Protein 6.9 g/dL (6.5-8.0)
[2023-08-06 22:41] VITALS: BP 114/70; PULSE 69; RESP 16; TEMP 36.8; O2SAT 98
[2023-08-06 23:38] LABS: Valproate < 12.5 mcg/mL (50.0-100.0)
[2023-08-07 00:10] VITALS: BP 114/70; PULSE 69; RESP 16; TEMP 36.8; O2SAT 98
== END 2023-08-07 00:11 | disposition home or self-care (01) ==
PROVIDERS: Emergency Provider Emergency Medicine Emergency Medical Services; PCP Internal Medicine
DX: R56.9 Unspecified convulsions (principal); I10 Essential (primary) hypertension; F19.10 Other psychoactive substance abuse, uncomplicated; Z59.01 Sheltered homelessness
CPT/HCPCS: 36415; 80053; 80164; 80307; 85025; 93005; 99284

== ENCOUNTER → 2023-08-06 21:28 | Outpatient (BNV) | payer OTHER, SELFPAY | PROVIDERS: Emergency Provider Emergency Medicine Emergency Medical Services; PCP Internal Medicine; Visit Provider Internal Medicine | DX: G40.89 Other seizures (principal) | CPT/HCPCS: 93010 ==

== ENCOUNTER 2023-08-07 06:36 | Emergency (ER) | payer OTHER, SELFPAY | END 2023-08-07 07:00 | disposition left against medical advice (07) | LOC: HO.ED 07:34 | PROVIDERS: Emergency Provider Emergency Medicine | DX: R11.2 Nausea with vomiting, unspecified (principal) ==

== ENCOUNTER 2023-08-22 00:48 | Emergency (ER) | payer OTHER, SELFPAY ==
[2023-08-22 00:59] VITALS: BP 130/80; PULSE 84; O2SAT 98
[2023-08-22 01:00] VITALS: BP 131/71; PULSE 73; RESP 17; TEMP 36.9; O2SAT 100; BMI 34.4
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
[2023-08-22] MEDS: LORazepam 1 MG TABLET 2 MG PO (02:03)
[2023-08-22 02:18] LABS: Ethanol 33 mg/dL
--- NOTE | 2023-08-22 02:20 | PC.NURSE ---
pt requesting to speak to crisis at this time, pt denies si/hi but reports he would like to speak to someone about depression. aware, awaiting care team.
[2023-08-22 05:02] VITALS: BP 108/49; PULSE 70; RESP 16; TEMP 36.6; O2SAT 96
--- NOTE | 2023-08-22 07:49 | PC.NURSE ---
patient called RN into room, stated he wants to go home. denies SI/HI, will notify provider.
[2023-08-22 08:00] VITALS: BP 108/78; PULSE 75; RESP 20; TEMP 36.6; O2SAT 96
== END 2023-08-22 08:03 | disposition home or self-care (01) ==
PROVIDERS: Emergency Provider Internal Medicine; PCP Internal Medicine
DX: F14.10 Cocaine abuse, uncomplicated (principal); F10.10 Alcohol abuse, uncomplicated; F32.A Depression, unspecified; I10 Essential (primary) hypertension; Z59.02 Unsheltered homelessness
CPT/HCPCS: 36415; 80307; 99283; 99284

== ENCOUNTER 2023-08-31 22:45 | Emergency (ER) | payer OTHER, SELFPAY ==
[2023-08-31 22:55] VITALS: BP 133/80; PULSE 76; RESP 20; TEMP 36.6; O2SAT 98; BMI 51.9
[2023-09-01 03:27] VITALS: BP 118/48; PULSE 63; RESP 20; TEMP 36.3; O2SAT 99
[2023-09-01 06:12] VITALS: BP 112/46; PULSE 70; RESP 16; TEMP 36.4; O2SAT 99
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
[2023-09-01 07:02] VITALS: BP 105/45; PULSE 59; RESP 16; O2SAT 94
[2023-09-01 07:08] VITALS: BP 106/74; PULSE 59; RESP 16; TEMP -17.7; TEMP 0; O2SAT 94
== END 2023-09-01 07:09 | disposition home or self-care (01) ==
PROVIDERS: Emergency Provider Emergency Medicine; PCP Internal Medicine
DX: M54.16 Radiculopathy, lumbar region (principal); I10 Essential (primary) hypertension
CPT/HCPCS: 99283

== ENCOUNTER 2023-09-03 13:44 | Outpatient (AMB) | payer OTHER, SELFPAY ==
[2023-09-03 13:51] VITALS: BP 122/80; BMI 51.8
--- NOTE | 2023-09-03 13:51 | A.OFFPC_ITS ---
Vital Signs 09/03/23 13:51 Height 5 ft 10 in Weight 361 lb BMI 51.8 BP 122/80 Blood Pressure Location Lt brachial Position Sitting Intake Visit Reasons: seizure Intake Note: Patient here for Discharge follow up seizure, anxiety with depression, back pain, seen at [facility] and [facility] Product Development Consultant Required: No Accompanied by: Self / Same As Patient Allergies egg Allergy (Verified 09/03/23 14:09) Nausea mayonnaise Allergy (Verified 09/03/23 14:09) Nausea Medication List - Last Reconciled 09/03/23 by Trinidad Bridges MD cyclobenzaprine 10 mg PO TID PRN divalproex (Depakote) 500 mg PO BID 90 days hydrocortisone 1% 1 appl topical TID PRN levetiracetam (Keppra) 1,000 mg PO BID 30 days loratadine 10 mg PO BID PRN naproxen 500 mg PO BID PRN Tobacco use date assessed: 09/03/23 Dental Screening Dental Screen Date: 09/03/23 Did you have a dental visit in the last 12 months?: No Did you have a dental problem in the last 6 months where you did not have access to dental care?: No Was dental information given to patient?: Patient has dentist HPI HPI Comments History of Present Illness Details This is a 38-year-old male with mild recurrent major depression in remission, seizures and polysubstance abuse that comes today as a hospital discharge follow-up with discharge date 09/01/2023 due to lumbar pain that has been on and off for few years but for the past few weeks it has worsened in intensity. The pain radiates to both legs. No fever, bowel or bladder incontinence. Was given Flexeril and naproxen with marked improvement. Straight leg test was negative bilaterally. Depression is currently in remission. On divalproex and Keppra for his seizure and has not had a seizure in over a month. As per patient he does not seen neurology is and will be refer again to another neurologist. As per patient he stopped drinking alcohol and using cocaine 3 weeks ago and is not interested in outpatient addiction medicine rehab. He is morbidly obese with a BMI of 51.8 and would like a weight management referral for possible weight loss surgery. No chest pain or shortness of breath. [facility] Medical History (Updated 09/03/23 @ 19:26 by Trinidad Bridges MD) Seizure Eardrum trauma Morbid obesity with BMI of 50.0-59.9, adult Lumbar pain HTN (hypertension) Bipolar 1 disorder Chronic back pain ETOH abuse Polysubstance abuse Seizure Non compliance with medical treatment Non compliance w medication regimen Obesity Surgical History No pertinent past surgical history Family History Mother Hypertension Diabetes Cancer Father Diabetes Hypertension Social History Household Members: Other Household Members Other:: AUNT Housing: Other Housing Other:: homeless sometimes stays with friends Do you presently have visiting nurse or other home services: No Alcohol intake: former Patient Tobacco Use Status: Never used Tobacco e-Cigarette/Vaping Use: Never Used Second Hand Smoke Exposure: No Substance Use Type: Crack/Cocaine service: No Current occupational status: disabled Cognitive needs: No Hearing needs: No Vision needs: No Questionnaire PHQ-9 Over the last 2 weeks, how often have you been bothered by any of the following problems? 1. Little interest or pleasure in doing things: not at all 2. Feeling down, depressed, or hopeless: not at all 3. Trouble falling or staying asleep, or sleeping too much: more than half the days 4. Feeling tired or having little energy: not at all 5. Poor appetite or overeating: not at all 6. Feeling bad about yourself - or that you are a failure or have let yourself or your family down: not at all 7. Trouble concentrating on things, such as reading the newspaper or watching television: not at all 8. Moving or speaking so slowly that other people could have noticed. Or the opposite - being so fidgety or restless that you have been moving around a lot more than usual: not at all 9. Thoughts that you would be better off or of hurting yourself in some way: not at all Total score: 2 Depression Screening Interpretation: Negative Depression Screening Done: Yes 42146 - PHQ-9 Billing: Yes Source: Developed by Drs. Velasquez Maddox, Radha B.W. Mundo Pandya and colleagues, with an educational caprice from [employer] Thrive Questionnaire Date Thrive assessed: 09/03/23 I am a: Patient What is your living situation today?: I have a steady place to live Within the past 12 months, did the food you bought not last and you didn't have the money to get more?: Never true Within the past 12 months, did you worry whether your food would run out before you got money to buy more?: Never true Do you have trouble paying for medicines?: No Do you have trouble getting transportation to medical appointments?: No Do you have trouble paying your heating and electricity bill?: No Do you have trouble taking care of your child, family member or friend?: No Do you have trouble with day-to-day activities such as bathing, preparing meals, shopping, managing finances, etc.?: No Are you currently unemployed and looking for a job?: No Are you interested in more education?: No Please select the resources that you would like help with: None Currently or been in a relationship where the following occur: no concerns reported THRIVE Score: 0 AUDIT C Alcohol Use Questionnaire (AUDIT-C) 1. How often do you have a drink containing alcohol?: Never Total Score: 0 JUAN-7 AMB Questionnaire JUAN-7 Date JUAN - 7 assessed: 09/03/23 Feeling nervous, anxious, or on edge: 2 = More than half the days Not being able to stop or control worryin = Not at all Worrying too much about different things: 2 = More than half the days Trouble relaxin = Several days Being so restless that it is hard to sit still: 1 = Several days Becoming easily annoyed or irritable: 0 = Not at all Feeling afraid as if something awful might happen: 0 = Not at all Total JUAN-7 score (0-4 normal; 5-9 mild; 10-14 moderate; 15-21 severe): 6 Source: Developed by Drs. Velasquez Maddox, Mundo Perez and colleagues, with an educational caprice from [employer] JUAN-7 Assessment Billing JUAN-7 Assessment Tool: JUAN-7 Assessment 73694 Review of Systems Const All systems reviewed & are unremarkable except as noted in HPI and below Eyes Reports no additional complaints, Denies change in vision and Denies other visual disturbances Card Denies chest pain at rest, Denies chest pain with activity, Denies edema, Denies irregular heart rhythm, Denies claudication, Denies dyspnea, Denies dyspnea on exertion, Denies orthopnea, Denies paroxysmal nocturnal dyspnea and Denies slow heart rate Resp Denies cough, Denies dyspnea and Denies dyspnea on exertion GI Denies abdominal pain, Denies change in bowel habits, Denies excessive flatus, Denies nausea and Denies vomiting Denies urinary hesitancy, Denies urinary incontinence and Denies urinary urgency Physical exam (Primary Care) Vital Signs: Last Vital Signs BP 122/80 09/03/23 13:51 BMI result Body Mass Index 51.8 BMI Assessment/Plan discussion: High (Referred to weight management) BMI High, discussed plan: lifestyle, weight reduction, dietary and physical activity Tobacco/Smoking Status: Tobacco use Status Tobacco use date assessed 09/03/23 09/03/23 13:58 Patient Tobacco Use Status Never used Tobacco 09/03/23 13:58 Tobacco use type 09/03/23 13:58 e-Cigarette/Vaping Use Never Used 09/03/23 13:58 PHQ-9: PHQ-9 Score PHQ-9: Total score 2 09/03/23 14:12 Depression Screening Interpretation: Negative Thrive Assessment: Date of Thrive Assessment Date Thrive assessed 09/03/23 09/03/23 13:58 Currently or been in a relationship where the following occur: no concerns reported Resp Effort & Inspection: normal respiratory effort Auscultation: clear to auscultation bilaterally Cardio Jugular venous distension: no JVD Rate: regular rate Rhythm: regular rhythm Heart sounds: S1 normal heart sound present and S2 normal heart sound present Back/Spine/Pelvis Thoracic/Lumbar Spine: straight leg raise negative bilaterally Extrem General: Yes full ROM Assessment and Plan Assessment & Plan (1) Hospital discharge follow-up: Code(s): Z09 - Encounter for follow-up examination after completed treatment for conditions other than malignant neoplasm Plan: Discharge date 09/01/2023. Labs were done with no significant abnormality. Was given naproxen and Flexeril which significantly relieved the pain. (2) Lumbar pain: Code(s): M54.5 - Low back pain Plan: Continue naproxen and cyclobenzaprine as needed. (3) Seizure: Code(s): R56.9 - Unspecified convulsions Plan: Continue Keppra and Depakote. Referred to neurology. (4) Morbid obesity with BMI of 50.0-59.9, adult: Code(s): E66.01 - Morbid (severe) obesity due to excess calories; Z68.43 - Body mass index [BMI] 50.0-59.9, adult Plan: Advised diet and exercise. Referred to weight management. BMI goal is less than 30. (5) Polysubstance abuse: Comment: Cocaine and alcohol Code(s): F19.10 - Other psychoactive substance abuse, uncomplicated Plan: Advised to not restart alcohol intake and cocaine. Was made aware that there is an outpatient addiction medicine in case he wants to. (6) Mild recurrent major depression: Code(s): F33.0 - Major depressive disorder, recurrent, mild Plan: In remission. Advise for counseling if needed. Orders: Orders XR lumbar spine 2-3V Today M54.5 - Low back pain Referrals Neurology Referral R56.9 - Unspecified convulsions Pain Management Referral M54.5 - Low back pain Medical Weight Management Referral E66.01 - Morbid (severe) obesity due to excess calories, Z68.43 - Body mass index [BMI] 50.0-59.9, adult Coding Level of Care Code TCM Mod MDM <= 7 Days Diagnoses Hospital discharge follow-up Z09 Lumbar pain M54.5 Seizure R56.9 Morbid obesity with BMI of 50.0-59.9, adult E66.01; Z68.43 Polysubstance abuse F19.10 Mild recurrent major depression F33.0 Additional Codes JUAN-7 Assessment Billing - JUAN-7 Assessment Tool: JUAN-7 Assessment [id number] ([id number]) Time Spent (min) 26
== END 2023-09-03 14:36 | disposition home or self-care (01) ==
PROVIDERS: PCP Internal Medicine; Visit Provider Internal Medicine
DX: M54.50 Low back pain, unspecified (principal); R56.9 Unspecified convulsions; E66.01 Morbid (severe) obesity due to excess calories; Z68.43 Body mass index [BMI] 50.0-59.9, adult; F19.10 Other psychoactive substance abuse, uncomplicated; F33.0 Major depressive disorder, recurrent, mild
CPT/HCPCS: 99214

== ENCOUNTER 2023-10-07 13:37 | Outpatient (AMB) | payer OTHER, SELFPAY ==
--- NOTE | 2023-10-07 13:59 | AM.OFFVISNUR ---
Intake Intake Visit Reasons: PPD Implant Allergies egg Allergy (Verified 09/03/23 14:09) Nausea mayonnaise Allergy (Verified 09/03/23 14:09) Nausea Office Meds tuberculin PPD 5 tub. unit/0.1 mL intradermal injection solution Performing Provider: Trinidad Bridges MD Performing Location: [facility] Administered by: Fide Hughes RN on 10/07/23 13:59 Dose Route Admin Location Dispensed Lot Number Expiration Date NDC [employer] 0.1 mL intradermal 0.1 mL [id number] 09/15/26 58030-641-67 [employer] Coding Assessment & Plan Assessment & Plan Orders: Orders AMB PPD Planted Today Z11.1 - Encounter for screening for respiratory tuberculosis Medications: New tuberculin PPD 0.1 mL intradermal ONCE 0.1 mL 0RF Z11.1 - Encounter for screening for respiratory tuberculosis
== END 2023-10-07 14:04 | disposition home or self-care (01) ==
PROVIDERS: PCP Internal Medicine; Visit Provider Internal Medicine
DX: Z11.1 Encounter for screening for respiratory tuberculosis (principal)
CPT/HCPCS: 86580

== ENCOUNTER 2023-10-24 14:59 | Emergency (ER) | payer OTHER, SELFPAY ==
[2023-10-24 15:50] VITALS: BP 147/88; PULSE 67; RESP 18; TEMP 36.3; O2SAT 97; BMI 51.5
--- NOTE | 2023-10-24 15:51 | ED_ITS ---
HPI - Eye Problem General Chief complaint: Eye Problems Stated complaint: R eye puffiness, rash on R forearm Related Data Previous Rx's ?Medication ?Instructions ?Recorded divalproex 500 mg tablet,delayed 500 mg PO BID 90 days #180 tabs 06/24/23 release (Depakote) hydrocortisone 1 % topical cream 1 appl topical TID PRN itching 07/04/23 #28.4 grams loratadine 10 mg capsule 10 mg PO BID PRN allergic symptoms 07/04/23 #20 caps cyclobenzaprine 10 mg tablet 10 mg PO TID PRN muscle spasm #14 09/01/23 tabs naproxen 500 mg tablet 500 mg PO BID PRN pain #20 tabs 09/01/23 levetiracetam 1,000 mg tablet 1,000 mg PO BID 30 days #60 tabs 09/24/23 (Keppra) Allergies Allergy/AdvReac Type Severity Reaction Status Date / Time egg Allergy Nausea Verified 10/24/23 15:52 mayonnaise Allergy Nausea Verified 10/24/23 15:52 [facility] Past Medical History Medical History (Updated 10/26/23 @ 19:13 by Elizabeth Malcolm CNP) Seizure Eardrum trauma Morbid obesity with BMI of 50.0-59.9, adult Lumbar pain HTN (hypertension) Bipolar 1 disorder Chronic back pain ETOH abuse Polysubstance abuse Seizure Non compliance with medical treatment Non compliance w medication regimen Obesity Surgical History No pertinent past surgical history Family History Family History Mother Hypertension Diabetes Cancer Father Diabetes Hypertension Social History Social History Household Members: Other Household Members Other:: AUNT Housing: Other Housing Other:: homeless sometimes stays with friends Do you presently have visiting nurse or other home services: No Alcohol intake: former Patient Tobacco Use Status: Never used Tobacco e-Cigarette/Vaping Use: Never Used Second Hand Smoke Exposure: No Substance Use Type: Crack/Cocaine Advance Directives: No Advance Directives Information Provided: No service: No Current occupational status: disabled Cognitive needs: No Hearing needs: No Vision needs: No Physical Exam Vital Signs: Vital Signs: Last Vital Signs Temp 97.3 F 10/24/23 15:50 Pulse 67 10/24/23 15:50 Resp 18 10/24/23 15:50 BP 147/88 H 10/24/23 15:50 Pulse Ox 97 10/24/23 15:50 O2 Del Method Room Air 10/24/23 15:50 BMI result Body Mass Index 51.5 Course Course Course Narrative: This is an RME performed by Emy Malcolm CNP: Additional HPI, ROS, PE not included below will be deferred to primary provider. Patient is a 38-year-old male who presents emergency department for evaluation. He reports bilateral forearm rash x2 days. Reports he awoke today with bilateral eye swelling right worse than left. Reports blurred vision and pain to the right eye, photophobia, has a foreign body sensation. Denies any allergies. Denies any new environmental exposures medications or foods. Plan: Visual acuity, placed in waiting room pending bed availability for further evaluation Discharge Plan Discharge Clinical Impression: Eye pain Patient Disposition: Left W/O Completing Treatment Prescriptions: No Action levetiracetam [Keppra] 1,000 mg tablet 1,000 mg PO BID 30 Days Qty: 60 6RF cyclobenzaprine 10 mg tablet 10 mg PO TID PRN (Reason: muscle spasm) Qty: 14 0RF naproxen 500 mg tablet 500 mg PO BID PRN (Reason: pain) Qty: 20 0RF loratadine 10 mg capsule 10 mg PO BID PRN (Reason: allergic symptoms) Qty: 20 0RF hydrocortisone 1 % cream 1 appl topical TID PRN (Reason: itching) Qty: 28.4 0RF divalproex [Depakote] 500 mg tablet,delayed release (DR/EC) 500 mg PO BID 90 Days Qty: 180 1RF Discharge Date/Time: 10/24/23 22:30
== END 2023-10-24 22:30 | disposition left against medical advice (07) ==
PROVIDERS: Emergency Provider Emergency Medicine; PCP Internal Medicine
DX: H57.11 Ocular pain, right eye (principal); R21 Rash and other nonspecific skin eruption; Z79.899 Other long term (current) drug therapy
CPT/HCPCS: 99281

== ENCOUNTER 2023-10-28 08:43 | Outpatient (AMB) | payer OTHER, SELFPAY ==
[2023-10-28 09:20] VITALS: BP 110/72; PULSE 61; TEMP 36.3; O2SAT 95; BMI 51.5
--- NOTE | 2023-10-28 09:20 | MHC.OFFWIV ---
Intake Vital Signs 10/28/23 09:20 Height 5 ft 10 in Weight 359 lb BMI 51.5 BP 110/72 Blood Pressure Location Lt brachial Position Sitting Pulse 61 Pulse Source Pulse Oximeter Temp 97.3 F Temp Source Temporal Artery Scan Pulse Oximetry (%) 95 Oxygen Delivery Method Room Air Intake Visit Reasons: EP LT arm rash Intake Note: pt is here today for lft arm rash started friday Patient Tobacco Use Status: Never used Tobacco Allergies egg Allergy (Verified 10/28/23 09:29) Nausea mayonnaise Allergy (Verified 10/28/23 09:29) Nausea Do you need a note to return to daycare/school/sports/work: Yes HPI HPI Comments History of Present Illness Details Patient is a 38-year-old male complaining of a rash on his left arm since last week. He states he went to the [facility] Emergency Department where they diagnosed him with contact dermatitis and started him on a prednisone taper. He has been taking the prednisone as prescribed and he has been using hydrocortisone cream on the rash but he states it is itchy and painful. He is also concerned that it is catchy because he has in a daycare program and he is unsure if he should be going there. He denies any fevers. [facility] Medical History (Updated 10/28/23 @ 10:01 by Cata Leonard PA-C) Seizure Eardrum trauma Morbid obesity with BMI of 50.0-59.9, adult Lumbar pain HTN (hypertension) Bipolar 1 disorder Chronic back pain ETOH abuse Polysubstance abuse Seizure Non compliance with medical treatment Non compliance w medication regimen Obesity Surgical History No pertinent past surgical history Family History Mother Hypertension Diabetes Cancer Father Diabetes Hypertension Social History Household Members: Other Household Members Other:: AUNT Housing: Other Housing Other:: homeless sometimes stays with friends Do you presently have visiting nurse or other home services: No Alcohol intake: former Patient Tobacco Use Status: Never used Tobacco e-Cigarette/Vaping Use: Never Used Second Hand Smoke Exposure: No Substance Use Type: Crack/Cocaine service: No Current occupational status: disabled Cognitive needs: No Hearing needs: No Vision needs: No Review of Systems Const All systems reviewed & are unremarkable except as noted in HPI and below Physical Exam Vital Signs: Last Vital Signs Temp 97.3 F 10/28/23 09:20 Pulse 61 10/28/23 09:20 BP 110/72 10/28/23 09:20 Pulse Ox 95 10/28/23 09:20 Oxygen Delivery Method Room Air 10/28/23 09:20 BMI result Body Mass Index 51.5 Const General: cooperative, healthy appearing, comfortable, no acute distress and well developed Orientation/consciousness: patient oriented x3 Limitations: no limitations HEENT Head: Yes normal to inspection Eyes General: appearance normal, both eyes and all related structures Neck Neck: Yes normal visual inspection and Yes full ROM Skin Rashes: rashes noted (streaky patch 4cm x 7 cm) maculopapular rash left dorsal arm Neuro General: patient oriented x3 Extrem General: Yes normal to inspection Assessment & Plan Assessment & Plan (1) Contact dermatitis: Code(s): L25.9 - Unspecified contact dermatitis, unspecified cause Qualifiers: Contact dermatitis type: irritant Contact dermatitis trigger: other trigger Qualified Code(s): L24.89 - Irritant contact dermatitis due to other agents Plan: Likely poison piyush, recommended using prednisone taper, he could use Aveeno oatmeal bath for relief or calamine lotion or hydrocortisone cream. Recommended staying out of his day program for a few days as it is still weeping and contagious. Plan See above Coding Level of Care Code Est Pt Level 3 (81959) Diagnoses Irritant contact dermatitis due to other agents L24.89 Contact dermatitis type: irritant Contact dermatitis trigger: other trigger
== END 2023-10-28 09:59 | disposition home or self-care (01) ==
PROVIDERS: PCP Internal Medicine; Visit Provider Physician Assistant
DX: L24.89 Irritant contact dermatitis due to other agents (principal)
CPT/HCPCS: 99213

== ENCOUNTER 2023-11-25 08:23 | Outpatient (AMB) | payer OTHER, SELFPAY ==
[2023-11-25 08:26] VITALS: BP 120/80; PULSE 72; TEMP 36.4; O2SAT 97; BMI 50.9
--- NOTE | 2023-11-25 08:26 | AM.OFFWIN_ITS ---
Intake Vital Signs 11/25/23 08:26 Height 5 ft 10 in Weight 355 lb BMI 50.9 BP 120/80 Blood Pressure Location Rt brachial Position Sitting Pulse 72 Pulse Source Pulse Oximeter Temp 97.6 F Temp Source Temporal Artery Scan Pulse Oximetry (%) 97 Oxygen Delivery Method Room Air Intake Visit Reasons: EP pain lft leg Intake Note: pt is here for left leg pain, patient states he has had pain for the last few days patient states its his varicose veins Patient Tobacco Use Status: Never used Tobacco Allergies egg Allergy (Verified 11/25/23 08:26) Nausea mayonnaise Allergy (Verified 11/25/23 08:26) Nausea Do you need a note to return to daycare/school/sports/work: Yes HPI HPI Comments History of Present Illness Details 38-year-old male presents today complain ing of painful tortuous veins on the posterior aspect of his left leg. States he was seen by vascular 2 years ago with some relief but the pain has increased in intensity. [facility] Medical History (Updated 11/25/23 @ 09:33 by GOVIND Campa) Seizure Eardrum trauma Morbid obesity with BMI of 50.0-59.9, adult Lumbar pain HTN (hypertension) Bipolar 1 disorder Chronic back pain ETOH abuse Polysubstance abuse Seizure Non compliance with medical treatment Non compliance w medication regimen Obesity Surgical History No pertinent past surgical history Family History Mother Hypertension Diabetes Cancer Father Diabetes Hypertension Social History Household Members: Other Household Members Other:: AUNT Housing: Other Housing Other:: homeless sometimes stays with friends Do you presently have visiting nurse or other home services: No Alcohol intake: former Patient Tobacco Use Status: Never used Tobacco e-Cigarette/Vaping Use: Never Used Second Hand Smoke Exposure: No Substance Use Type: Crack/Cocaine service: No Current occupational status: disabled Cognitive needs: No Hearing needs: No Vision needs: No Review of Systems Const All systems reviewed & are unremarkable except as noted in HPI and below Physical Exam Vital Signs: Last Vital Signs Temp 97.6 F 11/25/23 08:26 Pulse 72 11/25/23 08:26 BP 120/80 11/25/23 08:26 Pulse Ox 97 11/25/23 08:26 Oxygen Delivery Method Room Air 11/25/23 08:26 BMI result Body Mass Index 50.9 Const General: healthy appearing and acute distress mild HEENT Head: Yes normal to inspection, Yes normocephalic and Yes atraumatic Ears: hearing grossly normal bilaterally General nose exam: Normal external nose present Face and sinus: Yes normal facial exam Resp Effort & Inspection: normal respiratory effort Auscultation: clear to auscultation bilaterally Cardio Rate: regular rate Rhythm: regular rhythm Heart sounds: S1 normal heart sound present and S2 normal heart sound present Extrem Other: Inspection of the left lower extremity posterior and superior to the knee reveal multiple tortuous veins that are painful to palpation Assessment & Plan Assessment & Plan (1) Varicose veins of left leg with edema: Code(s): I83.892 - Varicose veins of left lower extremity with other complications Plan: The patient was given ibuprofen for pain and recommend moist heat to the area elevation to avoid prolonged walking and standing until evaluated by vascular surgery. He was given a contact information for [place] [facility] Plan See plan Medications: New ibuprofen Take with food 600 mg PO Q8H PRN 14 tabs 0RF pain Coding Level of Care Code Est Pt Level 3 (81405) Diagnoses Varicose veins of left leg with edema I83.892
== END 2023-11-25 09:02 | disposition home or self-care (01) ==
PROVIDERS: PCP Internal Medicine; Visit Provider Physician Assistant Medical
DX: I83.892 Varicose veins of left lower extremity with other complications (principal)
CPT/HCPCS: 99213

== ENCOUNTER 2023-12-22 11:47 | Outpatient (AMB) | payer OTHER, SELFPAY ==
[2023-12-22 11:55] VITALS: BP 120/76; PULSE 83; O2SAT 98; BMI 50.9
--- NOTE | 2023-12-22 11:55 | A.OFFPC_ITS ---
Vital Signs 12/22/23 11:55 Height 5 ft 10 in Weight 355 lb BMI 50.9 BP 120/76 Blood Pressure Location Lt brachial Position Sitting Pulse 83 Pulse Source Pulse Oximeter Pulse Oximetry (%) 98 Oxygen Delivery Method Room Air Intake Visit Reasons: wheelchair request Information Assurance Specialist Required: No Accompanied by: Self / Same As Patient Allergies egg Allergy (Verified 12/22/23 12:12) Nausea mayonnaise Allergy (Verified 12/22/23 12:12) Nausea Medication List - Last Reconciled 12/22/23 by Trinidad Bridges MD divalproex (Depakote) 500 mg PO BID 90 days hydrocortisone 1% 1 appl topical TID PRN ibuprofen 600 mg PO Q8H PRN levetiracetam (Keppra) 1,000 mg PO BID 30 days loratadine (Allergy Relief (loratadine)) mg PO tobramycin 0.3% drps ophthalmic (eye) Tobacco use date assessed: 09/03/23 Dental Screening Dental Screen Date: 09/03/23 HPI HPI Comments History of Present Illness Details This is a 38-year-old male with seizures, mild major depression in remission, polysubstance abuse and morbid obesity that comes today complaining of left knee pain. He has been falling multiple times. I will order x-ray and refer him to physical therapy. I will order a cane for gait stability. Has had minor seizures and this is follow by Neurology. Depression is in remission. Was advised to quit drinking alcohol and inhaling cocaine. He is morbidly obese with a BMI of 50.9 and was referred to weight management in August. [facility] Medical History (Updated 12/22/23 @ 12:24 by Trinidad Bridges MD) Cocaine abuse Seizure Eardrum trauma Morbid obesity with BMI of 50.0-59.9, adult Lumbar pain HTN (hypertension) Bipolar 1 disorder Chronic back pain ETOH abuse Polysubstance abuse Seizure Non compliance with medical treatment Non compliance w medication regimen Obesity Surgical History No pertinent past surgical history Family History Mother Hypertension Diabetes Cancer Father Diabetes Hypertension Social History Household Members: Other Household Members Other:: AUNT Housing: Other Housing Other:: homeless sometimes stays with friends Do you presently have visiting nurse or other home services: No Alcohol intake: former Patient Tobacco Use Status: Never used Tobacco e-Cigarette/Vaping Use: Never Used Second Hand Smoke Exposure: No Substance Use Type: Crack/Cocaine service: No Current occupational status: disabled Cognitive needs: No Hearing needs: No Vision needs: No Questionnaire Thrive Questionnaire Date Thrive assessed: 09/03/23 JUAN-7 AMB Questionnaire JUAN-7 Date JUAN - 7 assessed: 09/03/23 Source: Developed by Drs. Velasquez Maddox, Radha Pandya, Mundo Castillo and colleagues, with an educational caprice from [employer]. Review of Systems Const All systems reviewed & are unremarkable except as noted in HPI and below Card Denies chest pain at rest, Denies chest pain with activity, Denies edema, Denies irregular heart rhythm, Denies claudication, Denies dyspnea, Denies dyspnea on exertion, Denies orthopnea, Denies paroxysmal nocturnal dyspnea and Denies slow heart rate Resp Denies cough, Denies dyspnea and Denies dyspnea on exertion GI Denies abdominal pain, Denies change in bowel habits, Denies excessive flatus, Denies nausea and Denies vomiting Denies urinary hesitancy, Denies urinary incontinence and Denies urinary urgency Musc Denies abnormal gait, Denies atrophy, Denies deformity, Reports arthralgias and Denies limited range of motion Skin/Breast Denies bleeding lesions, Denies changing lesions and Denies rash Neuro Denies abnormal gait and Denies lack of coordination Physical exam (Primary Care) Vital Signs: Last Vital Signs Pulse 83 12/22/23 11:55 BP 120/76 12/22/23 11:55 Pulse Ox 98 12/22/23 11:55 Oxygen Delivery Method Room Air 12/22/23 11:55 BMI result Body Mass Index 50.9 BMI Assessment/Plan discussion: High BMI High, discussed plan: lifestyle, weight reduction, dietary and physical activity Tobacco/Smoking Status: Tobacco use Status Tobacco use date assessed 09/03/23 12/22/23 11:58 Patient Tobacco Use Status Never used Tobacco 12/22/23 11:58 Tobacco use type 12/04/23 09:20 e-Cigarette/Vaping Use Never Used 12/22/23 11:58 Thrive Assessment: Date of Thrive Assessment Date Thrive assessed 09/03/23 12/22/23 11:58 Resp Effort & Inspection: normal respiratory effort Auscultation: clear to auscultation bilaterally Cardio Jugular venous distension: no JVD Rate: regular rate Rhythm: regular rhythm Heart sounds: S1 normal heart sound present and S2 normal heart sound present Neuro General: no focal motor deficits Extrem General: Yes full ROM Assessment and Plan Assessment & Plan (1) Left knee pain: Code(s): M25.562 - Pain in left knee Qualifiers: Chronicity: acute Qualified Code(s): M25.562 - Pain in left knee Plan: X-ray ordered. Start physical therapy. (2) Morbid obesity with BMI of 50.0-59.9, adult: Code(s): E66.01 - Morbid (severe) obesity due to excess calories; Z68.43 - Body mass index [BMI] 50.0-59.9, adult Plan: Referred to weight management. BMI goal is less than 30. (3) Polysubstance abuse: Comment: Cocaine and alcohol Code(s): F19.10 - Other psychoactive substance abuse, uncomplicated Plan: Advised to quit drinking alcohol and inhaling cocaine. (4) Seizure: Code(s): R56.9 - Unspecified convulsions Plan: Continue Keppra and Depakote. Follow-up with Neurology. (5) Mild recurrent major depression: Code(s): F33.0 - Major depressive disorder, recurrent, mild Plan: In remission. Orders: Orders PT Evaluation and Treatment Today M25.562 - Pain in left knee XR knee LT 2V Today M25.562 - Pain in left knee Referrals Orthopedics Referral M25.562 - Pain in left knee Medications: New cane As directed 1 ea 0RF M25.562 - Pain in left knee Coding Level of Care Code Est Pt Level 4 (86557) Complex EM visit Add On G2211 Diagnoses Acute pain of left knee M25.562 Chronicity: acute Morbid obesity with BMI of 50.0-59.9, adult E66.01; Z68.43 Polysubstance abuse F19.10 Seizure R56.9 Mild recurrent major depression F33.0 Time Spent (min) 20
== END 2023-12-22 12:21 | disposition home or self-care (01) ==
PROVIDERS: PCP Internal Medicine; Visit Provider Internal Medicine
DX: M25.562 Pain in left knee (principal); E66.01 Morbid (severe) obesity due to excess calories; Z68.43 Body mass index [BMI] 50.0-59.9, adult; F19.10 Other psychoactive substance abuse, uncomplicated; R56.9 Unspecified convulsions; F33.0 Major depressive disorder, recurrent, mild
CPT/HCPCS: 99214; G2211

== ENCOUNTER 2023-12-22 12:27 | Outpatient (REF) | payer OTHER, SELFPAY ==
--- NOTE | ~2023-12-22 | XR_ITS ---
Study: Left knee INDICATION: Pain COMPARISON: None TECHNIQUE: 4 view left knee FINDINGS: No fracture or dislocation. No joint effusion. Mild medial knee joint narrowing. Medial varicosities. XR/XR knee LT 2V IMPRESSION: No acute bony pathology. Mild degenerative change. Varicosities. Electronically signed by: Lori Bermudez MD 01/20/2024 08:29 AM EDT
--- NOTE | ~2023-12-22 | XR_ITS ---
EXAMINATION: XR LUMBOSACRAL SPINE CLINICAL INFORMATION: Low back pain COMPARISON: 09/11/2022 TECHNIQUE: Three views of the lumbosacral spine. FINDINGS: Lumbar lordotic straightening again seen. 5 lumbar type vertebral bodies are identified with stable mild anterior wedging of L1. L5-S1 disc space narrowing has worsened. L5-S1 spurring and sclerosis again seen. Pedicles and SI joints within normal limits. XR/XR lumbar spine 2-3V IMPRESSION: Worsening L5-S1 disc disease. Electronically signed by: Lori Bermudez MD 01/20/2024 09:24 AM EDT
== END 2023-12-22 12:28 | disposition home or self-care (01) ==
LOC: HO.XRAY 12:27
PROVIDERS: PCP Internal Medicine; Visit Provider Internal Medicine
DX: M54.50 Low back pain, unspecified (principal); M25.562 Pain in left knee
CPT/HCPCS: 72100; 73560

== ENCOUNTER 2024-01-06 13:13 | Outpatient (AMB) | payer OTHER, SELFPAY ==
[2024-01-06 13:39] VITALS: BP 122/86; BMI 50.9
--- NOTE | 2024-01-06 13:39 | MHC.OFFVIS ---
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 Pt states his left leg is the one that is bothering him. He states he can feel veins bulging out in his left leg. Pt states he has pain in his leg when he walks but denies any numbness or tingling. 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 Complaints include pain over varicosities, swelling of lower extremities, cramping, fatigue, and heaviness of the lower extremities. It has been affecting there daily activities including walking. It is noted more so in left leg. Patient reports what appears to be scleral injections in the left lower extremity by approximately 4 years prior Patient denies any history of DVT/ PE. Patient denies any history of phlebitis. Trial of compression includes - prescription compression for over 4 year They now present for vascular evaluation regarding their varicose veins. [facility] Medical History Cocaine abuse Seizure Eardrum trauma Morbid obesity with BMI of 50.0-59.9, adult Lumbar pain HTN (hypertension) Bipolar 1 disorder Chronic back pain ETOH abuse Polysubstance abuse Seizure Non compliance with medical treatment Non compliance w medication regimen Obesity Surgical History No pertinent past surgical history Family History Mother Hypertension Diabetes Cancer Father Diabetes Hypertension Social History Household Members: Other Household Members Other:: AUNT Housing: Other Housing Other:: homeless sometimes stays with friends Do you presently have visiting nurse or other home services: No Alcohol intake: former Patient Tobacco Use Status: Never used Tobacco e-Cigarette/Vaping Use: Never Used Second Hand Smoke Exposure: No Substance Use Type: Crack/Cocaine service: No Current occupational status: disabled Cognitive needs: No Hearing needs: No Vision needs: No Review of Systems Const Reports as per HPI ENT Reports no additional complaints Card Denies chest pain, Denies chest pain at rest and Denies chest pain with activity Resp Denies chest congestion and Denies cough GI Reports no additional complaints Musc Details: pain over varicosities, aching of lower extremities, swelling, cramping, heaviness and tiredness, itching Denies abnormal gait Skin/Breast Reports pruritus and Denies wounds Neuro Reports no additional complaints and Denies abnormal gait Psych Denies no additional complaints Physical Exam Vital Signs: Last Vital Signs BP 122/86 01/06/24 13:39 BMI result Body Mass Index 50.9 Const General: cooperative, healthy appearing and comfortable Orientation/consciousness: oriented to person, oriented to place and oriented to time Neck Carotids: no bruits Chest Chest palpation & inspection: normal inspection of the chest and normal palpation of entire chest wall Resp Effort & Inspection: normal respiratory effort and able to speak in complete sentences Cardio Rate: regular rate Heart sounds: S1 normal heart sound present and S2 normal heart sound present Peripheral pulses: Peripheral pulses 2+ throughout GI Inspection: Yes normal to inspection Skin Other: +2 edema, large rope-like varicosities greater than 4 mm left lateral and posterior thigh and calf CEAP Classification C4 - skin color changes Ep - Etiology Primary As - superficial veins P - reflux General skin exam: dry skin Neuro General: oriented to person, oriented to place and oriented to time Extrem Right lower extremity: full ROM, normal capillary refill and edema Left lower extremity: full ROM, normal capillary refill and edema Psych Mental Status: mental status grossly normal Assessment & Plan Assessment & Plan (1) Varicose veins of left lower extremity with inflammation: Code(s): I83.12 - Varicose veins of left lower extremity with inflammation Category: Medical Plan: In short, the patient has evidence of venous insufficiency. I have discussed the pathophysiology with the patient. In addition I have provided informational material regarding venous disease to the patient. We have discussed conservative measures including compression, elevation, and exercise. I have also provided a handout regarding appropriate use of compression stockings and where to purchase good compression stockings as well. I have taken the liberty of ordering venous insufficiency testing with the patient. They will follow up with me after testing. The patient had an opportunity to ask questions regarding the treatment plan. All questions were answered. Imaging studies, laboratory studies and physical exam results were discussed and reviewed in detail. No major barriers to understanding were identified. The patient expressed understanding and agreement with the above treatment plan. The patient is aware they should contact our office by phone for worsening of the current condition or the appearance of new symptoms. Thank you for allowing me to participate in the vascular care of this patient. If you have any questions or concerns regarding the treatment for the above condition please do not hesitate to contact me. The office telephone contact is [phone]. This note is constructed using voice recognition software. While every effort has been made to ensure accuracy, heading and priming operator errors may have been included. Thank you for allowing me to participate in the care of your patient. Yours sincerely, Zeeshan Pompa MD, FACS, R.P.V.I. Orders: Orders US venous duplex LE BI 1 Week I83.12 - Varicose veins of left lower extremity with inflammation Coding Level of Care Code New Pt Level 4 (51355) Diagnoses Varicose veins of left lower extremity with inflammation I83.12
== END 2024-01-06 13:59 | disposition home or self-care (01) ==
PROVIDERS: PCP Internal Medicine; Visit Provider Surgery Vascular Surgery
DX: I83.12 Varicose veins of left lower extremity with inflammation (principal)
CPT/HCPCS: 99204

== ENCOUNTER → 2024-01-06 13:13 | Outpatient (BNVA) | payer OTHER, SELFPAY | PROVIDERS: PCP Internal Medicine; Visit Provider Surgery Vascular Surgery | DX: I83.12 Varicose veins of left lower extremity with inflammation (principal) | CPT/HCPCS: 99202 ==

== ENCOUNTER 2024-01-19 20:12 | Emergency (ER) | payer OTHER, SELFPAY ==
[2024-01-19 20:21] VITALS: BP 128/60; PULSE 80; O2SAT 96
[2024-01-19 20:41] VITALS: BP 139/71; PULSE 70; RESP 16; TEMP 37.1; O2SAT 99; BMI 55.3
--- NOTE | 2024-01-19 21:07 | PC.NURSE ---
pt upset that the tv, in his room, doesn;t work. pt states he will leave, if tv doesn't work. When told he could leave, pt states 'i need a ride home' when informed we don't given rides home, pt decided he would stay
--- NOTE | 2024-01-19 21:12 | PC.NURSE ---
went back into room, to check if pt, was staying, pt states, he is leaving. pt got dressed and amb steadily out the door
== END 2024-01-19 21:19 | disposition left against medical advice (07) ==
PROVIDERS: Emergency Provider Emergency Medicine; PCP Internal Medicine
DX: R11.2 Nausea with vomiting, unspecified (principal); R10.9 Unspecified abdominal pain; Z53.21 Procedure and treatment not carried out due to patient leaving prior to being seen by health care provider
CPT/HCPCS: 99281; 99283

== ENCOUNTER 2024-04-16 15:40 | Emergency (ER) | payer OTHER, SELFPAY ==
--- NOTE | ~2024-04-16 | XR_ITS ---
EXAMINATION: XR CHEST CLINICAL INFORMATION: dyspnea COMPARISON: Chest x-ray on 07/06/2023 TECHNIQUE: Frontal view of the chest was obtained. FINDINGS: No significant abnormality is noted involving the heart, lungs, mediastinum, bony thorax or soft tissues. XR/XR chest 1V IMPRESSION: Unremarkable examination. Electronically signed by: Shikha Ochoa MD 04/16/2024 05:09 PM [facility]
[2024-04-16 16:02] VITALS: BP 139/91; PULSE 90; RESP 20; TEMP 36.9; O2SAT 96; O2SAT 97; BMI 50.2
--- NOTE | 2024-04-16 16:23 | ECG_ITS ---
Test Reason : chest pain Blood Pressure : / mmHG Vent. Rate : 084 BPM Atrial Rate : 084 BPM P-R Int : 176 ms QRS Dur : 098 ms QT Int : 368 ms P-R-T Axes : 019 -08 -06 degrees QTc Int : 434 ms Normal sinus rhythm Minimal voltage criteria for LVH, may be normal variant ( R in aVL ) Cannot rule out Anterior infarct , age undetermined Abnormal ECG When compared with ECG of 06-AUG-2023 21:28, Minimal criteria for Anterior infarct are now Present Referred By: Daniel Lyon Electronically Signed By:ELVIRA CARBONE
[2024-04-16 16:40] LABS: MANUAL DIFF FLAG NO
[2024-04-16 16:43] LABS: Basophils Absolute Auto 0.1 X10*3/uL (0.0-0.2); Basophils Percent Auto 0.5 % (0-2); Eosinophils Percent Auto 0.3 % (0-4); Hematocrit 42.9 % (42.0-52.0); Hemoglobin 14.4 g/dl (14.0-18.0); Imm Gran Abs Auto 0.02 X10*3/uL (0.00-0.03); Imm Gran Pct Auto 0.2 % (0.0-0.4); Mean Corpuscular HGB Conc 33.6 g/dl (31.0-36.0); Mean Corpuscular Hemoglobin 28.8 pg (27.0-33.0); Mean Corpuscular Volume 85.8 fL (80.0-98.0); Mean Platelet Volume 11.7 fL (9.4-12.4); Monocytes Absolute Auto 0.8 X10*3/uL (0.1-1.2); Monocytes Percent Auto 7.4 % (2-11); Neutrophils Absolute Auto 8.4 x10*3/uL (2.0-8.3); Neutrophils Percent Auto 81.6 % (45-73); Platelet Count 213 X10*3/uL (160-400); Red Cell Distribution Width 12.2 % (11.0-16.0); White Blood Count 10.3 X10*3/uL (4.8-10.8)
[2024-04-16 16:49] LABS: Prothrombin Time 11.3 SEC (10.9-12.4)
[2024-04-16 16:58] LABS: Valproate < 12.5 mcg/mL (50.0-100.0)
[2024-04-16 16:59] LABS: Lactic Acid 0.8 mmol/L (0.5-2.0)
[2024-04-16 17:01] LABS: Alanine Aminotransferase 21 U/L (0-40); Albumin Level 4.2 g/dL (3.5-5.0); Alkaline Phosphatase 94 U/L (39-117); Anion Gap 15 (12-20); Aspartate Amino Transferase 22 U/L (5-37); Bilirubin Total 0.4 mg/dL (0.0-1.0); Blood Urea Nitrogen 20 mg/dL (9-16); Calcium 9.6 mg/dL (8.4-10.2); Carbon Dioxide 22 mmol/L (22-29); Chloride 109 mmol/L (96-108); Creatinine Clr Calc Pharmacy 158.5; Estimated Glomerular Filt Rate > 60; Ethanol < 10 mg/dL; Glucose Random 111 mg/dL (60-115); Lipase 17 U/L (8-78); Magnesium 2.1 mg/dL (1.6-2.6); Potassium 4.4 mmol/L (3.3-5.1); Sodium 142 mmol/L (135-145); Total Protein 7.5 g/dL (6.5-8.0)
--- NOTE | 2024-04-16 17:01 | ED_ITS ---
HPI - General Adult General Chief complaint: General Medical Stated complaint: diff breathing,feels like hes gonna have a seizure Time Seen by Provider: 04/16/24 15:49 Source: patient, RN notes reviewed, old records reviewed and police Mode of arrival: EMS Limitations: no limitations History of Present Illness ED Provider: Sonali HPI narrative: 38-year-old male with past medical history significant for seizure disorder maintained on Keppra and Depakote, bipolar disorder presents for evaluation weakness Patient arrives in police custody. He reports that he has been angry his girlfriend is not taking his medications no last 4 days. He also complains of shortness of breath and chest tightness. He feels as though he may have a seizure. He reports his last seizure was 4 days ago and he took his medication immediately after That was the last time that he took his medications He denies any fevers, chills, headaches. Related Data Home Medications ?Medication ?Instructions ?Recorded ?Confirmed loratadine 10 mg tablet (Allergy mg PO 10/28/23 12/22/23 Relief (loratadine)) tobramycin 0.3 % eye drops drp ophthalmic (eye) 10/28/23 12/22/23 Previous Rx's ?Medication ?Instructions ?Recorded hydrocortisone 1 % topical cream 1 appl topical TID PRN itching 07/04/23 #28.4 grams ibuprofen 600 mg tablet 600 mg PO Q8H PRN pain #14 tabs 11/25/23 divalproex 500 mg tablet,delayed 500 mg PO BID 90 days #180 tabs 12/15/23 release (Depakote) levetiracetam 1,000 mg tablet 1,000 mg PO BID 30 days #60 tabs 12/15/23 (Keppra) cane #1 ea 01/02/24 Allergies Allergy/AdvReac Type Severity Reaction Status Date / Time egg Allergy Nausea Verified 04/16/24 16:04 mayonnaise Allergy Nausea Verified 04/16/24 16:04 Review of Systems 2 Constitutional: Constitutional: Reports body ache(s), Denies chills, Denies fever(s), Denies headache(s) and Reports weakness Eyes: Eyes: Denies floaters and Denies irritation ENT: Denies vertigo, Denies dizziness and Denies headache(s) Cardiovascular: Cardiovascular: Reports chest pain and Reports dyspnea Respiratory: Respiratory: Denies cough and Reports dyspnea Gastrointestinal: Gastrointestinal: Denies abdominal pain, Denies nausea and Denies vomiting Musculoskeletal: Musculoskeletal: Denies back pain Integumentary/Breasts: Skin/Breast: Denies rash Neurologic: Denies vertigo, Denies dizziness, Denies headache(s) and Reports weakness Psychiatric: Psychiatric: Denies anxiety, Denies visual hallucinations and Denies suicidal ideation PMFSH Past Medical History Medical History Cocaine abuse Seizure Eardrum trauma Morbid obesity with BMI of 50.0-59.9, adult Lumbar pain HTN (hypertension) Bipolar 1 disorder Chronic back pain ETOH abuse Polysubstance abuse Seizure Non compliance with medical treatment Non compliance w medication regimen Obesity Surgical History No pertinent past surgical history Family History Family History Mother Hypertension Diabetes Cancer Father Diabetes Hypertension Social History Social History Household Members: Other Household Members Other:: AUNT Housing: Other Housing Other:: homeless sometimes stays with friends Do you presently have visiting nurse or other home services: No Alcohol intake: former Patient Tobacco Use Status: Never used Tobacco Smoked in Last 30 Days: No e-Cigarette/Vaping Use: Never Used Second Hand Smoke Exposure: No Use of substances other than those prescribed or required for medical reasons: No Substance Use Type: Crack/Cocaine Advance Directives: No Advance Directives Information Provided: No service: No Current occupational status: disabled Cognitive needs: No Hearing needs: No Vision needs: No Physical Exam ED Vital Signs: Vital Signs - 24 hr 04/16/24 16:02 Temperature 98.4 F Pulse Rate 90 Respiratory Rate 20 Blood Pressure 139/91 H Pulse Oximetry 96 Oxygen Delivery Method Room Air BMI result Body Mass Index 50.2 Const General: healthy appearing, comfortable, no acute distress, alert and awake Nutritional Appearance: well nourished Orientation/consciousness: patient oriented x3 HENMT Head: Yes normocephalic and Yes atraumatic Eyes Eyelids: Yes eyelids normal Conjunctivae: conjunctivae normal Sclerae: sclerae normal Corneas: corneas normal Pupils: Equal, round and reactive pupils present EOM: EOMs intact bilaterally Neck Neck: Yes full ROM Resp Effort & Inspection: normal respiratory effort, able to speak in complete sentences and not labored Cardio Rate: regular rate Rhythm: regular rhythm GI Inspection: No distended Palpation (GI): Soft to palpation, not firm, nontender, no guarding and not rigid Skin General skin exam: elasticity normal Neuro General: patient oriented x3 Cranial nerves: Yes CN's II-XII intact bilaterally, Yes Equal, round and reactive pupils present and Yes Bilaterally intact EOM present Cognition (Neuro): normal cognition Extrem Other: Moving all extremities well without any obvious deformities Medications Administered Discontinued Medications Generic Name Dose Route Start Last Admin Trade Name Freq PRN Reason Stop Dose Admin Divalproex Sodium 1,000 mg 04/16/24 17:02 04/16/24 17:17 Divalproex Sodium Er 500 Mg Tab.Er.24h PO 04/16/24 17:03 1,000 mg ONCE ONE Administration Medical Decision Making Medical Decision Making [facility] Narrative: 38-year-old male past medical history as documented above presents for evaluation of general weakness. We will get basic labs, EKG, portable chest x- ray given his reported shortness of breath and chest tightness. He appears well with stable vital signs. He has not had any witnessed seizure-like activity in his awake, alert and oriented. Further workup as indicated Differential Diagnosis Differential Diagnoses: The differential diagnosis associated with the presentation includes Weakness Bipolar disorder Medication noncompliance Substance abuse Viral syndrome Lab Data 04/16/24 16:35 04/16/24 16:35 Labs: Lab Results 04/16/24 04/16/24 Range/Units 16:35 17:53 WBC 10.3 (4.8-10.8) X10*3/uL RBC 5.00 (4.60-5.80) X10*6/uL Hgb 14.4 (14.0-18.0) g/dl Hct 42.9 (42.0-52.0) % MCV 85.8 (80.0-98.0) fL MCH 28.8 (27.0-33.0) pg MCHC 33.6 (31.0-36.0) g/dl RDW 12.2 (11.0-16.0) % Plt Count 213 (160-400) X10*3/uL MPV 11.7 (9.4-12.4) fL Immature Gran % (Auto) 0.2 (0.0-0.4) % Neut % (Auto) 81.6 H (45-73) % Lymph % (Auto) 10.0 L (20-40) % [place] % (Auto) 7.4 (2-11) % Eos % (Auto) 0.3 (0-4) % Baso % (Auto) 0.5 (0-2) % Lymph # (Auto) 1.0 L (1.2-4.9) X10*3/uL [place] # (Auto) 0.8 (0.1-1.2) X10*3/uL Eos # (Auto) 0.0 (0.0-0.4) X10*3/uL Baso # (Auto) 0.1 (0.0-0.2) X10*3/uL Abs Immat Gran (auto) 0.02 (0.00-0.03) X10*3/uL Absolute Neuts (auto) 8.4 H (2.0-8.3) x10*3/uL Absolute Nucleated RBC 0.000 (0.0-0.012) X10*3/uL Nucleated RBC % (auto) 0.0 (0.0-0.2) /100WBC PT 11.3 (10.9-12.4) SEC INR 1.0 (0.9-1.1) Sodium 142 (135-145) mmol/L Potassium 4.4 (3.3-5.1) mmol/L Chloride 109 H (96-108) mmol/L Carbon Dioxide 22 (22-29) mmol/L Anion Gap 15 (12-20) BUN 20 H (9-16) mg/dL Creatinine 0.94 (0.5-1.4) mg/dL Estim Creat Clear Calc 158.5 Estimated GFR > 60 Random Glucose 111 (60-115) mg/dL Lactic Acid 0.8 (0.5-2.0) mmol/L Calcium 9.6 D (8.4-10.2) mg/dL Phosphorus 4.0 (2.7-4.5) mg/dL Magnesium 2.1 (1.6-2.6) mg/dL Total Bilirubin 0.4 (0.0-1.0) mg/dL AST 22 (5-37) U/L ALT 21 (0-40) U/L Alkaline Phosphatase 94 (39-117) U/L Troponin I High Sens 3.6 3.6 (<3.5-35.0) ng/L Total Protein 7.5 (6.5-8.0) g/dL Albumin 4.2 (3.5-5.0) g/dL Lipase 17 (8-78) U/L Valproic Acid < 12.5 L (50.0-100.0) mcg/mL Ethyl Alcohol < 10 mg/dL Discharge Plan Discharge Clinical Impression: Weakness, Noncompliance Patient Disposition: Home, Self-Care Instructions: Weakness (ED) Additional Instructions: Your workup in the ER today was reassuring. Take all of your medications as prescribed Prescriptions: No Action levetiracetam [Keppra] 1,000 mg tablet 1,000 mg PO BID 30 Days Qty: 60 6RF divalproex [Depakote] 500 mg tablet,delayed release (DR/EC) 500 mg PO BID 90 Days Qty: 180 1RF (DME) cane Device See Rx Instructions .Route Qty: 1 0RF Rx Instructions: As directed hydrocortisone 1 % cream 1 appl topical TID PRN (Reason: itching) Qty: 28.4 0RF tobramycin 0.3 % drops ophthalmic (eye) loratadine [Allergy Relief (loratadine)] 10 mg tablet PO ibuprofen 600 mg tablet 600 mg PO Q8H PRN (Reason: pain) Qty: 14 0RF Rx Instructions: Take with food Print Language: Niuean
[2024-04-16 17:08] LABS: Troponin-I High Sensitivity 3.6 ng/L (<3.5-35.0)
[2024-04-16] MEDS: Divalproex Sodium ER 500 MG TAB.ER.24H 1000 MG PO (17:17)
[2024-04-16 18:25] LABS: Troponin-I High Sensitivity 3.6 ng/L (<3.5-35.0)
[2024-04-16 18:34] VITALS: BP 161/95; PULSE 88; RESP 18; TEMP 36.9; O2SAT 97
[2024-04-18 18:09] LABS: Levetiracetam Keppra <2.0 mcg/mL (6.0-46.0)
== END 2024-04-16 18:44 | disposition home or self-care (01) ==
PROVIDERS: Physician Assistant; Emergency Provider Emergency Medicine; PCP Internal Medicine
DX: R06.02 Shortness of breath (principal); F31.9 Bipolar disorder, unspecified; R07.89 Other chest pain; Z91.148 Patient's other noncompliance with medication regimen for other reason; Z79.899 Other long term (current) drug therapy; Z51.81 Encounter for therapeutic drug level monitoring
CPT/HCPCS: 36415; 71045; 80053; 80164; 80177; 80307; 83605; 83690; 83735; 84100; 84484; 85025; 85610; 93005; 99284

== ENCOUNTER → 2024-04-16 16:23 | Outpatient (BNV) | payer OTHER, SELFPAY | PROVIDERS: Emergency Provider Emergency Medicine; PCP Internal Medicine; Visit Provider Internal Medicine | DX: R94.31 Abnormal electrocardiogram [ECG] [EKG] (principal) | CPT/HCPCS: 93010 ==

== ENCOUNTER 2024-06-29 13:58 | Outpatient (AMB) | payer OTHER, SELFPAY ==
--- NOTE | 2024-06-29 14:16 | A.OFFPC_ITS ---
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: No Accompanied by: Self / Same As Patient Allergies egg Allergy (Verified 06/29/24 14:27) Nausea mayonnaise Allergy (Verified 06/29/24 14:27) Nausea Medication List - Last Reconciled 06/29/24 by Trinidad Bridges MD cane As directed divalproex (Depakote) 500 mg PO BID 90 days hydrocortisone 1% 1 appl topical TID PRN ibuprofen 600 mg PO Q8H PRN levetiracetam (Keppra) 1,000 mg PO BID 30 days loratadine (Allergy Relief (loratadine)) mg PO tobramycin 0.3% drps ophthalmic (eye) Tobacco use date assessed: 06/29/24 Dental Screening Dental Screen Date: 06/29/24 Did you have a dental visit in the last 12 months?: Yes Did you have a dental problem in the last 6 months where you did not have access to dental care?: No Was dental information given to patient?: Patient has dentist HPI HPI Comments History of Present Illness Details The patient is a 39-year-old male presenting for an annual physical examination. He has a history of morbid obesity with a body mass index (BMI) of 49.8. The patient has been experiencing ongoing challenges with weight management. He reports no prior surgical interventions for weight reduction. His current medications include Divalproex and Keppra for seizure management, and Loratadine for allergies. The patient denies any surgeries in the past. The patient's family history is notable for both parents having hypertension and diabetes. Additionally, his mother had a history of cancer. He reports a history of alcohol use but states he has ceased consumption. The patient denies current tobacco or cocaine use and reports abstaining from cocaine for over four months. The patient also reports allergy to eggs and mayonnaise, which has previously resulted in adverse reactions. There is no history of cardiac infection. He is on a treatment regimen involving Ibuprofen as needed. The patient underwent an auditory examination at a local facility. - Discussion of weight management due to morbid obesity - Hearing examination performed at an ex ternal facility [facility] Medical History (Updated 06/29/24 @ 14:41 by Trinidad Bridges MD) Cocaine abuse Seizure Eardrum trauma Morbid obesity with BMI of 50.0-59.9, adult Lumbar pain HTN (hypertension) Bipolar 1 disorder Chronic back pain ETOH abuse Polysubstance abuse Seizure Non compliance with medical treatment Non compliance w medication regimen Obesity Surgical History No pertinent past surgical history Family History Mother Hypertension Diabetes Cancer Father Diabetes Hypertension Social History Household Members: Other Household Members Other:: AUNT Housing: Other Housing Other:: homeless sometimes stays with friends Do you presently have visiting nurse or other home services: No Alcohol intake: former Patient Tobacco Use Status: Never used Tobacco e-Cigarette/Vaping Use: Never Used Second Hand Smoke Exposure: No Substance Use Type: Crack/Cocaine service: No Current occupational status: disabled Cognitive needs: No Hearing needs: No Vision needs: No Questionnaire PHQ-9 Over the last 2 weeks, how often have you been bothered by any of the following problems? 1. Little interest or pleasure in doing things: not at all 2. Feeling down, depressed, or hopeless: not at all 3. Trouble falling or staying asleep, or sleeping too much: not at all 4. Feeling tired or having little energy: not at all 5. Poor appetite or overeating: not at all 6. Feeling bad about yourself - or that you are a failure or have let yourself or your family down: not at all 7. Trouble concentrating on things, such as reading the newspaper or watching television: not at all 8. Moving or speaking so slowly that other people could have noticed. Or the opposite - being so fidgety or restless that you have been moving around a lot more than usual: not at all 9. Thoughts that you would be better off or of hurting yourself in some way: not at all Total score: 0 Depression Screening Interpretation: Negative Depression Screening Done: Yes 68969 - PHQ-9 Billing: Yes Source: Developed by Drs. Velasquez L. VarshaRadha cameron Kurt Kroenke and colleagues, with an educational caprice from [employer]. Thrive Questionnaire Date Thrive assessed: 06/29/24 I am a: Patient What is your living situation today?: I have a steady place to live Within the past 12 months, did the food you bought not last and you didn't have the money to get more?: Never true Within the past 12 months, did you worry whether your food would run out before you got money to buy more?: Never true Do you have trouble paying for medicines?: No Do you have trouble getting transportation to medical appointments?: No Do you have trouble paying your heating and electricity bill?: No Do you have trouble taking care of your child, family member or friend?: No Do you have trouble with day-to-day activities such as bathing, preparing meals, shopping, managing finances, etc.?: No Are you currently unemployed and looking for a job?: No Are you interested in more education?: No Please select the resources that you would like help with: None Currently or been in a relationship where the following occur: No concerns reported THRIVE Score: 0 AUDIT C Alcohol Use Questionnaire (AUDIT-C) 1. How often do you have a drink containing alcohol?: Never Total Score: 0 Score Reviewed/Action Taken: No JUAN-7 AMB Questionnaire JUAN-7 Date JUAN - 7 assessed: 06/29/24 Feeling nervous, anxious, or on edge: 0 = Not at all Not being able to stop or control worryin = Not at all Worrying too much about different things: 0 = Not at all Trouble relaxin = Not at all Being so restless that it is hard to sit still: 0 = Not at all Becoming easily annoyed or irritable: 0 = Not at all Feeling afraid as if something awful might happen: 0 = Not at all Total JUAN-7 score (0-4 normal; 5-9 mild; 10-14 moderate; 15-21 severe): 0 Source: Developed by Drs. Velasquez Maddox, Mundo Perez and colleagues, with an educational caprice from [employer]. JUAN-7 Assessment Billing JUAN-7 Assessment Tool: JUAN-7 Assessment 63756 Review of Systems Const All systems reviewed & are unremarkable except as noted in HPI and below ENT Reports hearing loss Card Denies chest pain at rest, Denies chest pain with activity, Denies edema, Denies irregular heart rhythm, Denies claudication, Denies dyspnea, Denies dyspnea on exertion, Denies orthopnea, Denies paroxysmal nocturnal dyspnea and Denies slow heart rate Resp Denies cough, Denies dyspnea and Denies dyspnea on exertion GI Denies abdominal pain, Denies change in bowel habits, Denies excessive flatus, Denies nausea and Denies vomiting Denies urinary hesitancy, Denies urinary incontinence and Denies urinary urgency Musc Denies abnormal gait, Denies atrophy, Denies deformity and Denies limited range of motion Skin/Breast Denies bleeding lesions, Denies changing lesions and Denies rash Neuro Denies abnormal gait, Denies behavioral changes and Denies lack of coordination Psych Denies behavioral changes Physical exam (Primary Care) Vital Signs: Last Vital Signs BP 130/72 06/29/24 14:18 BMI result Body Mass Index 49.8 BMI Assessment/Plan discussion: High BMI High, discussed plan: lifestyle, weight reduction, dietary and physical activity Tobacco/Smoking Status: Tobacco use Status Tobacco use date assessed 06/29/24 06/29/24 14:23 Patient Tobacco Use Status Never used Tobacco 06/29/24 14:22 Tobacco use type 12/04/23 09:20 e-Cigarette/Vaping Use Never Used 06/29/24 14:22 PHQ-9: PHQ-9 Score PHQ-9: Total score 0 06/29/24 14:42 Depression Screening Interpretation: Negative Thrive Assessment: Date of Thrive Assessment Date Thrive assessed 06/29/24 06/29/24 14:22 Currently or been in a relationship where the following occur: No concerns reported [facility] Head: Yes normal to inspection, Yes normocephalic and Yes atraumatic Ears: external ears normal Eyes General: appearance normal, both eyes and all related structures Eyelids: Yes eyelids normal Conjunctivae: conjunctivae normal Neck Neck: Yes normal visual inspection and Yes supple Resp Effort & Inspection: normal respiratory effort Auscultation: clear to auscultation bilaterally Cardio Jugular venous distension: no JVD Rate: regular rate Rhythm: regular rhythm Heart sounds: S1 normal heart sound present and S2 normal heart sound present GI Inspection: Yes normal to inspection Palpation (GI): Soft to palpation and nontender Auscultation: normal bowel sounds Skin General skin exam: no rashes or lesions noted Neuro General: no focal motor deficits Extrem General: Yes full ROM Psych Appearance: grossly normal Office Procedures Flu Questionnaire Does the patient have a severe egg allergy?: No Immunizations Fluarix Triv [id number] (PF) 45 mcg (15 mcg x 3)/0.5 mL IM syringe Performing Provider: Trinidad Bridges MD [facility] [place] [facility] Documented (not given) by: ALBERTO Mckinney on 06/29/24 14:42 Reason Not Given: Patient Refused Coding Level of Care Code Est Pt Level 3 (65966) Est Pt Prev Care 40-64y(60998) Diagnoses Physical exam Z00.00 Polysubstance abuse F19.10 Mild recurrent major depression F33.0 Morbid obesity with BMI of 45.0-49.9, adult E66.01; Z68.42 Nausea R11.0 Chronic lumbar pain M54.50; G89.29 Additional Codes JUAN-7 Assessment Billing - JUAN-7 Assessment Tool: JUAN-7 Assessment 75142 ([id number]) PHQ-9 - 56157 - PHQ-9 Billing: Yes ([id number]) Time Spent (min) 35 Assessment & Plan Assessment & Plan (1) Physical exam: Code(s): Z00.00 - Encounter for general adult medical examination without abnormal f indings Category: Medical (2) Polysubstance abuse: Comment: Cocaine and alcohol Code(s): F19.10 - Other psychoactive substance abuse, uncomplicated Category: Medical (3) Mild recurrent major depression: Code(s): F33.0 - Major depressive disorder, recurrent, mild Category: Medical (4) Morbid obesity with BMI of 45.0-49.9, adult: Code(s): E66.01 - Morbid (severe) obesity due to excess calories; Z68.42 - Body mass index [BMI] 45.0-49.9, adult Category: Medical (5) Nausea: Code(s): R11.0 - Nausea Category: Medical (6) Chronic lumbar pain: Code(s): M54.50 - Low back pain, unspecified; G89.29 - Other chronic pain Category: Medical Plan - Review of current seizure management medications including Divalproex and Keppra. - Discuss potential surgery options for weight reduction. - Continue monitoring of allergies. - Scheduled laboratory work to assess overall health. - Referral to firearms instructor was made, pending results from the auditory examination. Patient was informed and verbally consented to the use of an ambient scribe for clinic note documentation during this visit. I discussed with the patient the ongoing management of his chronic conditions, including seizure disorder and allergies. We addressed the importance of weight management for his morbid obesity and considered the possibility of surgical intervention for weight reduction. I emphasized adherence to his current medication regimen, which includes Divalproex and Keppra for seizure control, and Loratadine for allergy management. The potential risks and benefits of weight reduction procedures were briefly introduced, and further exploration of these options is warranted. I arranged for auditory evaluation follow-up and lab work to monitor his overall health status. Orders: Orders Influenza [id number] Immunization Today Z23 - Encounter for immunization Lipid Panel Today E66.01 - Morbid (severe) obesity due to excess calories, Z68.42 - Body mass index [BMI] 45.0-49.9, adult Comprehensive [place]. Panel Fast Today E66.01 - Morbid (severe) obesity due to excess calories, Z68.42 - Body mass index [BMI] 45.0-49.9, adult Referrals Medical Weight Management Referral E66.01 - Morbid (severe) obesity due to excess calories, Z68.42 - Body mass index [BMI] 45.0-49.9, adult Ear/Nose/Throat Referral H91.90 - Unspecified hearing loss, unspecified ear Medications: New ondansetron 8 mg PO Q12H PRN 10 tabs 0RF nausea and vomiting 5 days R11.0 - Nausea lidocaine 4% (Aspercreme (lidocaine)) 1 patch topical DAILY PRN 30 ea 0RF pain 30 days G89.29 - Other chronic pain, M54.50 - Low back pain, unspecified Patient Instructions: - Continue current medications as prescribed. - Abstain from allergenic foods such as eggs and mayonnaise. - Maintain current lifestyle changes regarding alcohol and drug abstinence. - Return for follow-up to discuss weight management strategies. - Comply with scheduled lab work and follow-up with the firearms instructor. - Consider surgical weight loss options and discuss further in follow-up visits.
[2024-06-29 14:18] VITALS: BP 130/72; BMI 49.8
--- OUTSIDE RECORDS SUMMARY | 2024-06-29 14:59 | XMS_ITS | Clinical Summary ---
Demographics Address [address] [place] [address] Home Phone Preferred Language Cymro; Castilian Marital Status Unknown Samaritan Affiliation Unknown Race Black or Camryn rican Ethnic Group Not or Lati no Author Organization [facility] Address [address] [place] [address] Care Team Providers Care Automotive Vehicle Inspector Name Role Phone ShahramomayraJackson NP Primary Care Provider [phone] Source Comments PLEASE NOTE, if this patient is a minor, it may be UNLAWFUL to discuss sensitive information that is contained in these records (such as FAMILY PLANNING, MENTAL HEALTH or SUBSTANCE ABUSE) with the minor patient's parent or other person without the patient's specific authorization.[facility] Allergies No known active allergies Medications topiramate (TOPAMAX) 25 mg tablet Take 25 mg by mouth 2 (two) times daily. 5 02/09/2014 Active lamoTRIgine (LAMICTAL) 25 mg tablet Take 25 mg by mouth 2 (two) times daily. 5 02/09/2014 Active levETIRAcetam (KEPPRA) 500 mg tablet Take 500 mg by mouth 2 (two) times daily. 5 02/09/2014 Active naproxen sodium (ANAPROX) 550 mg tabletIndication s:Left hand pain Take 1 Tab by mouth 2 (two) times daily with a meal. 60 Tab 0 03/16/2014 Active Active Problems Problem Noted Date Diagnosed Date Seizure disorder ([facility]) 03/16/2014 Immunizations Name Administration Dates Next Due INFLUENZA, SEASONAL, INJECTABLE 03/16/2014 Family History Medical History Relation Name Comments Diabetes Brother Diabetes Father Relation Name Status Comments Brother Father Social History Tobacco Use Types Packs/Day Years Used Date Smoking Tobacco: Never Smokeless Tobacco: Never Alcohol Use Standard Drinks/Week Comments No 0 (1 standard drink = 0.6 oz pur e alcohol) Social Connections Answer Date Recorded Social Connections and Isolation 0 01/09/2019 Financial Resource Strain Answer Date R ecorded Financial Resource Strain 0 2018 Stress Answer Date Recorded Stress 0 01/09/2019 Physical Activity Answer Date Recorded Physical Activity 0 01/09/2019 Food Insecurity Answer Date Recorded Food 0 01/09/2019 Transportation Needs Answer Date Record ed Transportation 0 01/09/2019 Housing Stability Answer Date Recorded Housing 0 01/09/2019 Safety and Environment Answer Date Bear rded Safety 0 01/09/2019 Utilities Answer Date Recorded Utilities 0 01/09/2019 Employment Answer Date Recorded Employment 0 01/09/2019 Sex and Gender Information Value Date Recorded Sex Assigned at Not on file Legal Sex Male 12:59 PM PST Gender Identity Not on file Sexual Orientation Not on file Last Filed Vital Signs Vital Sign Reading Time Taken Comments Blood Pressure 130/92 03/16/2014 10:12 AM EDT Pulse 68 03/16/2014 9:44 AM EDT Temperature 36.8 ??C (98.2 ??F) 03/16/2014 9:44 AM ED T Respiratory Rate 24 03/16/2014 9:44 AM EDT Oxygen Saturation - - Inhaled Oxygen Concentration - - Weight 152.1 kg (335 lb 6.4 oz) 03/16/2014 9:44 AM EDT Height 178 cm (5' 10.08 ) 03/16/2014 9:44 AM EDT Body Mass Index 48.02 03/16/2014 9:44 AM EDT Plan of Treatment Not on file [place] FORMERLY [facility] DENTAL MEDICAID Care Teams Automotive Vehicle Inspector Relationship Specialty Start Date End Date Jackson Whtiney NP [address] [place] [address] PCP - General 03/26/18
--- OUTSIDE RECORDS SUMMARY | 2024-06-29 14:59 | XMS_ITS | Clinical Summary ---
Author Organization [facility] Address [address] [place] [address] Care Team Providers Care Director Supplier Quality Name Role Phone Megan José MD Primary Care Provider [phone] Surgical History Surgery Date Site/Laterality Comments OTHER SURGICAL HISTORY PROCEDURE: DENIES PREVIOUS SURGERY Medical History Medical History Date Comments Epilepsy (CMS/HCC) DX:Epilepsy ( HCC) Family History Medical History Relation Name Comments Other: Neg DM hx Other 1 Other: Neg cardiac hx Other 2 Other: Neg CA hx Other 3 Relation Name Status Comments Brother Alive Daughter 1 Alive Daughter 2 Alive Daughter 3 Alive Father Alive Maternal Grandfather Maternal Grandmother Mother Alive Other 1 Other 2 Other 3 Other 4 Paternal Grandfather Paternal Grandmother Sister 1 Alive Sister 2 Alive Sister 3 Alive Son Alive Social History Tobacco Use Types Packs/Day Years Used Date Smoking Tobacco: Never Smokeless Tobacco: Never Alcohol Use Standard Drinks/Week Comments Not Asked 0 (1 standard drink = 0.6 oz pur e alcohol) Sex and Gender Information Value Date Recorded Sex Assigned at Not on file Legal Sex Male 2:00 AM EST Gender Identity Not on file Sexual Orientation Not on file Obstetrics History Plan of Treatment Health Maintenance Due Date Last Done Comments Hepatitis B Vaccines (3 of 3 - 19+ 3-dose series) 05/11/2008 03/16/2008, 02/16/2008, 09/08/2006 Cholesterol Screening (Lipid Panel) 06/17/2023 Depression Screening 06/17/2023 HIV Screening 06/17/2023 Hepatitis C Screening 06/17/2023 Hypertension/CHF/CAD Annual BMP Blood Test 06/17/2023 Social Influencers of Health Screening 06/17/2023 COVID-19 Vaccine (4 - 4-2 5 season) 2024 10/08/2021, 10/11/2020, 09/13/2020 Influenza Vaccine (#1) 2024 3, 03/16/2014, 05/21/2005 DTaP,Tdap,and Td Vaccines (4 - Td or Tdap) 11/07/2030 11/07/2020, 07/10/2015, 02/13/2014 Hepatitis A Vaccines Aged Out 02/16/2008 No long er eligible based on patient's age to complete this topic HIB Vaccines Aged Out No longer eligi ble based on patient's age to complete this topic HPV Vaccines Aged Out No longer eligi ble based on patient's age to complete this topic IPV Vaccines Aged Out No longer eligi ble based on patient's age to complete this topic MMR Vaccines Aged Out No longer eligi ble based on patient's age to complete this topic Meningococcal ACWY Vaccine Aged Out N o longer eligible based on patient's age to complete this topic Pneumococcal Vaccine: Pediatrics (0 to 5 Years) and At-Risk Patients (6 to 64 Years) Aged Out No longer eligible b ased on patient's age to complete this topic RSV Immunization Patients Under 20 months Aged Out No longer eligible b ased on patient's age to complete this topic Varicella Vaccines Aged Out No longer eligible based on patient's age to complete this topic Care Teams Director Supplier Quality Relationship Specialty Start Date End Date Megan José MD [address] [place] [address] PCP - General Internal Medicine 09/29/12
== END 2024-06-29 14:37 | disposition home or self-care (01) ==
PROVIDERS: PCP Internal Medicine; Visit Provider Internal Medicine
DX: Z00.00 Encounter for general adult medical examination without abnormal findings (principal); F19.10 Other psychoactive substance abuse, uncomplicated; F33.0 Major depressive disorder, recurrent, mild; E66.01 Morbid (severe) obesity due to excess calories; Z68.42 Body mass index [BMI] 45.0-49.9, adult; R11.0 Nausea; M54.50 Low back pain, unspecified; G89.29 Other chronic pain

== ENCOUNTER → 2024-06-29 13:58 | Outpatient (BNVA) | payer OTHER, SELFPAY | PROVIDERS: PCP Internal Medicine; Visit Provider Internal Medicine | DX: Z00.00 Encounter for general adult medical examination without abnormal findings (principal); F19.10 Other psychoactive substance abuse, uncomplicated; F33.0 Major depressive disorder, recurrent, mild; E66.01 Morbid (severe) obesity due to excess calories; Z68.42 Body mass index [BMI] 45.0-49.9, adult; R11.0 Nausea; M54.50 Low back pain, unspecified; G89.29 Other chronic pain; Z71.3 Dietary counseling and surveillance | CPT/HCPCS: 96127; 99212; 99396 ==

== ENCOUNTER 2024-07-19 12:47 | Outpatient (AMB) | payer OTHER, SELFPAY ==
--- NOTE | 2024-07-19 12:54 | AM.OFFVISNUR ---
Intake Visit Reasons: PPD Plant Allergies egg Allergy (Verified 06/29/24 14:27) Nausea mayonnaise Allergy (Verified 06/29/24 14:27) Nausea Office Meds tuberculin PPD 5 tub. unit/0.1 mL intradermal injection solution Performing Provider: Trinidad Bridges MD [place] [facility] [place] [facility] Administered by: Rosa Guillermo LPN on 07/19/24 12:54 Dose Route Admin Location Dispensed Lot Number Expiration Date [facility] [employer]il Taper 0.1 mL intradermal left forearm 0.1 mL [id number] 10/15/26 [id number] [employer] Assessment & Plan Assessment & Plan Orders: Orders AMB PPD Planted Today Z11.1 - Encounter for screening for respiratory tuberculosis Medications: New tuberculin PPD 0.1 mL intradermal ONCE 0.1 mL 0RF Z11.1 - Encounter for screening for respiratory tuberculosis Coding
--- OUTSIDE RECORDS SUMMARY | 2024-07-19 14:55 | XMS_ITS | Encounter Summary ---
Author Organization [facility] Address [address] [place] [address] Care Team Providers Care Education Teacher Name Role Phone Unavailable Primary Care Provider Unavailabl e Reason for Visit * Reason Comments Extraction Encounter Details Date Type Department Care Team ([facility] Contact Info) Description 06/15/2024 2:30 PM EST Office Visit [facility] ADULT [facility] [address] [place], [place] [id number] Anthony Yoo DDS [address] [place], [place] [phone] Social History Tobacco Use Types Packs/Day Years Used Date Smoking Tobacco: Former Cigarettes Passive Smoke Exposure: Past Alcohol Use Standard Drinks/Week Comments Not Currently 0 (1 standard drink = 0.6 oz pur e alcohol) Sex and Gender Information Value Date Recorded Sex Assigned at Male 03/18/2022 10:18 AM EDT Legal Sex Male 10:18 AM EDT Gender Identity Male 03/18/2022 10:18 AM EDT Sexual Orientation Straight 03/18/2022 10 :18 AM EDT documented as of this encounter Last Filed Vital Signs Vital Sign Reading Time Taken Comments Blood Pressure 140/90 06/15/2024 3:00 PM EST Pulse 53 06/15/2024 3:00 PM EST Temperature - - Respiratory Rate - - Oxygen Saturation 96% 06/15/2024 3:00 PM EST Inhaled Oxygen Concentration - - Weight - - Height - - Body Mass Index - - documented in this encounter Progress Notes * Anthony Yoo DDS - 06/15/2024 2:30 PM EST The patient presented for an extraction of tooth #13. Upon arrival, his blood pressure was recordedat 110/62 mmHg. The informed consent was signed, and a timeout was performed. Prior to the procedure, the patient was asked about his medical history. He reported a history of seizures and stated that he takes Divalproex twice daily. However, he could not recall when his last seizure occurred. Local anesthesia was administered via buccal infiltration. Half carpule of 4% Septocaine was administered. Immediately after administration, the patient was asked how he was feeling but did not respond. He was conscious and is breathing adequately. He was asked to give a thumbs-up gesture to indicate his condition, but he did not make any gesture. The patient started closing his eyes and stated that he felt dizzy. He was placed in the Trendelenburg position. Pulse was checked and found to be feeble.The patient began shaking and complained of cold extremities. Oxygen was administered at 4 to 6 liters per minute for approximately 15 minutes. Vital signs were being monitored. I instructed Kimberly santillan 911. 911 was called at approximately 3:00 PM. Oxygen levels were monitored and remained between 98-100% throughout the episode. Pulse rate was recorded between 56-65 bpm. Blood pressure was measured again at approximately 3:15 PM and was 140/90 mmHg. The patient was offered juice or water, andafter a few minutes, he expressed willingness to drink juice. EMS arrived at approximately 3:15 PM.The patient was still shaking and speech was incoherent. I provided a debriefing to the 911 personnel, explaining the sequence of events, the patient's medical history, the administration of anesthesia and the symptoms observed. EMS personnel assessed the patient and offered transport to the hospital. He expressed that he did not want to be transported to the hospital and preferred to proceed with the extraction. He signed a refusal form at approximately 3:30 PM declining ambulance transport. Th e patient made conflicting statements about travel plans, initially stating he was leaving the country on the , but later said he was traveling in February. Throughout this period, his speech was unclear and difficult to understand. By 3:45 PM, the patient appeared more coherent, spoke clearly, and willingly drank juice. The patient was provided with a medical clearance form and advised to consult his primary care provider (PCP) before rescheduling the extraction. The patient left the clinicin a stable condition. documented in this encounter Plan of Treatment Upcoming Encounters Date Type Department Care Team (Late st Contact Info) Description 08/24/2024 10:00 AM EDT Office Visit [facility] ADULT [facility] [address] [place] [address] Anthony Yoo DDS [address] [place] [address] Scheduled Orders Name Type Priority Associated Diagnoses Orde r Schedule 13 13 EXTRACTION, ERUPTED TOOTH OR EXPOSED ROOT (ELEVATION/FORCEPS REMOVAL) Dental Routine [address] arting 07/16/2024 documented as of this encounter Procedures Procedure Name Priority Date/Time Associated Diagnosis Comments NO CHARGE VISIT Routine 06/15/2024 2:30 PM EST documented in this encounter Visit Diagnoses Not on filedocumented in this encounter
--- OUTSIDE RECORDS SUMMARY | 2024-07-19 14:55 | XMS_ITS | Clinical Summary ---
Author Organization [facility] [employer] Address [address] [place] [address] Care Team Providers Care Chocolate Maker Name Role Phone Unavailable Primary Care Provider Unavailabl e Allergies Active Allergy Reactions Criticality Noted Date Comments Egg White (Egg Protein) Nausea Only 08/22/2023 Vancomycin Itching 01/30/2013 Medications divalproex (Depakote) 500 MG EC tablet Take 500 mg by mouth 2 times daily. Active amoxicillin (Amoxil) 500 MG capsule Take 1 capsule (500 mg) by mouth every 8 (eight) hours for 7 days. 21 capsule 06/15/2024 06/22/19 25 ibuprofen 600 MG tablet Take 1 tablet (600 mg) by mouth 3 times daily for 7 days. 21 tablet 06/15/2024 06/22/19 25 acetaminophen (Tylenol) 500 MG tablet Take 1 tablet (500 mg) by mouth every 8 (eight) hours if needed for mild pain for up to 7 days. 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 ADULT DENTAL [address] [place], [place] [phone] Anthony Yoo DDS 06/15/2024 2:30 PM EST Office Visit [facility] ADULT DENTAL [address] [place], [place] [phone] Anthony Yoo DDS 06/15/2024 11:30 AM EST Office Visit [facility] ADULT DENTAL [address] [place], [place] [phone] Anthony Yoo DDS from Last 3 Months Immunizations Name Administration Dates Next Due Influenza injectable quadrivalent preservative f ree 05/27/2022 Moderna Covid-19 Vaccine 6+ Bivalent 04/26/2022 Pfizer Covid-19 Vaccine 12+ 04/16/2023 Social History Tobacco Use Types Packs/Day Years Used Date Smoking Tobacco: Former Cigarettes Passive Smoke Exposure: Past Tobacco Cessation:Counseling Given: Not Answered Alcohol Use Standard Drinks/Week Comments Not Currently 0 (1 standard drink = 0.6 oz pur e alcohol) Sex and Gender Information Value Date Recorded Sex Assigned at Male 03/18/2022 10:18 AM EDT Legal Sex Male 10:18 AM EDT Gender Identity Male 03/18/2022 10:18 AM EDT Sexual Orientation Straight 03/18/2022 10 :18 AM EDT Last Filed Vital Signs Vital Sign Reading Time Taken Comments Blood Pressure 140/90 06/15/2024 3:00 PM EST Pulse 53 06/15/2024 3:00 PM EST Temperature - - Respiratory Rate - - Oxygen Saturation 96% 06/15/2024 3:00 PM EST Inhaled Oxygen Concentration - - Weight 148 kg (327 lb 3.1 oz) 05/10/2019 12:12 A M EST Height 177.8 cm (5' 10 ) 05/10/2019 12:12 AM EST Body Mass Index 46.95 05/10/2019 12:12 AM EST Plan of Treatment Upcoming Encounters Date Type Department Care Team (Late st Contact Info) Description 08/24/2024 10:00 AM EDT Office Visit [facility] ADULT DENTAL [address] [place] [address] Anthony Yoo DDS [address] [place] [address] Health Maintenance Due Date Last Done Comments Dental Oral Exam 1985 Dental Prophylaxis 1985 Dental X-Ray: Bitewings 1983 Dental X-Ray: Full Mouth 1983 Depression Screening 1983 HIV Screening 1983 Lipid Panel 1983 SDOH Screening 1983 Alcohol/Substance Use Screening 1995 Family Planning (PISQ) 1998 Hepatitis C Screening 2001 Hepatitis B Vaccines (3 of 3 - 19+ 3-dose series) 05/11/2008 03/16/2008, 02/16/2008, 09/08/2006 Hepatitis A Vaccines (2 of 2 - Risk 2-dose series) 08/15/2008 02/16/2008 COVID-19 Vaccine ( season) 2024 04/16/2023, 04/26/2022, 10/08/2021, Additional history exists Influenza Vaccine (#1) 2024 , 05/27/2022, 03/16/2014, Additional history exists Tobacco Screening 06/15/2025 06/15/2024 DTaP/Tdap/Td Vaccines (4 - Td or Tdap) 11/07/2030 11/07/2020, 07/10/2015, 02/13/2014 Zoster Vaccines (1 of 2) 2033 RSV Patients and Patients Aged 60 years or older (1 - 1-dose 75+ series) 2058 HIB Vaccines Aged Out No longer eligi ble based on patient's age to complete this topic HPV Vaccines Aged Out No longer eligi ble based on patient's age to complete this topic IPV Vaccines Aged Out No longer eligi ble based on patient's age to complete this topic Meningococcal Vaccine Aged Out No sony jacob eligible based on patient's age to complete this topic Pneumococcal Vaccine: Pediatrics (0 to 5 Years) and At-Risk Patients (6 to 49) Years) Aged Out No longer eligible based on patient's age to complete this topic RSV under 20 months Aged Out No longe r eligible based on patient's age to complete this topic Rotavirus Vaccines Aged Out No longer eligible based on patient's age to complete this topic Procedures Procedure Name Priority Date/Time Associated Diagnosis Comments NO CHARGE VISIT Routine 06/15/2024 2:30 PM EST CASE PRESENTATION, DETAILED AND EXTENSIVE TREATMENT PLANNING Routine 06/15/2024 11:30 AM EST 13 INTRAORAL - PERIAPICAL FIRST RADIOGRAPHIC IMAGE Routine 06/15/2024 11:30 AM EST 13 PALLIATIVE (EMERGENCY) TREATMENT OF DENTAL PAIN - MINOR PROCEDURE Routine 06/15/2024 11:30 AM EST from Last 3 Months Insurance [facility] MEDICARE MEDICARE * Guarantor: Ramin Garcia R Account Type Relation to Patient Date of Phone Billing Address Dental Self 1985 [address] [place] [address] [facility]
--- OUTSIDE RECORDS SUMMARY | 2024-07-19 14:55 | XMS_ITS | Clinical Summary ---
Demographics Address [address] [place] [address] Home Phone Preferred Language Sao Tomean; Castilian Marital Status Unknown Zoroastrianism Affiliation Unknown Race Black or Camryn rican Ethnic Group Not or Lati no Author Organization [facility] Address [address] [place] [address] Care Team Providers Care Risk Control Director Name Role Phone ShahramomayraJackson NP Primary Care Provider [phone] Source Comments PLEASE NOTE, if this patient [...] Problem Noted Date Diagnosed Date Seizure disorder ([facility]) 03/16/2014 Immunizations Name Administration Dates Next [...] Treatment Not on file [place] [facility] MEDICAID Care Teams Risk Control Director Relationship Specialty Start Date End Date Jackson Whitney NP [address] [place] [address] PCP - General 03/26/18
--- OUTSIDE RECORDS SUMMARY | 2024-07-19 14:55 | XMS_ITS | Clinical Summary ---
Author Organization [facility] Address [address] [place] [address] Care Team Providers Care Improvement Lead Name Role Phone Megan José MD Primary Care Provider [phone] Surgical History Surgery Date Site/Laterality Comments OTHER [...] Health Screening 06/17/2023 COVID-19 Vaccine (4 - 2023-2 5 season) 2024 10/08/2021, 10/11/2020, 09/13/2020 Influenza [...] patient's age to complete this topic Meningococcal B Vacine Aged Out No lo nger eligible based on patient's age to complete [...] age to complete this topic Care Teams Improvement Lead Relationship Specialty Start Date End Date Megan José MD [address] [place] [address] PCP - General Internal Medicine 09/29/12
== END 2024-07-19 14:35 | disposition home or self-care (01) ==
PROVIDERS: PCP Internal Medicine; Visit Provider Internal Medicine
DX: Z11.1 Encounter for screening for respiratory tuberculosis (principal)

== ENCOUNTER → 2024-07-19 12:47 | Outpatient (BNVA) | payer OTHER, SELFPAY | PROVIDERS: PCP Internal Medicine; Visit Provider Internal Medicine | DX: Z11.1 Encounter for screening for respiratory tuberculosis (principal) | CPT/HCPCS: 86580 ==

== ENCOUNTER 2024-10-17 02:15 | Emergency (ER) | payer OTHER, SELFPAY ==
[2024-10-17 02:21] VITALS: BP 120/74; BP 152/91; PULSE 80; RESP 18; O2SAT 96; BMI 51.4
--- NOTE | 2024-10-17 02:24 | ECG_ITS ---
Test Reason : SEIZURE Blood Pressure : */* mmHG Vent. Rate : 77 BPM Atrial Rate : 77 BPM P-R Int : 180 ms QRS Dur : 104 ms QT Int : 396 ms P-R-T Axes : 28 6 0 degrees QTcB Int : 448 ms Normal sinus rhythm Normal ECG When compared with ECG of 16-Apr-2024 17:18, Minimal criteria for Anterior infarct are no longer Present Referred By: Tsering Nayak Electronically Signed By: LOUISE CASTANEDA MD
--- NOTE | 2024-10-17 02:31 | ED.SEIZURE ---
HPI - Seizure General Chief Complaint: Seizure Stated Complaint: PD FOUND HAVING SZS,FROM [address] PER EMS Source: EMS Mode of arrival: EMS Limitations: other History of Present Illness ED Provider: Dr. Tsering Nayak HPI Narrative: Patient comes to the emergency room via ambulance. According to EMS, the patient found the patient wandering in the street aimlessly, PD. The patient, asked him to sit down, patient started having tonic-clonic seizures and foaming at the mouth. Patient was brought to the emergency room by ambulance. On arrival, patient unresponsive. However, shortly after patient woke up, seems postictal, states that he is aware that his at [facility]. Patient admits that he has not been taking any of his medications because he got kicked out of his house. Patient is not answering for how long he has been homeless or when was the last time they had any meds for seizures. Patient is not SI or HI. Seizure History: Yes Related Data Home Medications ?Medication ?Instructions ?Recorded ?Confirmed loratadine 10 mg tablet (Allergy mg PO 10/28/23 06/29/24 Relief (loratadine)) tobramycin 0.3 % eye drops drp ophthalmic (eye) 10/28/23 06/29/24 Previous Rx's ?Medication ?Instructions ?Recorded hydrocortisone 1 % topical cream 1 appl topical TID PRN itching 07/04/23 #28.4 grams ibuprofen 600 mg tablet 600 mg PO Q8H PRN pain #14 tabs 11/25/23 levetiracetam 1,000 mg tablet 1,000 mg PO BID 30 days #60 tabs 12/15/23 (Keppra) cane #1 ea 01/02/24 lidocaine 4 % topical patch 1 patch topical DAILY PRN pain 30 06/29/24 (Aspercreme (lidocaine)) days #30 ea ondansetron 8 mg disintegrating 8 mg PO Q12H PRN nausea and 06/29/24 tablet vomiting 5 days #10 tabs divalproex 500 mg tablet,delayed 500 mg PO BID 90 days #180 tabs 09/17/24 release (Depakote) divalproex 500 mg tablet,delayed 500 mg PO BID #60 tabs 10/17/24 release (Depakote) levetiracetam 1,000 mg tablet 1,000 mg PO BID #60 tabs 10/17/24 (Keppra) Allergies Allergy/AdvReac Type Severity Reaction Status Date / Time egg Allergy Nausea Verified 06/29/24 14:27 mayonnaise Allergy Nausea Verified 06/29/24 14:27 Review of Systems Review of Systems: Constitutional : No Weight loss, No Fever, No Chills, No Night Sweats, No Fatigue, No Malaise ENT/Mouth : No Hearing loss, No Ear Pain, No Nasal Congestion, No Sinus Pain, No Hoarseness, No sore throat, No Rhinorrhea, No Swallowing Difficulty Eyes: No Eye Pain, No Swelling, No Redness, No Foreign Body, No Discharge, No Vision Changes Cardiovascular : No Chest Pain, No SOB, No Dyspnea on Exertion, No Orthopnea, No Edema, No Palpitations Respiratory : No Cough, No Sputum, No Wheezing, No Smoke Exposure, No Dyspnea Gastrointestinal : No Nausea, No Vomiting, No Diarrhea, No Constipation, No abdominal Pain, No Hematochezia, No Melena Genitourinary : no irregular bleeding, No Dysuria, No Urinary Frequency, No Hematuria, No Urinary Incontinence, No Urgency, No Flank Pain, No Urinary Flow Changes, No Hesitancy Musculoskeletal : No joint pain, No Myalgias, No Joint Swelling Skin : No Skin Lesions, No rash Neuro : No Weakness, No Numbness, No Paresthesias, No Loss of Consciousness, No Dizziness, No Headache reports having a seizure admits to medication noncompliance Psych : No Anxiety/Panic, No Depression, No SI/HI/AH/VH, No Social Issues, Heme/Lymph: No Bruising, No Bleeding,No Lymphadenopathy Endocrine : No Polyuria, No Polydipsia, No Temperature Intolerance PMFSH Past Medical History Medical History Cocaine abuse Seizure Eardrum trauma Morbid obesity with BMI of 50.0-59.9, adult Lumbar pain HTN (hypertension) Bipolar 1 disorder Chronic back pain ETOH abuse Polysubstance abuse Seizure Non compliance with medical treatment Non compliance w medication regimen Obesity Surgical History No pertinent past surgical history Family History Family History Mother Hypertension Diabetes Cancer Father Diabetes Hypertension Social History Social History Household Members: Other Household Members Other:: AUNT Housing: Other Housing Other:: homeless sometimes stays with friends Do you presently have visiting nurse or other home services: No Alcohol intake: former Patient Tobacco Use Status: Never used Tobacco e-Cigarette/Vaping Use: Never Used Second Hand Smoke Exposure: No Substance Use Type: Crack/Cocaine service: No Current occupational status: disabled Cognitive needs: No Hearing needs: No Vision needs: No Physical Exam Vital Signs: Vital Signs: Last Vital Signs Pulse 80 10/17/24 02:21 Resp 18 10/17/24 02:21 BP 120/74 10/17/24 02:21 Pulse Ox 96 10/17/24 02:21 O2 Del Method Room Air 10/17/24 02:21 BMI result Body Mass Index 51.4 Const: Other: Appearance: Initially unresponsive, shortly after arrival patient is completely awake, Alert. Oriented X3. No acute distress. And keeps falling back asleep Eyes: Pupils equal, round and reactive to light. ENT: Pharynx normal. Neck: Normal inspection. Neck supple. No lymph nodes noted. No crepitus CVS: Normal heart rate and rhythm. Pulses normal. Normal S1 and S2 Respiratory: No respiratory distress. Breath sounds normal. No Wheezing. No rales Abdomen: Soft and nontender. No rigidity. No distention. Skin: Skin warm and dry. Normal skin color. Normal skin turgor. Extremities: No lower extremity edema. No Lacerations. No Rash Neuro: Oriented X 3. No motor deficit. No sensory deficit. Moving all extremities. No slurred speech. CN 2 through 12 grossly intact Psych: calm, cooperative, normal affect Course Course Course Narrative: Patient woke up patient Patient states that he admits to using cocaine. Patient states that he feels sad because his kicked him out of the house because he uses drugs. Patient denies SI or HI When patient arrived, seems that patient was incontinent of urine? , foaming at the mouth. Postictal Patient moving quite a bit, initially given 2.5 mg IM of diazepam Once IV was established, patient received IV fluids and Keppra 1500 mg IV Patient's vitals stable Medications Administered Generic Name Dose Route Start Last Admin Trade Name Freq PRN Reason Stop Dose Admin Levetiracetam 1,500 mg in 100 mls @ 400 mls/hr 10/17/24 03:00 10/17/24 03:15 Keppra IV Infused Q12H YAJAIRA Infusion Discontinued Medications Generic Name Dose Route Start Last Admin Trade Name Giselle PRN Reason Stop Dose Admin Diazepam 2.5 mg 10/17/24 02:27 10/17/24 02:36 Diazepam 10 Mg/2 Ml Cartridge IM 10/17/24 02:28 2.5 mg STAT STA Administration Sodium Chloride 1,000 mls @ 999 mls/hr 10/17/24 02:24 10/17/24 02:54 Ns IVCONT 10/17/24 03:24 999 mls/hr .Q1H1M ONE Administration Medical Decision Making Medical Decision Making [facility] Narrative: My interpretation of EKG: Normal sinus rhythm, heart rate 77, no ST segment depression or elevation, no T-wave inversion, QTC 448 My interpretation of labs: No significant abnormality in patient's hematology my normal chemistry, normal magnesium, normal troponin, urine toxicology positive for cocaine and blood positive for EtOH, 194 Patient admits that he is not compliant with his medications, patient has a prescription for divalproex 500 mg b.i.d. that should last him until 10/29/2024 Patient had a prescription of Keppra 1000 mg b.i.d. that lasted him until August. Does not seem that he refills his medication Patient likely had seizures secondary to the combination of using cocaine and not taking his actual seizure medications. Patient's alcohol level today is elevated, 194, reviewing patient's medical records, his alcohol is usually not this high unless he is intoxicated. It is very unlikely that patient had a alcohol withdrawal seizure. Patient's vitals are stable, no signs of alcohol withdrawal. A refill of both of his medications has been sent to the patient's pharmacy At this time, 04:15, physician observation started. Plan: Metabolize to freedom and discharge Differential Diagnosis Differential Diagnoses: The differential diagnosis associated with the presentation includes (Epilepsy, seizures secondary to medication noncompliance versus cocaine use) Admission/Observation Consideration of admission/observation: Escalation of care including admission/observation considered (Given patient's medical history and presentation, observation was considered) Lab Data [facility] Lab Attestation statement: I reviewed the patient's lab results. 10/17/24 03:04 10/17/24 03:04 Labs: Lab Results 10/17/24 10/17/24 Range/Units 03:04 03:10 WBC 9.9 (4.8-10.8) X10*3/uL RBC 4.58 L (4.60-5.80) X10*6/uL Hgb 13.4 L (14.0-18.0) g/dl Hct 38.9 L (42.0-52.0) % MCV 84.9 (80.0-98.0) fL MCH 29.3 (27.0-33.0) pg MCHC 34.4 (31.0-36.0) g/dl RDW 11.9 (11.0-16.0) % Plt Count 203 (160-400) X10*3/uL MPV 11.9 (9.4-12.4) fL Immature Gran % (Auto) 0.3 (0.0-0.4) % Neut % (Auto) 65.5 (45-73) % Lymph % (Auto) 20.1 (20-40) % Conway % (Auto) 11.5 H (2-11) % Eos % (Auto) 1.8 (0-4) % Baso % (Auto) 0.8 (0-2) % Lymph # (Auto) 2.0 (1.2-4.9) X10*3/uL Conway # (Auto) 1.1 (0.1-1.2) X10*3/uL Eos # (Auto) 0.2 (0.0-0.4) X10*3/uL Baso # (Auto) 0.1 (0.0-0.2) X10*3/uL Abs Immat Gran (auto) 0.03 (0.00-0.03) X10*3/uL Absolute Neuts (auto) 6.5 (2.0-8.3) x10*3/uL Absolute Nucleated RBC 0.000 (0.0-0.012) X10*3/uL Nucleated RBC % (auto) 0.0 (0.0-0.2) /100WBC Hold Purple Top SEE NOTE Hold Blue Top SEE NOTE Sodium 140 (135-145) mmol/L Potassium 4.0 (3.3-5.1) mmol/L Chloride 106 (96-108) mmol/L Carbon Dioxide 23 (22-29) mmol/L Anion Gap 15 (12-20) BUN 16 (9-16) mg/dL Creatinine 0.78 (0.5-1.4) mg/dL Estim Creat Clear Calc 197.6 Estimated GFR > 60 Random Glucose 86 (60-115) mg/dL Calcium 9.1 (8.4-10.2) mg/dL Magnesium 2.2 (1.6-2.6) mg/dL Total Bilirubin 0.4 (0.0-1.0) mg/dL Direct Bilirubin 0.2 (0.0-0.5) mg/dL AST 23 (5-37) U/L ALT 30 (0-40) U/L Alkaline Phosphatase 80 (39-117) U/L Troponin I High Sens 3.6 (<3.5-35.0) ng/L Total Protein 7.4 (6.5-8.0) g/dL Albumin 4.4 (3.5-5.0) g/dL Hold Red Top See Note Hold Yellow Top See Note Urine Opiates Screen Not Detected (Not Detect) Ur Buprenorphine Scrn Not Detected (Not Detect) ng/mL Ur Oxycodone Screen Not Detected (Not Detect) ng/mL Urine Methadone Screen Not Detected (Not Detect) ng/mL Urine Fentanyl Screen Not Detected (Not Detect) Ur Barbiturates Screen Not Detected (Not Detect) Ur Phencyclidine Scrn Not Detected (Not Detect) Ur Amphetamines Screen Not Detected (Not Detect) U Benzodiazepines Scrn Not Detected (Not Detect) Urine Cocaine Screen POSITIVE H (Not Detect) U Marijuana (THC) Screen Not Detected (Not Detect) Ethyl Alcohol 194 mg/dL Procedures EJ/Peripheral Line Arm R: Time Out Performed: Yes Skin Cleansed in Sterile Fashion: Yes Size (gauge): 20 IV Secured and Dressing Applied: Yes Patient Tolerated Procedure: well and no complications Critical Care Time Critical Care Time Critical Care Time: Yes Total Critical Care Time: 60 Attestation: I have personally provided critical care time. Time includes review of lab data, radiology results, discussion with consultants, and monitoring for potential decompensation. Intervention performed as documented. Discharge Plan Discharge Clinical Impression: Seizure, Noncompliance with medication regimen, Alcohol abuse Patient Disposition: Home, Self-Care Instructions: Abuse of Alcohol (ED), Recurrent Seizures in Adults (ED) Additional Instructions: Please follow-up with your primary care physician tomorrow. If you have any worsening or new symptoms, please return to the emergency room or call 911 Prescriptions: New divalproex [Depakote] 500 mg tablet,delayed release (DR/EC) 500 mg PO BID Qty: 60 0RF levetiracetam [Keppra] 1,000 mg tablet 1,000 mg PO BID Qty: 60 0RF No Action levetiracetam [Keppra] 1,000 mg tablet 1,000 mg PO BID 30 Days Qty: 60 6RF (DME) cane Device See Rx Instructions .Route Qty: 1 0RF Rx Instructions: As directed divalproex [Depakote] 500 mg tablet,delayed release (DR/EC) 500 mg PO BID 90 Days Qty: 180 1RF hydrocortisone 1 % cream 1 appl topical TID PRN (Reason: itching) Qty: 28.4 0RF tobramycin 0.3 % drops ophthalmic (eye) loratadine [Allergy Relief (loratadine)] 10 mg tablet PO ibuprofen 600 mg tablet 600 mg PO Q8H PRN (Reason: pain) Qty: 14 0RF Rx Instructions: Take with food ondansetron 8 mg tablet,disintegrating 8 mg PO Q12H PRN (Reason: nausea and vomiting) 5 Days Qty: 10 0RF lidocaine [Aspercreme (lidocaine)] 4 % adhesive patch,medicated 1 patch topical DAILY PRN (Reason: pain) 30 Days Qty: 30 0RF Referrals: Jovanny Stallworth MD [Physician] - Print Language: Estonian
[2024-10-17] MEDS: diazePAM 10 MG/2 ML CARTRIDGE 2.5 MG IM (02:36)
[2024-10-17] MEDS: 0.9 % Sodium Chloride 1,000 ML 999 ML IVCONT (02:54)
[2024-10-17] MEDS: levETIRAcetam in NaCl (iso-os) 1,500 MG/100 ML PIGGYBACK 400 MG IV (02:56)
[2024-10-17 03:16] LABS: MANUAL DIFF FLAG NO
[2024-10-17 03:17] LABS: Basophils Absolute Auto 0.1 X10*3/uL (0.0-0.2); Basophils Percent Auto 0.8 % (0-2); Eosinophils Absolute Auto 0.2 X10*3/uL (0.0-0.4); Eosinophils Percent Auto 1.8 % (0-4); Hematocrit 38.9 % (42.0-52.0); Hemoglobin 13.4 g/dl (14.0-18.0); Imm Gran Abs Auto 0.03 X10*3/uL (0.00-0.03); Imm Gran Pct Auto 0.3 % (0.0-0.4); Lymphocytes Percent Auto 20.1 % (20-40); Mean Corpuscular HGB Conc 34.4 g/dl (31.0-36.0); Mean Corpuscular Hemoglobin 29.3 pg (27.0-33.0); Mean Corpuscular Volume 84.9 fL (80.0-98.0); Mean Platelet Volume 11.9 fL (9.4-12.4); Monocytes Absolute Auto 1.1 X10*3/uL (0.1-1.2); Monocytes Percent Auto 11.5 % (2-11); Neutrophils Absolute Auto 6.5 x10*3/uL (2.0-8.3); Neutrophils Percent Auto 65.5 % (45-73); Platelet Count 203 X10*3/uL (160-400); Red Blood Count 4.58 X10*6/uL (4.60-5.80); Red Cell Distribution Width 11.9 % (11.0-16.0); White Blood Count 9.9 X10*3/uL (4.8-10.8)
[2024-10-17 03:30] LABS: Amphetamine Screen Urine Not Detected (Not Detect); Barbiturates, Urine Not Detected (Not Detect); Benzodiazepines Screen Urine Not Detected (Not Detect); Buprenorphine Scr Not Detected (Not Detect); Cannabinoid Screen Urine Not Detected (Not Detect); Cocaine Screen Urine POSITIVE (Not Detect); Fentanyl, urine Not Detected (Not Detect); Methadone Screen, Urine Not Detected (Not Detect); Opiate Screen Urine Not Detected (Not Detect); Oxycodone Screen Urine Not Detected (Not Detect); Phencyclidine Screen Urine Not Detected (Not Detect)
--- NOTE | 2024-10-17 03:37 | PC.NURSE ---
Upon arrival to the patient was unresponsive with respirations even and unlabored. MD to bedside immediately upon arrival to get report from EMS and to assess the patient. PT noted to be drooling without airway compromise, oral suction provided. Pt was intermittently noted to shake his head and legs for short spirts at a time. US Guided IV placed by MD Nayak. VSS
[2024-10-17 03:42] LABS: Troponin-I High Sensitivity 3.6 ng/L (<3.5-35.0)
[2024-10-17 03:49] LABS: Alanine Aminotransferase 30 U/L (0-40); Albumin Level 4.4 g/dL (3.5-5.0); Alkaline Phosphatase 80 U/L (39-117); Anion Gap 15 (12-20); Aspartate Amino Transferase 23 U/L (5-37); Bilirubin Direct 0.2 mg/dL (0.0-0.5); Bilirubin Total 0.4 mg/dL (0.0-1.0); Blood Urea Nitrogen 16 mg/dL (9-16); Calcium 9.1 mg/dL (8.4-10.2); Carbon Dioxide 23 mmol/L (22-29); Chloride 106 mmol/L (96-108); Creatinine Clr Calc Pharmacy 197.6; Estimated Glomerular Filt Rate > 60; Ethanol 194 mg/dL; Glucose Random 86 mg/dL (60-115); Magnesium 2.2 mg/dL (1.6-2.6); Sodium 140 mmol/L (135-145); Total Protein 7.4 g/dL (6.5-8.0)
[2024-10-17 06:24] LABS: Lactic Acid 1.9 mmol/L (0.5-2.0)
--- NOTE | 2024-10-17 07:46 | PC.NURSE ---
Care of Pt assumed at change of shift. Pt rests quietly at beginning of shift then wakes asking to use a urinal. Pt A&Ox3 and states he wishes to be discharged. Upon providing Pt with clothing and d/c paperwork Pt demands organizes transportation home. This RN explained to Pt that [facility] shuttle service is not in operation on weekend and that private ubers/cabs are not provided at discharge. Furthermore it was explained that there is a free phone in the waiting area for Pt use to organize a ride. At this time Pt states he now does not want to leave. At this time Pt presents as medically stable: A&Ox3, VSS, breaths are slow even and unlabored. Pt was able to dress himself and speech is clear and concise. Will discuss with pharmacist in charge.
--- NOTE | 2024-10-17 08:01 | PC.NURSE ---
This RN and diving board assembler at bedside. Pt informed again he is being discharged at this time. IV access removed. Pt provided with d/c paperwork as well as written information on proper [facility] bus to take to get him to his desired location ([place].) Pt demands food then refuses to eat. Pt begins to ignore staffing account manager when speaking to him. Will give Pt some time to get his things together and exit.
[2024-10-17 08:04] VITALS: BP 122/73; PULSE 67; RESP 18; TEMP 35.9; O2SAT 97
== END 2024-10-17 08:10 | disposition home or self-care (01) ==
PROVIDERS: Emergency Provider Emergency Medicine; PCP Internal Medicine
DX: G40.909 Epilepsy, unspecified, not intractable, without status epilepticus (principal); F10.10 Alcohol abuse, uncomplicated; Y90.6 Blood alcohol level of 120-199 mg/100 ml; I10 Essential (primary) hypertension; Z91.148 Patient's other noncompliance with medication regimen for other reason; Z79.899 Other long term (current) drug therapy
CPT/HCPCS: 36415; 80048; 80076; 80307; 83605; 83735; 84484; 85025; 93005; 96361; 96372; 96374; 99285; J1953; J3360

== ENCOUNTER → 2024-10-17 02:24 | Outpatient (BNV) | payer OTHER, SELFPAY | PROVIDERS: Emergency Provider Emergency Medicine; PCP Internal Medicine; Visit Provider Internal Medicine Cardiovascular Disease | DX: R56.9 Unspecified convulsions (principal) | CPT/HCPCS: 93010 ==

== ENCOUNTER 2025-01-07 09:56 | Emergency (ER) | payer OTHER, SELFPAY ==
--- NOTE | 2025-01-07 09:59 | ED_ITS ---
HPI - General Adult General Chief complaint: Seizure Stated complaint: SEIZURE ACTIVITY Time Seen by Provider: 01/07/25 09:59 Source: patient and EMS Mode of arrival: EMS Limitations: no limitations History of Present Illness ED Provider: Lois David PA-C HPI narrative: Patient is a 39 year old assigned male at with a history of HTN, seizures on keppra + depakote, polysubstance use / abuse, and MDD presenting to the emergency department today after a seizure. Patient states that he was at his day program when he had a seizure. Patient states that he has not taken his Keppra for 5 days because he just keeps forgetting . Patient denies any complaints at this time. Day program staff states the patient did not hit his head or have any trauma associated with his seizure. Relieving factors: none Exacerbating factors: none Related Data Home Medications ?Medication ?Instructions ?Recorded ?Confirmed loratadine 10 mg tablet (Allergy mg PO 10/28/23 Relief (loratadine)) tobramycin 0.3 % eye drops drp ophthalmic (eye) 06/29/24 Previous Rx's ?Medication ?Instructions ?Recorded hydrocortisone 1 % topical cream 1 appl topical TID SC N itching 07/04/23 #28.4 grams ibuprofen 600 mg tablet 600 mg PO Q8H PRN pain #14 t abs 11/25/23 levetiracetam 1,000 mg tablet 1,000 mg PO BID 30 days #60 tabs 12/15/23 (Keppra) cane #1 ea 01/02/24 lidocaine 4 % topical patch 1 patch topical DAILY PRN pain 30 06/29/24 (Aspercreme (lidocaine)) days #30 ea ondansetron 8 mg disintegrating 8 mg PO Q12H PRN nause a and 06/29/24 tablet vomiting 5 days #10 tabs divalproex 500 mg tablet,delayed 500 mg PO BID 90 days #180 tabs 09/17/24 release (Depakote) divalproex 500 mg tablet,delayed 500 mg PO BID #60 tab s 10/17/24 release (Depakote) levetiracetam 1,000 mg tablet 1,000 mg PO BID #60 tabs 10/17/24 (Keppra) levetiracetam 1,000 mg tablet 1,000 mg PO BID #60 tabs 01/07/25 (Keppra) Allergies Allergy/AdvReac Type Severity Reaction Status Date / Time egg Allergy Nausea Verified 01/07/25 10:07 mayonnaise Allergy Nausea Verified 01/07/25 10:07 Review of Systems 2 Constitutional: Constitutional: Reports as per HPI Eyes: Eyes: Reports as per HPI ENT: Reports as per HPI Cardiovascular: Cardiovascular: Reports as per HPI Respiratory: Respiratory: Reports as per HPI Gastrointestinal: Gastrointestinal: Reports as per HPI Genitourinary: Genitourinary: Reports as per HPI Musculoskeletal: Musculoskeletal: Reports as per HPI Integumentary/Breasts: Skin/Breast: Reports as per HPI Neurologic: Reports seizure-like activity Psychiatric: Psychiatric: Reports as per HPI Endocrine: Endocrine: Reports as per HPI Hematologic/Lymphatic: Hematologic/Lymphatic: Reports as per HPI Allergic/Immunologic: Allergic/Immunologic: Reports as per HPI PMFSH Past Medical History Attestation statement: The following information was validated with the patient. Source: old records reviewed and nursing notes reviewed Medical History Cocaine abuse Seizure Eardrum trauma Morbid obesity with BMI of 50.0-59.9, adult Lumbar pain HTN (hypertension) Bipolar 1 disorder Chronic back pain ETOH abuse Polysubstance abuse Seizure Non compliance with medical treatment Non compliance w medication regimen Obesity Surgical History No pertinent past surgical history Family History Family History Mother Hypertension Diabetes Cancer Father Diabetes Hypertension Social History Social History Household Members: Other Household Members Other:: AUNT Housing: Other Housing Other:: homeless sometimes stays with friends Do you presently have visiting nurse or other home services: No Alcohol intake: former Patient Tobacco Use Status: Never used Tobacco Smoked in Last 30 Days: No e-Cigarette/Vaping Use: Never Used Second Hand Smoke Exposure: No Use of substances other than those prescribed or required for medical reasons: No Substance Use Type: Crack/Cocaine Advance Directives: No Advance Directives Information Provided: Yes Do you have a plan to hurt others: No Plan service: No Current occupational status: disabled Cognitive needs: No Hearing needs: No Vision needs: No Physical Exam ED Vital Signs: Vital Signs - 24 hr 01/07/25 10:06 01/07/25 10:13 Temperature 97.8 F Pulse Rate 50 53 Respiratory Rate 16 12 Blood Pressure 135/63 135/63 Pulse Oximetry 97 99 Oxygen Delivery Method Room Air Room Air BMI result Body Mass Index 40.2 Const General: cooperative, no acute distress, alert and awake Nutritional Appearance: well nourished Orientation/consciousness: patient oriented x3 HENMT Head: Yes normal to inspection and Yes atraumatic Ears: hearing grossly normal bilaterally and external ears normal General nose exam: Normal external nose present, no nasal discharge noted and no epistaxis Face and sinus: Yes normal facial exam, No abrasion and No laceration Mouth: Normal oral and palatal mucosa present, no drooling and no muffled voice Eyes General: appearance normal, both eyes and all related structures Periorbital: periorbital findings normal Eyelids: Yes eyelids normal Conjunctivae: conjunctivae normal Pupils: Equal, round and reactive pupils present EOM: EOMs intact bilaterally Neck Neck: Yes normal visual inspection and Yes full ROM Resp Effort & Inspection: normal respiratory effort and able to speak in complete sentences Neuro General: patient oriented x3, moves all extremities and CN's II-XI intact bilaterally Cranial nerves: Yes Equal, round and reactive pupils present Cognition (Neuro): normal cognition Extrem General: Yes normal to inspection, Yes full ROM and Yes capillary refill normal Psych Appearance: grossly normal Mental Status: mental status grossly normal Affect: normal affect Attitude: cooperative Thought process: Normal thought process present Thought content: Normal thought content present Insight: Good insight present (Psych) Medications Administered Discontinued Medications Generic Name Dose Route Start Last Admin Trade Name Freq PRN Reason Stop Dose Admin Levetiracetam 1,000 mg in 100 mls @ 400 mls/hr 01/07/25 10:08 01/07/25 11:06 Keppra IV 01/07/25 10:22 Infused ONCE ONE Infusion Medical Decision Making Medical Decision Making [facility] Narrative: Patient is a 39 year old assigned male at with a history of HTN, seizures on keppra + depakote, polysubstance use / abuse, and MDD presenting to the emergency department today after a seizure. Patient's physical exam was unremarkable. Patient's blood work showed a low Depakote level. Patient's EKG was unremarkable. I explained my physical exam findings as well as all test results to the patient. I answered all questions asked by the patient. Patient's clinical presentation is most consistent with medication non compliance causing seizures. Patient was given a gram of IV Keppra while in the department. Patient did not seize while in the department. I stressed the importance of the patient taking his medication as directed (either prescribed or as the over the counter packaging recommends). I stressed the importance of the patient following up with his primary care provider and neurology. I stressed the importance of the patient returning to the emergency department immediately if his symptoms were to worsen or if he were to develop any dizziness, shortness of breath, difficulty breathing, chest pain, blurry vision, loss of vision, nausea, vomiting, abdominal pain, fever, chills, back pain, or any other complaints. Patient verbalized agreement and understanding with this treatment plan and discharge. Differential Diagnosis Differential Diagnoses: The differential diagnosis associated with the presentation includes Seizures Medication non compliance Admission/Observation Consideration of admission/observation: Escalation of care including admission/observation considered Patient would have been admitted to the hospital had his work up had any findings where hospital admission was appropriate and his clinical presentation warranted hospital admission. Lab Data [facility] Lab Attestation statement: I reviewed the patient's lab results. My interpretation of these results are in the [facility] Rationale portion of this note. 01/07/25 10:30 01/07/25 10:30 Labs: Lab Results 01/07/25 Range/Units 10:30 WBC 6.6 (4.8-10.8) X10*3/uL RBC 4.85 (4.60-5.80) X10*6/uL Hgb 13.9 L (14.0-18.0) g/dl Hct 41.8 L (42.0-52.0) % MCV 86.2 (80.0-98.0) fL MCH 28.7 (27.0-33.0) pg MCHC 33.3 (31.0-36.0) g/dl RDW 12.5 (11.0-16.0) % Plt Count 169 (160-400) X10*3/uL MPV 12.0 (9.4-12.4) fL Immature Gran % (Auto) 0.3 (0.0-0.4) % Neut % (Auto) 66.8 (45-73) % Lymph % (Auto) 19.3 L (20-40) % Cabell % (Auto) 10.1 (2-11) % Eos % (Auto) 2.9 (0-4) % Baso % (Auto) 0.6 (0-2) % Lymph # (Auto) 1.3 (1.2-4.9) X10*3/uL Cabell # (Auto) 0.7 (0.1-1.2) X10*3/uL Eos # (Auto) 0.2 (0.0-0.4) X10*3/uL Baso # (Auto) 0.0 (0.0-0.2) X10*3/uL Abs Immat Gran (auto) 0.02 (0.00-0.03) X10*3/uL Absolute Neuts (auto) 4.4 (2.0-8.3) x10*3/uL Absolute Nucleated RBC 0.000 (0.0-0.012) X10*3/uL Nucleated RBC % (auto) 0.0 (0.0-0.2) /100WBC Sodium 141 (135-145) mmol/L Potassium 4.3 (3.3-5.1) mmol/L Chloride 108 (96-108) mmol/L Carbon Dioxide 26 (22-29) mmol/L Anion Gap 11 L (12-20) BUN 14 (9-16) mg/dL Creatinine 0.74 (0.5-1.4) mg/dL Estim Creat Clear Calc 175.7 Estimated GFR > 60 Random Glucose 91 (60-115) mg/dL Calcium 9.4 (8.4-10.2) mg/dL Magnesium 2.2 (1.6-2.6) mg/dL Total Bilirubin 0.3 (0.0-1.0) mg/dL AST 22 (5-37) U/L ALT 27 (0-40) U/L Alkaline Phosphatase 74 (39-117) U/L Ammonia 48 (13-55) umol/L Total Protein 6.9 (6.5-8.0) g/dL Albumin 4.2 (3.5-5.0) g/dL Valproic Acid < 12.5 L (50.0-100.0) mcg/mL Ethyl Alcohol < 10 mg/dL Independent Interpretation I performed an independent interpretation of an: EKG Interpretation: I independently interpreted this EKG and am in agreement with the below findings: Vent. Rate: 54 BPM Atrial Rate: 54 BPM P-R Int: 14 ms QRS Dur: 108 ms QT Int: 444 ms P-R-T Axes: 12 -8 -7 degrees QTcB Int: 421 ms Sinus bradycardia Minimal voltage criteria for LVH, may be normal variant (R in aVL) When compared with ECG of 17-Oct-2024 02:35, T wave inversion more evident in Inferior leads DD/ 1018 Independent Historian Clinical information obtained from an independent historian. History obtained from or confirmed by: EMS (EMS provided additional history and confirmed the history provided by the patient. ) Discharge Plan Discharge Clinical Impression: Seizures, Non compliance w medication regimen Patient Disposition: Home, Self-Care Instructions: Epilepsy (DC) Additional Instructions: It is CRUCIAL you take your medication PRESCRIBED. THIS MEANS TAKING IT EVERY SINGLE DAY. You had a seizure today because you are NOT taking your medication as prescribed. Your Depakote level was below normal limits and your Keppra level is pending. You were given 1 gram of Keppra because you stated you took your Depakote this morning. It is very important you can continue to take the medications you are supposed to. IF you are prescribed home medications and/or you are taking over the counter medications at home - it is very important you continue to do so as prescribed / directed unless told otherwise. Follow up with your primary care provider. Return to the emergency department immediately if your symptoms worsen or if you develop any numbness, tingling, dizziness, shortness of breath, difficulty breathing, chest pain, blurry vision, loss of vision, nausea, vomiting, abdominal pain, fever, chills, back pain, or any other complaints. Please see the information below about our Patient Portal. If you are not yet enrolled in the [facility] Patient Portal, you will receive an enrollment email invitation following your visit to any [facility] care setting. You may also self-enroll in the Patient Portal by visiting our website: [email or web address] The following information is required to access the Patient Portal: - Your [facility] Medical Record Number - Your personal home email address (must match what is in your electronic medical record, Registration staff can assist with this) - Name - Date of Capabilities of the Patient Portal: - Message some providers - View upcoming appointments - Access your health summary, medical history, and visit history - View current conditions and allergies - View procedure and lab results - View your medications, including guidelines, side effects, and precautions - Complete pre-appointment questionnaires requested by your provider - Ready summary reports of your office visits and procedures To access the Patient Portal Mobile [employer], follow these directions: - Search [facility] in the [employer] Store or Like[employer] Store - Download the [employer] - Search for [facility] - Enter your login/password Prescriptions: New levetiracetam [Keppra] 1,000 mg tablet 1,000 mg PO BID Qty: 60 0RF No Action levetiracetam [Keppra] 1,000 mg tablet 1,000 mg PO BID 30 Days Qty: 60 6RF (DME) cane Device See Rx Instructions .Route Qty: 1 0RF Rx Instructions: As directed divalproex [Depakote] 500 mg tablet,delayed release (DR/EC) 500 mg PO BID 90 Days Qty: 180 1RF divalproex [Depakote] 500 mg tablet,delayed release (DR/EC) 500 mg PO BID Qty: 60 0RF levetiracetam [Keppra] 1,000 mg tablet 1,000 mg PO BID Qty: 60 0RF hydrocortisone 1 % cream 1 appl topical TID PRN (Reason: itching) Qty: 28.4 0RF tobramycin 0.3 % drops ophthalmic (eye) loratadine [Allergy Relief (loratadine)] 10 mg tablet PO ibuprofen 600 mg tablet 600 mg PO Q8H PRN (Reason: pain) Qty: 14 0RF Rx Instructions: Take with food ondansetron 8 mg tablet,disintegrating 8 mg PO Q12H PRN (Reason: nausea and vomiting) 5 Days Qty: 10 0RF lidocaine [Aspercreme (lidocaine)] 4 % adhesive patch,medicated 1 patch topical DAILY PRN (Reason: pain) 30 Days Qty: 30 0RF Referrals: Trinidad Martínez MD [Primary Care Provider, Internal Medicine] Interventions: ED Discharge Assessment Last Done: 01/07/25 12:43 Print Language: Wolof
--- NOTE | 2025-01-07 10:05 | ECG_ITS ---
Test Reason : seizure Blood Pressure : */* mmHG Vent. Rate : 54 BPM Atrial Rate : 54 BPM P-R Int : 174 ms QRS Dur : 108 ms QT Int : 444 ms P-R-T Axes : 12 -8 -7 degrees QTcB Int : 421 ms Sinus bradycardia Minimal voltage criteria for LVH, may be normal variant ( R in aVL ) Borderline ECG When compared with ECG of 17-Oct-2024 02:35, T wave inversion more evident in Inferior leads Referred By: Lois David Electronically Signed By: LOUISE CASTANEDA MD
[2025-01-07 10:06] VITALS: BP 119/68; BP 135/63; PULSE 50; PULSE 55; RESP 16; O2SAT 100; O2SAT 97; BMI 40.2
[2025-01-07 10:13] VITALS: BP 135/63; PULSE 53; RESP 12; TEMP 36.6; O2SAT 99
[2025-01-07 10:36] LABS: MANUAL DIFF FLAG NO
--- OUTSIDE RECORDS SUMMARY | 2025-01-07 10:36 | XMS_ITS | Clinical Summary ---
Demographics Address [address] [place] [address] Home Phone Preferred Language Maltese; Castilian Marital Status Unknown Christianity Affiliation Unknown Race Black or Camryn rican Ethnic Group Not or Lati no Author Organization [facility] Address [address] [place] [address] Care Team Providers Care Liability Claims Manager Name Role Phone Shahramomayra Jackson MEADE Primary Care Provider [phone] Source Comments PLEASE NOTE, if this patient [...] Problem Noted Date Diagnosed Date Seizure disorder ([facility]) 03/16/2014 Immunizations Immunization Administration Dates Next Due INFLUENZA, SEASONAL, INJECTABLE [...] 68 03/16/2014 9:44 AM EDT Temperature 36.8 C (98.2 F) 03/16/2014 9:44 AM EDT Respiratory Rate 24 03/16/2014 9:44 AM EDT Oxygen Saturation - - Inhaled Oxygen Concentration - - Weight 152.1 kg (335 lb 6.4 oz) 03/16/2014 9:44 AM EDT Height 178 cm (5' 10.08 ) 03/16/2014 9:44 AM EDT Body Mass Index 48.02 03/16/2014 9:44 AM EDT Plan of Treatment Not on file Insurance [place] - [place] D[place] [facility] [place]ICA[place] Care Teams Liability Claims Manager Relationship Specialty Start Date End Date Jackson Whitney NP [address] [place] [address] PCP - General 03/26/18
--- OUTSIDE RECORDS SUMMARY | 2025-01-07 10:36 | XMS_ITS | Clinical Summary ---
Author Organization [facility] Address [address] [place] [address] Care Team Providers Care Chucking Machine Operator Name Role Phone Megan José MD Primary Care Provider [phone] Surgical History Surgery Date Site/Laterality Comments OTHER SURGICAL HISTORY PROCEDURE: DENIES PREVIOUS SURGERY Medical History Medical History Date Comments Epilepsy (CMS/HCC V24, CMS/HCC V28) DX:Epilepsy (HCC) Family History Medical History Relation Name Comments [...] 02/16/2008, 09/08/2006 Cholesterol Screening (Lipid Panel) 06/17/2023 HIV Screening 06/17/2023 Hepatitis C Screening 06/17/2023 Hypertension/CHF/CAD Annual BMP Blood Test 06/17/2023 Social Influencers of Health Screening 06/17/2023 COVID-19 Vaccine (4 - 2023-2 5 season) 2024 10/08/2021, 10/11/2020, 09/13/2020 Depression Screening 05/19/2024 Influenza Vaccine (#1) 2025 3, 03/16/2014, 05/21/2005 DTaP,Tdap,and Td Vaccines (4 [...] age to complete this topic Meningococcal B Vaccine Aged Out No l onger eligible based on patient's age to complete this topic Pneumococcal Vaccine: Pediatrics (0 to 5 Years) and At-Risk Patients (6 to 49 Years) Aged Out No longer eligible b ased on patient's age to complete this topic RSV Immunization Patients Under 20 months Aged Out No longer eligible b ased on patient's age to complete this topic Varicella Vaccines Aged Out No longer eligible based on patient's age to complete this topic Care Teams Chucking Machine Operator Relationship Specialty Start Date End Date Megan José MD [address] [place] [address] PCP - General Internal Medicine 09/29/12
--- OUTSIDE RECORDS SUMMARY | 2025-01-07 10:36 | XMS_ITS | Clinical Summary ---
Author Organization [employer] Address [address] [place] [address] Care Team Providers Care Contract Writer Name Role Phone Unavailable Primary Care Provider Unavailabl e Allergies Active Allergy Reactions Criticality Noted Date Comments Egg White (Egg Protein) Nausea Only 08/22/2023 Vancomycin Itching 01/30/2013 Medications divalproex (Depakote) 500 MG EC tablet Take 500 mg by mouth 2 times daily. Active Active Problems Problem Noted Date Diagnosed Date Drug-induced obesity 02/27/2024 Unspecified convulsions 02/27/2024 Other psychoactive substance abuse, uncomplicate d 02/24/2024 Immunizations Immunization Administration Dates Next Due Influenza injectable quadrivalent preservative f ree 05/27/2022 Moderna Covid-19 Vaccine 6+ Bivalent 04/26/2022 Pfizer Covid-19 Vaccine 04/16/2023 Social History Tobacco Use Types Packs/Day [...] Sign Reading Time Taken Comments Blood Pressure 116/72 08/24/2024 9:46 AM EDT Pulse 64 08/24/2024 9:46 AM EDT Temperature - - Respiratory Rate - - Oxygen Saturation 96% 06/15/2024 3:00 PM EST Inhaled Oxygen Concentration - - Weight 148 kg (327 lb 3.1 oz) 05/10/2019 12:12 A M EST Height 177.8 cm (5' 10 ) 05/10/2019 12:12 AM EST Body Mass Index 46.95 05/10/2019 12:12 AM EST Plan of Treatment Health Maintenance Due Date Last Done Comments Dental Oral Exam 1983 Dental Prophylaxis 1983 Dental X-Ray: Bitewings 1983 Dental X-Ray: Full Mouth 1983 Depression Screening 1983 HIV Screening 1983 Lipid Panel 1983 SDOH Screening 1983 Disability Screening 1983 Alcohol/Substance Use Screening 1995 Family Planning (PISQ) 1998 HPV Vaccines (1 - Male 3-dose series) 1998 Hepatitis C Screening 2001 Hepatitis B Vaccines (3 of 3 - 19+ 3-dose series) 05/11/2008 03/16/2008, 02/16/2008, 09/08/2006 COVID-19 Vaccine ( season) 2024 04/16/2023, 04/26/2022, 10/08/2021, Additional history exists Influenza Vaccine (#1) 2025 , 05/27/2022, 03/16/2014, Additional history exists Tobacco Screening 06/15/2025 06/15/2024 DTaP/Tdap/Td Vaccines (4 - Td or Tdap) 11/07/2030 11/07/2020, 07/10/2015, 02/13/2014 Zoster Vaccines (1 of 2) 2033 RSV Patients and Patients Aged 60 years or older (1 - 1-dose 75+ series) 2058 Hepatitis A Vaccines Aged Out 02/16/2008 No [...] Years) and At-Risk Patients (6 to 49) Years Aged Out No longer eligible based on patient's age to complete this topic RSV under 20 months Aged Out No longe r eligible based on patient's age to complete this topic Rotavirus Vaccines Aged Out No longer eligible based on patient's age to complete this topic Insurance [facility] MEDICARE MEDICARE DENTAL - [facility] * Guarantor: Ramin Garcia Account Type Relation to Patient Date of Phone Billing Address Personal/Family Self [address] [place] [id number] * Guarantor: Ramin Garcia Account Type Relation to Patient Date of Phone Billing Address Personal/Family Self [address] [place] [id number]
[2025-01-07 10:38] LABS: Hematocrit 41.8 % (42.0-52.0); Hemoglobin 13.9 g/dl (14.0-18.0); Imm Gran Abs Auto 0.02 X10*3/uL (0.00-0.03); Imm Gran Pct Auto 0.3 % (0.0-0.4); Lymphocytes Absolute Auto 1.3 X10*3/uL (1.2-4.9); Mean Corpuscular HGB Conc 33.3 g/dl (31.0-36.0); Mean Corpuscular Hemoglobin 28.7 pg (27.0-33.0); Mean Corpuscular Volume 86.2 fL (80.0-98.0); NRBC Abs Auto 0.000 X10*3/uL (0.0-0.012); NRBC Pct Auto 0.0 /100WBC (0.0-0.2); Platelet Count 169 X10*3/uL (160-400); Red Blood Count 4.85 X10*6/uL (4.60-5.80); White Blood Count 6.6 X10*3/uL (4.8-10.8)
[2025-01-07] MEDS: levETIRAcetam in NaCl (iso-os) 1,000 MG/100 ML PIGGYBACK 400 MG IV (10:46)
[2025-01-07 10:49] LABS: Ammonia 48 umol/L (13-55)
[2025-01-07 10:56] LABS: Alanine Aminotransferase 27 U/L (0-40); Albumin Level 4.2 g/dL (3.5-5.0); Alkaline Phosphatase 74 U/L (39-117); Anion Gap 11 (12-20); Aspartate Amino Transferase 22 U/L (5-37); Blood Urea Nitrogen 14 mg/dL (9-16); Calcium 9.4 mg/dL (8.4-10.2); Carbon Dioxide 26 mmol/L (22-29); Chloride 108 mmol/L (96-108); Creatinine Clr Calc Pharmacy 175.7; Estimated Glomerular Filt Rate > 60; Magnesium 2.2 mg/dL (1.6-2.6); Potassium 4.3 mmol/L (3.3-5.1); Sodium 141 mmol/L (135-145); Total Protein 6.9 g/dL (6.5-8.0)
[2025-01-07 12:43] VITALS: BP 135/63; PULSE 53; RESP 12; TEMP 36.6; O2SAT 99
[2025-01-10 22:13] LABS: Levetiracetam Keppra <2.0 mcg/mL (6.0-46.0)
== END 2025-01-07 12:44 | disposition home or self-care (01) ==
PROVIDERS: Physician Assistant Medical; Emergency Provider Emergency Medicine; PCP Internal Medicine
DX: G40.802 Other epilepsy, not intractable, without status epilepticus (principal); I10 Essential (primary) hypertension; F32.9 Major depressive disorder, single episode, unspecified; Z91.148 Patient's other noncompliance with medication regimen for other reason
CPT/HCPCS: 36415; 80053; 80164; 80177; 80307; 82140; 83735; 85025; 93005; 96365; 99284; 99285; J1953

== ENCOUNTER → 2025-01-07 10:05 | Outpatient (BNV) | payer OTHER, SELFPAY | PROVIDERS: Emergency Provider Emergency Medicine; PCP Internal Medicine; Visit Provider Internal Medicine Cardiovascular Disease | DX: R00.1 Bradycardia, unspecified (principal) | CPT/HCPCS: 93010 ==

== ENCOUNTER 2025-03-07 09:41 | Outpatient (REF) | payer OTHER, SELFPAY ==
--- NOTE | ~2025-03-07 | XR_ITS ---
EXAMINATION: XR LUMBOSACRAL SPINE CLINICAL INFORMATION: M54.50 - Low back pain, unspecified COMPARISON: 12/22/2023. TECHNIQUE: Three views of the lumbosacral spine. FINDINGS: There is no significant scoliosis. There is a normal lumbar lordosis. There is no significant subluxation. There is no fracture, compression deformity, or suspicious bone lesion. Severe disc degeneration L5-S1 with sclerosis of the endplates, similar to the prior exam. There is otherwise mild to moderate disc degeneration at the other levels. There is normal facet alignment. There are mild degenerative facet changes spanning L4-S1, stable. No pars defects. The sacrum is intact. The SI joints appear normal. No soft tissue abnormalities. XR/XR lumbar spine 2-3V IMPRESSION: 1. No acute bony or soft tissue abnormality of the lumbar spine. 2. Mild to moderate spondylosis relatively confined to L5-S1, essentially unchanged from the prior examination. Electronically signed by: Mehdi Barbour MD 03/07/2025 11:00 AM EDT
== END 2025-03-07 09:42 | disposition home or self-care (01) ==
LOC: HO.HMGCX 09:41
PROVIDERS: PCP Internal Medicine; Visit Provider Physician Assistant Medical
DX: G89.29 Other chronic pain (principal); M54.50 Low back pain, unspecified
CPT/HCPCS: 72100; 99212

== ENCOUNTER 2025-03-07 09:41 | Outpatient (AMB) | payer OTHER, SELFPAY ==
[2025-03-07 10:05] VITALS: BP 140/70; PULSE 66; TEMP 36.6; O2SAT 99; BMI 40.7
--- NOTE | 2025-03-07 10:05 | AM.OFFWIN_ITS ---
Intake Vital Signs 03/07/25 10:05 Height 5 ft 10 in Weight 284 lb BMI 40.7 BP 140/70 H Blood Pressure Location Rt brachial Position Sitting Pulse 66 Pulse Source Pulse Oximeter Temp 98 F Temp Source Oral Pulse Oximetry (%) 99 Oxygen Delivery Method Room Air Intake Visit Reasons: EP Back pain, radiates lt leg, losing balance Intake Note: Patient presents for bilateral back pain radiating throughout entire back & down left leg - has degenerative disc in lower back. Patient Tobacco Use Status: Never used Tobacco Allergies egg Allergy (Verified 03/07/25 10:10) Nausea mayonnaise Allergy (Verified 03/07/25 10:10) Nausea Do you need a note to return to daycare/school/sports/work: Yes HPI HPI Comments History of Present Illness Details History - The patient is a 39-year-old male pres enting with low back pain radiating to the left leg. - The patient reports a history of lumba r disc herniation without surgical intervention. - The pain is described as sharp and occ urs daily, radiating down the left side with associated numbness and tingling. - The patient has previously undergone p hysical therapy and currently uses [id number] analgesics such as ibuprofen and acetaminophen, which have not provided relief. - The patient has not had recent imaging studies such as MRI or X-ray. - The patient reports occasional urinary incontinence, which is associated with the pain. 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 - He denies recent trauma or falls. - He denies saddle anesthesia, CP, SOB, dysuria, or hematuria. Physical Exam General: cooperative, healthy appearing and comfortable, patient oriented x3 Head: Normal to inspection, normocephalic/atraumatic Effort & Inspection: Normal respiratory effort and able to speak in complete sentences. Cardiac: RRR, no M/R/G noted. Normal S1 and S2. Respiratory: Clear to auscultation bilaterally. No w/r/r noted. Back/spine: No CVA tenderness bilaterally. Cervical, thoracic and lumbar spine normal to inspection. Cervical ROM normal, no midline spinous tenderness noted. Thoracic ROM normal, lumbar ROM normal. No midline vertebral spinous tenderness noted. No step offs noted. No TTP of the thoracic paraspinous or paravertebral muscles. TTP of the lumbar paraspinous and paravertebral muscles bilaterally. DTR are 2+ on the lower extremities noted. Ambulates with a steady gait. Extremities: Straight leg raise test negative on right; Straight leg raise test positive on left; motor strength normal 5/5 bilaterally. Neuro: Sensation intact. Patient was informed and verbally consented to the use of an ambient scribe for clinic note documentation during this visit. ON LICENSE OF [facility] Medical History Cocaine abuse Seizure Eardrum trauma Morbid obesity with BMI of 50.0-59.9, adult Lumbar pain HTN (hypertension) Bipolar 1 disorder Chronic back pain ETOH abuse Polysubstance abuse Seizure Non compliance with medical treatment Non compliance w medication regimen Obesity Surgical History No pertinent past surgical history Family History Mother Hypertension Diabetes Cancer Father Diabetes Hypertension Social History Household Members: Other Household Members Other:: [employer]UN[employer] Housing: Other Housing Other:: homeless sometimes stays with friends Do you presently have visiting nurse or other home services: No Alcohol intake: former Patient Tobacco Use Status: Never used Tobacco e-Cigarette/Vaping Use: Never Used Second Hand Smoke Exposure: No Substance Use Type: Crack/Cocaine service: No Current occupational status: disabled Cognitive needs: No Hearing needs: No Vision needs: No Review of Systems Const All systems reviewed & are unremarkable except as noted in HPI and below Physical Exam Vital Signs: Last Vital Signs Temp 98 F 03/07/25 10:05 Pulse 66 03/07/25 10:05 BP 140/70 H 03/07/25 10:05 Pulse Ox 99 03/07/25 10:05 Oxygen Delivery Method Room Air 03/07/25 10:05 BMI result Body Mass Index 40.7 Assessment & Plan Assessment & Plan (1) Chronic lumbar pain: Code(s): M54.50 - Low back pain, unspecified; G89.29 - Other chronic pain Plan Most likely disc herniation vs strain vs sciatica Plan - An X-ray of the lumbar spine will be ordered to assess the current status of the lumbar disc herniation. - Referral to physical therapy will be made to address the back pain and improve mobility. - The patient will be advised to consult with their primary care physician for an MRI to further evaluate the lumbar spine. - A prescription for pain management and muscle relaxants will be provided to alleviate symptoms. Orders: Orders XR lumbar spine 2-3V Today M54.50 - Low back pain, unspecified PT Evaluation and Treatment Today M54.50 - Low back pain, unspecified Medications: New cyclobenzaprine 10 mg (2 x 5 mg) PO Q8H PRN 20 tabs 0RF Muscle Spasm naproxen 500 mg PO Q12H PRN 20 tabs 0RF pain 7 days Coding Level of Care Code Est Pt Level 4 (76882) Diagnoses Chronic lumbar pain M54.50; G89.29
== END 2025-03-07 10:37 | disposition home or self-care (01) ==
PROVIDERS: PCP Internal Medicine; Visit Provider Physician Assistant Medical
DX: M54.50 Low back pain, unspecified (principal); G89.29 Other chronic pain

== ENCOUNTER → 2025-03-07 10:44 | Outpatient (BNV) | payer OTHER, SELFPAY | PROVIDERS: PCP Internal Medicine; Visit Provider Radiology Diagnostic Radiology | DX: M47.817 Spondylosis without myelopathy or radiculopathy, lumbosacral region (principal) | CPT/HCPCS: 72100 ==